=== PATIENT | female | born 1940 | race Caucasian/White ===

== ENCOUNTER 2017-07-10 10:11 | Outpatient (RCR) | payer MEDICARE, OTHER, SELFPAY ==
[2017-06-20 11:39] LABS: International Normalized Ratio 1.8; Prothrombin Time (Protime)PT. 19.9 SECONDS (11.7-14.9)
[2017-07-03 11:30] LABS: International Normalized Ratio 1.8; Prothrombin Time (Protime)PT. 20.3 SECONDS (11.7-14.9)
[2017-07-10 11:47] LABS: International Normalized Ratio 1.8; Prothrombin Time (Protime)PT. 20.5 SECONDS (11.7-14.9)
== END 2017-07-10 10:25 | disposition home or self-care (01) ==
LOC: LAB 10:11
PROVIDERS: Family Provider Family Medicine; PCP Family Medicine; Visit Provider Internal Medicine Cardiovascular Disease
DX: I48.1 Persistent atrial fibrillation (principal)
CPT/HCPCS: 36415; 85610

== ENCOUNTER 2017-07-10 11:00 | Outpatient (RCR) | payer MEDICARE, OTHER, SELFPAY ==
[2017-06-15 00:30] VITALS: BP 128/72; BP 140/68
== END 2017-07-15 23:59 ==
LOC: CR 11:00
PROVIDERS: Family Provider Family Medicine; PCP Family Medicine; Visit Provider Internal Medicine Cardiovascular Disease
DX: Z95.2 Presence of prosthetic heart valve (principal); I48.1 Persistent atrial fibrillation; I10 Essential (primary) hypertension; E78.5 Hyperlipidemia, unspecified; Z79.899 Other long term (current) drug therapy; I43 Cardiomyopathy in diseases classified elsewhere; I34.0 Nonrheumatic mitral (valve) insufficiency; I35.1 Nonrheumatic aortic (valve) insufficiency
CPT/HCPCS: 36415; 85610; 93798

== ENCOUNTER → 2017-07-16 14:22 | Outpatient (CLI) | payer MEDICARE, OTHER, SELFPAY ==
[2017-07-16 15:01] LABS: Hematocrit 36.8 % (37-47); Hemoglobin 11.9 g/dl (12.0-15.0); Mean Corp Hgb Conc 32.3 g/gl (32-36); Mean Corpuscular Hgb 24.7 pg (27.0-32.0); Mean Corpuscular Volume 76.3 fL (81-99); Mean Platelet Vol. 9.6 fl (6.2-12.0); Platelet Count 159 K/mm3 (150-450); RBC Distribution Width CV 17.3 % (11.6-14.6); RBC Distribution Width SD 47.5 fl (35.1-43.9); Red Blood Count 4.82 M/mm3 (4.2-5.4); White Blood Count 4.4 K/mm3 (4.4-11.0)
[2017-07-16 15:03] LABS: Scan Indicated on CBC? Y/N NO
[2017-07-16 15:22] LABS: Microalbumin,Random Urine 8.7 mg/L (NO RANGE EST.); Microalbumin:Creatinine Ratio 9.2 mg/g CRE (<30 mg/g CRE)
[2017-07-16 15:25] LABS: Albumin, Serum 3.2 g/dL (3.2-5.0)
[2017-07-17 08:41] LABS: PTHIN 72.6 pg/mL (18.4-80.1)
[2017-07-17 08:44] LABS: Vitamin D,25 Hydroxy 26.2 ng/mL (19.95-100.01)
[2017-07-20 16:58] LABS: BUN 39 mg/dL (7-18); BUN/Creat Ratio 18.4 RATIO (10-20); Calcium,Total 7.4 mg/dL (8.5-10.1); Chloride 102 mmol/L (98-107); Creatinine, Serum 2.12 mg/dL (0.55-1.02); EST Glomerular Filtration Rate 24 mL/min (>60); Est Glom Filt Rate - Afr Amer 29 mL/min (>60); Glucose 112 mg/dL (74-106); Potassium 5.2 mmol/L (3.5-5.1); Sodium Level 136 mmol/L (136-145)
== END ==
PROVIDERS: Family Provider Family Medicine; PCP Family Medicine; Visit Provider Internal Medicine Nephrology
DX: N18.3 Chronic kidney disease, stage 3 (moderate) (principal); D63.1 Anemia in chronic kidney disease; E83.42 Hypomagnesemia; N25.81 Secondary hyperparathyroidism of renal origin
CPT/HCPCS: 36415; 80069; 80076; 82043; 82306; 82570; 83735; 83970; 85027

== ENCOUNTER 2017-08-04 10:41 | Outpatient (RCR) | payer MEDICARE, OTHER, SELFPAY ==
[2017-07-16 15:14] VITALS: BP 140/70; BMI 32.3
[2017-08-04 11:23] LABS: Prothrombin Time (Protime)PT. 40.1 SECONDS (11.7-14.9)
[2017-08-04 11:38] LABS: International Normalized Ratio 4.4
[2017-08-04 12:02] LABS: AST(SGOT) 130 U/L (15-37); Alanine Aminotransfer ALT/SGPT 99 U/L (13-56); Albumin, Serum 3.3 g/dL (3.2-5.0); Alkaline Phosphatase 191 U/L (45-117); Bilirubin, Direct 0.21 mg/dL (0.00-0.30); Cholesterol 164 mg/dL (200); Globulin 4.9 g/dL (2.2-4.2); High Density Lipoprotein 38 mg/dL; Protein, Total 8.2 g/dL (6.4-8.2); T4 Free Direct 1.85 ng/dL (0.76-1.46); Thyroid Stim Hormone (TSH) 2.28 uIU/mL (0.358-3.74); Triglycerides 113 mg/dL; Very Low Density Lipoprotein 23 mg/dL (5-40)
== END 2017-08-04 11:00 ==
LOC: LAB 10:41
PROVIDERS: Family Provider Family Medicine; PCP Family Medicine; Visit Provider Internal Medicine Cardiovascular Disease
DX: I48.1 Persistent atrial fibrillation (principal); N18.9 Chronic kidney disease, unspecified; E78.5 Hyperlipidemia, unspecified; I43 Cardiomyopathy in diseases classified elsewhere
CPT/HCPCS: 36415; 80061; 80076; 84439; 84443; 85610

== ENCOUNTER → 2017-08-11 08:06 | Outpatient (CLI) | payer MEDICARE, OTHER, SELFPAY ==
[2017-07-16 15:14] VITALS: BP 140/70; BMI 32.3
[2017-08-11 09:35] LABS: International Normalized Ratio 2.5
[2017-08-11 09:44] LABS: Anion Gap 5 (5-15); BUN 35 mg/dL (7-18); BUN/Creat Ratio 16.6 RATIO (10-20); Calcium,Total 9.3 mg/dL (8.5-10.1); Chloride 101 mmol/L (98-107); Creatinine, Serum 2.11 mg/dL (0.55-1.02); EST Glomerular Filtration Rate 24 mL/min (>60); Est Glom Filt Rate - Afr Amer 29 mL/min (>60); Glucose 109 mg/dL (74-106); Potassium 4.3 mmol/L (3.5-5.1); Sodium Level 135 mmol/L (136-145)
--- NOTE | 2017-08-11 14:08 | PFT ---
INTRODUCTION: The patient is a 77-year-old female currently under the care of Dr. Velasquez that presents for pulmonary function testing secondary to a diagnosis of pulmonary hypertension. Respiratory therapy reports good patient effort and reports no other concerns. Bronchodilators were used during testing. INTERPRETATION: Forced expiration spirometry demonstrates no evidence of a large airways obstructive ventilatory defect. There was no significant response to aerosolized bronchodilators, based upon strict ATS criteria. Spirograms are of good quality and plateau normally. The respiratory flow volume loop appears normal. Body plethysmography was performed and reveals lung volumes to be within normal limits. Diffusing capacity by single breath CO is mildly reduced at 66% of predicted. IMPRESSION: These pulmonary function studies demonstrate the presence of an isolated mild reduction in diffusing capacity, which could be related to an underlying pulmonary vascular disorder such as pulmonary hypertension. There are no previous pulmonary function studies available for comparison.
== END ==
PROVIDERS: Family Provider Family Medicine; PCP Family Medicine; Visit Provider Internal Medicine Cardiovascular Disease
DX: I48.0 Paroxysmal atrial fibrillation (principal); I27.20 Pulmonary hypertension, unspecified; N18.3 Chronic kidney disease, stage 3 (moderate)
CPT/HCPCS: 36415; 80048; 85610; 94060; 94726; 94729

== ENCOUNTER 2017-09-10 10:36 | Outpatient (RCR) | payer MEDICARE, OTHER, SELFPAY ==
[2017-08-25 11:44] LABS: International Normalized Ratio 2.8; Prothrombin Time (Protime)PT. 29.8 SECONDS (11.7-14.9)
[2017-09-10 11:26] LABS: Prothrombin Time (Protime)PT. 46.8 SECONDS (11.7-14.9)
== END 2017-09-10 11:00 | disposition home or self-care (01) ==
LOC: LAB 10:36
PROVIDERS: Family Provider Family Medicine; PCP Family Medicine; Visit Provider Internal Medicine Cardiovascular Disease
DX: I48.1 Persistent atrial fibrillation (principal)
CPT/HCPCS: 36415; 85610

== ENCOUNTER 2017-10-05 10:06 | Outpatient (RCR) | payer MEDICARE, OTHER, SELFPAY ==
[2017-09-14 07:01] VITALS: BP 140/70; BMI 32.3
[2017-09-14 11:27] LABS: International Normalized Ratio 2.2; Prothrombin Time (Protime)PT. 24.1 SECONDS (11.7-14.9)
[2017-09-21 12:02] LABS: International Normalized Ratio 2.4
[2017-10-05 11:15] LABS: Prothrombin Time (Protime)PT. 22.7 SECONDS (11.7-14.9)
== END 2017-10-05 11:00 | disposition home or self-care (01) ==
LOC: LAB 10:06
PROVIDERS: Family Provider Family Medicine; PCP Family Medicine; Visit Provider Internal Medicine Cardiovascular Disease
DX: I48.1 Persistent atrial fibrillation (principal)
CPT/HCPCS: 36415; 85610

== ENCOUNTER 2017-11-11 10:56 | Outpatient (RCR) | payer MEDICARE, OTHER, SELFPAY ==
[2017-10-13 10:10] VITALS: BP 140/70; BMI 32.3
[2017-11-02 13:21] LABS: International Normalized Ratio 1.9; Prothrombin Time (Protime)PT. 22.1 SECONDS (11.7-14.9)
[2017-11-11 11:37] LABS: International Normalized Ratio 2.5; Prothrombin Time (Protime)PT. 26.9 SECONDS (11.7-14.9)
== END 2017-11-11 11:00 | disposition home or self-care (01) ==
LOC: LAB 10:56
PROVIDERS: Family Provider Family Medicine; PCP Family Medicine; Visit Provider Internal Medicine Cardiovascular Disease
DX: I48.1 Persistent atrial fibrillation (principal)
CPT/HCPCS: 36415; 85610

== ENCOUNTER 2017-12-09 10:47 | Outpatient (RCR) | payer MEDICARE, OTHER, SELFPAY ==
[2017-11-12 13:22] VITALS: BP 140/70; BMI 32.3
--- NOTE | 2017-11-18 10:53 | DT_ITS ---
This patient was seen during an EMR downtime November 16, 2017 - November 23, 2017. This patient may have a combination of paper and electronic documentation or all paper documentation. All documentation is viewable within the e-chart portion of [facility] for each patient visit.
[2017-11-23 12:19] LABS: Prothrombin Time (Protime)PT. 31.4 SECONDS (11.7-14.9)
[2017-12-09 11:21] LABS: International Normalized Ratio 2.5; Prothrombin Time (Protime)PT. 27.5 SECONDS (11.7-14.9)
== END 2017-12-09 11:00 | disposition home or self-care (01) ==
LOC: LAB 10:47
PROVIDERS: Family Provider Family Medicine; PCP Family Medicine; Visit Provider Internal Medicine Cardiovascular Disease
DX: I48.0 Paroxysmal atrial fibrillation (principal)
CPT/HCPCS: 36415; 85610

== ENCOUNTER 2018-01-06 10:49 | Outpatient (RCR) | payer MEDICARE, OTHER, SELFPAY ==
[2017-12-11 11:58] VITALS: BP 140/70; BMI 32.3
[2018-01-06 11:27] LABS: International Normalized Ratio 3.3; Prothrombin Time (Protime)PT. 33.9 SECONDS (11.7-14.9)
== END 2018-01-06 12:00 | disposition home or self-care (01) ==
LOC: LAB 10:49
PROVIDERS: Family Provider Family Medicine; PCP Family Medicine; Visit Provider Internal Medicine Cardiovascular Disease
DX: I48.1 Persistent atrial fibrillation (principal)
CPT/HCPCS: 36415; 85610

== ENCOUNTER → 2018-01-14 11:13 | Outpatient (CLI) | payer MEDICARE, OTHER, SELFPAY ==
[2018-01-14 12:23] LABS: Anion Gap 9 (5-15); BUN 30 mg/dL (7-18); BUN/Creat Ratio 16.9 RATIO (10-20); Calcium,Total 8.9 mg/dL (8.5-10.1); Chloride 100 mmol/L (98-107); Creatinine, Serum 1.77 mg/dL (0.55-1.02); EST Glomerular Filtration Rate 30 mL/min (>60); Est Glom Filt Rate - Afr Amer 36 mL/min (>60); Glucose 96 mg/dL (74-106); Potassium 4.4 mmol/L (3.5-5.1); Sodium Level 138 mmol/L (136-145)
== END ==
PROVIDERS: Family Provider Family Medicine; PCP Family Medicine; Visit Provider Internal Medicine Nephrology
DX: N18.3 Chronic kidney disease, stage 3 (moderate) (principal)
CPT/HCPCS: 36415; 80048

== ENCOUNTER 2018-02-04 10:44 | Outpatient (RCR) | payer MEDICARE, OTHER, SELFPAY ==
[2018-01-14 14:11] VITALS: BP 140/70; BMI 32.3
[2018-01-20 11:36] LABS: Prothrombin Time (Protime)PT. 38.5 SECONDS (11.7-14.9)
[2018-01-20 11:44] LABS: International Normalized Ratio 3.9
[2018-01-28 11:51] LABS: International Normalized Ratio 2.2; Prothrombin Time (Protime)PT. 24.6 SECONDS (11.7-14.9)
[2018-02-04 11:30] LABS: International Normalized Ratio 2.2; Prothrombin Time (Protime)PT. 24.3 SECONDS (11.7-14.9)
== END 2018-02-04 12:00 | disposition home or self-care (01) ==
LOC: LAB 10:44
PROVIDERS: Family Provider Family Medicine; PCP Family Medicine; Visit Provider Internal Medicine Cardiovascular Disease
DX: I48.1 Persistent atrial fibrillation (principal)
CPT/HCPCS: 36415; 85610

== ENCOUNTER 2018-02-26 10:18 | Outpatient (RCR) | payer MEDICARE, OTHER, SELFPAY ==
[2018-02-16 15:07] VITALS: BP 140/70; BMI 32.3
[2018-02-18 13:38] LABS: International Normalized Ratio 1.7; Prothrombin Time (Protime)PT. 20.2 SECONDS (11.7-14.9)
[2018-02-18 13:54] LABS: Anion Gap 10 (5-15); BUN 35 mg/dL (7-18); BUN/Creat Ratio 20.1 RATIO (10-20); Chloride 100 mmol/L (98-107); Creatinine, Serum 1.74 mg/dL (0.55-1.02); EST Glomerular Filtration Rate 30 mL/min (>60); Est Glom Filt Rate - Afr Amer 37 mL/min (>60); Glucose 87 mg/dL (74-106); Potassium 4.3 mmol/L (3.5-5.1); Sodium Level 137 mmol/L (136-145)
[2018-02-26 11:26] LABS: International Normalized Ratio 2.2; Prothrombin Time (Protime)PT. 24.8 SECONDS (11.7-14.9)
== END 2018-02-26 11:00 | disposition home or self-care (01) ==
LOC: LAB 10:18
PROVIDERS: Family Provider Family Medicine; PCP Family Medicine; Visit Provider Internal Medicine Cardiovascular Disease
DX: I48.1 Persistent atrial fibrillation (principal); N18.3 Chronic kidney disease, stage 3 (moderate)
CPT/HCPCS: 36415; 80048; 85610

== ENCOUNTER → 2018-03-11 13:43 | Outpatient (CLI) | payer MEDICARE, OTHER, SELFPAY ==
--- NOTE | 2018-03-11 13:45 | ECHOCS_ITS ---
Reason For Study: AVR. MVR Procedure This was a 2D Doppler, Color Flow transthoracic echocardiogram. Exam performed in department. Left Ventricle Normal size and thickness. The estimated ejection fraction is 65 %. Septal motion consistent with IVCD. No regional wall motion abnormalities noted. Right Ventricle Moderately dilated right ventricle. Normal systolic function. Atria The left atrium is mildly enlarged. Normal right atrium. Normal atrial septum. Bubble contrast study negative for right to left interatrial shunt. Mitral Valve Peak transmitral valve gradient 14 mmHg. Mean transmitral valve gradient 5 mmHg. Bioprosthetic mitral valve. Tricuspid Valve Normal tricuspid valve. Trivial tricuspid valve insufficiency. Right ventricular systolic pressure estimated to be 30 mmHg. Aortic Valve Peak aortic valve gradient 17 mmHg. Mean aortic valve gradient 9 mmHg. Bioprosthetic aortic valve. Pulmonic Valve Normal pulmonic valve. Great Vessels Normal aortic root. Normal arch. Normal inferior vena cava. Inferior vena cava collapse with sniff. Pericardium/Pleural No pericardial effusion. Medication 22 gauge I.V. with prn adaptor inserted into right arm. Diluted definity 2ml given slow IV push to enhance endocardial definition. Performed a rapid injection of agitated mix of 9 cc saline and 1cc air to assess for atrial septal defect. MMode/2D Measurements & Calculations LVIDd: 4.0 cm IVSd: 1.2 cm LVOT diam: 2.1 cm LVIDs: 2.6 cm LVPWd: 1.1 cm LVOT area: 3.4 cm2 RVDd: 4.0 cm FS: 35.7 % LA dimension: 4.2 cm LAV(MOD-sp4): 68.2 ml LA A4 area: 21.6 cm2 RA A4 area: 18.1 cm2 Time Measurements MV dec time: 0.44 sec Doppler Measurements & Calculations MV E max brandon: 134.8 cm/sec Lat Peak E' Brandon: 8.6 cm/sec Med Peak E' Brandon: 6.6 cm/sec MV A max brandon: 92.7 cm/sec E/E' lat: 15.6 E/E' med: 20.5 MV E/A: 1.5 MV V2 max: 188.8 cm/sec MV P1/2t max brandon: 190.7 cm/sec Ao V2 max: 206.0 cm/sec MV max P.3 mmHg MV P1/2t: 60.3 msec Ao max P.0 mmHg MV V2 mean: 106.6 cm/sec MV dec slope: 926.1 cm/sec2 Ao V2 mean: 138.3 cm/sec MV mean P.1 mmHg MVA(P1/2t): 3.6 cm2 Ao mean P.8 mmHg MV V2 VTI: 47.0 cm Ao V2 VTI: 41.3 cm MVA(VTI): 2.3 cm2 LIBIA(I,D): 2.7 cm2 LIBIA(V,D): 2.6 cm2 LV V1 max: 154.6 cm/sec SV(LVOT): 109.6 ml PA V2 max: 86.7 cm/sec LV V1 max P.6 mmHg LV V1 mean P.0 mmHg LV V1 mean: 104.0 cm/sec LV V1 VTI: 32.1 cm TR max brandon: 248.8 cm/sec TR max P.8 mmHg Interpretation Summary The estimated ejection fraction is 65 %. Moderately dilated right ventricle. The left atrium is mildly enlarged. Bubble contrast study negative for right to left interatrial shunt. Trivial tricuspid valve insufficiency. Right ventricular systolic pressure estimated to be 30 mmHg. Compared to echo report dated 04/06/2017, LV function has markedly improved from 45 to 65%. RVSP has remained the same. The study was technically difficult. Contrast injection was performed. Ordering Physician: Ra Velasquez Referring Physician: Hermann Nath M.D. Performed By: Crow Orlando RCS
== END ==
PROVIDERS: Family Provider Family Medicine; PCP Family Medicine; Referring Provider Internal Medicine Cardiovascular Disease; Visit Provider Internal Medicine Cardiovascular Disease
DX: Z95.2 Presence of prosthetic heart valve (principal); Z98.890 Other specified postprocedural states
CPT/HCPCS: 93306; Q9957; A4216; C8929

== ENCOUNTER 2018-03-23 09:21 | Outpatient (RCR) | payer MEDICARE, OTHER, SELFPAY ==
[2018-03-17 10:06] VITALS: BP 140/70; BMI 32.3
[2018-03-23 11:17] LABS: International Normalized Ratio 2.8; Prothrombin Time (Protime)PT. 29.5 SECONDS (11.7-14.9)
== END 2018-03-23 11:00 | disposition home or self-care (01) ==
LOC: LAB 09:21
PROVIDERS: Family Provider Family Medicine; PCP Family Medicine; Referring Provider Internal Medicine Cardiovascular Disease; Visit Provider Internal Medicine Cardiovascular Disease
DX: I48.1 Persistent atrial fibrillation (principal); I48.0 Paroxysmal atrial fibrillation; Z79.01 Long term (current) use of anticoagulants
CPT/HCPCS: 36415; 85610

== ENCOUNTER 2018-04-22 13:29 | Outpatient (RCR) | payer MEDICARE, OTHER, SELFPAY ==
[2018-04-15 11:22] VITALS: BP 140/70; BMI 32.3
[2018-04-22 15:35] LABS: International Normalized Ratio 2.6; Prothrombin Time (Protime)PT. 28.2 SECONDS (11.7-14.9)
== END 2018-05-14 10:02 | disposition home or self-care (01) ==
LOC: LAB 13:29
PROVIDERS: Family Provider Family Medicine; PCP Family Medicine; Referring Provider Internal Medicine Cardiovascular Disease; Visit Provider Internal Medicine Cardiovascular Disease
DX: I48.1 Persistent atrial fibrillation (principal); I48.0 Paroxysmal atrial fibrillation; Z79.01 Long term (current) use of anticoagulants
CPT/HCPCS: 36415; 85610

== ENCOUNTER 2018-06-05 09:45 | Emergency (ER) | payer MEDICARE, OTHER, SELFPAY ==
[2018-04-15 11:22] VITALS: BMI 32.3
[2018-06-05 09:47] VITALS: BP 136/85; PULSE 83; RESP 16; TEMP 36.3; O2SAT 100; BMI 35.8
--- NOTE | 2018-06-05 10:09 | RAD_ITS ---
STUDY: X-RAY - LEFT KNEE REASON FOR EXAM: Female, 78 years old. Pain after fall TECHNIQUE: 3 view(s) of the knee. COMPARISON: None. FINDINGS: Normal visualized distal femur. Normal visualized proximal tibia and fibula. Normal proximal tibiofibular articulation. There is moderate degenerative arthrosis of the medial femorotibial compartment with moderate joint space narrowing. There is mild degenerative arthrosis of the lateral femorotibial compartment. There is mild degenerative arthrosis of the patellofemoral articulation. The soft tissue structures are unremarkable. RAD/Knee 3 Views IMPRESSION: Degenerative arthrosis. Electronically Signed: Dennis Wong DO at 11:08 EST Tel , Service support ,
--- NOTE | 2018-06-05 10:09 | RAD_ITS ---
STUDY: X-RAY - RIGHT TIBIA AND FIBULA REASON FOR EXAM: Female, 78 years old. Status post fall TECHNIQUE: 3 view(s) of the tibia and fibula were obtained. COMPARISON: None. FINDINGS: Normal visualized tibia. Normal visualized fibula. Mild soft tissue swelling RAD/Tibia & Fibula 2 Views IMPRESSION: No evidence of fracture Electronically Signed: Dennis Wong DO at 11:07 EST Tel , Service support ,
[2018-06-05 10:33] LABS: Absolute Lymphocyte Count 0.48 X10^3/ul (0.83-4.51); Absolute Neutrophil Count 3.6 X10^3/uL (2.0-7.7); Basophil# 0.03 X10^3/uL; Basophil% 0.6 % (0-1); Differential Indicated SCAN CRITERIA MET; Eosinophil# 0.03 X10^3/uL; Eosinophils% 0.6 % (0-5); Hematocrit 26.3 % (37-47); Hemoglobin 8.2 g/dl (12.0-15.0); Lymphocyte # 0.48 X10^3/ul (4.0); Lymphocyte % 10.1 % (19-41); Mean Corp Hgb Conc 31.2 g/gl (32-36); Mean Corpuscular Hgb 24.2 pg (27.0-32.0); Mean Corpuscular Volume 77.6 fL (81-99); Mean Platelet Vol. 9.1 fl (6.2-12.0); Monocyte# 0.57 X10^3/uL; Monocyte% 12.1 % (0-10); Neutrophil # 3.62 X10^3/uL (2.7-7.7); Neutrophil % 76.6 % (47-70); POSITIVE COUNT NO; POSITIVE DIFFERENTIAL YES; POSITIVE MORPHOLOGY NO; Platelet Count 152 K/mm3 (150-450); RBC Distribution Width CV 17.6 % (11.6-14.6); RBC Distribution Width SD 49.5 fl (35.1-43.9); Red Blood Count 3.39 M/mm3 (4.2-5.4); White Blood Count 4.7 K/mm3 (4.4-11.0)
[2018-06-05 10:34] LABS: International Normalized Ratio 3.4; Prothrombin Time (Protime)PT. 34.3 SECONDS (11.7-14.9)
--- NOTE | 2018-06-05 10:40 | RAD_ITS ---
STUDY: X-RAY - LEFT HUMERUS REASON FOR EXAM: Female, 78 years old. Fall with pain TECHNIQUE: 2 view(s) of the humerus. COMPARISON: None. FINDINGS: Normal visualized humerus. There is no demonstrated fracture or osseous destructive process. There is no demonstrated soft tissue abnormality. RAD/Humerus min 2 Views IMPRESSION: Normal x-ray examination of the humerus. Electronically Signed: Dennis Wong DO at 11:07 EST Tel , Service support ,
[2018-06-05 10:41] LABS: Anion Gap 10 (5-15); BUN 31 mg/dL (7-18); BUN/Creat Ratio 16.7 RATIO (10-20); Calcium,Total 8.2 mg/dL (8.5-10.1); Chloride 103 mmol/L (98-107); Creatinine, Serum 1.86 mg/dL (0.55-1.02); EST Glomerular Filtration Rate 28 mL/min (>60); Est Glom Filt Rate - Afr Amer 34 mL/min (>60); Estimated Creatinine Clearance 20.03 ml/min; Glucose 105 mg/dL (74-106); Potassium 3.7 mmol/L (3.5-5.1); Sodium Level 137 mmol/L (136-145)
[2018-06-05] MEDS: 0.9% Normal Saline 1,000 ML 150 ML IV (10:56)
[2018-06-05 11:41] VITALS: BP 131/72; PULSE 79; RESP 16
--- NOTE | 2018-06-05 12:12 | ED.VISSUMM ---
- ER Visit Summary Date of Service: 06/05/18 Chief Complaint: [Fall] History of Present Illness: The patient is a 78 F [presents the emergency department after sustaining a fall 9 days ago. Patient states that she tripped over a stool and she fell against the table in a wall and then onto the linoleum floor. Patient did hit her knees. She did bump her head on a plastic basket. No loss of consciousness. Patient initially did not think much of it but continues to have a lot of ecchymosis and bruising and discomfort in her legs. Patient also complains of pain in her left upper arm. She denies any head pain. She denies any neck pain. She has had no vomiting. Patient is on Coumadin for history of atrial fibrillation.] Physical Examination: [HEENT-PERRLA, EOMI. Cranial nerves II through XII grossly intact. TMs clear. Mucous membranes moist. No adenopathy. Patient has some ecchymosis and bruising noted to the left forehead. Cardiovascular-regular rate and rhythm without murmur or ectopy Lungs-clear to auscultation, chest wall stable without crepitus or subcu emphysema Abdomen-normoactive bowel sounds, soft, nontender, no rebound or rigidity, no peritoneal signs. Extremities-intact ?4, normal range of motion, normal pulses. Left upper extremity-patient does have some mild diffuse tenderness over the proximal humerus without any obvious deformity noted. Patient does have a small area of ecchymosis noted. Neurovascular intact distally. Left knee-patient has ecchymosis and bruising noted with some diffuse tenderness about the knee. Ecchymosis extends down to the ankle. Right lower extremity-patient does have diffuse tenderness over the anterior tibia with ecchymosis and bruising noted diffusely. Neurovascular intact.] Test Results: [X-rays of the left shoulder, left knee, and right tib-fib were obtained which showed no fractures. CBC with differential showed a white cell count of 4.7, hemoglobin 8.2, hematocrit 26, platelets 152. Chemistries unremarkable. INR was 3.4.] Emergency Department Course and Treatment: [Patient's Coumadin level is managed by Dr. Ra Velasquez after I did discuss case with him and he asked that we hold the patient's Coumadin until next Thursday. Patient will also have repeat blood work performed next week to monitor her H&H and INR.] Treatment Plan: [Hold Coumadin until next Thursday and have repeat H&H next week to be ordered by Dr. Ra Velasquez's office.] Disposition: [Discharged home in stable condition] Impression: Mechanical fall Contusion bilateral lower extremities Close head injury Contusion left shoulder Anemia Coumadin coagulopathy] This note was generated with [employer] dictation software. It may contain incorrect words, spelling, and punctuation that were not noted in review of the chart prior to signing ED Disposition - Plan for ED Patient: Chief Complaint: Fall Referrals: Hermann Nath DO [Primary Care Provider] -
--- NOTE | 2018-06-05 12:16 | ED.DCSUM_ITS ---
- ER Visit Summary Date of Service: 06/05/18 Chief Complaint: [Fall] History of Present Illness: The patient is a 78 F [presents the emergency department after sustaining a fall 9 days ago. Patient states that she tripped over a stool and she fell against the table in a wall and then onto the linoleum floor. Patient did hit her knees. She did bump her head on a plastic basket. No loss of consciousness. Patient initially did not think much of it but continues to have a lot of ecchymosis and bruising and discomfort in her legs. Patient also complains of pain in her left upper arm. She denies any head pain. She denies any neck pain. She has had no vomiting. Patient is on Coumadin for history of atrial fibrillation.] Physical Examination: [HEENT-PERRLA, EOMI. Cranial nerves II through XII grossly intact. TMs clear. Mucous membranes moist. No adenopathy. Patient h as some ecchymosis and bruising noted to the left forehead. Cardiovascular-regular rate and rhythm without murmur or ectopy Lungs-clear to auscultation, chest wall stable without crepitus or subcu e mphysema Abdomen-normoactive bowel sounds, soft, nontender, no rebound or rigidity, no peritoneal signs. Extremities-intact ?4, normal range of motion, normal pulses. Left upper extremity-patient does have some mild diffuse tenderness over the proximal humerus without any obvious deformity noted. Patient does have a small area of ecchymosis noted. Neurovascular intact distally. Left knee-patient has ecchymosis and bruising noted with some diffuse tenderness about the knee. Ecchymosis extends down to the ankle. Right lower extremity-patient does have diffuse tenderness over the anterior tibia with ecchymosis and bruising noted diffusely. Neurovascular intact.] Test Results: [X-rays of the left shoulder, left knee, and right tib-fib were obtained which showed no fractures. CBC with differential showed a white cell count of 4.7, hemoglobin 8.2, hematocrit 26, platelets 152. Chemistries unremarkable. INR was 3.4.] Emergency Department Course and Treatment: [Patient's Coumadin level is managed by Dr. Ra Velasquez after I did discuss case with him and he asked that we hold the patient's Coumadin until next Thursday. Patient will also have repeat blood work performed next week to monitor her H&H and INR.] Treatment Plan: [Hold Coumadin until next Thursday and have repeat H&H next week to be ordered by Dr. Ra Velasquez's office.] Disposition: [Discharged home in stable condition] Impression: Mechanical fall Contusion bilateral lower extremities Close head injury Contusion left shoulder Anemia Coumadin coagulopathy] This note was generated with [employer] dictation software. It may contain incorrect words, spelling, and punctuation that were not noted in review of the chart prior to signing ED Disposition - Plan for ED Patient: Chief Complaint: Fall Referrals: Hermann Nath DO [Primary Care Provider] -
--- NOTE | 2018-06-05 12:17 | ED.DEP ---
ED Disposition - Plan for ED Patient: Chief Complaint: Fall Instructions: ED Mechanical Fall, ED Contusion Lower Ext, ED Contusion Upper Ext, Anemia Prescriptions: Oxycodone HCl/Acetaminophen [Percocet 5/325] 1 tab PO Q6H PRN PRN 3 Days #12 tab PRN Reason: Pain Referrals: Hermann Nath DO [Primary Care Provider] - Ra Velasquez MD [STAFF PHYSICIAN] - 3-5 Days Additional Instructions: hold your coumadin until next Thursday and have repeat blood work next week
[2018-06-05 12:27] VITALS: BP 114/71; PULSE 71; RESP 16; O2SAT 99
== END 2018-06-05 12:39 | disposition home or self-care (01) ==
LOC: ED 11:03
PROVIDERS: Emergency Provider Emergency Medicine; Family Provider Family Medicine; PCP Family Medicine
DX: S09.90XA Unspecified injury of head, initial encounter (principal); S40.012A Contusion of left shoulder, initial encounter; T45.515A Adverse effect of anticoagulants, initial encounter; W01.0XXA Fall on same level from slipping, tripping and stumbling without subsequent striking against object, initial encounter; I48.91 Unspecified atrial fibrillation; Z79.01 Long term (current) use of anticoagulants; D64.9 Anemia, unspecified; E78.00 Pure hypercholesterolemia, unspecified; N18.9 Chronic kidney disease, unspecified; I12.9 Hypertensive chronic kidney disease with stage 1 through stage 4 chronic kidney disease, or unspecified chronic kidney disease
CPT/HCPCS: 73060; 73562; 73590; 80048; 85025; 85610; 96360; 96361; 99283; J7030; A4216

== ENCOUNTER 2018-06-11 11:03 | Outpatient (RCR) | payer MEDICARE, OTHER, SELFPAY ==
[2018-04-15 11:22] VITALS: BMI 32.3
[2018-05-17 10:03] VITALS: BP 140/70
[2018-05-22 11:31] LABS: International Normalized Ratio 2.7; Prothrombin Time (Protime)PT. 28.9 SECONDS (11.7-14.9)
[2018-06-11 11:28] LABS: International Normalized Ratio 2.3; Prothrombin Time (Protime)PT. 25.2 SECONDS (11.7-14.9)
== END 2018-06-11 12:00 | disposition home or self-care (01) ==
LOC: LAB 11:03
PROVIDERS: Family Provider Family Medicine; PCP Family Medicine; Referring Provider Internal Medicine Cardiovascular Disease; Visit Provider Internal Medicine Cardiovascular Disease
DX: I48.1 Persistent atrial fibrillation (principal); I48.0 Paroxysmal atrial fibrillation; Z79.01 Long term (current) use of anticoagulants
CPT/HCPCS: 36415; 85610

== ENCOUNTER 2018-06-21 11:17 | Outpatient (RCR) | payer MEDICARE, OTHER, SELFPAY ==
[2018-06-14 14:59] VITALS: BP 140/70; BMI 32.3
[2018-06-21 10:42] VITALS: BMI 35.8
[2018-06-21 13:33] LABS: Prothrombin Time (Protime)PT. 35.8 SECONDS (11.7-14.9)
[2018-06-21 13:44] LABS: International Normalized Ratio 3.6
[2018-06-21 13:54] LABS: Anion Gap 9 (5-15); BUN 26 mg/dL (7-18); BUN/Creat Ratio 13.9 RATIO (10-20); Calcium,Total 8.5 mg/dL (8.5-10.1); Chloride 104 mmol/L (98-107); Creatinine, Serum 1.87 mg/dL (0.55-1.02); EST Glomerular Filtration Rate 28 mL/min (>60); Est Glom Filt Rate - Afr Amer 34 mL/min (>60); Glucose 98 mg/dL (74-106); Potassium 4.1 mmol/L (3.5-5.1); Sodium Level 136 mmol/L (136-145)
[2018-06-21 14:07] LABS: Absolute Lymphocyte Count 0.57 X10^3/ul (0.83-4.51); Absolute Neutrophil Count 4.1 X10^3/uL (2.0-7.7); Basophil# 0.02 X10^3/uL; Basophil% 0.4 % (0-1); Eosinophil# 0.02 X10^3/uL; Eosinophils% 0.4 % (0-5); Hematocrit 29.3 % (37-47); Hemoglobin 8.7 g/dl (12.0-15.0); Lymphocyte # 0.57 X10^3/ul (4.0); Lymphocyte % 11.1 % (19-41); Mean Corp Hgb Conc 29.7 g/gl (32-36); Mean Corpuscular Hgb 23.7 pg (27.0-32.0); Mean Corpuscular Volume 79.8 fL (81-99); Mean Platelet Vol. 9.3 fl (6.2-12.0); Monocyte# 0.46 X10^3/uL; Monocyte% 8.9 % (0-10); Neutrophil # 4.08 X10^3/uL (2.7-7.7); Neutrophil % 79.2 % (47-70); Platelet Count 151 K/mm3 (150-450); RBC Distribution Width CV 17.9 % (11.6-14.6); RBC Distribution Width SD 52.2 fl (35.1-43.9); Red Blood Count 3.67 M/mm3 (4.2-5.4); White Blood Count 5.2 K/mm3 (4.4-11.0)
[2018-06-21 14:08] LABS: Differential Indicated SCAN CRITERIA MET; POSITIVE COUNT NO; POSITIVE DIFFERENTIAL YES; POSITIVE MORPHOLOGY NO
== END 2018-06-21 12:00 | disposition home or self-care (01) ==
LOC: LAB 11:17
PROVIDERS: Physician Assistant Medical; Family Provider Family Medicine; PCP Family Medicine; Referring Provider Internal Medicine Cardiovascular Disease; Visit Provider Internal Medicine Cardiovascular Disease
DX: I10 Essential (primary) hypertension (principal); I48.1 Persistent atrial fibrillation; I48.0 Paroxysmal atrial fibrillation; Z79.01 Long term (current) use of anticoagulants
CPT/HCPCS: 36415; 80048; 85025; 85610

== ENCOUNTER 2018-07-19 15:16 | Outpatient (RCR) | payer MEDICARE, OTHER, SELFPAY ==
[2018-07-16 06:56] VITALS: BP 140/70
[2018-07-19 15:41] LABS: Absolute Lymphocyte Count 0.56 X10^3/ul (0.83-4.51); Absolute Neutrophil Count 3.2 X10^3/uL (2.0-7.7); Basophil# 0.02 X10^3/uL; Basophil% 0.5 % (0-1); Differential Indicated SCAN CRITERIA MET; Eosinophil# 0.01 X10^3/uL; Eosinophils% 0.2 % (0-5); Hematocrit 25.3 % (37-47); Hemoglobin 7.6 g/dl (12.0-15.0); Lymphocyte # 0.56 X10^3/ul (4.0); Lymphocyte % 13.6 % (19-41); Mean Corpuscular Hgb 22.9 pg (27.0-32.0); Mean Corpuscular Volume 76.2 fL (81-99); Mean Platelet Vol. 9.4 fl (6.2-12.0); Monocyte# 0.36 X10^3/uL; Monocyte% 8.7 % (0-10); Neutrophil # 3.17 X10^3/uL (2.7-7.7); POSITIVE COUNT NO; POSITIVE DIFFERENTIAL YES; POSITIVE MORPHOLOGY NO; Platelet Count 102 K/mm3 (150-450); RBC Distribution Width CV 17.3 % (11.6-14.6); RBC Distribution Width SD 47.9 fl (35.1-43.9); Red Blood Count 3.32 M/mm3 (4.2-5.4); White Blood Count 4.1 K/mm3 (4.4-11.0)
[2018-07-19 16:26] LABS: Differential Comment SCANNED
[2018-07-19 16:33] LABS: Prothrombin Time (Protime)PT. 81.6 SECONDS (11.7-14.9)
== END 2018-08-12 14:04 | disposition home or self-care (01) ==
LOC: LAB 15:16
PROVIDERS: Family Provider Family Medicine; PCP Family Medicine; Referring Provider Internal Medicine Cardiovascular Disease; Visit Provider Internal Medicine Cardiovascular Disease
DX: I48.0 Paroxysmal atrial fibrillation (principal); I48.1 Persistent atrial fibrillation; Z79.01 Long term (current) use of anticoagulants
CPT/HCPCS: 36415; 85025; 85610

== ENCOUNTER 2018-07-19 16:31 | Inpatient (IN) | payer MEDICARE, OTHER, SELFPAY ==
[2018-07-19] VITALS (20 sets, daily range): BP systolic 88–109; BP diastolic 44–69; PULSE 46–61; RESP 17–24; TEMP 36.1–36.6; O2SAT 92–100; BMI 34.5; BMI 34.7; BMI 34.8; BMI 34.4
--- NOTE | 2018-07-19 16:54 | EKG12_ITS ---
Test Reason : Blood Pressure : / mmHG Vent. Rate : 048 BPM Atrial Rate : 048 BPM P-R Int : 210 ms QRS Dur : 132 ms QT Int : 526 ms P-R-T Axes : 078 -27 030 degrees QTc Int : 469 ms Sinus bradycardia with 1st degree A-V block Right bundle branch block Abnormal ECG Confirmed by CARLOS PONCE, HIRAM ([id number]), editor producer OSMAN MARY ([id number] on 07/21/2018 1:56:31 PM Referred By: Ra Velasquez Confirmed By:HIRAM GONZALEZ MD
--- NOTE | 2018-07-19 16:58 | ED.VISSUMM ---
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 Velasquez for concerns for GI bleed. History aortic valve repair with paroxysmal atrial fibrillation on baby aspirin and warfarin. Follow-up in the office for symptoms of transient nosebleed and bruising with fatigue over the last 2 weeks. Reports black slimy stools 1-2 times per day or last 2 weeks. No history of EGD or colonoscopy. No NSAID therapy. Denies abdominal pain. No nausea or vomiting. Called in report had not hemoglobin 7.6 today outpatient, had a blood pressure of 80/50 in the office. History of cardiomyopathy. No heart stents or coronary disease. States has been transfused she thinks one time in the past. Physical Examination: General: Alert and oriented ?3, no acute distress HEENT: Normocephalic, atraumatic. Moist mucosa membranes. Mild pallor conjunctiva Neck: supple, nontender. Cardiovascular: Regular bradycardic rate and rhythm, no murmurs Respiratory: Normal breath sounds, symmetric, no distress Abdomen: Soft, nontender, nondistended, normal bowel sounds Rectal: No hemorrhoids. There was a posterior fissure that was nonbleeding. Brown stools, guaiac positive Extremities: Nontender, no edema, pulses intact ?4 Neuro: no focal neurological deficits. Skin: Ecchymosis right forearm, upper back. Skin intact. Test Results: EKG sinus rate of 48, first-degree AV block, no ST or T wave changes. Hemoglobin 7.4. Platelets 100. Potassium 6, BUN 74 creatinine 5.05. CO2 17, glucose 99. INR 10.4. PTT 102. Emergency Department Course and Treatment: Patient vital signs stable ED with blood pressure 109/65 gentle fluids given due to her CHF history. Orthostatics was negative. Brown stools on exam with a nonbleeding fissure posteriorly. She was guaiac positive. Hemoglobin 7.4. Platelets 100. INR supratherapeutic 10.4. No active bleeding in the ED. BUN 74 creatinine 5.05. Normal creatinine around 1.8. She reports followed by Dr. bustamante. Potassium was 6. EKG with no acute changes. She will aerosols, bicarb, insulin glucose. Bicarb given for treatment of hyperkalemia secondary to CO2 of 17. Unclear on bleeding source from rectum, stable at this point. Spoke with Dr. Grady point patient's history with no EGD or colonoscopies in the past, he will follow in the hospital. I spoke with hospitalist, Dr. Arambula request vitamin K 5 mg, FFP, 1 unit packed red blood cells to be ordered. This is given. She requests placement ICU. I spoke with outsoles channel opener Dr. Emanuel who will follow in the unit. Vitals remained stable in the ED. Family updated. Patient does report decreased urine output over the past week however still makes urine. Treatment Plan: [] Disposition: Admission Impression: 1. GI bleed 2. Acute kidney injury 3. Hyperkalemia 4. Anemia 5. Supratherapeutic INR This note was generated with [employer] dictation software. It may contain incorrect words, spelling, and punctuation that were not noted in review of the chart prior to signing ED Disposition - Plan for ED Patient: Disposition: Acute Care Hospital [facility] Diagnosis: GI bleed, Acute kidney injury, Hyperkalemia, Anemia, Supratherapeutic INR Referrals: Hermann Nath DO [Primary Care Provider] -
[2018-07-19 17:17] LABS: Absolute Lymphocyte Count 0.79 X10^3/ul (0.83-4.51); Absolute Neutrophil Count 3.4 X10^3/uL (2.0-7.7); Basophil# 0.03 X10^3/uL; Basophil% 0.7 % (0-1); Eosinophil# 0.02 X10^3/uL; Eosinophils% 0.4 % (0-5); Hematocrit 24.5 % (37-47); Hemoglobin 7.4 g/dl (12.0-15.0); Lymphocyte # 0.79 X10^3/ul (4.0); Lymphocyte % 17.3 % (19-41); Mean Corp Hgb Conc 30.2 g/gl (32-36); Mean Corpuscular Hgb 23.1 pg (27.0-32.0); Mean Corpuscular Volume 76.3 fL (81-99); Mean Platelet Vol. 9.2 fl (6.2-12.0); Monocyte# 0.38 X10^3/uL; Monocyte% 8.3 % (0-10); Neutrophil # 3.35 X10^3/uL (2.7-7.7); Neutrophil % 73.3 % (47-70); Platelet Count 100 K/mm3 (150-450); RBC Distribution Width CV 17.3 % (11.6-14.6); RBC Distribution Width SD 48.5 fl (35.1-43.9); Red Blood Count 3.21 M/mm3 (4.2-5.4); White Blood Count 4.6 K/mm3 (4.4-11.0)
[2018-07-19 17:18] LABS: POSITIVE COUNT NO; POSITIVE DIFFERENTIAL NO; POSITIVE MORPHOLOGY NO
[2018-07-19] MEDS: 0.9% Normal Saline 1,000 ML 150 ML IV (17:21)
--- NOTE | 2018-07-19 17:32 | ED.RN ---
DR. PISANO AWARE OF POSITIVE OB STOOL
--- NOTE | 2018-07-19 17:42 | ED.RN ---
K+ LEVEL 6.0. MD NOTIFIED.
[2018-07-19 17:46] LABS: Anion Gap 12 (5-15); BUN 74 mg/dL (7-18); BUN/Creat Ratio 14.7 RATIO (10-20); Calcium,Total 8.5 mg/dL (8.5-10.1); Chloride 105 mmol/L (98-107); Creatinine, Serum 5.05 mg/dL (0.55-1.02); EST Glomerular Filtration Rate 9 mL/min (>60); Est Glom Filt Rate - Afr Amer 11 mL/min (>60); Estimated Creatinine Clearance 7.38 ml/min; Glucose 99 mg/dL (74-106); Sodium Level 134 mmol/L (136-145)
[2018-07-19 17:51] LABS: Prothrombin Time (Protime)PT. 83.3 SECONDS (11.7-14.9)
[2018-07-19 17:55] LABS: International Normalized Ratio 10.4; Partial Thromboplast Time 102.6 Seconds (24.1-36.2)
--- NOTE | 2018-07-19 17:58 | ED.RN ---
CRITICAL LAB OF INR 10.4 AND PTT 102.6 RECEIVED, DR PISANO NOTIFIED. NO NEW ORDERS RECEIVED.
[2018-07-19] MEDS: Sodium Bicarbonate 8.4% 50 ML Syringe 50 MEQ IV (18:26)
[2018-07-19] MEDS: Dextrose 50%-Water 25 GM/50 ML DISP.SYRIN IV (18:29)
--- NOTE | 2018-07-19 18:40 | PCM.HP.STD ---
Problem List (1) GI bleed Status: Acute Qualifiers: GI bleed type/associated pathology: unspecified gastrointestinal hemorrhage type Qualified Code(s): K92.2 - Gastrointestinal hemorrhage, unspecified (2) Hyperkalemia Status: Acute (3) Anemia Status: Acute Qualifiers: Anemia type: unspecified type Qualified Code(s): D64.9 - Anemia, unspecified (4) Supratherapeutic INR Status: Acute (5) H/O mitral valve replacement Status: Chronic Comment: with 27 mm bioprosthetic heart valve @ [facility] (6) H/O aortic valve replacement Status: Chronic Comment: with 21 mm bioprosthetic heart valve, ligation of Lt atrial appendage @ [facility] (7) Cardiomyopathy in disease classified elsewhere Status: Chronic (8) Nonrheumatic mitral (valve) insufficiency Status: Chronic (9) Persistent atrial fibrillation Status: Chronic (10) Chronic kidney disease, unspecified Status: Chronic Qualifiers: Chronic kidney disease stage: unspecified stage Qualified Code(s): N18.9 - Chronic kidney disease, unspecified (11) HTN (hypertension) Status: Chronic Qualifiers: Hypertension type: essential hypertension Qualified Code(s): I10 - Essential (primary) hypertension (12) HLD (hyperlipidemia) Status: Chronic Qualifiers: Hyperlipidemia type: unspecified Qualified Code(s): E78.5 - Hyperlipidemia, unspecified (13) Heart failure with reduced ejection fraction Status: Chronic Qualifiers: Heart failure chronicity: chronic Qualified Code(s): I50.22 - Chronic systolic (congestive) heart failure History of Present Illness Date of Admission: 07/19/18 Chief Complaint: Fatigue, black stools - 2 weeks The patient is a 78 year old F with multiple comorbidities including mitral and aortic valve replacement, chronic heart failure with reduced EF, hypertension, hyperlipidemia, CKD, chronic atrial fibrillation, who comes in from Dr. Velasquez's office to the ED with concerns of possible GI bleed. Patient had gone to see Dr. Velasquez and complained of progressively worsening fatigue, worsening lower extremity edema, black tarry stools, slight fever, and an episode of nausea and vomiting. Stat CBC showed hemoglobin of 7.6 and her blood pressure in the cardiology office was 80/50. EKG shows sinus bradycardia with low voltage, right bundle branch block, no acute changes. QT corrected was 487 And admits to feeling very tired over the last 2 weeks. She had noticed that his stools were black. Her last INR check was about a month ago and it was 2.8. She denied any chest pain no palpitations She admits to feeling slightly lightheaded. She had fallen in May 2018, was seen in the ED, did not have any fractures. In the ED, her temperature was 97.0F, heart rate was 48, respiratory rate was 18, blood pressure was 105/50, she was saturating 97% on room air. Admitting blood work showed RBC count of 4.6, hemoglobin 7.4, previous hemoglobin on 06/21/2018 was 8.7, platelet count was 100, previous platelet on 06/21/2018 was 151, INR was 10.4, APTT was 102.6, sodium was 134, potassium 6.0, chloride 107, bicarbonate was 17, anion gap was 12, BUN 74, creatinine was 5.05, previous creatinine was 5.05, glucose was 99. Emergency room discussed with Dr. Grady who has agreed to follow-up with the patient for possible GI bleed Past Medical History Past Medical History (Chronic Problems): Chronic Problems (Last Reviewed 07/19/18 @ 15:34 by Eri Mccrary) On amiodarone therapy (Chronic) H/O mitral valve replacement (Chronic 01/28/17) with 27 mm bioprosthetic heart valve @ [facility] H/O aortic valve replacement (Chronic 01/28/17) with 21 mm bioprosthetic heart valve, ligation of Lt atrial appendage @ [facility] Cardiomyopathy in disease classified elsewhere (Chronic) Nonrheumatic mitral (valve) insufficiency (Chronic) Nonrheumatic aortic (valve) insufficiency (Chronic) Persistent atrial fibrillation (Chronic) Chronic kidney disease, unspecified (Chronic) HTN (hypertension) (Chronic) HLD (hyperlipidemia) (Chronic) Anticoagulant long-term use (Chronic) Diverticulitis (Chronic) Paroxysmal atrial fibrillation (Chronic) HTN (hypertension) (Chronic) Heart failure with reduced ejection fraction (Chronic) Pulmonary hypertension (Chronic) Mitral stenosis (Chronic) Aortic insufficiency (Chronic) KYLEIGH (acute kidney injury) (Chronic) CKD (chronic kidney disease) stage 3, GFR 30-59 ml/min (Chronic) CHF (congestive heart failure) (Chronic) Leukocytosis (Chronic) Mitral regurgitation (Chronic) Medical History: Medical History (Last Reviewed 07/19/18 @ 15:34 by Eri Mccrary) On amiodarone therapy (Chronic) Z79.899 Edema (Acute) R60.9 Dyspnea on exertion (Acute) R06.09 Cardiomyopathy in disease classified elsewhere (Chronic) I43 Nonrheumatic mitral (valve) insufficiency (Chronic) I34.0 Nonrheumatic aortic (valve) insufficiency (Chronic) I35.1 Persistent atrial fibrillation (Chronic) I48.1 Chronic kidney disease, unspecified (Chronic) N18.9 HTN (hypertension) (Chronic) I10 HLD (hyperlipidemia) (Chronic) E78.5 Allergies aspartame [From [employer] Aspartame] Allergy (Verified 07/19/18 16:38) Hives Home Medications: Ambulatory Orders Medication Instructions Recorded aspirin 81 mg tablet,delayed 81 mg PO DAILY 07/16/17 release rosuvastatin 10 mg tablet 10 mg PO QHS #90 tab 10/14/17 Furosemide [Lasix] 40 mg PO BID@0800,1700 06/05/18 Potassium Chloride [K-Dur] 10 meq PO BID@0800,1700 06/05/18 Acetaminophen [Tylenol] 1,000 mg PO DAILY 07/19/18 Amiodarone HCl 200 mg PO DAILY 07/19/18 Amlodipine Besylate 5 mg PO DAILY 07/19/18 Cholecalciferol (Vitamin D3) 5,000 unit PO DAILY 07/19/18 [Vitamin D3] Docusate Sodium [Colace] 100 mg PO DAILY 07/19/18 Omeprazole 20 mg PO DAILY 07/19/18 Warfarin [Coumadin ([facility]KC)] 2 mg PO DAILY 07/19/18 metoprolol succinate ER 50 mg 50 mg PO DAILY 07/19/18 tablet,extended release 24 hr Surgical History: Surgical History (Last Reviewed 07/19/18 @ 15:34 by Eri Mccrary) H/O mitral valve replacement (Chronic) Onset Date: 01/28/17 Z98.890, Z95.2 with 27 mm [facility] H/O aortic valve replacement (Chronic) Onset Date: 01/28/17 Z95.2 with 21 mm bioprosthetic heart valve, ligation of Lt atrial appendage @ [facility] History of right and left heart catheterization Z98.890 09/03/2016 Surgical History: cholecystectomy, - - Status post aortic and mitral valve replacement, open heart surgery Psychiatric History: No pertinent psych hx SHRUB GROWER History: No pertinent SHRUB GROWER history Lives: With Family - Daughter Smoking Status: Never smoker Tobacco Use: Non-smoker Alcohol: None Drugs: None - *Family History Maternal Family History: Family History (Last Reviewed 07/19/18 @ 15:34 by Eri Mccrary) Father No problems noted. History Items: Hypertension Offspring Family History: Family History (Last Reviewed 07/19/18 @ 15:34 by Eri Mccrary) Father No problems noted. History Items: Heart Disease, Stroke - Paternal grandmother Review of Systems Constitutional: Reports: Anorexia, Weakness, Fatigue. Denies: Chills, Fever, Weight Change Eyes: Denies: Blurred vision, Cataracts, Conjunctivae Inflammation, Double vision, Eyelid Inflammation, Pain, Redness, Vision Change HEENT: Reports: Nasal bleeding - spotting, noted today. Denies: Difficulty Hearing, Difficulty Swallowing, Head Aches, Sinus Congestion, Sinus Drainage Cardiovascular: Denies: Chest Pain, Claudication, Orthopnea, Palpitations Respiratory: Reports: Shortness of Breath, Shortness of breath upon exertion. Denies: Cough, Shortness of breath at rest, Sputum production Gastrointestinal: Reports: Nausea, Melena, Vomiting. Denies: Abdominal Pain, Hematemesis, Hematochezia Genitourinary: Denies: Dysuria, Frequency, Incontinence Gynecological: Denies: Breast symptoms, Excessively long or heavy periods Musculoskeletal: Reports: Leg Pain. Denies: Joint Pain, Joint stiffness, Joint swelling, Joint Tenderness Skin: Denies: Pruritis, Rash, Wounds Neurological: Denies: Difficulty swallowing, Focal weakness, Numbness, Tingling Psychiatric: Denies: Anxiety, Depression, Homicidal Ideations, Suicidal Ideations Hematologic/ Lymphatic: Denies: Easy Bruising, Easy Bleeding VTE Information - Inpt Only VTE Present on Admission: No VTE Pharm Prophylaxis ordered?: Yes Patient Problems: Active and Suspected Problems (Last Reviewed 07/19/18 @ 15:34 by Eri Mccrary) GI bleed (Acute) Hyperkalemia (Acute) Anemia (Acute) Supratherapeutic INR (Acute) - Physical Exam General: Alert, Oriented x3, Cooperative, No apparent distress, - - obese HEENT: Atraumatic, PERRLA, EOMI, Normocephalic, - - slight bleeding from anterior nares Oral: Dry Mucosa Neck: Supple, No JVD, Negative Carotid Bruits Lungs: Clear to auscultation, Diminished - at the lung bases Cardiovascular: Regular rate, Regular Rhythm, Normal S1, Normal S2, No murmurs Abdomen: Bowel Sounds Present, Soft, Non Tender, Non-Distended, No Hepato-splenomegaly Extremities: No edema Skin: No rashes, No breakdown Musculoskeletal: No Tenderness to Palpation of Joints or Extremities, Tenderness - and bruising over the right lower leg from fall in May 2018 Lymphatic: No Cervical, Supraclavicular, or Inguinal Adenopathy Neurological: Cranial nerves II-XII grossly intact, Neuro grossly intact Psych/Mental Status: Normal Affect, Appropriate Vital Signs Temp Pulse Resp BP Pulse Ox 97.0 F L 51 L 17 107/57 L 95 07/19/18 16:32 07/19/18 18:08 07/19/18 18:08 07/19/18 18:08 07/19/18 18:08 Oxygen Delivery Method Room Air Weight: 86.183 kg Body Mass Index (BMI) 34.7 Finger Stick Blood Glucose 99 Microbiology Past 72 Hours 07/19/18 16:52 Stool Occult Blood (JOSHUA) - Final Stool Occult Blood Positive Laboratory Tests Past 24 Hrs 07/19/18 07/19/18 07/19/18 17:05 17:05 17:05 WBC 4.6 RBC 3.21 L Hgb 7.4 L Hct 24.5 L MCV 76.3 L MCH 23.1 L MCHC 30.2 L RDW 17.3 H RDW Differential 48.5 H Plt Count 100 L MPV 9.2 Immature Gran % (Auto) 0.000 Neut % (Auto) 73.3 H Lymph % (Auto) 17.3 L Trigg % (Auto) 8.3 Eos % (Auto) 0.4 Baso % (Auto) 0.7 Absolute Neuts (auto) 3.4 Absolute Lymphs (auto) 0.79 L Total Counted Not Reportable PT 83.3 H INR 10.4 H* APTT 102.6 H* Sodium 134 L Potassium 6.0 H* Chloride 105 Carbon Dioxide 17.0 L Anion Gap 12 BUN 74 H Creatinine 5.05 H Estim Creat Clear Calc 7.38 Est GFR (MDRD) Af Amer 11 L Est GFR (MDRD) Non-Af 9 L BUN/Creatinine Ratio 14.7 Glucose 99 Calcium 8.5 Blood Type Antibody Screen Crossmatch 07/19/18 07/19/18 17:05 17:05 WBC RBC Hgb Hct MCV MCH MCHC RDW RDW Differential Plt Count MPV Immature Gran % (Auto) Neut % (Auto) Lymph % (Auto) Trigg % (Auto) Eos % (Auto) Baso % (Auto) Absolute Neuts (auto) Absolute Lymphs (auto) Total Counted PT INR APTT Sodium Potassium Chloride Carbon Dioxide Anion Gap BUN Creatinine Estim Creat Clear Calc Est GFR (MDRD) Af Amer Est GFR (MDRD) Non-Af BUN/Creatinine Ratio Glucose Calcium Blood Type A NEGATIVE Antibody Screen NEGATIVE Crossmatch See Detail Assessment/Plan All Active Problems (Last Reviewed 07/19/18 @ 15:34 by Eri Mccrary) GI bleed (Acute) Hyperkalemia (Acute) Anemia (Acute) Supratherapeutic INR (Acute) Edema (Acute) Dyspnea on exertion (Acute) 78 year old F with multiple comorbidities including mitral and aortic valve replacement, chronic heart failure with reduced EF, hypertension, hyperlipidemia, CKD, chronic atrial fibrillation, who comes in from Dr. Velasquez's office to the ED with concerns of possible GI bleed. 1. Severe anemia secondary to GI bleed, worsened by current supratherapeutic INR, admitting hemoglobin is 7.4, down from 8.7 a month ago Plan: Admit to ICU, monitor per protocol, transfuse 1 unit of packed RBC, plan to keep hemoglobin more than 8, IV PPI, hold Coumadin and aspirin,, repeat blood work after blood transfusions, general surgery consulted by the emergency department, will be following patient 2. Supratherapeutic INR, INR was 10.4, APTT is 102.6, with evidence of bleeding in the GI tract, and also episodic epistaxis Patient was on Coumadin, Coumadin on hold, given vitamin K in the emergency department, will transfuse with 2 units of FFP's Will have to keep patient's INR at 2.5 in light of her bioprosthetic valves and the mitral and aortic region INR will have to be monitored very closely, If INR falls less than 2, will start patient on heparin drip 3. GI bleed, unclear source, likely acute on chronic, possibly upper GI as patient has melena stools and was admitted to relative Hypertension stool occult blood is positive, will start patient on IV PPI, continue to monitor 4. Hyperkalemia due to acute kidney injury as well as oral potassium in take, status post albuterol inhalation, insulin with dextrose, sodium bicarbonate treatment in the emergency department, Will hold potassium, repeat BMP 5. KYLEIGH on CKD stage IV, admitting creatinine is 5.05, last creatinine was 1.87, likely secondary to dehydration, will repeat blood work after blood transfusions, nephrology consult 6. Acute metabolic acidosis, non-gap, likely secondary to KYLEIGH, will monitor patient 7. Hyponatremia, hypervolemic, secondary to KYLEIGH, will monitor 8. Thrombocytopenia, platelet count is 100, down from 150, will trend 9. History of chronic atrial fibrillation, in normal sinus rhythm now, will continue on amiodarone and reduce dose of metoprolol by cardiology with holding parameters 10. Possible acute on chronic heart failure, last 2D echo in February 2018 showed an EF of 65%, likely a mild exacerbation with leg edema vs being in [place] I on CKD, will be cautious with IV fluids and transfusions, will give Lasix in between blood transfusions, will have to be followed clinically 11. Hypertension, relatively hypotensive, on reduced dose of metoprolol, amlodipine on hold, will continue to monitor vitals 12. DVT prophylaxis -INR supratherapeutic, on SCDs 13. GI prophylaxis-on therapeutic PPI 14. Code status - DNR-CC Clarified with both the patient and her daughter who is her power of employment attorney for healthcare Code Visit Inpatient E&M: [id number] Init Hosp L3
[2018-07-19 20:55] LABS: Prothrombin Time (Protime)PT. 81.8 SECONDS (11.7-14.9)
[2018-07-19 21:00] LABS: International Normalized Ratio 10.1
[2018-07-19] MEDS: Atorvastatin Calcium 20 MG Tablet PO (21:54)
[2018-07-19] MEDS: Furosemide 40 MG/4 ML Vial IV (23:22)
[2018-07-20] VITALS (32 sets, daily range): BP systolic 78–120; BP diastolic 41–79; PULSE 47–64; RESP 14–25; TEMP 36.1–36.6; O2SAT 94–100
[2018-07-20 01:05] LABS: International Normalized Ratio 3.2; Prothrombin Time (Protime)PT. 33.2 SECONDS (11.7-14.9)
[2018-07-20 01:45] LABS: Hematocrit 23.3 % (37-47); Hemoglobin 7.2 g/dl (12.0-15.0)
[2018-07-20 01:50] LABS: Partial Thromboplast Time 79.6 Seconds (24.1-36.2)
[2018-07-20 02:07] LABS: Albumin, Serum 2.6 g/dL (3.2-5.0); BUN 68 mg/dL (7-18); BUN/Creat Ratio 16.1 RATIO (10-20); Calcium,Total 7.3 mg/dL (8.5-10.1); Chloride 112 mmol/L (98-107); Creatinine, Serum 4.22 mg/dL (0.55-1.02); EST Glomerular Filtration Rate 11 mL/min (>60); Est Glom Filt Rate - Afr Amer 13 mL/min (>60); Estimated Creatinine Clearance 8.83 ml/min; Glucose 76 mg/dL (74-106); Phosphorus 4.9 mg/dL (2.5-4.9); Potassium 4.7 mmol/L (3.5-5.1); Sodium Level 140 mmol/L (136-145)
--- NOTE | 2018-07-20 07:55 | PCM.CONS.GEN ---
Problem List (1) GI bleed Status: Acute Qualifiers: GI bleed type/associated pathology: unspecified gastrointestinal hemorrhage type Qualified Code(s): K92.2 - Gastrointestinal hemorrhage, unspecified (2) Supratherapeutic INR Status: Acute Reason for Consult Date of Consultation: 07/20/18 Reason for Consultation: Black stools with GI bleed History of Present Illness: The patient is a 78 year old F who was admitted yesterday with fatigue. She says she has been having black tarry stools for the last few weeks. She does not describe any abdominal pain. She has no nausea or vomiting. She says she had an EGD years ago for possible peptic ulcer disease. She has never had a colonoscopy. She is currently receiving blood. She had a supratherapeutic INR upon admission. She does say that she does have acid reflux. Past Medical History Past Medical History (Chronic Problems): Chronic Problems (Last Reviewed 07/19/18 @ 15:34 by Eri Mccrary) On amiodarone therapy (Chronic) H/O mitral valve replacement (Chronic 01/28/17) with 27 mm bioprosthetic heart valve @ [facility] H/O aortic valve replacement (Chronic 01/28/17) with 21 mm bioprosthetic heart valve, ligation of Lt atrial appendage @ [facility] Cardiomyopathy in disease classified elsewhere (Chronic) Nonrheumatic mitral (valve) insufficiency (Chronic) Nonrheumatic aortic (valve) insufficiency (Chronic) Persistent atrial fibrillation (Chronic) Chronic kidney disease, unspecified (Chronic) HTN (hypertension) (Chronic) HLD (hyperlipidemia) (Chronic) Anticoagulant long-term use (Chronic) Diverticulitis (Chronic) Paroxysmal atrial fibrillation (Chronic) HTN (hypertension) (Chronic) Heart failure with reduced ejection fraction (Chronic) Pulmonary hypertension (Chronic) Mitral stenosis (Chronic) Aortic insufficiency (Chronic) KYLEIGH (acute kidney injury) (Chronic) CKD (chronic kidney disease) stage 3, GFR 30-59 ml/min (Chronic) CHF (congestive heart failure) (Chronic) Leukocytosis (Chronic) Mitral regurgitation (Chronic) Medical History: Medical History (Last Reviewed 07/19/18 @ 15:34 by Eri Mccrary) On amiodarone therapy (Chronic) Z79.899 Edema (Acute) R60.9 Dyspnea on exertion (Acute) R06.09 Cardiomyopathy in disease classified elsewhere (Chronic) I43 Nonrheumatic mitral (valve) insufficiency (Chronic) I34.0 Nonrheumatic aortic (valve) insufficiency (Chronic) I35.1 Persistent atrial fibrillation (Chronic) I48.1 Chronic kidney disease, unspecified (Chronic) N18.9 HTN (hypertension) (Chronic) I10 HLD (hyperlipidemia) (Chronic) E78.5 Allergies aspartame [From [employer] Aspartame] Allergy (Verified 07/19/18 16:38) Hives Home Medications: Ambulatory Orders Medication Instructions Recorded aspirin 81 mg tablet,delayed 81 mg PO DAILY 07/16/17 release rosuvastatin 10 mg tablet 10 mg PO QHS #90 tab 10/14/17 Furosemide [Lasix] 40 mg PO BID@0800,1700 06/05/18 Potassium Chloride [K-Dur] 10 meq PO BID@0800,1700 06/05/18 Acetaminophen [Tylenol] 1,000 mg PO DAILY 07/19/18 Amiodarone HCl 200 mg PO DAILY 07/19/18 Amlodipine Besylate 5 mg PO DAILY 07/19/18 Cholecalciferol (Vitamin D3) 5,000 unit PO DAILY 07/19/18 [Vitamin D3] Docusate Sodium [Colace] 100 mg PO DAILY 07/19/18 Omeprazole 20 mg PO DAILY 07/19/18 Warfarin [Coumadin ([facility]KC)] 2 mg PO DAILY 07/19/18 metoprolol succinate ER 50 mg 50 mg PO DAILY 07/19/18 tablet,extended release 24 hr Surgical History: Surgical History (Last Reviewed 07/19/18 @ 15:34 by Eri Mccrary) H/O mitral valve replacement (Chronic) Onset Date: 01/28/17 Z98.890, Z95.2 with 27 mm bioprosthetic heart valve @ [facility] H/O aortic valve replacement (Chronic) Onset Date: 01/28/17 Z95.2 with 21 mm bioprosthetic heart valve, ligation of Lt atrial appendage @ [facility] History of right and left heart catheterization Z98.890 09/03/2016 Surgical History: cholecystectomy, - - Status post aortic and mitral valve replacement, open heart surgery Psychiatric History: No pertinent psych hx DOCTOR OF AUDIOLOGY History: No pertinent DOCTOR OF AUDIOLOGY history Lives: With Family - Daughter Smoking Status: Never smoker Tobacco Use: Non-smoker Alcohol: None Drugs: None - *Family History Maternal Family History: Family History (Last Reviewed 07/19/18 @ 15:34 by Eri Mccrary) Father No problems noted. History Items: Hypertension Offspring Family History: Family History (Last Reviewed 07/19/18 @ 15:34 by Eri Mccrary) Father No problems noted. History Items: Heart Disease, Stroke - Paternal grandmother Review of Systems Constitutional: Denies: Anorexia, Fever HEENT: Denies: Difficulty Swallowing Cardiovascular: Denies: Chest Pain Respiratory: Denies: Cough Gastrointestinal: Reports: Melena. Denies: Abdominal Pain, Nausea, Vomiting Genitourinary: Denies: Dysuria Musculoskeletal: Denies: Joint swelling Skin: Denies: Dryness Neurological: Denies: Balance problems Hematologic/ Lymphatic: Reports: Anemia Patient Problems: Active and Suspected Problems (Last Reviewed 07/19/18 @ 15:34 by Eri Mccrary) GI bleed (Acute) Hyperkalemia (Acute) Anemia (Acute) Supratherapeutic INR (Acute) - Physical Exam General: Alert, Oriented x3, No apparent distress HEENT: Atraumatic Neck: No JVD Lungs: Normal air movement Cardiovascular: Regular rate, Regular Rhythm Abdomen: Soft, Non Tender, Non-Distended Vital Signs Temp Pulse Resp BP Pulse Ox 97.6 F L 51 L 20 H 100/52 L 95 07/20/18 07:10 07/20/18 07:30 07/20/18 07:10 07/20/18 07:10 07/20/18 07:10 Oxygen Delivery Method Room Air Weight: 194 lb 3.636 oz Body Mass Index (BMI) 34.4 Finger Stick Blood Glucose 99 Intake and Output for Last 24 Hours 07/18/18 07/19/18 07/20/18 23:59 23:59 23:59 Intake Total 0 / 0 1841 / 1841 Output Total 400 / 400 Balance 0 / 0 1441 / 1441 Microbiology Past 72 Hours 07/19/18 16:52 Stool Occult Blood (JOSHUA) - Final Stool Occult Blood Positive Laboratory Tests Past 24 Hrs 07/19/18 07/19/18 07/19/18 17:05 17:05 17:05 WBC 4.6 RBC 3.21 L Hgb 7.4 L Hct 24.5 L MCV 76.3 L MCH 23.1 L MCHC 30.2 L RDW 17.3 H RDW Differential 48.5 H Plt Count 100 L MPV 9.2 Immature Gran % (Auto) 0.000 Neut % (Auto) 73.3 H Lymph % (Auto) 17.3 L Lyon % (Auto) 8.3 Eos % (Auto) 0.4 Baso % (Auto) 0.7 Absolute Neuts (auto) 3.4 Absolute Lymphs (auto) 0.79 L Total Counted Not Reportable PT 83.3 H INR 10.4 H* APTT 102.6 H* Sodium 134 L Potassium 6.0 H* Chloride 105 Carbon Dioxide 17.0 L Anion Gap 12 BUN 74 H Creatinine 5.05 H Estim Creat Clear Calc 7.38 Est GFR (MDRD) Af Amer 11 L Est GFR (MDRD) Non-Af 9 L BUN/Creatinine Ratio 14.7 Glucose 99 Calcium 8.5 Phosphorus Albumin Blood Type Antibody Screen Crossmatch 07/19/18 07/19/18 07/19/18 17:05 17:05 17:05 WBC RBC Hgb Hct MCV MCH MCHC RDW RDW Differential Plt Count MPV Immature Gran % (Auto) Neut % (Auto) Lymph % (Auto) Lyon % (Auto) Eos % (Auto) Baso % (Auto) Absolute Neuts (auto) Absolute Lymphs (auto) Total Counted PT INR APTT Sodium Potassium Chloride Carbon Dioxide Anion Gap BUN Creatinine Estim Creat Clear Calc Est GFR (MDRD) Af Amer Est GFR (MDRD) Non-Af BUN/Creatinine Ratio Glucose Calcium Phosphorus Albumin Blood Type A NEGATIVE Antibody Screen NEGATIVE Crossmatch See Detail See Detail 07/19/18 07/20/18 07/20/18 19:55 00:20 00:20 WBC RBC Hgb Hct MCV MCH MCHC RDW RDW Differential Plt Count MPV Immature Gran % (Auto) Neut % (Auto) Lymph % (Auto) Lyon % (Auto) Eos % (Auto) Baso % (Auto) Absolute Neuts (auto) Absolute Lymphs (auto) Total Counted PT 81.8 H 33.2 H INR 10.1 H* 3.2 APTT 79.6 H Sodium Potassium Chloride Carbon Dioxide Anion Gap BUN Creatinine Estim Creat Clear Calc Est GFR (MDRD) Af Amer Est GFR (MDRD) Non-Af BUN/Creatinine Ratio Glucose Calcium Phosphorus Albumin Blood Type Antibody Screen Crossmatch 07/20/18 07/20/18 07/20/18 01:25 01:25 01:25 WBC RBC Hgb 7.2 L Hct 23.3 L MCV MCH MCHC RDW RDW Differential Plt Count MPV Immature Gran % (Auto) Neut % (Auto) Lymph % (Auto) Lyon % (Auto) Eos % (Auto) Baso % (Auto) Absolute Neuts (auto) Absolute Lymphs (auto) Total Counted PT INR APTT Sodium Cancelled 140 Potassium Cancelled 4.7 Chloride Cancelled 112 H Carbon Dioxide Cancelled 18.0 L Anion Gap BUN Cancelled 68 H Creatinine Cancelled 4.22 H Estim Creat Clear Calc Cancelled 8.83 Est GFR (MDRD) Af Amer Cancelled 13 L Est GFR (MDRD) Non-Af Cancelled 11 L BUN/Creatinine Ratio Cancelled 16.1 Glucose Cancelled 76 Calcium Cancelled 7.3 L Phosphorus Cancelled 4.9 Albumin Cancelled 2.6 L Blood Type Antibody Screen Crossmatch Assessment/Plan All Active Problems (Last Reviewed 07/19/18 @ 15:34 by Eri Mccrary) GI bleed (Acute) Hyperkalemia (Acute) Anemia (Acute) Supratherapeutic INR (Acute) Edema (Acute) Dyspnea on exertion (Acute) 78-year-old female with black tarry stools and anemia 1. Patient is receiving blood products per ICU. Her INR is now 3 from 10. She does have prosthetic valves and is probably unlikely able to be completely reversed. I will take her today for EGD to see if there are any sources of bleeding in the stomach or duodenum. This is more likely to be an upper GI bleed and she will need a colonoscopy but this can be done as an outpatient. 2. I explained endoscopy in detail to the patient. I explained the risks including but not limited to stroke or heart attack with anesthesia, perforation of the GI tract, bleeding, infection. I explained that any of these could necessitate further emergency surgery. The patient understands and all questions were answered sufficiently. The patient wishes to proceed with procedure. 3. Continue PPI and n.p.o. for this morning. Jed Grady MD Pager: [facility] [address] [place] [address], [address] [place] [address] Office:
--- NOTE | 2018-07-20 07:58 | CON.PCM_ITS ---
Problem List (1) GI bleed Status: Acute Qualifiers: GI bleed type/associated pathology: unspecified gastrointestinal hemorrhage type Qualified Code(s): K92.2 - Gastrointestinal hemorrhage, unspecified (2) Supratherapeutic INR Status: Acute Reason for Consult Date of Consultation: 07/20/18 Reason for Consultation: Black stools with GI bleed History of Present Illness: The patient is a 78 year old F who was admitted yesterday with fatigue. She says she has been having black tarry stools for the last few weeks. She does not describe any abdominal pain. She has no nausea or vomiting. She says she had an EGD years ago for possible peptic ulcer disease. She has never had a colonoscopy. She is currently receiving blood. She had a supratherapeutic INR upon admission. She does say that she does have acid reflux. Past Medical History Past Medical History (Chronic Problems): Chronic Problems (Last Reviewed 07/19/18 @ 15:34 by Eri Mccrary) On amiodarone therapy (Chronic) H/O mitral valve replacement (Chronic 01/28/17) with 27 mm bioprosthetic heart valve @ [facility] H/O aortic valve replacement (Chronic 01/28/17) with 21 mm bioprosthetic heart valve, ligation of Lt atrial appendage @ [facility] Cardiomyopathy in disease classified elsewhere (Chronic) Nonrheumatic mitral (valve) insufficiency (Chronic) Nonrheumatic aortic (valve) insufficiency (Chronic) Persistent atrial fibrillation (Chronic) Chronic kidney disease, unspecified (Chronic) HTN (hypertension) (Chronic) HLD (hyperlipidemia) (Chronic) Anticoagulant long-term use (Chronic) Diverticulitis (Chronic) Paroxysmal atrial fibrillation (Chronic) HTN (hypertension) (Chronic) Heart failure with reduced ejection fraction (Chronic) Pulmonary hypertension (Chronic) Mitral stenosis (Chronic) Aortic insufficiency (Chronic) KYLEIGH (acute kidney injury) (Chronic) CKD (chronic kidney disease) stage 3, GFR 30-59 ml/min (Chronic) CHF (congestive heart failure) (Chronic) Leukocytosis (Chronic) Mitral regurgitation (Chronic) Medical History: Medical History (Last Reviewed 07/19/18 @ 15:34 by Eri Mccrary) On amiodarone therapy (Chronic) Z79.899 Edema (Acute) R60.9 Dyspnea on exertion (Acute) R06.09 Cardiomyopathy in disease classified elsewhere (Chronic) I43 Nonrheumatic mitral (valve) insufficiency (Chronic) I34.0 Nonrheumatic aortic (valve) insufficiency (Chronic) I35.1 Persistent atrial fibrillation (Chronic) I48.1 Chronic kidney disease, unspecified (Chronic) N18.9 HTN (hypertension) (Chronic) I10 HLD (hyperlipidemia) (Chronic) E78.5 Allergies aspartame [From [facility] Aspartame] Allergy (Verified 07/19/18 16:38) Hives Home Medications: Ambulatory Orders Medication Instructions Recorded aspirin 81 mg tablet,delayed 81 mg PO DAILY 07/16/17 release rosuvastatin 10 mg tablet 10 mg PO QHS #90 tab 10/14/17 Furosemide [Lasix] 40 mg PO BID@0800,1700 06/05/18 Potassium Chloride [K-Dur] 10 meq PO BID@0800,1700 06/05/18 Acetaminophen [Tylenol] 1,000 mg PO DAILY 07/19/18 Amiodarone HCl 200 mg PO DAILY 07/19/18 Amlodipine Besylate 5 mg PO DAILY 07/19/18 Cholecalciferol (Vitamin D3) 5,000 unit PO DAILY 07/19/18 [Vitamin D3] Docusate Sodium [Colace] 100 mg PO DAILY 07/19/18 Omeprazole 20 mg PO DAILY 07/19/18 Warfarin [Coumadin (PBKC)] 2 mg PO DAILY 07/19/18 metoprolol succinate ER 50 mg 50 mg PO DAILY 07/19/18 tablet,extended release 24 hr Surgical History: Surgical History (Last Reviewed 07/19/18 @ 15:34 by Eri Mccrary) H/O mitral valve replacement (Chronic) Onset Date: 01/28/17 Z98.890, Z95.2 with 27 mm bioprosthetic heart valve @ [facility] H/O aortic valve replacement (Chronic) Onset Date: 01/28/17 Z95.2 with 21 mm bioprosthetic heart valve, ligation of Lt atrial appendage @ [facility] History of right and left heart catheterization Z98.890 09/03/2016 Surgical History: cholecystectomy, - - Status post aortic and mitral valve replacement, open heart surgery Psychiatric History: No pertinent psych hx MEDICAL OFFICE COORDINATOR History: No pertinent MEDICAL OFFICE COORDINATOR history Lives: With Family - Daughter Smoking Status: Never smoker Tobacco Use: Non-smoker Alcohol: None Drugs: None - *Family History Maternal Family History: Family History (Last Reviewed 07/19/18 @ 15:34 by Eri Mccrary) Father No problems noted. History Items: Hypertension Offspring Family History: Family History (Last Reviewed 07/19/18 @ 15:34 by Eri Mccrary) Father No problems noted. History Items: Heart Disease, Stroke - Paternal grandmother Review of Systems Constitutional: Denies: Anorexia, Fever HEENT: Denies: Difficulty Swallowing Cardiovascular: Denies: Chest Pain Respiratory: Denies: Cough Gastrointestinal: Reports: Melena. Denies: Abdominal Pain, Nausea, Vomiting Genitourinary: Denies: Dysuria Musculoskeletal: Denies: Joint swelling Skin: Denies: Dryness Neurological: Denies: Balance problems Hematologic/ Lymphatic: Reports: Anemia Patient Problems: Active and Suspected Problems (Last Reviewed 07/19/18 @ 15:34 by Eri Mccrary) GI bleed (Acute) Hyperkalemia (Acute) Anemia (Acute) Supratherapeutic INR (Acute) - Physical Exam General: Alert, Oriented x3, No apparent distress HEENT: Atraumatic Neck: No JVD Lungs: Normal air movement Cardiovascular: Regular rate, Regular Rhythm Abdomen: Soft, Non Tender, Non-Distended Vital Signs Temp Pulse Resp BP Pulse Ox 97.6 F L 51 L 20 H 100/52 L 95 07/20/18 07:10 07/20/18 07:30 07/20/18 07:10 07/20/18 07:10 07/20/18 07:10 Oxygen Delivery Method Room Air Weight: 194 lb 3.636 oz Body Mass Index (BMI) 34.4 Finger Stick Blood Glucose 99 Intake and Output for Last 24 Hours 07/18/18 07/19/18 07/20/18 23:59 23:59 23:59 Intake Total 0 / 0 1841 / 1841 Output Total 400 / 400 Balance 0 / 0 1441 / 1441 Microbiology Past 72 Hours 07/19/18 16:52 Stool Occult Blood (JOSHUA) - Final Stool Occult Blood Positive Laboratory Tests Past 24 Hrs 07/19/18 07/19/18 07/19/18 17:05 17:05 17:05 WBC 4.6 RBC 3.21 L Hgb 7.4 L Hct 24.5 L MCV 76.3 L MCH 23.1 L MCHC 30.2 L RDW 17.3 H RDW Differential 48.5 H Plt Count 100 L MPV 9.2 Immature Gran % (Auto) 0.000 Neut % (Auto) 73.3 H Lymph % (Auto) 17.3 L [place] % (Auto) 8.3 Eos % (Auto) 0.4 Baso % (Auto) 0.7 Absolute Neuts (auto) 3.4 Absolute Lymphs (auto) 0.79 L Total Counted Not Reportable PT 83.3 H INR 10.4 H* APTT 102.6 H* Sodium 134 L Potassium 6.0 H* Chloride 105 Carbon Dioxide 17.0 L Anion Gap 12 BUN 74 H Creatinine 5.05 H Estim Creat Clear Calc 7.38 Est GFR (MDRD) Af Amer 11 L Est GFR (MDRD) Non-Af 9 L BUN/Creatinine Ratio 14.7 Glucose 99 Calcium 8.5 Phosphorus Albumin Blood Type Antibody Screen Crossmatch 07/19/18 07/19/18 07/19/18 17:05 17:05 17:05 WBC RBC Hgb Hct MCV MCH MCHC RDW RDW Differential Plt Count MPV Immature Gran % (Auto) Neut % (Auto) Lymph % (Auto) [place] % (Auto) Eos % (Auto) Baso % (Auto) Absolute Neuts (auto) Absolute Lymphs (auto) Total Counted PT INR APTT Sodium Potassium Chloride Carbon Dioxide Anion Gap BUN Creatinine Estim Creat Clear Calc Est GFR (MDRD) Af Amer Est GFR (MDRD) Non-Af BUN/Creatinine Ratio Glucose Calcium Phosphorus Albumin Blood Type A NEGATIVE Antibody Screen NEGATIVE Crossmatch See Detail See Detail 07/19/18 07/20/18 07/20/18 19:55 00:20 00:20 WBC RBC Hgb Hct MCV MCH MCHC RDW RDW Differential Plt Count MPV Immature Gran % (Auto) Neut % (Auto) Lymph % (Auto) [place] % (Auto) Eos % (Auto) Baso % (Auto) Absolute Neuts (auto) Absolute Lymphs (auto) Total Counted PT 81.8 H 33.2 H INR 10.1 H* 3.2 APTT 79.6 H Sodium Potassium Chloride Carbon Dioxide Anion Gap BUN Creatinine Estim Creat Clear Calc Est GFR (MDRD) Af Amer Est GFR (MDRD) Non-Af BUN/Creatinine Ratio Glucose Calcium Phosphorus Albumin Blood Type Antibody Screen Crossmatch 07/20/18 07/20/18 07/20/18 01:25 01:25 01:25 WBC RBC Hgb 7.2 L Hct 23.3 L MCV MCH MCHC RDW RDW Differential Plt Count MPV Immature Gran % (Auto) Neut % (Auto) Lymph % (Auto) [place] % (Auto) Eos % (Auto) Baso % (Auto) Absolute Neuts (auto) Absolute Lymphs (auto) Total Counted PT INR APTT Sodium Cancelled 140 Potassium Cancelled 4.7 Chloride Cancelled 112 H Carbon Dioxide Cancelled 18.0 L Anion Gap BUN Cancelled 68 H Creatinine Cancelled 4.22 H Estim Creat Clear Calc Cancelled 8.83 Est GFR (MDRD) Af Amer Cancelled 13 L Est GFR (MDRD) Non-Af Cancelled 11 L BUN/Creatinine Ratio Cancelled 16.1 Glucose Cancelled 76 Calcium Cancelled 7.3 L Phosphorus Cancelled 4.9 Albumin Cancelled 2.6 L Blood Type Antibody Screen Crossmatch Assessment/Plan All Active Problems (Last Reviewed 07/19/18 @ 15:34 by Eri Mccrary) GI bleed (Acute) Hyperkalemia (Acute) Anemia (Acute) Supratherapeutic INR (Acute) Edema (Acute) Dyspnea on exertion (Acute) 78-year-old female with black tarry stools and anemia 1. Patient is receiving blood products per ICU. Her INR is now 3 from 10. She does have prosthetic valves and is probably unlikely able to be completely reversed. I will take her today for EGD to see if there are any sources of bleeding in the stomach or duodenum. This is more likely to be an upper GI bleed and she will need a colonoscopy but this can be done as an outpatient. 2. I explained endoscopy in detail to the patient. I explained the risks including but not limited to stroke or heart attack with anesthesia, perforation of the GI tract, bleeding, infection. I explained that any of these could necessitate further emergency surgery. The patient understands and all questions were answered sufficiently. The patient wishes to proceed with procedure. 3. Continue PPI and n.p.o. for this morning. Jed Grady MD Pager: [facility] [address] [place] [address], [address] [place] [address] Office:
--- NOTE | 2018-07-20 07:59 | PCM.CON.CC ---
Problem List (1) GI bleed Status: Acute Qualifiers: GI bleed type/associated pathology: unspecified gastrointestinal hemorrhage type Qualified Code(s): K92.2 - Gastrointestinal hemorrhage, unspecified (2) Hyperkalemia Status: Acute (3) Anemia Status: Acute Qualifiers: Anemia type: unspecified type Qualified Code(s): D64.9 - Anemia, unspecified (4) Supratherapeutic INR Status: Acute (5) On amiodarone therapy Status: Chronic (6) Edema Status: Acute (7) H/O mitral valve replacement Status: Chronic Comment: with 27 [facility] (8) H/O aortic valve replacement Status: Chronic Comment: with 21 mm bioprosthetic heart valve, [facility] append[facility] (9) Cardiomyopathy in disease classified elsewhere Status: Chronic (10) Persistent atrial fibrillation Status: Chronic (11) Chronic kidney disease, unspecified Status: Chronic Qualifiers: Chronic kidney disease stage: unspecified stage Qualified Code(s): N18.9 - Chronic kidney disease, unspecified (12) HTN (hypertension) Status: Chronic Qualifiers: Hypertension type: essential hypertension Qualified Code(s): I10 - Essential (primary) hypertension (13) HLD (hyperlipidemia) Status: Chronic Qualifiers: Hyperlipidemia type: unspecified Qualified Code(s): E78.5 - Hyperlipidemia, unspecified (14) Anticoagulant long-term use Status: Chronic (15) Heart failure with reduced ejection fraction Status: Chronic Qualifiers: Heart failure chronicity: chronic Qualified Code(s): I50.22 - Chronic systolic (congestive) heart failure (16) Pulmonary hypertension Status: Chronic (17) CHF (congestive heart failure) Status: Chronic Reason for Consult Date of Consultation: 07/20/18 Reason for Consultation: Hemorrhagic shock History of Present Illness: The patient is a 78 year old F, with past medical history listed below, who presented to [facility] on 07/19/2018 secondary to concerns for GI bleed from Dr. Velasuqez's office. Patient does have a history of aortic valve repair and paroxysmal A. fib and is anticoagulated with warfarin and a baby aspirin. Patient had reported transient nosebleeds with bruising over the last 2 weeks. Patient had also reported black stools 1-2 times per day for the last 2 weeks. Patient reportedly had had an EGD previously for evaluation of peptic ulcer disease, but states nothing was found. Patient denied any excessive NSAID use, abdominal pain, nausea or vomiting. In the outpatient office, patient was noted to have a blood pressure of 80/50. While in the emergency department, patient did receive fluid resuscitation with improvement of blood pressure to 109/65. Patient was found to be guaiac positive and have a supratherapeutic INR of 10.4. Creatinine was elevated from a baseline of approximately 2 up to 5. Patient is typically followed by Dr. Silva per her report. Patient was noted to have hyperkalemia and was given aggressive therapy. Patient did receive 5 mg of vitamin K, FFP and 1 unit of packed red blood cells and then was admitted to the intensive care unit. Overnight, patient has received an additional unit of packed red blood cells. Patient's blood pressure has been marginal, but she was treated with Lasix therapy in between units. Patient reports no subjective change in overall condition. Patient does get a little lightheaded, especially with standing. Patient continues to report an overwhelming sense of fatigue. Patient denies any recent fever, chills, nausea or vomiting. Review of systems otherwise negative x10 systems. Past Medical History Past Medical History (Chronic Problems): Chronic Problems (Last Reviewed 07/19/18 @ 15:34 by Eri Mccrary) On amiodarone therapy (Chronic) H/O mitral valve replacement (Chronic 01/28/17) with 27 mm bioprosthetic heart valve @ [facility] H/O aortic valve replacement (Chronic 01/28/17) with 21 mm bioprosthetic heart valve, ligation of Lt atrial appendage @ [facility] Cardiomyopathy in disease classified elsewhere (Chronic) Nonrheumatic mitral (valve) insufficiency (Chronic) Nonrheumatic aortic (valve) insufficiency (Chronic) Persistent atrial fibrillation (Chronic) Chronic kidney disease, unspecified (Chronic) HTN (hypertension) (Chronic) HLD (hyperlipidemia) (Chronic) Anticoagulant long-term use (Chronic) Diverticulitis (Chronic) Paroxysmal atrial fibrillation (Chronic) HTN (hypertension) (Chronic) Heart failure with reduced ejection fraction (Chronic) Pulmonary hypertension (Chronic) Mitral stenosis (Chronic) Aortic insufficiency (Chronic) KYLEIGH (acute kidney injury) (Chronic) CKD (chronic kidney disease) stage 3, GFR 30-59 ml/min (Chronic) CHF (congestive heart failure) (Chronic) Leukocytosis (Chronic) Mitral regurgitation (Chronic) Medical History: Medical History (Last Reviewed 07/19/18 @ 15:34 by Eri Mccrary) On amiodarone therapy (Chronic) Z79.899 Edema (Acute) R60.9 Dyspnea on exertion (Acute) R06.09 Cardiomyopathy in disease classified elsewhere (Chronic) I43 Nonrheumatic mitral (valve) insufficiency (Chronic) I34.0 Nonrheumatic aortic (valve) insufficiency (Chronic) I35.1 Persistent atrial fibrillation (Chronic) I48.1 Chronic kidney disease, unspecified (Chronic) N18.9 HTN (hypertension) (Chronic) I10 HLD (hyperlipidemia) (Chronic) E78.5 Allergies aspartame [From [email or web address] Aspartame] Allergy (Verified 07/19/18 16:38) Hives Home Medications: Ambulatory Orders Medication Instructions Recorded aspirin 81 mg tablet,delayed 81 mg PO DAILY 07/16/17 release rosuvastatin 10 mg tablet 10 mg PO QHS #90 tab 10/14/17 Furosemide [Lasix] 40 mg PO BID@0800,1700 06/05/18 Potassium Chloride [K-Dur] 10 meq PO BID@0800,1700 06/05/18 Acetaminophen [Tylenol] 1,000 mg PO DAILY 07/19/18 Amiodarone HCl 200 mg PO DAILY 07/19/18 Amlodipine Besylate 5 mg PO DAILY 07/19/18 Cholecalciferol (Vitamin D3) 5,000 unit PO DAILY 07/19/18 [Vitamin D3] Docusate Sodium [Colace] 100 mg PO DAILY 07/19/18 Omeprazole 20 mg PO DAILY 07/19/18 Warfarin [Coumadin (PBKC)] 2 mg PO DAILY 07/19/18 metoprolol succinate ER 50 mg 50 mg PO DAILY 07/19/18 tablet,extended release 24 hr Surgical History: Surgical History (Last Reviewed 07/19/18 @ 15:34 by Eri Mccrary) H/O mitral valve replacement (Chronic) Onset Date: 01/28/17 Z98.890, Z95.2 with 27 mm bioprosthetic heart valve @ [facility] H/O aortic valve replacement (Chronic) Onset Date: 01/28/17 Z95.2 with 21 mm bioprosthetic heart valve, ligation of Lt atrial appendage @ [facility] History of right and left heart catheterization Z98.890 09/03/2016 Surgical History: cholecystectomy, - - Status post aortic and mitral valve replacement, open heart surgery Psychiatric History: No pertinent psych hx 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 History Items: Hypertension Offspring Family History: Family History (Last Reviewed 07/19/18 @ 15:34 by Eri Mccrary) Father No problems noted. History Items: Heart Disease, Stroke - Paternal grandmother Review of Systems Comment: See HPI, otherwise negative x10 systems. Patient Problems: Active and Suspected Problems (Last Reviewed 07/19/18 @ 15:34 by Eri Mccrary) GI bleed (Acute) Hyperkalemia (Acute) Anemia (Acute) Supratherapeutic INR (Acute) - Physical Exam General: Alert, Oriented x3, Cooperative, No apparent distress, - - Appears stated age. Speaking in full sentences. HEENT: Atraumatic, PERRLA, EOMI, Normocephalic, - - Slightly pale conjunctivae. Oral: No Gingival or Mucosal Lesions/ Ulcerations, Dry Mucosa Neck: Supple, No JVD, No Nodes, Trachea Midline Lungs: Clear to auscultation, Normal air movement, No rhonchi, No wheeze, No rales Cardiovascular: Normal S1, Irregular Rate, Murmur - Grade 2 out of 6 systolic ejection murmur at the apex, - - Mechanical heart sounds Abdomen: Bowel Sounds Present, Soft, Non Tender, Non-Distended, Obese Extremities: No clubbing, No cyanosis, Capillary Refill Less than 3 Seconds, Edema - 3+ lower extremity Skin: No rashes, No breakdown Musculoskeletal: No Tenderness to Palpation of Joints or Extremities Lymphatic: No Cervical, Supraclavicular, or Inguinal Adenopathy Neurological: Cranial nerves II-XII grossly intact, Neuro grossly intact, Motor Exam 5/5 strength throughout Psych/Mental Status: Alert and oriented to time, place, person, mood and affect Vital Signs Temp Pulse Resp BP Pulse Ox 36.4 C L 51 L 20 H 100/52 L 95 07/20/18 07:10 07/20/18 07:30 07/20/18 07:10 07/20/18 07:10 07/20/18 07:10 Oxygen Delivery Method Room Air Weight: 88.1 kg Body Mass Index (BMI) 34.4 Finger Stick Blood Glucose 99 Intake and Output for Last 24 Hours 07/18/18 07/19/18 07/20/18 23:59 23:59 23:59 Intake Total 0 / 0 1841 / 1841 Output Total 400 / 400 Balance 0 / 0 1441 / 1441 Microbiology Past 72 Hours 07/19/18 16:52 Stool Occult Blood (JOSHUA) - Final Stool Occult Blood Positive Laboratory Tests Past 24 Hrs 07/19/18 07/19/18 07/19/18 17:05 17:05 17:05 WBC 4.6 RBC 3.21 L Hgb 7.4 L Hct 24.5 L MCV 76.3 L MCH 23.1 L MCHC 30.2 L RDW 17.3 H RDW Differential 48.5 H Plt Count 100 L MPV 9.2 Immature Gran % (Auto) 0.000 Neut % (Auto) 73.3 H Lymph % (Auto) 17.3 L [place] % (Auto) 8.3 Eos % (Auto) 0.4 Baso % (Auto) 0.7 Absolute Neuts (auto) 3.4 Absolute Lymphs (auto) 0.79 L Total Counted Not Reportable PT 83.3 H INR 10.4 H* APTT 102.6 H* Sodium 134 L Potassium 6.0 H* Chloride 105 Carbon Dioxide 17.0 L Anion Gap 12 BUN 74 H Creatinine 5.05 H Estim Creat Clear Calc 7.38 Est GFR (MDRD) Af Amer 11 L Est GFR (MDRD) Non-Af 9 L BUN/Creatinine Ratio 14.7 Glucose 99 Calcium 8.5 Phosphorus Albumin Blood Type Antibody Screen Crossmatch 07/19/18 07/19/18 07/19/18 17:05 17:05 17:05 WBC RBC Hgb Hct MCV MCH MCHC RDW RDW Differential Plt Count MPV Immature Gran % (Auto) Neut % (Auto) Lymph % (Auto) [place] % (Auto) Eos % (Auto) Baso % (Auto) Absolute Neuts (auto) Absolute Lymphs (auto) Total Counted PT INR APTT Sodium Potassium Chloride Carbon Dioxide Anion Gap BUN Creatinine Estim Creat Clear Calc Est GFR (MDRD) Af Amer Est GFR (MDRD) Non-Af BUN/Creatinine Ratio Glucose Calcium Phosphorus Albumin Blood Type A NEGATIVE Antibody Screen NEGATIVE Crossmatch See Detail See Detail 07/19/18 07/20/18 07/20/18 19:55 00:20 00:20 WBC RBC Hgb Hct MCV MCH MCHC RDW RDW Differential Plt Count MPV Immature Gran % (Auto) Neut % (Auto) Lymph % (Auto) [place] % (Auto) Eos % (Auto) Baso % (Auto) Absolute Neuts (auto) Absolute Lymphs (auto) Total Counted PT 81.8 H 33.2 H INR 10.1 H* 3.2 APTT 79.6 H Sodium Potassium Chloride Carbon Dioxide Anion Gap BUN Creatinine Estim Creat Clear Calc Est GFR (MDRD) Af Amer Est GFR (MDRD) Non-Af BUN/Creatinine Ratio Glucose Calcium Phosphorus Albumin Blood Type Antibody Screen Crossmatch 07/20/18 07/20/18 07/20/18 01:25 01:25 01:25 WBC RBC Hgb 7.2 L Hct 23.3 L MCV MCH MCHC RDW RDW Differential Plt Count MPV Immature Gran % (Auto) Neut % (Auto) Lymph % (Auto) [place] % (Auto) Eos % (Auto) Baso % (Auto) Absolute Neuts (auto) Absolute Lymphs (auto) Total Counted PT INR APTT Sodium Cancelled 140 Potassium Cancelled 4.7 Chloride Cancelled 112 H Carbon Dioxide Cancelled 18.0 L Anion Gap BUN Cancelled 68 H Creatinine Cancelled 4.22 H Estim Creat Clear Calc Cancelled 8.83 Est GFR (MDRD) Af Amer Cancelled 13 L Est GFR (MDRD) Non-Af Cancelled 11 L BUN/Creatinine Ratio Cancelled 16.1 Glucose Cancelled 76 Calcium Cancelled 7.3 L Phosphorus Cancelled 4.9 Albumin Cancelled 2.6 L Blood Type Antibody Screen Crossmatch Assessment/Plan Active and Suspected Problems (Last Reviewed 07/19/18 @ 15:34 by Eri Mccrary) GI bleed (Acute) Hyperkalemia (Acute) Anemia (Acute) Supratherapeutic INR (Acute) RECOMMENDATIONS: 1. Serial H&H every 6 2. Transfuse to keep hemoglobin greater than 8 3. Await results of EGD 4. Possible initiation of heparin drip without bolus pending results 5. Okay to hold on diuretic therapy 6. May need transient transition of CODE STATUS for procedure IMPRESSIONS: 1. Hemorrhagic shock secondary to possible upper GI bleed with supratherapeutic INR Patient is on Coumadin therapy, but INR was noted to be over 10 on presentation. Patient does report a long history of GERD type symptoms, so ulcer may be present. Patient is to have an EGD for evaluation. Patient has received 2 units of packed red blood cells with no significant change in H&H. Likely transfuse to reach a goal of hemoglobin greater than 8 while patient appears to be actively bleeding. H&H every 6 times 24 hours. Transfuse as necessary. 2. Acute on chronic kidney disease stage IV/non-anion gap metabolic acidosis/hyponatremia/hyperkalemia Prerenal in etiology secondary to #1. Patient did have elevated potassium on presentation requiring aggressive therapy. This appears to be okay. Repeat BMP is currently pending. Patient did receive diuretic therapy. We will continue to monitor BMP intermittently. Patient may require evaluation by nephrology if not improving with hydration and blood pressure support. 3. Thrombocytopenia Probable consumptive. Patient has not received any recent heparin products. We will continue to monitor closely. No indication for transfusion at this time. 4. Chronic diastolic congestive heart failure/chronic A. fib/hypertension/history of valve replacement Patient appears to be at baseline at this time. Likely okay to hold on diuretic therapy during the acute period. Patient saturating well on room air. Will continue to monitor saturations closely. Possibly reinitiate baseline medications once bleeding situation is improved. Patient will need to be kept with an INR above 2. If patient corrects back to normal, initiation of a heparin drip may be necessary. 5. Advanced age/history of diverticulitis/hyperlipidemia/pulmonary hypertension Complicates care, management, recovery and prognosis. Okay to continue with baseline medications from my perspective. Code Visit Inpatient E&M: 18375 Init Hosp L3
--- NOTE | 2018-07-20 09:01 | PCM.PN.HOSP ---
Patient Problems: Active and Suspected Problems (Last Reviewed 07/19/18 @ 15:34 by Eri Mccrary) GI bleed (Acute) Hyperkalemia (Acute) Anemia (Acute) Supratherapeutic INR (Acute) Subjective: Doing well, feels much better. Denies any lightheadedness or dizziness. Denies any chest pain or shortness of breath. Vitals/I&O's: Vital Signs Temp Pulse Resp BP Pulse Ox 97.4 F L 50 L 20 H 95/61 95 07/20/18 08:00 07/20/18 08:00 07/20/18 08:00 07/20/18 08:00 07/20/18 08:00 Oxygen Delivery Method Room Air Weight: 194 lb 3.636 oz Body Mass Index (BMI) 34.4 Finger Stick Blood Glucose 99 Intake and Output for Last 24 Hours 07/18/18 07/19/18 07/20/18 23:59 23:59 23:59 Intake Total 0 / 0 1841 / 1841 Output Total 400 / 400 Balance 0 / 0 1441 / 1441 General: Alert, Oriented x3, Cooperative, No apparent distress HEENT: Atraumatic, PERRLA, EOMI, Normocephalic Oral: Moist Mucosa Neck: Supple, No JVD, Trachea Midline Lungs: Clear to auscultation, Normal air movement, No rhonchi, No wheeze, No rales, Diminished Cardiovascular: Regular rate, Regular Rhythm, Normal S1, Normal S2, No murmurs Abdomen: Soft, Non Tender, Non-Distended, No Hepato-splenomegaly Extremities: No edema, Capillary Refill Less than 3 Seconds Skin: No rashes, No breakdown Neurological: Neuro grossly intact, Sensory exam intact to light touch and pain Psych/Mental Status: Normal Affect, Appropriate Microbiology Past 72 Hours 07/19/18 16:52 Stool Stool Occult Blood (JOSHUA) - Final Occult Blood Positive Laboratory Results 07/19/18 17:05: WBC 4.6, RBC 3.21 L, Hgb 7.4 L, Hct 24.5 L, MCV 76.3 L, MCH 23.1 L, MCHC 30.2 L, RDW 17.3 H, RDW Differential 48.5 H, Plt Count 100 L, MPV 9.2, Immature Gran % (Auto) 0.000, Neut % (Auto) 73.3 H, Lymph % (Auto) 17.3 L, [place] % (Auto) 8.3, Eos % (Auto) 0.4, Baso % (Auto) 0.7, Absolute Neuts (auto) 3.4, Absolute Lymphs (auto) 0.79 L, Total Counted Not Reportable 07/19/18 17:05: PT 83.3 H, INR 10.4 H*, APTT 102.6 H* 07/19/18 17:05: Sodium 134 L, Potassium 6.0 H*, Chloride 105, Carbon Dioxide 17.0 L, Anion Gap 12, BUN 74 H, Creatinine 5.05 H, Estim Creat Clear Calc 7.38, Est GFR (MDRD) Af Amer 11 L, Est GFR (MDRD) Non-Af 9 L, BUN/Creatinine Ratio 14.7, Glucose 99, Calcium 8.5 07/19/18 17:05: Blood Type A NEGATIVE, Antibody Screen NEGATIVE 07/19/18 17:05: Crossmatch See Detail 07/19/18 17:05: Crossmatch See Detail 07/19/18 19:55: PT 81.8 H, INR 10.1 H* 07/20/18 00:20: PT 33.2 H, INR 3.2 07/20/18 00:20: APTT 79.6 H 07/20/18 01:25: Sodium Cancelled, Potassium Cancelled, Chloride Cancelled, Carbon Dioxide Cancelled, BUN Cancelled, Creatinine Cancelled, Estim Creat Clear Calc Cancelled, Est GFR (MDRD) Af Amer Cancelled, Est GFR (MDRD) Non-Af Cancelled, BUN/Creatinine Ratio Cancelled, Glucose Cancelled, Calcium Cancelled, Phosphorus Cancelled, Albumin Cancelled 07/20/18 01:25: Hgb 7.2 L, Hct 23.3 L 07/20/18 01:25: Sodium 140, Potassium 4.7, Chloride 112 H, Carbon Dioxide 18.0 L, BUN 68 H, Creatinine 4.22 H, Estim Creat Clear Calc 8.83, Est GFR (MDRD) Af Amer 13 L, Est GFR (MDRD) Non-Af 11 L, BUN/Creatinine Ratio 16.1, Glucose 76, Calcium 7.3 L, Phosphorus 4.9, Albumin 2.6 L Current Medications Amiodarone HCl (Cordarone) 200 mg PO DAILY [facility] Atorvastatin Calcium (Lipitor) 20 mg PO QHS [facility] Last Admin: 07/19/18 21:54 Dose: 20 mg Bisacodyl (Dulcolax) 5 mg PO DAILY PRN PRN PRN Reason: Constipation Cholecalciferol (Vitamin D) 5,000 unit PO DAILY [facility] Docusate Sodium (Colace) 100 mg PO DAILY [facility] Sodium Chloride () 250 mls @ 15 mls/hr IV .[id number] PRN PRN Reason: SALINE FLUSH Sodium Chloride () 250 mls @ 15 mls/hr IV .[id number] PRN PRN Reason: SALINE FLUSH Last Admin: 07/19/18 23:24 Dose: 15 mls/hr Pantoprazole Sodium 40 mg/ (Sodium Chloride) 110 mls @ 330 mls/hr IV Q12 [facility] Last Admin: 07/19/18 21:53 Dose: 330 mls/hr Magnesium Hydroxide (Milk Of Magnesia) 30 ml PO DAILY PRN PRN PRN Reason: Constipation Metoprolol Succinate (Toprol Xl (Beta Charbel)) 50 mg PO DAILY [facility] Ondansetron HCl (Zofran) 4 mg IV Q8H PRN PRN PRN Reason: NAUSEA Psyllium Hydrophilic Mucilloid (Metamucil) 1 packet PO DAILY PRN PRN PRN Reason: CONSTIPATION Sodium Chloride () 5 - 15 ml IV UD PRN PRN Reason: SALINE FLUSH Medical Necessity - Tobacco Use Smoking Status: Never smoker Tobacco Use: Non-smoker Assessment/Plan All Active Problems (Last Reviewed 07/19/18 @ 15:34 by Eri Mccrary) GI bleed (Acute) Hyperkalemia (Acute) Anemia (Acute) Supratherapeutic INR (Acute) Edema (Acute) Dyspnea on exertion (Acute) 1. GI bleed secondary to supratherapeutic INR and possible aspirin use -Admitted to the ICU and transfused 1 unit of packed red blood cells for a hemoglobin of 7.4 -INR is down to 3.6 from 10 she was given vitamin K and FFP in the ER -EGD today -Tinea with IV PPI as the likely source is an upper GI bleed -I could not find any evidence of cardiac cath or significant coronary artery disease, can likely transition off of aspirin 2. A. fib/history of systolic heart failure/CKD 4 with AK I -Pain is improved from 5.05-4.22 -Continue with gentle IV hydration -Last echo with an EF of 65% and her previous echo which showed systolic dysfunction had an EF of only 45% -She is on Coumadin for her A. fib and she has had mitral and aortic valve replacements. We will have to discuss with cardiology whether or not she needs to be off of anticoagulation completely or if we could transition to an Eliquis even though this is not an indication for valve replacements -Continue with amiodarone, Lipitor, metoprolol -Any swelling appreciated on exam is likely secondary to her Norvasc and therefore chronic DVT: Therapeutic INR Code Visit Inpatient E&M: 19843 Subs Hosp L2
--- NOTE | 2018-07-20 09:09 | PN_ITS ---
Patient Problems: Active and Suspected Problems (Last Reviewed 07/19/18 @ 15:34 by Eri Mccrary) GI bleed (Acute) Hyperkalemia (Acute) Anemia (Acute) Supratherapeutic INR (Acute) Subjective: Doing well, feels much better. Denies any lightheadedness or dizziness. Denies any chest pain or shortness of breath. Vitals/I&O's: Vital Signs Temp Pulse Resp BP Pulse Ox 97.4 F L 50 L 20 H 95/61 95 07/20/18 08:00 07/20/18 08:00 07/20/18 08:00 07/20/18 08:00 07/20/18 08:00 Oxygen Delivery Method Room Air Weight: 194 lb 3.636 oz Body Mass Index (BMI) 34.4 Finger Stick Blood Glucose 99 Intake and Output for Last 24 Hours 07/18/18 07/19/18 07/20/18 23:59 23:59 23:59 Intake Total 0 / 0 1841 / 1841 Output Total 400 / 400 Balance 0 / 0 1441 / 1441 General: Alert, Oriented x3, Cooperative, No apparent distress HEENT: Atraumatic, PERRLA, EOMI, Normocephalic Oral: Moist Mucosa Neck: Supple, No JVD, Trachea Midline Lungs: Clear to auscultation, Normal air movement, No rhonchi, No wheeze, No rales, Diminished Cardiovascular: Regular rate, Regular Rhythm, Normal S1, Normal S2, No murmurs Abdomen: Soft, Non Tender, Non-Distended, No Hepato-splenomegaly Extremities: No edema, Capillary Refill Less than 3 Seconds Skin: No rashes, No breakdown Neurological: Neuro grossly intact, Sensory exam intact to light touch and pain Psych/Mental Status: Normal Affect, Appropriate Microbiology Past 72 Hours 07/19/18 16:52 Stool Stool Occult Blood (JOSHUA) - Final Occult Blood Positive Laboratory Results 07/19/18 17:05: WBC 4.6, RBC 3.21 L, Hgb 7.4 L, Hct 24.5 L, MCV 76.3 L, MCH 23.1 L, MCHC 30.2 L, RDW 17.3 H, RDW Differential 48.5 H, Plt Count 100 L, MPV 9.2, Immature Gran % (Auto) 0.000, Neut % (Auto) 73.3 H, Lymph % (Auto) 17.3 L, [place] % (Auto) 8.3, Eos % (Auto) 0.4, Baso % (Auto) 0.7, Absolute Neuts (auto) 3.4, Absolute Lymphs (auto) 0.79 L, Total Counted Not Reportable 07/19/18 17:05: PT 83.3 H, INR 10.4 H*, APTT 102.6 H* 07/19/18 17:05: Sodium 134 L, Potassium 6.0 H*, Chloride 105, Carbon Dioxide 17.0 L, Anion Gap 12, BUN 74 H, Creatinine 5.05 H, Estim Creat Clear Calc 7.38, Est GFR (MDRD) Af Amer 11 L, Est GFR (MDRD) Non-Af 9 L, BUN/Creatinine Ratio 14.7, Glucose 99, Calcium 8.5 07/19/18 17:05: Blood Type A NEGATIVE, Antibody Screen NEGATIVE 07/19/18 17:05: Crossmatch See Detail 07/19/18 17:05: Crossmatch See Detail 07/19/18 19:55: PT 81.8 H, INR 10.1 H* 07/20/18 00:20: PT 33.2 H, INR 3.2 07/20/18 00:20: APTT 79.6 H 07/20/18 01:25: Sodium Cancelled, Potassium Cancelled, Chloride Cancelled, Carbon Dioxide Cancelled, BUN Cancelled, Creatinine Cancelled, Estim Creat Clear Calc Cancelled, Est GFR (MDRD) Af Amer Cancelled, Est GFR (MDRD) Non-Af Cancelled, BUN/Creatinine Ratio Cancelled, Glucose Cancelled, Calcium Cancelled, Phosphorus Cancelled, Albumin Cancelled 07/20/18 01:25: Hgb 7.2 L, Hct 23.3 L 07/20/18 01:25: Sodium 140, Potassium 4.7, Chloride 112 H, Carbon Dioxide 18.0 L , BUN 68 H, Creatinine 4.22 H, Estim Creat Clear Calc 8.83, Est GFR (MDRD) Af Amer 13 L, Est GFR (MDRD) Non-Af 11 L, BUN/Creatinine Ratio 16.1, Glucose 76, Calcium 7.3 L, Phosphorus 4.9, Albumin 2.6 L Current Medications Amiodarone HCl (Cordarone) 200 mg PO DAILY [facility] Atorvastatin Calcium (Lipitor) 20 mg PO QHS [facility] Last Admin: 07/19/18 21:54 Dose: 20 mg Bisacodyl (Dulcolax) 5 mg PO DAILY PRN PRN PRN Reason: Constipation Cholecalciferol (Vitamin D) 5,000 unit PO DAILY [facility] Docusate Sodium (Colace) 100 mg PO DAILY [facility] Sodium Chloride () 250 mls @ 15 mls/hr IV .[id number] PRN PRN Reason: SALINE FLUSH Sodium Chloride () 250 mls @ 15 mls/hr IV .[id number] PRN PRN Reason: SALINE FLUSH Last Admin: 07/19/18 23:24 Dose: 15 mls/hr Pantoprazole Sodium 40 mg/ (Sodium Chloride) 110 mls @ 330 mls/hr IV Q12 [facility] Last Admin: 07/19/18 21:53 Dose: 330 mls/hr Magnesium Hydroxide (Milk Of Magnesia) 30 ml PO DAILY PRN PRN PRN Reason: Constipation Metoprolol Succinate (Toprol Xl (Beta Charbel)) 50 mg PO DAILY [facility] Ondansetron HCl (Zofran) 4 mg IV Q8H PRN PRN PRN Reason: NAUSEA Psyllium Hydrophilic Mucilloid (Metamucil) 1 packet PO DAILY PRN PRN PRN Reason: CONSTIPATION Sodium Chloride () 5 - 15 ml IV UD PRN PRN Reason: SALINE FLUSH Medical Necessity - Tobacco Use Smoking Status: Never smoker Tobacco Use: Non-smoker Assessment/Plan All Active Problems (Last Reviewed 07/19/18 @ 15:34 by Eri Mccrary) GI bleed (Acute) Hyperkalemia (Acute) Anemia (Acute) Supratherapeutic INR (Acute) Edema (Acute) Dyspnea on exertion (Acute) 1. GI bleed secondary to supratherapeutic INR and possible aspirin use -Admitted to the ICU and transfused 1 unit of packed red blood cells for a hemoglobin of 7.4 -INR is down to 3.6 from 10 she was given vitamin K and FFP in the ER -EGD today -Tinea with IV PPI as the likely source is an upper GI bleed -I could not find any evidence of cardiac cath or significant coronary artery disease, can likely transition off of aspirin 2. A. fib/history of systolic heart failure/CKD 4 with AK I -Pain is improved from 5.05-4.22 -Continue with gentle IV hydration -Last echo with an EF of 65% and her previous echo which showed systolic dysfunction had an EF of only 45% -She is on Coumadin for her A. fib and she has had mitral and aortic valve replacements. We will have to discuss with cardiology whether or not she needs to be off of anticoagulation completely or if we could transition to an Eliquis even though this is not an indication for valve replacements -Continue with amiodarone, Lipitor, metoprolol -Any swelling appreciated on exam is likely secondary to her Norvasc and therefore chronic DVT: Therapeutic INR Code Visit Inpatient E&M: 90594 Subs Hosp L2
[2018-07-20] MEDS: 0.9% NaCl Peripheral Flush Adult/Peds IV ×2 (09:36→18:24)
[2018-07-20 09:51] LABS: Absolute Neutrophil Count 3.3 X10^3/uL (2.0-7.7); Basophil# 0.01 X10^3/uL; Basophil% 0.2 % (0-1); Eosinophil# 0.01 X10^3/uL; Eosinophils% 0.2 % (0-5); Hematocrit 28.1 % (37-47); Hemoglobin 8.8 g/dl (12.0-15.0); Mean Corp Hgb Conc 31.3 g/gl (32-36); Mean Corpuscular Hgb 24.4 pg (27.0-32.0); Mean Corpuscular Volume 77.8 fL (81-99); Mean Platelet Vol. 9.3 fl (6.2-12.0); Monocyte# 0.41 X10^3/uL; Monocyte% 9.6 % (0-10); Neutrophil # 3.26 X10^3/uL (2.7-7.7); Platelet Count 84 K/mm3 (150-450); RBC Distribution Width SD 48.6 fl (35.1-43.9); Red Blood Count 3.61 M/mm3 (4.2-5.4); White Blood Count 4.3 K/mm3 (4.4-11.0)
[2018-07-20 09:52] LABS: Differential Indicated SCAN CRITERIA MET; POSITIVE COUNT NO; POSITIVE DIFFERENTIAL YES; POSITIVE MORPHOLOGY NO
[2018-07-20 09:58] LABS: International Normalized Ratio 2.1; Prothrombin Time (Protime)PT. 23.8 SECONDS (11.7-14.9)
[2018-07-20 09:59] LABS: Partial Thromboplast Time 67.9 Seconds (24.1-36.2)
[2018-07-20 10:07] LABS: Anion Gap 14 (5-15); BUN 74 mg/dL (7-18); BUN/Creat Ratio 15.7 RATIO (10-20); Calcium,Total 8.5 mg/dL (8.5-10.1); Chloride 107 mmol/L (98-107); Creatinine, Serum 4.72 mg/dL (0.55-1.02); EST Glomerular Filtration Rate 10 mL/min (>60); Est Glom Filt Rate - Afr Amer 12 mL/min (>60); Estimated Creatinine Clearance 7.89 ml/min; Glucose 85 mg/dL (74-106); Potassium 5.5 mmol/L (3.5-5.1); Sodium Level 139 mmol/L (136-145)
[2018-07-20 10:28] LABS: Differential Comment SCANNED
--- NOTE | 2018-07-20 10:31 | PN_ITS ---
Progress Note EGD was performed. The patient had mild gastritis in the fundus of the stomach. There was no obvious ulcer or active bleeding. There is no stigmata of bleeding. There were no blood clots or old blood. Patient may have clear liquids today. If she would like I can order bowel prep for tomorrow and perform colonoscopy on . Will discuss with the patient in the morning. Jed Grady MD Pager: [facility] [address] [place] [address] [address] [place] [address] Office:
--- NOTE | 2018-07-20 10:35 | OP.ENDO_ITS ---
Patient Name: Med Cesar Procedure Date: 07/20/2018 9:43 AM Date of : 1940 Age: 78 Procedure: Upper GI endoscopy Indications: Unexplained iron deficiency anemia, Melena Providers: Jed Grady MD Medicines: Monitored Anesthesia Care Patient Profile: This is a 78 year old female. Refer to note in patient chart for documentation of history and physical. Complications: No immediate complications. Estimated blood loss: None. Procedure: Pre-Anesthesia Assessment: - Prior to the procedure, a History and Physical was performed, and patient medications and allergies were reviewed. The patient's tolerance of previous anesthesia was also reviewed. The risks and benefits of the procedure and the sedation options and risks were discussed with the patient. All questions were answered, and informed consent was obtained. Prior Anticoagulants: The patient has taken Coumadin (warfarin), last dose was 1 day prior to procedure. After reviewing the risks and benefits, the patient was deemed in satisfactory condition to undergo the procedure. After obtaining informed consent, the endoscope was passed under direct vision. Throughout the procedure, the patient's blood pressure, pulse, and oxygen saturations were monitored continuously. The gastroscope was introduced through the mouth, and advanced to the third part of duodenum. The upper GI endoscopy was accomplished without difficulty. The patient tolerated the procedure well. Scope In: 10:15:12 AM Scope Out: 10:21:28 AM Total Procedure Duration Time 0 hours 6 minutes 16 seconds Findings: Mild inflammation was found in the gastric fundus. The exam was otherwise without abnormality. Impression: - Gastritis. - The examination was otherwise normal. - No specimens collected. Recommendation: - Return patient to hospital [facility] for ongoing care. - Clear liquid diet. - Continue present medications. Procedure Code(s): --- Professional --- 88381, Esophagogastroduodenoscopy, flexible, transoral; diagnostic, including collection of specimen(s) by brushing or washing, when performed (separate procedure) Diagnosis Code(s): --- Professional --- K29.70, Gastritis, unspecified, without bleeding D50.9, Iron deficiency anemia, unspecified K92.1, Melena (includes Hematochezia) CPT copyright 2017 [employer]. All rights reserved. The codes documented in this report are preliminary and upon peoplesoft hr developer review may be revised to meet current compliance requirements. Jed Grady MD 07/20/2018 10:34:42 AM This report has been signed electronically. Number of Addenda: 0 Note Initiated On: 07/20/2018 9:43 AM
[2018-07-20] MEDS: Amiodarone 200 MG Tablet PO (12:56)
--- NOTE | 2018-07-20 14:14 | CASEMGMT ---
RN CM Assessment Presentation: GI Bleed, Anemia. INR 10.4, pt was on coumadin @ home. Intro role of CM and purpose of RN CM assessment. PCP: Dr. Isaacs Preferred Pharmacy: [facility] Insurance: [facility] Prescription Benefit: yes LNOK: Daughter, Kat Cesar Living Arrangements: Lives in one story home with daughter. Has ramp into home. Mod independent with ADL's. Transportation: Daughter drives, pt does not drive. DME/HHC: has walker, uses scooter when out in stores. DC PLAN: Anticipate home on dc. PT rec further therapy today as pt is quick to fatigue. If still recommended tomorrow, may speak with pt/daughter re: HHS or Outpt PT.
[2018-07-20] MEDS: 0.9% Normal Saline 1,000 ML 100 ML IV (18:24)
[2018-07-20] MEDS: Atorvastatin Calcium 20 MG Tablet PO (22:30)
[2018-07-21] VITALS (11 sets, daily range): BP systolic 96–109; BP diastolic 45–61; PULSE 51–74; RESP 16–18; TEMP 36.1–36.7; O2SAT 92–96; BMI 35.9
[2018-07-21] MEDS: 0.9% Normal Saline 1,000 ML 100 ML IV ×2 (04:09→15:12)
[2018-07-21 06:27] LABS: Absolute Lymphocyte Count 0.58 X10^3/ul (0.83-4.51); Absolute Neutrophil Count 3.3 X10^3/uL (2.0-7.7); Basophil# 0.02 X10^3/uL; Basophil% 0.5 % (0-1); Differential Indicated SCAN CRITERIA MET; Eosinophil# 0.04 X10^3/uL; Eosinophils% 0.9 % (0-5); Hemoglobin 8.4 g/dl (12.0-15.0); Lymphocyte # 0.58 X10^3/ul (4.0); Lymphocyte % 13.2 % (19-41); Mean Corpuscular Hgb 23.9 pg (27.0-32.0); Mean Corpuscular Volume 79.5 fL (81-99); Mean Platelet Vol. 9.4 fl (6.2-12.0); Monocyte# 0.44 X10^3/uL; Neutrophil % 75.4 % (47-70); POSITIVE COUNT NO; POSITIVE DIFFERENTIAL YES; POSITIVE MORPHOLOGY NO; Platelet Count 85 K/mm3 (150-450); RBC Distribution Width CV 17.3 % (11.6-14.6); RBC Distribution Width SD 48.1 fl (35.1-43.9); Red Blood Count 3.52 M/mm3 (4.2-5.4); White Blood Count 4.4 K/mm3 (4.4-11.0)
[2018-07-21 06:47] LABS: Anion Gap 13 (5-15); BUN 65 mg/dL (7-18); BUN/Creat Ratio 15.6 RATIO (10-20); Calcium,Total 8.3 mg/dL (8.5-10.1); Chloride 110 mmol/L (98-107); Creatinine, Serum 4.17 mg/dL (0.55-1.02); EST Glomerular Filtration Rate 11 mL/min (>60); Est Glom Filt Rate - Afr Amer 13 mL/min (>60); Estimated Creatinine Clearance 8.94 ml/min; Glucose 80 mg/dL (74-106); Potassium 5.2 mmol/L (3.5-5.1); Sodium Level 140 mmol/L (136-145)
[2018-07-21 07:05] LABS: Magnesium 2.2 mg/dL (1.6-2.6)
--- NOTE | 2018-07-21 07:52 | PCM.PROGNOTE ---
Patient Problems: Active and Suspected Problems (Last Reviewed 07/19/18 @ 15:34 by Eri Mccrary) GI bleed (Acute) Hyperkalemia (Acute) Anemia (Acute) Supratherapeutic INR (Acute) Subjective: Patient did well overnight. No acute issues were reported. Patient did have endoscopy yesterday and tolerated well. Patient reports to squirts as bowel movements over the night. Patient denies any nausea or vomiting. Objective: Endoscopy completed yesterday showed gastritis only. No ulcers were appreciated. - Physical Exam General: Alert, Oriented x3, Cooperative, No apparent distress, - - Obese. Speaking in full sentences. HEENT: Atraumatic, PERRLA, EOMI, Normocephalic, - - No scleral icterus or injection noted. Oral: Moist Mucosa, No Gingival or Mucosal Lesions/ Ulcerations Neck: Supple, No JVD, No Nodes, Trachea Midline Lungs: No rhonchi, No wheeze, No rales, Diminished, - - Symmetric expansion. No dullness to percussion. Cardiovascular: No murmurs, Bradycardic, No rub noted, No Gallop, - - Mechanical heart sounds Abdomen: Bowel Sounds Present, Soft, Non Tender, Non-Distended, Obese Extremities: No clubbing, No cyanosis, Edema Skin: - - Multiple areas of ecchymosis in various stages of healing Musculoskeletal: No Tenderness to Palpation of Joints or Extremities Lymphatic: No Cervical, Supraclavicular, or Inguinal Adenopathy Neurological: Cranial nerves II-XII grossly intact, Neuro grossly intact, Motor Exam 5/5 strength throughout Psych/Mental Status: Alert and oriented to time, place, person, mood and affect Vital Signs Temp Pulse Resp BP Pulse Ox 36.7 C 56 L 18 100/49 L 92 07/21/18 04:05 07/21/18 04:05 07/21/18 04:05 07/21/18 04:05 07/21/18 07:10 Oxygen Delivery Method Room Air Weight: 89.2 kg Body Mass Index (BMI) 34.4 Finger Stick Blood Glucose 99 Intake and Output for Last 24 Hours 07/19/18 07/20/18 07/21/18 23:59 23:59 23:59 Intake Total 0 / 0 2444 / 2444 1390 / 1390 Output Total 800 / 800 350 / 350 Balance 0 / 0 1644 / 1644 1040 / 1040 Microbiology Past 72 Hours 07/19/18 16:52 Stool Occult Blood (JOSHUA) - Final Stool Occult Blood Positive Laboratory Tests Past 24 Hrs 07/20/18 07/20/18 07/20/18 09:30 09:30 09:30 WBC 4.3 L RBC 3.61 L Hgb 8.8 L Hct 28.1 L MCV 77.8 L MCH 24.4 L MCHC 31.3 L RDW 17.0 H RDW Differential 48.6 H Plt Count 84 L MPV 9.3 Immature Gran % (Auto) 0.000 Neut % (Auto) 76.0 H Lymph % (Auto) 14.0 L [place] % (Auto) 9.6 Eos % (Auto) 0.2 Baso % (Auto) 0.2 Absolute Neuts (auto) 3.3 Absolute Lymphs (auto) 0.60 L Total Counted Not Reportable Differential Comment SCANNED PT 23.8 H INR 2.1 APTT 67.9 H Sodium 139 Potassium 5.5 H Chloride 107 Carbon Dioxide 18.0 L Anion Gap 14 BUN 74 H Creatinine 4.72 H Estim Creat Clear Calc 7.89 Est GFR (MDRD) Af Amer 12 L Est GFR (MDRD) Non-Af 10 L BUN/Creatinine Ratio 15.7 Glucose 85 Calcium 8.5 Phosphorus Magnesium 07/21/18 07/21/18 07/21/18 05:40 05:40 05:40 WBC 4.4 RBC 3.52 L Hgb 8.4 L Hct 28.0 L MCV 79.5 L MCH 23.9 L MCHC 30.0 L RDW 17.3 H RDW Differential 48.1 H Plt Count 85 L MPV 9.4 Immature Gran % (Auto) 0.000 Neut % (Auto) 75.4 H Lymph % (Auto) 13.2 L [place] % (Auto) 10.0 Eos % (Auto) 0.9 Baso % (Auto) 0.5 Absolute Neuts (auto) 3.3 Absolute Lymphs (auto) 0.58 L Total Counted Not Reportable Differential Comment PT INR APTT Sodium 140 Potassium 5.2 H Chloride 110 H Carbon Dioxide 17.0 L Anion Gap 13 BUN 65 H Creatinine 4.17 H Estim Creat Clear Calc 8.94 Est GFR (MDRD) Af Amer 13 L Est GFR (MDRD) Non-Af 11 L BUN/Creatinine Ratio 15.6 Glucose 80 Calcium 8.3 L Phosphorus 5.0 H Magnesium 2.2 Medical Necessity - Tobacco Use Smoking Status: Never smoker Tobacco Use: Non-smoker Assessment/Plan All Active Problems (Last Reviewed 07/19/18 @ 15:34 by Eri Mccrary) GI bleed (Acute) Hyperkalemia (Acute) Anemia (Acute) Supratherapeutic INR (Acute) Edema (Acute) Dyspnea on exertion (Acute) RECOMMENDATIONS: 1. Likely okay to transition to daily blood counts 2. Transfuse to keep hemoglobin greater than 8 3. Consider nephrology consultation 4. Possible initiation of heparin drip without bolus pending results 5. Add on INR 6. Hemodynamically stable on room air. Will sign off from a critical care perspective IMPRESSIONS: 1. Hemorrhagic shock secondary to possible upper GI bleed with supratherapeutic INR Patient is on Coumadin therapy, but INR was noted to be over 10 on presentation. Patient does report a long history of GERD type symptoms, so ulcer may be present. Patient is to have an EGD for evaluation. Patient has received 2 units of packed red blood cells with no significant change in H&H. Patient's hemoglobin has been stable overnight. Likely okay to transition to daily blood counts 2. Acute on chronic kidney disease stage IV/non-anion gap metabolic acidosis/hyponatremia/hyperkalemia Prerenal in etiology secondary to #1. Patient did have elevated potassium on presentation requiring aggressive therapy. This appears to be okay. Repeat BMP shows persistence of renal dysfunction. Consider consultation to primary merchant mill utility worker for evaluation. Patient is having good urine output, but may consider renal ultrasound given supratherapeutic INR on presentation. 3. Thrombocytopenia Probable consumptive. Patient has not received any recent heparin products. We will continue to monitor closely. No indication for transfusion at this time. 4. Chronic diastolic congestive heart failure/chronic A. fib/hypertension/history of valve replacement Patient appears to be at baseline at this time. Likely okay to hold on diuretic therapy during the acute period. Patient saturating well on room air. Will continue to monitor saturations closely. Possibly reinitiate baseline medications once bleeding situation is improved. Patient will need to be kept with an INR above 2. INR has been ordered. 5. Advanced age/history of diverticulitis/hyperlipidemia/pulmonary hypertension Complicates care, management, recovery and prognosis. Okay to continue with baseline medications from my perspective. Code Visit Inpatient E&M: 67839 Subs Hosp L2
--- NOTE | 2018-07-21 07:58 | PN_ITS ---
Patient Problems: Active and Suspected Problems (Last Reviewed 07/19/18 @ 15:34 by Eri Mccrary) GI bleed (Acute) Hyperkalemia (Acute) Anemia (Acute) Supratherapeutic INR (Acute) Subjective: Patient did well overnight. No acute issues were reported. Patient did have endoscopy yesterday and tolerated well. Patient reports to squirts as bowel movements over the night. Patient denies any nausea or vomiting. Objective: Endoscopy completed yesterday showed gastritis only. No ulcers were appreciated . - Physical Exam General: Alert, Oriented x3, Cooperative, No apparent distress, - - Obese. Speaking in full sentences. HEENT: Atraumatic, PERRLA, EOMI, Normocephalic, - - No scleral icterus or injection noted. Oral: Moist Mucosa, No Gingival or Mucosal Lesions/ Ulcerations Neck: Supple, No JVD, No Nodes, Trachea Midline Lungs: No rhonchi, No wheeze, No rales, Diminished, - - Symmetric expansion. No dullness to percussion. Cardiovascular: No murmurs, Bradycardic, No rub noted, No Gallop, - - Mechanical heart sounds Abdomen: Bowel Sounds Present, Soft, Non Tender, Non-Distended, Obese Extremities: No clubbing, No cyanosis, Edema Skin: - - Multiple areas of ecchymosis in various stages of healing Musculoskeletal: No Tenderness to Palpation of Joints or Extremities Lymphatic: No Cervical, Supraclavicular, or Inguinal Adenopathy Neurological: Cranial nerves II-XII grossly intact, Neuro grossly intact, Motor Exam 5/5 strength throughout Psych/Mental Status: Alert and oriented to time, place, person, mood and affect Vital Signs Temp Pulse Resp BP Pulse Ox 36.7 C 56 L 18 100/49 L 92 07/21/18 04:05 07/21/18 04:05 07/21/18 04:05 07/21/18 04:05 07/21/18 07:10 Oxygen Delivery Method Room Air Weight: 89.2 kg Body Mass Index (BMI) 34.4 Finger Stick Blood Glucose 99 Intake and Output for Last 24 Hours 07/19/18 07/20/18 07/21/18 23:59 23:59 23:59 Intake Total 0 / 0 2444 / 2444 1390 / 1390 Output Total 800 / 800 350 / 350 Balance 0 / 0 1644 / 1644 1040 / 1040 Microbiology Past 72 Hours 07/19/18 16:52 Stool Occult Blood (JOSHUA) - Final Stool Occult Blood Positive Laboratory Tests Past 24 Hrs 07/20/18 07/20/18 07/20/18 09:30 09:30 09:30 WBC 4.3 L RBC 3.61 L Hgb 8.8 L Hct 28.1 L MCV 77.8 L MCH 24.4 L MCHC 31.3 L RDW 17.0 H RDW Differential 48.6 H Plt Count 84 L MPV 9.3 Immature Gran % (Auto) 0.000 Neut % (Auto) 76.0 H Lymph % (Auto) 14.0 L [place] % (Auto) 9.6 Eos % (Auto) 0.2 Baso % (Auto) 0.2 Absolute Neuts (auto) 3.3 Absolute Lymphs (auto) 0.60 L Total Counted Not Reportable Differential Comment SCANNED PT 23.8 H INR 2.1 APTT 67.9 H Sodium 139 Potassium 5.5 H Chloride 107 Carbon Dioxide 18.0 L Anion Gap 14 BUN 74 H Creatinine 4.72 H Estim Creat Clear Calc 7.89 Est GFR (MDRD) Af Amer 12 L Est GFR (MDRD) Non-Af 10 L BUN/Creatinine Ratio 15.7 Glucose 85 Calcium 8.5 Phosphorus Magnesium 07/21/18 07/21/18 07/21/18 05:40 05:40 05:40 WBC 4.4 RBC 3.52 L Hgb 8.4 L Hct 28.0 L MCV 79.5 L MCH 23.9 L MCHC 30.0 L RDW 17.3 H RDW Differential 48.1 H Plt Count 85 L MPV 9.4 Immature Gran % (Auto) 0.000 Neut % (Auto) 75.4 H Lymph % (Auto) 13.2 L [place] % (Auto) 10.0 Eos % (Auto) 0.9 Baso % (Auto) 0.5 Absolute Neuts (auto) 3.3 Absolute Lymphs (auto) 0.58 L Total Counted Not Reportable Differential Comment PT INR APTT Sodium 140 Potassium 5.2 H Chloride 110 H Carbon Dioxide 17.0 L Anion Gap 13 BUN 65 H Creatinine 4.17 H Estim Creat Clear Calc 8.94 Est GFR (MDRD) Af Amer 13 L Est GFR (MDRD) Non-Af 11 L BUN/Creatinine Ratio 15.6 Glucose 80 Calcium 8.3 L Phosphorus 5.0 H Magnesium 2.2 Medical Necessity - Tobacco Use Smoking Status: Never smoker Tobacco Use: Non-smoker Assessment/Plan All Active Problems (Last Reviewed 07/19/18 @ 15:34 by Eri Mccrary) GI bleed (Acute) Hyperkalemia (Acute) Anemia (Acute) Supratherapeutic INR (Acute) Edema (Acute) Dyspnea on exertion (Acute) RECOMMENDATIONS: 1. Likely okay to transition to daily blood counts 2. Transfuse to keep hemoglobin greater than 8 3. Consider nephrology consultation 4. Possible initiation of heparin drip without bolus pending results 5. Add on INR 6. Hemodynamically stable on room air. Will sign off from a critical care perspective IMPRESSIONS: 1. Hemorrhagic shock secondary to possible upper GI bleed with suprath erapeutic INR Patient is on Coumadin therapy, but INR was noted to be over 10 on presentation. Patient does report a long history of GERD type symptoms, so ulcer may be present. Patient is to have an EGD for evaluation. Patient has received 2 units of packed red blood cells with no significant change in H&H. Patient's hemoglobin has been stable overnight. Likely okay to transition to daily blood counts 2. Acute on chronic kidney disease stage IV/non-anion gap metabolic acidosis/hyponatremia/hyperkalemia Prerenal in etiology secondary to #1. Patient did have elevated potassium on presentation requiring aggressive therapy. This appears to be okay. Repeat BMP shows persistence of renal dysfunction. Consider consultation to primary lodge officer for evaluation. Patient is having good urine output, but may consider renal ultrasound given supratherapeutic INR on presentation. 3. Thrombocytopenia Probable consumptive. Patient has not received any recent heparin products. We will continue to monitor closely. No indication for transfusion at this time. 4. Chronic diastolic congestive heart failure/chronic A. fib/hypertension/history of valve replacement Patient appears to be at baseline at this time. Likely okay to hold on diuretic therapy during the acute period. Patient saturating well on room air. Will continue to monitor saturations closely. Possibly reinitiate baseline medications once bleeding situation is improved. Patient will need to be kept with an INR above 2. INR has been ordered. 5. Advanced age/history of diverticulitis/hyperlipidemia/pulmonary hypertension Complicates care, management, recovery and prognosis. Okay to continue with baseline medications from my perspective. Code Visit Inpatient E&M: 64552 Subs Hosp L2
[2018-07-21 08:39] LABS: International Normalized Ratio 1.7; Prothrombin Time (Protime)PT. 19.8 SECONDS (11.7-14.9)
--- NOTE | 2018-07-21 09:02 | PCM.PN.SRG ---
Patient Problems: Active and Suspected Problems (Last Reviewed 07/19/18 @ 15:34 by Eri Mccrary) GI bleed (Acute) Hyperkalemia (Acute) Anemia (Acute) Supratherapeutic INR (Acute) Subjective: Patient is doing well this morning. She is still complaining of liquid black stools. She is also having lower abdominal cramping. - Physical Exam Neck: No JVD Lungs: Normal air movement Cardiovascular: Regular rate, Regular Rhythm Abdomen: Soft, Non-Distended Vital Signs Temp Pulse Resp BP Pulse Ox 98.0 F 55 L 18 100/49 L 92 07/21/18 04:05 07/21/18 08:03 07/21/18 04:05 07/21/18 04:05 07/21/18 07:10 Oxygen Delivery Method Room Air Weight: 196 lb 10.437 oz Body Mass Index (BMI) 34.4 Finger Stick Blood Glucose 99 Intake and Output for Last 24 Hours 07/19/18 07/20/18 07/21/18 23:59 23:59 23:59 Intake Total 0 / 0 2444 / 2444 1390 / 1390 Output Total 800 / 800 350 / 350 Balance 0 / 0 1644 / 1644 1040 / 1040 Microbiology Past 72 Hours 07/19/18 16:52 Stool Occult Blood (JOSHUA) - Final Stool Occult Blood Positive Laboratory Tests Past 24 Hrs 07/20/18 07/20/18 07/20/18 09:30 09:30 09:30 WBC 4.3 L RBC 3.61 L Hgb 8.8 L Hct 28.1 L MCV 77.8 L MCH 24.4 L MCHC 31.3 L RDW 17.0 H RDW Differential 48.6 H Plt Count 84 L MPV 9.3 Immature Gran % (Auto) 0.000 Neut % (Auto) 76.0 H Lymph % (Auto) 14.0 L [place] % (Auto) 9.6 Eos % (Auto) 0.2 Baso % (Auto) 0.2 Absolute Neuts (auto) 3.3 Absolute Lymphs (auto) 0.60 L Total Counted Not Reportable Differential Comment SCANNED PT 23.8 H INR 2.1 APTT 67.9 H Sodium 139 Potassium 5.5 H Chloride 107 Carbon Dioxide 18.0 L Anion Gap 14 BUN 74 H Creatinine 4.72 H Estim Creat Clear Calc 7.89 Est GFR (MDRD) Af Amer 12 L Est GFR (MDRD) Non-Af 10 L BUN/Creatinine Ratio 15.7 Glucose 85 Calcium 8.5 Phosphorus Magnesium 07/21/18 07/21/18 07/21/18 05:40 05:40 05:40 WBC 4.4 RBC 3.52 L Hgb 8.4 L Hct 28.0 L MCV 79.5 L MCH 23.9 L MCHC 30.0 L RDW 17.3 H RDW Differential 48.1 H Plt Count 85 L MPV 9.4 Immature Gran % (Auto) 0.000 Neut % (Auto) 75.4 H Lymph % (Auto) 13.2 L [place] % (Auto) 10.0 Eos % (Auto) 0.9 Baso % (Auto) 0.5 Absolute Neuts (auto) 3.3 Absolute Lymphs (auto) 0.58 L Total Counted Not Reportable Differential Comment PT INR APTT Sodium 140 Potassium 5.2 H Chloride 110 H Carbon Dioxide 17.0 L Anion Gap 13 BUN 65 H Creatinine 4.17 H Estim Creat Clear Calc 8.94 Est GFR (MDRD) Af Amer 13 L Est GFR (MDRD) Non-Af 11 L BUN/Creatinine Ratio 15.6 Glucose 80 Calcium 8.3 L Phosphorus 5.0 H Magnesium 2.2 07/21/18 05:40 WBC RBC Hgb Hct MCV MCH MCHC RDW RDW Differential Plt Count MPV Immature Gran % (Auto) Neut % (Auto) Lymph % (Auto) [place] % (Auto) Eos % (Auto) Baso % (Auto) Absolute Neuts (auto) Absolute Lymphs (auto) Total Counted Differential Comment PT 19.8 H INR 1.7 APTT Sodium Potassium Chloride Carbon Dioxide Anion Gap BUN Creatinine Estim Creat Clear Calc Est GFR (MDRD) Af Amer Est GFR (MDRD) Non-Af BUN/Creatinine Ratio Glucose Calcium Phosphorus Magnesium Medical Necessity - Tobacco Use Smoking Status: Never smoker Tobacco Use: Non-smoker Assessment/Plan All Active Problems (Last Reviewed 07/19/18 @ 15:34 by Eri Mccrary) GI bleed (Acute) Hyperkalemia (Acute) Anemia (Acute) Supratherapeutic INR (Acute) Edema (Acute) Dyspnea on exertion (Acute) 78-year-old female with anemia and black stools 1. Patient had EGD yesterday which showed no blood or active bleeding in the stomach or duodenum. I will bowel prep the patient today and plan for colonoscopy tomorrow. If there is no active bleeding or source of bleeding found on colonoscopy the patient will need capsule endoscopy. 2. I explained endoscopy in detail to the patient. I explained the risks including but not limited to stroke or heart attack with anesthesia, perforation of the GI tract, bleeding, infection. I explained that any of these could necessitate further emergency surgery. The patient understands and all questions were answered sufficiently. The patient wishes to proceed with procedure. Jed Grady MD Pager: [facility] [address] [place] [address] [address] [place] [address] Office:
[2018-07-21] MEDS: Amiodarone 200 MG Tablet PO (09:42)
[2018-07-21] MEDS: Electrolyte Solution/Peg's 4000 ML PO (14:32)
--- NOTE | 2018-07-21 16:19 | PCM.PN.HOSP ---
Patient Problems: Active and Suspected Problems (Last Reviewed 07/19/18 @ 15:34 by Eri Mccrary) GI bleed (Acute) Hyperkalemia (Acute) Anemia (Acute) Supratherapeutic INR (Acute) Subjective: No issues overnight, feeling better than she did when she came in. Denies any shortness of breath or chest pain. Vitals/I&O's: Vital Signs Temp Pulse Resp BP Pulse Ox 97.8 F 56 L 16 97/45 L 96 07/21/18 10:05 07/21/18 11:57 07/21/18 10:05 07/21/18 10:05 07/21/18 10:05 Oxygen Delivery Method Room Air Weight: 196 lb 10.437 oz Body Mass Index (BMI) 34.4 Finger Stick Blood Glucose 99 Intake and Output for Last 24 Hours 07/19/18 07/20/18 07/21/18 23:59 23:59 23:59 Intake Total 0 / 0 2444 / 2444 2717 / 2717 Output Total 800 / 800 650 / 650 Balance 0 / 0 1644 / 1644 2066 / 2066 General: Alert, Oriented x3, Cooperative, No apparent distress HEENT: Atraumatic, PERRLA, EOMI, Normocephalic Oral: Moist Mucosa Neck: Supple, No JVD, Trachea Midline Lungs: Clear to auscultation, Normal air movement, No rhonchi, No wheeze, No rales, Diminished Cardiovascular: Regular rate, Regular Rhythm, Normal S1, Normal S2, No murmurs Abdomen: Soft, Non Tender, Non-Distended, No Hepato-splenomegaly Extremities: No edema, Capillary Refill Less than 3 Seconds Skin: No cellulitis or signs of infection Neurological: Neuro grossly intact, Sensory exam intact to light touch and pain Psych/Mental Status: Normal Affect, Appropriate Microbiology Past 72 Hours 07/19/18 16:52 Stool Stool Occult Blood (JOSHUA) - Final Occult Blood Positive Laboratory Results 07/21/18 05:40: WBC 4.4, RBC 3.52 L, Hgb 8.4 L, Hct 28.0 L, MCV 79.5 L, MCH 23.9 L, MCHC 30.0 L, RDW 17.3 H, RDW Differential 48.1 H, Plt Count 85 L, MPV 9.4, Immature Gran % (Auto) 0.000, Neut % (Auto) 75.4 H, Lymph % (Auto) 13.2 L, [place] % (Auto) 10.0, Eos % (Auto) 0.9, Baso % (Auto) 0.5, Absolute Neuts (auto) 3.3, Absolute Lymphs (auto) 0.58 L, Total Counted Not Reportable, Differential Comment 07/21/18 05:40: Sodium 140, Potassium 5.2 H, Chloride 110 H, Carbon Dioxide 17.0 L, Anion Gap 13, BUN 65 H, Creatinine 4.17 H, Estim Creat Clear Calc 8.94, Est GFR (MDRD) Af Amer 13 L, Est GFR (MDRD) Non-Af 11 L, BUN/Creatinine Ratio 15.6, Glucose 80, Calcium 8.3 L 07/21/18 05:40: Phosphorus 5.0 H, Magnesium 2.2 07/21/18 05:40: PT 19.8 H, INR 1.7 Current Medications Amiodarone HCl (Cordarone) 200 mg PO DAILY [facility] Last Admin: 07/21/18 09:42 Dose: 200 mg Atorvastatin Calcium (Lipitor) 20 mg PO QHS [facility] Last Admin: 07/20/18 22:30 Dose: 20 mg Bisacodyl (Dulcolax) 5 mg PO DAILY PRN PRN PRN Reason: Constipation Cholecalciferol (Vitamin D) 5,000 unit PO DAILY [facility] Last Admin: 07/21/18 09:41 Dose: 5,000 unit Docusate Sodium (Colace) 100 mg PO DAILY [facility] Last Admin: 07/21/18 09:40 Dose: Not Given Sodium Chloride () 250 mls @ 15 mls/hr IV .[id number] PRN PRN Reason: SALINE FLUSH Sodium Chloride () 250 mls @ 15 mls/hr IV .[id number] PRN PRN Reason: SALINE FLUSH Last Admin: 07/19/18 23:24 Dose: 15 mls/hr Pantoprazole Sodium 40 mg/ (Sodium Chloride) 110 mls @ 330 mls/hr IV Q12 [facility] Last Admin: 07/21/18 09:40 Dose: 330 mls/hr Sodium Chloride () 1,000 mls @ 100 mls/hr IV .Q10H [facility] Last Admin: 07/21/18 04:09 Dose: 100 mls/hr Magnesium Hydroxide (Milk Of Magnesia) 30 ml PO DAILY PRN PRN PRN Reason: Constipation Metoprolol Succinate (Toprol Xl (Beta Charbel)) 50 mg PO DAILY [facility] Last Admin: 07/21/18 09:40 Dose: Not Given Ondansetron HCl (Zofran) 4 mg IV Q8H PRN PRN PRN Reason: NAUSEA Polyethylene Glycol (Miralax) 17 gm PO X1 ONE Stop: 07/22/18 06:01 Psyllium Hydrophilic Mucilloid (Metamucil) 1 packet PO DAILY PRN PRN PRN Reason: CONSTIPATION Sodium Chloride () 5 - 15 ml IV UD PRN PRN Reason: SALINE FLUSH Last Admin: 07/20/18 18:24 Dose: 10 ml Medical Necessity - Tobacco Use Smoking Status: Never smoker Tobacco Use: Non-smoker Assessment/Plan All Active Problems (Last Reviewed 07/19/18 @ 15:34 by Eri Mccrary) GI bleed (Acute) Hyperkalemia (Acute) Anemia (Acute) Supratherapeutic INR (Acute) Edema (Acute) Dyspnea on exertion (Acute) 1. GI bleed secondary to supratherapeutic INR and possible aspirin use -Admitted to the ICU and transfused 1 unit of packed red blood cells for a hemoglobin of 7.4 -INR is down to 1.7 from 10 she was given vitamin K and FFP in the ER -EGD should demonstrated gastritis -Continue with PPI -I could not find any evidence of cardiac cath or significant coronary artery disease, can likely transition off of aspirin 2. A. fib/history of systolic heart failure/CKD 4 with AK I -Pain is improved from 5.05-4.17, this is likely prerenal and has progressed to ATN, will obtain renal ultrasound in the morning -Continue with gentle IV hydration -Last echo with an EF of 65% and her previous echo which showed systolic dysfunction had an EF of only 45% -She is on Coumadin for her A. fib and she has had mitral and aortic valve replacements. We will restart her Coumadin tonight -Continue with amiodarone, Lipitor, metoprolol -Any swelling appreciated on exam is likely secondary to her Norvasc and therefore chronic DVT: Coumadin Code Visit Inpatient E&M: 95025 Subs Hosp L2
--- NOTE | 2018-07-21 16:32 | PN_ITS ---
Patient Problems: Active and Suspected Problems (Last Reviewed 07/19/18 @ 15:34 by Eri Mccrary) GI bleed (Acute) Hyperkalemia (Acute) Anemia (Acute) Supratherapeutic INR (Acute) Subjective: No issues overnight, feeling better than she did when she came in. Denies any shortness of breath or chest pain. Vitals/I&O's: Vital Signs Temp Pulse Resp BP Pulse Ox 97.8 F 56 L 16 97/45 L 96 07/21/18 10:05 07/21/18 11:57 07/21/18 10:05 07/21/18 10:05 07/21/18 10:05 Oxygen Delivery Method Room Air Weight: 196 lb 10.437 oz Body Mass Index (BMI) 34.4 Finger Stick Blood Glucose 99 Intake and Output for Last 24 Hours 07/19/18 07/20/18 07/21/18 23:59 23:59 23:59 Intake Total 0 / 0 2444 / 2444 2717 / 2717 Output Total 800 / 800 650 / 650 Balance 0 / 0 1644 / 1644 2066 / 2066 General: Alert, Oriented x3, Cooperative, No apparent distress HEENT: Atraumatic, PERRLA, EOMI, Normocephalic Oral: Moist Mucosa Neck: Supple, No JVD, Trachea Midline Lungs: Clear to auscultation, Normal air movement, No rhonchi, No wheeze, No rales, Diminished Cardiovascular: Regular rate, Regular Rhythm, Normal S1, Normal S2, No murmurs Abdomen: Soft, Non Tender, Non-Distended, No Hepato-splenomegaly Extremities: No edema, Capillary Refill Less than 3 Seconds Skin: No cellulitis or signs of infection Neurological: Neuro grossly intact, Sensory exam intact to light touch and pain Psych/Mental Status: Normal Affect, Appropriate Microbiology Past 72 Hours 07/19/18 16:52 Stool Stool Occult Blood (JOSHUA) - Final Occult Blood Positive Laboratory Results 07/21/18 05:40: WBC 4.4, RBC 3.52 L, Hgb 8.4 L, Hct 28.0 L, MCV 79.5 L, MCH 23.9 L, MCHC 30.0 L, RDW 17.3 H, RDW Differential 48.1 H, Plt Count 85 L, MPV 9.4, Immature Gran % (Auto) 0.000, Neut % (Auto) 75.4 H, Lymph % (Auto) 13.2 L, [place] % (Auto) 10.0, Eos % (Auto) 0.9, Baso % (Auto) 0.5, Absolute Neuts (auto) 3.3, Absolute Lymphs (auto) 0.58 L, Total Counted Not Reportable, Differential Comment 07/21/18 05:40: Sodium 140, Potassium 5.2 H, Chloride 110 H, Carbon Dioxide 17.0 L, Anion Gap 13, BUN 65 H, Creatinine 4.17 H, Estim Creat Clear Calc 8.94, Est GFR (MDRD) Af Amer 13 L, Est GFR (MDRD) Non-Af 11 L, BUN/Creatinine Ratio 15.6, Glucose 80, Calcium 8.3 L 07/21/18 05:40: Phosphorus 5.0 H, Magnesium 2.2 07/21/18 05:40: PT 19.8 H, INR 1.7 Current Medications Amiodarone HCl (Cordarone) 200 mg PO DAILY [facility] Last Admin: 07/21/18 09:42 Dose: 200 mg Atorvastatin Calcium (Lipitor) 20 mg PO QHS [facility] Last Admin: 07/20/18 22:30 Dose: 20 mg Bisacodyl (Dulcolax) 5 mg PO DAILY PRN PRN PRN Reason: Constipation Cholecalciferol (Vitamin D) 5,000 unit PO DAILY [facility] Last Admin: 07/21/18 09:41 Dose: 5,000 unit Docusate Sodium (Colace) 100 mg PO DAILY [facility] Last Admin: 07/21/18 09:40 Dose: Not Given Sodium Chloride () 250 mls @ 15 mls/hr IV .[id number] PRN PRN Reason: SALINE FLUSH Sodium Chloride () 250 mls @ 15 mls/hr IV .[id number] PRN PRN Reason: SALINE FLUSH Last Admin: 07/19/18 23:24 Dose: 15 mls/hr Pantoprazole Sodium 40 mg/ (Sodium Chloride) 110 mls @ 330 mls/hr IV Q12 [facility] Last Admin: 07/21/18 09:40 Dose: 330 mls/hr Sodium Chloride () 1,000 mls @ 100 mls/hr IV .Q10H [facility] Last Admin: 07/21/18 04:09 Dose: 100 mls/hr Magnesium Hydroxide (Milk Of Magnesia) 30 ml PO DAILY PRN PRN PRN Reason: Constipation Metoprolol Succinate (Toprol Xl (Beta Charbel)) 50 mg PO DAILY [facility] Last Admin: 07/21/18 09:40 Dose: Not Given Ondansetron HCl (Zofran) 4 mg IV Q8H PRN PRN PRN Reason: NAUSEA Polyethylene Glycol (Miralax) 17 gm PO X1 ONE Stop: 07/22/18 06:01 Psyllium Hydrophilic Mucilloid (Metamucil) 1 packet PO DAILY PRN PRN PRN Reason: CONSTIPATION Sodium Chloride () 5 - 15 ml IV UD PRN PRN Reason: SALINE FLUSH Last Admin: 07/20/18 18:24 Dose: 10 ml Medical Necessity - Tobacco Use Smoking Status: Never smoker Tobacco Use: Non-smoker Assessment/Plan All Active Problems (Last Reviewed 07/19/18 @ 15:34 by Eri Mccrary) GI bleed (Acute) Hyperkalemia (Acute) Anemia (Acute) Supratherapeutic INR (Acute) Edema (Acute) Dyspnea on exertion (Acute) 1. GI bleed secondary to supratherapeutic INR and possible aspirin use -Admitted to the ICU and transfused 1 unit of packed red blood cells for a hemoglobin of 7.4 -INR is down to 1.7 from 10 she was given vitamin K and FFP in the ER -EGD should demonstrated gastritis -Continue with PPI -I could not find any evidence of cardiac cath or significant coronary artery disease, can likely transition off of aspirin 2. A. fib/history of systolic heart failure/CKD 4 with [place] I -Pain is improved from 5.05-4.17, this is likely prerenal and has progressed to ATN, will obtain renal ultrasound in the morning -Continue with gentle IV hydration -Last echo with an EF of 65% and her previous echo which showed systolic dysfunction had an EF of only 45% -She is on Coumadin for her A. fib and she has had mitral and aortic valve replacements. We will restart her Coumadin tonight -Continue with amiodarone, Lipitor, metoprolol -Any swelling appreciated on exam is likely secondary to her Norvasc and therefore chronic DVT: Coumadin Code Visit Inpatient E&M: [id number] Subs Hosp L2
[2018-07-21] MEDS: Atorvastatin Calcium 20 MG Tablet PO (21:53)
[2018-07-22] VITALS (19 sets, daily range): BP systolic 96–119; BP diastolic 52–67; PULSE 62–79; RESP 16–18; TEMP 36.4–36.9; O2SAT 92–100
[2018-07-22] MEDS: 0.9% Normal Saline 1,000 ML 100 ML IV ×2 (01:33→13:16)
[2018-07-22 04:54] LABS: Urine Chloride < 10 mmol/L (Not Establ.); Urine Sodium 22 mmol/L (Not Establ.)
--- NOTE | 2018-07-22 05:55 | US_ITS ---
STUDY: RENAL ULTRASOUND - COMPLETE REASON FOR EXAM: Female, 78 years old. Renal failure TECHNIQUE: Ultrasound evaluation of the kidneys was performed with real-time and static euceda-scale imaging. COMPARISON: None. FINDINGS: RIGHT KIDNEY: Normal location of the right kidney, which is small in size. The right kidney measures 7.5 x 4.3 x 3.3 cm. There is thinning cortex of the right kidney. The renal cortex measures 0.9 cm. There is no right renal mass or cyst. There are no right renal calculi. There is no right hydronephrosis. DISTAL RIGHT URETER: There is non-visualization of the distal right ureter. LEFT KIDNEY: Normal location of the left kidney, which is small in size. The left kidney measures 8.6 x 4.0 x 3.7 cm. There is thinning cortex of the left kidney. The renal cortex measures 0.7 cm. There is no left renal mass or cyst. There are no left renal calculi. There is no left hydronephrosis. DISTAL LEFT URETER: There is non-visualization of the distal left ureter. BLADDER: Limited visualization of the urinary bladder due to the ascites. There is ascites. US/Kidney and Bladder IMPRESSION: Atrophy of the kidneys. Limited visualization of the urinary bladder. Ascites. Electronically Signed: John Anne DO at 21:24 EST Tel [phone], Service support ,
[2018-07-22] MEDS: Polyethylene Glycol 3350 17 GM PACKET PO (06:14)
[2018-07-22 06:46] LABS: Absolute Lymphocyte Count 0.63 X10^3/ul (0.83-4.51); Basophil# 0.02 X10^3/uL; Basophil% 0.5 % (0-1); Eosinophil# 0.04 X10^3/uL; Hematocrit 26.8 % (37-47); Hemoglobin 8.1 g/dl (12.0-15.0); Lymphocyte # 0.63 X10^3/ul (4.0); Lymphocyte % 15.6 % (19-41); Mean Corp Hgb Conc 30.2 g/gl (32-36); Mean Corpuscular Hgb 24.5 pg (27.0-32.0); Mean Platelet Vol. 9.4 fl (6.2-12.0); Monocyte# 0.32 X10^3/uL; Monocyte% 7.9 % (0-10); Neutrophil # 3.02 X10^3/uL (2.7-7.7); Neutrophil % 74.8 % (47-70); Platelet Count 85 K/mm3 (150-450); RBC Distribution Width CV 17.9 % (11.6-14.6); RBC Distribution Width SD 50.3 fl (35.1-43.9); Red Blood Count 3.31 M/mm3 (4.2-5.4)
[2018-07-22 06:47] LABS: POSITIVE COUNT NO; POSITIVE DIFFERENTIAL NO; POSITIVE MORPHOLOGY NO
[2018-07-22 06:51] LABS: International Normalized Ratio 1.8; Prothrombin Time (Protime)PT. 20.7 SECONDS (11.7-14.9)
[2018-07-22 07:05] LABS: Anion Gap 13 (5-15); BUN 51 mg/dL (7-18); Calcium,Total 8.1 mg/dL (8.5-10.1); Chloride 111 mmol/L (98-107); Creatinine, Serum 3.63 mg/dL (0.55-1.02); EST Glomerular Filtration Rate 13 mL/min (>60); Est Glom Filt Rate - Afr Amer 16 mL/min (>60); Estimated Creatinine Clearance 10.26 ml/min; Glucose 73 mg/dL (74-106); Potassium 4.8 mmol/L (3.5-5.1); Sodium Level 140 mmol/L (136-145)
--- NOTE | 2018-07-22 11:23 | PCA ---
pt off floor
--- NOTE | 2018-07-22 12:35 | OP.ENDO_ITS ---
Patient Name: Med Cesar Procedure Date: 07/22/2018 11:54 AM Date of : 1940 Age: 78 Procedure: Colonoscopy Indications: Unexplained iron deficiency anemia Providers: Jed Grady MD Medicines: Monitored Anesthesia Care Patient Profile: This is a 78 year old female. Refer to note in patient chart for documentation of history and physical. Last Colonoscopy: none. The patient's first colonoscopy is today. Complications: No immediate complications. Estimated blood loss: Minimal. Procedure: Pre-Anesthesia Assessment: - Prior to the procedure, a History and Physical was performed, and patient medications and allergies were reviewed. The patient's tolerance of previous anesthesia was also reviewed. The risks and benefits of the procedure and the sedation options and risks were discussed with the patient. All questions were answered, and informed consent was obtained. Prior Anticoagulants: The patient has taken Coumadin (warfarin), last dose was day of procedure. After reviewing the risks and benefits, the patient was deemed in satisfactory condition to undergo the procedure. After I obtained informed consent, the scope was passed under direct vision. Throughout the procedure, the patient's blood pressure, pulse, and oxygen saturations were monitored continuously. The Colonoscope was introduced through the anus and advanced to the cecum, identified by appendiceal orifice and ileocecal valve. The colonoscopy was performed without difficulty. The patient tolerated the procedure well. The quality of the bowel preparation was good. Scope In: 12:18:00 PM Scope Withdrawal Time 0 hours 6 minutes 3 seconds Scope Out: 12:31:00 PM Total Procedure Duration Time 0 hours 13 minutes 0 seconds Findings: The entire examined colon appeared normal on direct and retroflexion views. Internal hemorrhoids were found during retroflexion. Impression: - The entire examined colon is normal on direct and retroflexion views. - No active bleeding, no blood clots, no stigmata of bleeding. - Internal hemorrhoids. - No specimens collected. Recommendation: - Discharge patient to home. - Resume previous diet. - Continue present medications. - If black stool continues follow up with a machine sander for capsule endoscopy. - No repeat colonoscopy due to current age (66 years or older). Procedure Code(s): --- Professional --- 79374, Colonoscopy, flexible; diagnostic, including collection of specimen(s) by brushing or washing, when performed (separate procedure) Diagnosis Code(s): --- Professional --- K64.8, Other hemorrhoids D50.9, Iron deficiency anemia, unspecified CPT copyright 2017 [employer]. All rights reserved. The codes documented in this report are preliminary and upon certified coder review may be revised to meet current compliance requirements. Jed Grady MD 07/22/2018 12:34:41 PM This report has been signed electronically. Number of Addenda: 0 Note Initiated On: 07/22/2018 11:54 AM
--- NOTE | 2018-07-22 12:36 | PN_ITS ---
Progress Note I performed a colonoscopy in the patient there was no active bleeding and no stigmata of bleeding. The patient had mild diverticulitis in the sigmoid colon and she did have internal hemorrhoids which were not actively bleeding. I will start her on a regular diet. If she continues to have black stools she would need to see a senior underwriting assistant for capsule endoscopy. Jed Grady MD Pager: [facility] [address] [place] [address] [address] [place] [address] Office:
--- NOTE | 2018-07-22 12:36 | PCM.PN.BLA ---
Progress Note I performed a colonoscopy in the patient there was no active bleeding and no stigmata of bleeding. The patient had mild diverticulitis in the sigmoid colon and she did have internal hemorrhoids which were not actively bleeding. I will start her on a regular diet. If she continues to have black stools she would need to see a hospital sales representative for capsule endoscopy. Jed Grady MD Pager: [facility] [address] [place] [address] [address] [place] [address] Office:
--- NOTE | 2018-07-22 13:04 | PCA ---
pt off floor
[2018-07-22] MEDS: Nystatin Powder 15gm Bottle 1 APPLIC TOPICAL ×2 (13:16→21:43)
--- NOTE | 2018-07-22 16:42 | PCM.PN.HOSP ---
Patient Problems: Active and Suspected Problems (Last Reviewed 07/19/18 @ 15:34 by Eri Mccrary) GI bleed (Acute) Hyperkalemia (Acute) Anemia (Acute) Supratherapeutic INR (Acute) Subjective: Doing well today, no issues overnight tolerated her colonoscopy well Vitals/I&O's: Vital Signs Temp Pulse Resp BP Pulse Ox 98.0 F 76 18 118/60 94 07/22/18 15:14 07/22/18 15:14 07/22/18 15:14 07/22/18 15:14 07/22/18 15:14 Oxygen Delivery Method Room Air Weight: 195 lb 5.273 oz Body Mass Index (BMI) 35.9 Finger Stick Blood Glucose 99 Intake and Output for Last 24 Hours 07/20/18 07/21/18 07/22/18 23:59 23:59 23:59 Intake Total 2444 / 2444 6584 / 6584 1638 / 1638 Output Total 800 / 800 2150 / 2150 200 / 200 Balance 1644 / 1644 4434 / 4434 1438 / 1438 General: Alert, Oriented x3, Cooperative, No apparent distress HEENT: Atraumatic, PERRLA, EOMI, Normocephalic Oral: Moist Mucosa Neck: Supple, No JVD, Trachea Midline Lungs: Clear to auscultation, Normal air movement, No rhonchi, No wheeze, No rales, Diminished Cardiovascular: Regular rate, Regular Rhythm, Normal S1, Normal S2, No murmurs Abdomen: Soft, Non Tender, Non-Distended, No Hepato-splenomegaly Extremities: No edema, Capillary Refill Less than 3 Seconds Skin: No cellulitis or signs of infection Neurological: Neuro grossly intact, Sensory exam intact to light touch and pain Psych/Mental Status: Normal Affect, Appropriate Microbiology Past 72 Hours 07/19/18 16:52 Stool Stool Occult Blood (JOSHUA) - Final Occult Blood Positive Laboratory Results 07/22/18 03:08: Ur Random Sodium 22, Urine Potassium 38.0, Urine Chloride < 10 07/22/18 06:10: WBC 4.0 L, RBC 3.31 L, Hgb 8.1 L, Hct 26.8 L, MCV 81.0, MCH 24.5 L, MCHC 30.2 L, RDW 17.9 H, RDW Differential 50.3 H, Plt Count 85 L, MPV 9.4, Immature Gran % (Auto) 0.200, Neut % (Auto) 74.8 H, Lymph % (Auto) 15.6 L, [place] % (Auto) 7.9, Eos % (Auto) 1.0, Baso % (Auto) 0.5, Absolute Neuts (auto) 3.0, Absolute Lymphs (auto) 0.63 L, Total Counted Not Reportable 07/22/18 06:10: Sodium 140, Potassium 4.8, Chloride 111 H, Carbon Dioxide 16.0 L, Anion Gap 13, BUN 51 H, Creatinine 3.63 H, Estim Creat Clear Calc 10.26, Est GFR (MDRD) Af Amer 16 L, Est GFR (MDRD) Non-Af 13 L, BUN/Creatinine Ratio 14.0, Glucose 73 L, Calcium 8.1 L 07/22/18 06:10: PT 20.7 H, INR 1.8 Current Medications Amiodarone HCl (Cordarone) 200 mg PO DAILY [facility] Last Admin: 07/21/18 09:42 Dose: 200 mg Atorvastatin Calcium (Lipitor) 20 mg PO QHS [facility] Last Admin: 07/21/18 21:53 Dose: 20 mg Bisacodyl (Dulcolax) 5 mg PO DAILY PRN PRN PRN Reason: Constipation Cholecalciferol (Vitamin D) 5,000 unit PO DAILY [facility] Last Admin: 07/21/18 09:41 Dose: 5,000 unit Docusate Sodium (Colace) 100 mg PO DAILY [facility] Last Admin: 07/22/18 12:17 Dose: Not Given Sodium Chloride () 250 mls @ 15 mls/hr IV .[id number] PRN PRN Reason: SALINE FLUSH Sodium Chloride () 250 mls @ 15 mls/hr IV .[id number] PRN PRN Reason: SALINE FLUSH Last Admin: 07/19/18 23:24 Dose: 15 mls/hr Sodium Chloride () 1,000 mls @ 100 mls/hr IV .Q10H [facility] Last Admin: 07/22/18 13:16 Dose: 100 mls/hr Pantoprazole Sodium 40 mg/ (Sodium Chloride) 110 mls @ 330 mls/hr IV Q24 [facility] Last Admin: 07/22/18 09:59 Dose: 330 mls/hr Magnesium Hydroxide (Milk Of Magnesia) 30 ml PO DAILY PRN PRN PRN Reason: Constipation Metoprolol Succinate (Toprol Xl (Beta Charbel)) 50 mg PO DAILY [facility] Last Admin: 07/21/18 09:40 Dose: Not Given Nystatin (Mycostatin Powder) 1 applic TOPICAL TID [facility]; Protocol Last Admin: 07/22/18 13:16 Dose: 1 applic Ondansetron HCl (Zofran) 4 mg IV Q8H PRN PRN PRN Reason: NAUSEA Psyllium Hydrophilic Mucilloid (Metamucil) 1 packet PO DAILY PRN PRN PRN Reason: CONSTIPATION Sodium Chloride () 5 - 15 ml IV UD PRN PRN Reason: SALINE FLUSH Last Admin: 07/20/18 18:24 Dose: 10 ml Warfarin Sodium (Coumadin (Pbkc)) 2 mg PO DAILY@1700 [facility] Last Admin: 07/21/18 18:10 Dose: 2 mg Medical Necessity - Tobacco Use Smoking Status: Never smoker Tobacco Use: Non-smoker Assessment/Plan All Active Problems (Last Reviewed 07/19/18 @ 15:34 by Eri Mccrary) GI bleed (Acute) Hyperkalemia (Acute) Anemia (Acute) Supratherapeutic INR (Acute) Edema (Acute) Dyspnea on exertion (Acute) 1. Acute anemia secondary to GI bleed secondary to supratherapeutic INR and possible aspirin use -Admitted to the ICU and transfused 1 unit of packed red blood cells for a hemoglobin of 7.4 -INR is down to 1.8 from 10, she was given vitamin K and FFP in the ER -EGD demonstrated gastritis and colonoscopy was negative for active bleeding or signs of a recent bleed -Continue with PPI -I could not find any evidence of cardiac cath or significant coronary artery disease, can likely transition off of aspirin 2. A. fib/history of systolic heart failure/CKD 4 with AK I -Pain is improved from 5.05-3.6-3, this is likely prerenal and has progressed to ATN, renal ultrasound pending -Continue with gentle IV hydration -Last echo with an EF of 65% and her previous echo which showed systolic dysfunction had an EF of only 45% -She is on Coumadin for her A. fib and she has had mitral and aortic valve replacements. Continue with her Coumadin -Continue with amiodarone, Lipitor, metoprolol DVT: Coumadin Code Visit Inpatient E&M: 11402 Subs Hosp L2
--- NOTE | 2018-07-22 16:45 | PN_ITS ---
Patient Problems: Active and Suspected Problems (Last Reviewed 07/19/18 @ 15:34 by Eri Mccrary) GI bleed (Acute) Hyperkalemia (Acute) Anemia (Acute) Supratherapeutic INR (Acute) Subjective: Doing well today, no issues overnight tolerated her colonoscopy well Vitals/I&O's: Vital Signs Temp Pulse Resp BP Pulse Ox 98.0 F 76 18 118/60 94 07/22/18 15:14 07/22/18 15:14 07/22/18 15:14 07/22/18 15:14 07/22/18 15:14 Oxygen Delivery Method Room Air Weight: 195 lb 5.273 oz Body Mass Index (BMI) 35.9 Finger Stick Blood Glucose 99 Intake and Output for Last 24 Hours 07/20/18 07/21/18 07/22/18 23:59 23:59 23:59 Intake Total 2444 / 2444 6584 / 6584 1638 / 1638 Output Total 800 / 800 2150 / 2150 200 / 200 Balance 1644 / 1644 4434 / 4434 1438 / 1438 General: Alert, Oriented x3, Cooperative, No apparent distress HEENT: Atraumatic, PERRLA, EOMI, Normocephalic Oral: Moist Mucosa Neck: Supple, No JVD, Trachea Midline Lungs: Clear to auscultation, Normal air movement, No rhonchi, No wheeze, No rales, Diminished Cardiovascular: Regular rate, Regular Rhythm, Normal S1, Normal S2, No murmurs Abdomen: Soft, Non Tender, Non-Distended, No Hepato-splenomegaly Extremities: No edema, Capillary Refill Less than 3 Seconds Skin: No cellulitis or signs of infection Neurological: Neuro grossly intact, Sensory exam intact to light touch and pain Psych/Mental Status: Normal Affect, Appropriate Microbiology Past 72 Hours 07/19/18 16:52 Stool Stool Occult Blood (JOSHUA) - Final Occult Blood Positive Laboratory Results 07/22/18 03:08: Ur Random Sodium 22, Urine Potassium 38.0, Urine Chloride < 10 07/22/18 06:10: WBC 4.0 L, RBC 3.31 L, Hgb 8.1 L, Hct 26.8 L, MCV 81.0, MCH 24.5 L, MCHC 30.2 L, RDW 17.9 H, RDW Differential 50.3 H, Plt Count 85 L, MPV 9.4, Immature Gran % (Auto) 0.200, Neut % (Auto) 74.8 H, Lymph % (Auto) 15.6 L, [place] % (Auto) 7.9, Eos % (Auto) 1.0, Baso % (Auto) 0.5, Absolute Neuts (auto) 3.0, Absolute Lymphs (auto) 0.63 L, Total Counted Not Reportable 07/22/18 06:10: Sodium 140, Potassium 4.8, Chloride 111 H, Carbon Dioxide 16.0 L , Anion Gap 13, BUN 51 H, Creatinine 3.63 H, Estim Creat Clear Calc 10.26, Est GFR (MDRD) Af Amer 16 L, Est GFR (MDRD) Non-Af 13 L, BUN/Creatinine Ratio 14.0, Glucose 73 L, Calcium 8.1 L 07/22/18 06:10: PT 20.7 H, INR 1.8 Current Medications Amiodarone HCl (Cordarone) 200 mg PO DAILY [facility] Last Admin: 07/21/18 09:42 Dose: 200 mg Atorvastatin Calcium (Lipitor) 20 mg PO QHS [facility] Last Admin: 07/21/18 21:53 Dose: 20 mg Bisacodyl (Dulcolax) 5 mg PO DAILY PRN PRN PRN Reason: Constipation Cholecalciferol (Vitamin D) 5,000 unit PO DAILY [facility] Last Admin: 07/21/18 09:41 Dose: 5,000 unit Docusate Sodium (Colace) 100 mg PO DAILY [facility] Last Admin: 07/22/18 12:17 Dose: Not Given Sodium Chloride () 250 mls @ 15 mls/hr IV .[id number] PRN PRN Reason: SALINE FLUSH Sodium Chloride () 250 mls @ 15 mls/hr IV .[id number] PRN PRN Reason: SALINE FLUSH Last Admin: 07/19/18 23:24 Dose: 15 mls/hr Sodium Chloride () 1,000 mls @ 100 mls/hr IV .Q10H [facility] Last Admin: 07/22/18 13:16 Dose: 100 mls/hr Pantoprazole Sodium 40 mg/ (Sodium Chloride) 110 mls @ 330 mls/hr IV Q24 [facility] Last Admin: 07/22/18 09:59 Dose: 330 mls/hr Magnesium Hydroxide (Milk Of Magnesia) 30 ml PO DAILY PRN PRN PRN Reason: Constipation Metoprolol Succinate (Toprol Xl (Beta Charbel)) 50 mg PO DAILY [facility] Last Admin: 07/21/18 09:40 Dose: Not Given Nystatin (Mycostatin Powder) 1 applic TOPICAL TID [facility]; Protocol Last Admin: 07/22/18 13:16 Dose: 1 applic Ondansetron HCl (Zofran) 4 mg IV Q8H PRN PRN PRN Reason: NAUSEA Psyllium Hydrophilic Mucilloid (Metamucil) 1 packet PO DAILY PRN PRN PRN Reason: CONSTIPATION Sodium Chloride () 5 - 15 ml IV UD PRN PRN Reason: SALINE FLUSH Last Admin: 07/20/18 18:24 Dose: 10 ml Warfarin Sodium (Coumadin (Pbkc)) 2 mg PO DAILY@1700 [facility] Last Admin: 07/21/18 18:10 Dose: 2 mg Medical Necessity - Tobacco Use Smoking Status: Never smoker Tobacco Use: Non-smoker Assessment/Plan All Active Problems (Last Reviewed 07/19/18 @ 15:34 by Eri Mccrary) GI bleed (Acute) Hyperkalemia (Acute) Anemia (Acute) Supratherapeutic INR (Acute) Edema (Acute) Dyspnea on exertion (Acute) 1. Acute anemia secondary to GI bleed secondary to supratherapeutic INR and possible aspirin use -Admitted to the ICU and transfused 1 unit of packed red blood cells for a hemoglobin of 7.4 -INR is down to 1.8 from 10, she was given vitamin K and FFP in the ER -EGD demonstrated gastritis and colonoscopy was negative for active bleeding or signs of a recent bleed -Continue with PPI -I could not find any evidence of cardiac cath or significant coronary artery disease, can likely transition off of aspirin 2. A. fib/history of systolic heart failure/CKD 4 with AK I -Pain is improved from 5.05-3.6-3, this is likely prerenal and has progressed to ATN, renal ultrasound pending -Continue with gentle IV hydration -Last echo with an EF of 65% and her previous echo which showed systolic dysfunction had an EF of only 45% -She is on Coumadin for her A. fib and she has had mitral and aortic valve replacements. Continue with her Coumadin -Continue with amiodarone, Lipitor, metoprolol DVT: Coumadin Code Visit Inpatient E&M: 49698 Subs Hosp L2
[2018-07-22] MEDS: Amiodarone 200 MG Tablet PO (17:33)
--- NOTE | 2018-07-22 19:00 | NURSING ---
All information documented and input by Jeffery Arce was reviewed or documented with by this RN
[2018-07-22] MEDS: Atorvastatin Calcium 20 MG Tablet PO (21:43)
[2018-07-23] VITALS (9 sets, daily range): BP systolic 102–134; BP diastolic 62–74; PULSE 66–82; RESP 16–18; TEMP 36.3–37.1; O2SAT 94–97
[2018-07-23] MEDS: 0.9% Normal Saline 1,000 ML 100 ML IV ×2 (02:10→10:11)
[2018-07-23] MEDS: Nystatin Powder 15gm Bottle 1 APPLIC TOPICAL (05:35)
[2018-07-23 05:37] LABS: International Normalized Ratio 2.2; Prothrombin Time (Protime)PT. 24.2 SECONDS (11.7-14.9)
[2018-07-23 05:44] LABS: Absolute Lymphocyte Count 0.48 X10^3/ul (0.83-4.51); Absolute Neutrophil Count 2.9 X10^3/uL (2.0-7.7); Basophil# 0.02 X10^3/uL; Basophil% 0.5 % (0-1); Eosinophil# 0.04 X10^3/uL; Hematocrit 26.9 % (37-47); Hemoglobin 8.1 g/dl (12.0-15.0); Lymphocyte # 0.48 X10^3/ul (4.0); Lymphocyte % 12.3 % (19-41); Mean Corp Hgb Conc 30.1 g/gl (32-36); Mean Corpuscular Hgb 24.9 pg (27.0-32.0); Mean Corpuscular Volume 82.8 fL (81-99); Mean Platelet Vol. 9.8 fl (6.2-12.0); Monocyte# 0.46 X10^3/uL; Monocyte% 11.8 % (0-10); Neutrophil % 74.4 % (47-70); Platelet Count 88 K/mm3 (150-450); RBC Distribution Width CV 18.6 % (11.6-14.6); RBC Distribution Width SD 52.4 fl (35.1-43.9); Red Blood Count 3.25 M/mm3 (4.2-5.4); White Blood Count 3.9 K/mm3 (4.4-11.0)
[2018-07-23 05:45] LABS: Differential Indicated SCAN CRITERIA MET; POSITIVE COUNT NO; POSITIVE DIFFERENTIAL YES; POSITIVE MORPHOLOGY NO
[2018-07-23 05:46] LABS: Anion Gap 12 (5-15); BUN 44 mg/dL (7-18); BUN/Creat Ratio 13.7 RATIO (10-20); Calcium,Total 8.1 mg/dL (8.5-10.1); Chloride 116 mmol/L (98-107); Creatinine, Serum 3.21 mg/dL (0.55-1.02); EST Glomerular Filtration Rate 15 mL/min (>60); Est Glom Filt Rate - Afr Amer 18 mL/min (>60); Estimated Creatinine Clearance 11.61 ml/min; Glucose 86 mg/dL (74-106); Potassium 4.5 mmol/L (3.5-5.1); Sodium Level 143 mmol/L (136-145)
[2018-07-23] MEDS: Metoprolol(XL)Succ 50 MG Tablet PO (10:12)
[2018-07-23] MEDS: Amiodarone 200 MG Tablet PO (10:12)
--- NOTE | 2018-07-23 11:30 | PCM.DC ---
- Discharge Diagnoses Current Active Problems: Current Active and Chronic Problems (Last Reviewed 07/19/18 @ 15:34 by Eri Mccrary) GI bleed (Acute) Hyperkalemia (Acute) Anemia (Acute) Supratherapeutic INR (Acute) KYLEIGH (acute kidney injury) (Chronic) You will use the following diet at home:: Cardiac Your food should be the consistency of: Regular Your liquids should be the consistency of: Regular/Thin Discharge Activity: Return to Normal Activity Call your doctor if you observe: Fever of 101 or Higher, Shortness of breath, Dizziness, Fainting spells, Chest pain, Increased palpitations (irregular heartbeat) Allergies/Adverse Reactions: Allergies aspartame [From [employer] Aspartame] Allergy (Verified 07/19/18 16:38) Hives Medications to take at Discharge rosuvastatin 10 mg tablet 10 mg PO QHS #90 tab 10/14/17 Potassium Chloride [K-Dur] 10 meq PO BID@0800,1700 06/05/18 Acetaminophen [Tylenol] 1,000 mg PO DAILY 07/19/18 Amiodarone HCl 200 mg PO DAILY 07/19/18 Amlodipine Besylate 5 mg PO DAILY 07/19/18 Cholecalciferol (Vitamin D3) [Vitamin D3] 5,000 unit PO DAILY 07/19/18 Docusate Sodium [Colace] 100 mg PO DAILY 07/19/18 Omeprazole 20 mg PO DAILY 07/19/18 metoprolol succinate ER 50 mg tablet,extended release 24 hr 50 mg PO DAILY 07/19/18 Apixaban [Eliquis] 2.5 mg PO BID #60 tablet 07/23/18 Ascorbic Acid [Vitamin C] 500 mg PO DAILY #30 tab.chew 07/23/18 Ferrous Gluconate 324 mg PO DAILY #30 tablet 07/23/18 Furosemide [Lasix] 40 mg PO BID@0800,1700 #0 07/23/18 The following prescriptions were given: Ascorbic Acid [Vitamin C] 500 mg PO DAILY #30 tab.chew Ferrous Gluconate 324 mg PO DAILY #30 tablet Apixaban [Eliquis] 2.5 mg PO BID #60 tablet Primary Care Physician: Hermann Nath DO [Primary Care Provider] - Please follow up with your Primary Care Physician in: 3-5 days Test Results: Test results from this visit will be discussed in further detail at your follow-up appointment, if applicable. Please Follow Up With: Stanley Yin MD When: At next appointment or sooner if possible
--- NOTE | 2018-07-23 11:32 | PCM.DC.SUM ---
Discharge Date and Diagnosis - Problem List Patient Problems: Active and Suspected Problems (Last Reviewed 07/19/18 @ 15:34 by Eri Mccrary) GI bleed (Acute) Hyperkalemia (Acute) Anemia (Acute) Supratherapeutic INR (Acute) Date of Admission: 07/19/18 Date of Discharge: 07/23/18 - Primary Discharge Diagnosis Active and Suspected Problems (Last Reviewed 07/19/18 @ 15:34 by Eri Mccrary) GI bleed (Acute) Hyperkalemia (Acute) Anemia (Acute) Supratherapeutic INR (Acute) - Secondary Discharge Diagnosis Chronic Problems (Last Reviewed 07/19/18 @ 15:34 by Eri Mccrary) On amiodarone therapy (Chronic) H/O mitral valve replacement (Chronic 01/28/17) with 27 mm bioprosthetic heart valve @ [facility] H/O aortic valve replacement (Chronic 01/28/17) with 21 mm bioprosthetic heart valve, ligation of Lt atrial appendage @ [facility] Cardiomyopathy in disease classified elsewhere (Chronic) Nonrheumatic mitral (valve) insufficiency (Chronic) Nonrheumatic aortic (valve) insufficiency (Chronic) Persistent atrial fibrillation (Chronic) Chronic kidney disease, unspecified (Chronic) HTN (hypertension) (Chronic) HLD (hyperlipidemia) (Chronic) Anticoagulant long-term use (Chronic) Diverticulitis (Chronic) Paroxysmal atrial fibrillation (Chronic) HTN (hypertension) (Chronic) Heart failure with reduced ejection fraction (Chronic) Pulmonary hypertension (Chronic) Mitral stenosis (Chronic) Aortic insufficiency (Chronic) KYLEIGH (acute kidney injury) (Chronic) CKD (chronic kidney disease) stage 3, GFR 30-59 ml/min (Chronic) CHF (congestive heart failure) (Chronic) Leukocytosis (Chronic) Mitral regurgitation (Chronic) Hospital Course and Treatment Imaging Results: Renal US: FINDINGS: RIGHT KIDNEY: Normal location of the right kidney, which is small in size. The right kidney measures 7.5 x 4.3 x 3.3 cm. There is thinning cortex of the right kidney. The renal cortex measures 0.9 cm. There is no right renal mass or cyst. There are no right renal calculi. There is no right hydronephrosis. DISTAL RIGHT URETER: There is non-visualization of the distal right ureter. LEFT KIDNEY: Normal location of the left kidney, which is small in size. The left kidney measures 8.6 x 4.0 x 3.7 cm. There is thinning cortex of the left kidney. The renal cortex measures 0.7 cm. There is no left renal mass or cyst. There are no left renal calculi. There is no left hydronephrosis. DISTAL LEFT URETER: There is non-visualization of the distal left ureter. BLADDER: Limited visualization of the urinary bladder due to the ascites. There is ascites. Consults: General Surgery ICU Operations: None Procedures: Colonoscopy - mpression: - The entire examined colon is normal on direct and retroflexion views. - No active bleeding, no blood clots, no stigmata of bleeding. - Internal hemorrhoids. - No specimens collected. Recommendation: - Discharge patient to home. - Resume previous diet. - Continue present medications. - If black stool continues follow up with a lab nurse for capsule endoscopy. - No repeat colonoscopy due to current age (66 years or older)., EGD - Impression: - Gastritis. - The examination was otherwise normal. - No specimens collected. Recommendation: - Return patient to hospital [facility] for ongoing care. - Clear liquid diet. - Continue present medications. Summary of Care Provided: Per HPI: The patient is a 78 year old F with multiple comorbidities including mitral and aortic valve replacement, chronic heart failure with reduced EF, hypertension, hyperlipidemia, CKD, chronic atrial fibrillation, who comes in from Dr. Velasquez's office to the ED with concerns of possible GI bleed. Patient had gone to see Dr. Velasquez and complained of progressively worsening fatigue, worsening lower extremity edema, black tarry stools, slight fever, and an episode of nausea and vomiting. Stat CBC showed hemoglobin of 7.6 and her blood pressure in the cardiology office was 80/50. EKG shows sinus bradycardia with low voltage, right bundle branch block, no acute changes. QT corrected was 487 And admits to feeling very tired over the last 2 weeks. She had noticed that his stools were black. Her last INR check was about a month ago and it was 2.8. She denied any chest pain no palpitations She admits to feeling slightly lightheaded. She had fallen in May 2018, was seen in the ED, did not have any fractures. In the ED, her temperature was 97.0F, heart rate was 48, respiratory rate was 18, blood pressure was 105/50, she was saturating 97% on room air. Admitting blood work showed RBC count of 4.6, hemoglobin 7.4, previous hemoglobin on 06/21/2018 was 8.7, platelet count was 100, previous platelet on 06/21/2018 was 151, INR was 10.4, APTT was 102.6, sodium was 134, potassium 6.0, chloride 107, bicarbonate was 17, anion gap was 12, BUN 74, creatinine was 5.05, previous creatinine was 5.05, glucose was 99. Emergency room discussed with Dr. Grady who has agreed to follow-up with the patient for possible GI bleed Hospital Course: 1. Acute anemia secondary to GI bleed from supratherapeutic INR and aspirin use/A. [id number]-old female with a history of chronic systolic heart failure, CKD 4, aortic and mitral valve replacement presenting with possible GI bleed. She had presented to her client services vice president's office who sent her into the hospital because her blood pressure was 80/50 in the office and a stat CBC showed a hemoglobin of 7.6. She was transfused 1 unit and admitted to the ICU. At that time her INR was found to be 10 and she was given vitamin K and FFP in the ER as well for reversal. She underwent an EGD initially which only showed mild gastritis, and then she underwent a colonoscopy after prep which was normal. Her hemoglobin stabilized at 8.1 on the day of discharge. Because her aortic and mitral valves were bioprosthetic and did not necessitate treatment with anticoagulant, we switched her to Eliquis 2.5 given her renal dysfunction for her A. fib. Since she had a cardiac cath that showed nonobstructive coronary artery disease echo in February 2018 with a normal EF, given her recent GI bleed, will discontinue her aspirin completely. There is a possibility that her bleeding is therefore from her small intestine and if she continues to bleed she will need to be worked up at a facility that can do either capsule endoscopy or small bowel enterography. Also because of her acute anemia secondary to the GI bleed, I did start her on iron replacement with vitamin C given her use of a PPI. 2. CKD 4 with acute renal failure-on admission her creatinine was 5.05 which was much higher than her baseline of 1.8-2.0. She was started on slow IV fluids and she gradually improved to 3.21 urine electro lites were unremarkable and a renal ultrasound was also unremarkable. She does have a follow-up appointment already scheduled for August 19 with her current knockout worker, I did recommend that she call and see if she can have a sooner appointment. Because of her creatinine being elevated I do recommend that she hold her Lasix until she has follow-up and normalization of her creatinine. 3. Her other medical diagnoses were evaluated and her home medications were continued where appropriate Patient Problems: Active and Suspected Problems (Last Reviewed 07/19/18 @ 15:34 by Eri Mccrary) GI bleed (Acute) Hyperkalemia (Acute) Anemia (Acute) Supratherapeutic INR (Acute) Objective: General: Alert, Oriented x3, Cooperative, No apparent distress HEENT: Atraumatic, PERRLA, EOMI, Normocephalic Oral: Moist Mucosa Neck: Supple, No JVD, Trachea Midline Lungs: Clear to auscultation, Normal air movement, No rhonchi, No wheeze, No rales, Diminished Cardiovascular: Regular rate, Regular Rhythm, Normal S1, Normal S2, No murmurs Abdomen: Soft, Non Tender, Non-Distended, No Hepato-splenomegaly Extremities: No edema, Capillary Refill Less than 3 Seconds Skin: No cellulitis or signs of infection Neurological: Neuro grossly intact, Sensory exam intact to light touch and pain Psych/Mental Status: Normal Affect, Appropriate - Physical Exam Vital Signs Temp Pulse Resp BP Pulse Ox 97.9 F 68 18 123/62 H 97 07/23/18 09:40 07/23/18 10:12 07/23/18 09:40 07/23/18 10:12 07/23/18 09:40 Oxygen Delivery Method Room Air Weight: 198 lb 13.711 oz Body Mass Index (BMI) 35.9 Finger Stick Blood Glucose 99 Intake and Output for Last 24 Hours 07/21/18 07/22/18 07/23/18 23:59 23:59 23:59 Intake Total 6584 / 6584 2679 / 2679 752 / 752 Output Total 2150 / 2150 400 / 400 Balance 4434 / 4434 2279 / 2279 752 / 752 Laboratory Tests Past 24 Hrs 07/19/18 07/23/18 07/23/18 17:05 04:40 04:40 WBC 3.9 L RBC 3.25 L Hgb 8.1 L Hct 26.9 L MCV 82.8 MCH 24.9 L MCHC 30.1 L RDW 18.6 H RDW Differential 52.4 H Plt Count 88 L MPV 9.8 Immature Gran % (Auto) 0.000 Neut % (Auto) 74.4 H Lymph % (Auto) 12.3 L Bleckley % (Auto) 11.8 H Eos % (Auto) 1.0 Baso % (Auto) 0.5 Absolute Neuts (auto) 2.9 Absolute Lymphs (auto) 0.48 L Total Counted Not Reportable PT 24.2 H INR 2.2 Sodium Potassium Chloride Carbon Dioxide Anion Gap BUN Creatinine Estim Creat Clear Calc Est GFR (MDRD) Af Amer Est GFR (MDRD) Non-Af BUN/Creatinine Ratio Glucose Calcium Crossmatch See Detail 07/23/18 04:40 WBC RBC Hgb Hct MCV MCH MCHC RDW RDW Differential Plt Count MPV Immature Gran % (Auto) Neut % (Auto) Lymph % (Auto) Bleckley % (Auto) Eos % (Auto) Baso % (Auto) Absolute Neuts (auto) Absolute Lymphs (auto) Total Counted PT INR Sodium 143 Potassium 4.5 Chloride 116 H Carbon Dioxide 15.0 L Anion Gap 12 BUN 44 H Creatinine 3.21 H Estim Creat Clear Calc 11.61 Est GFR (MDRD) Af Amer 18 L Est GFR (MDRD) Non-Af 15 L BUN/Creatinine Ratio 13.7 Glucose 86 Calcium 8.1 L Crossmatch Discharge Activity: Return to Normal Activity Call your doctor if you observe: Fever of 101 or Higher, Shortness of breath, Dizziness, Fainting spells, Chest pain, Increased palpitations (irregular heartbeat) Home Medications: Medications to take at Discharge rosuvastatin 10 mg tablet 10 mg PO QHS #90 tab 10/14/17 Potassium Chloride [K-Dur] 10 meq PO BID@0800,1700 06/05/18 Acetaminophen [Tylenol] 1,000 mg PO DAILY 07/19/18 Amiodarone HCl 200 mg PO DAILY 07/19/18 Amlodipine Besylate 5 mg PO DAILY 07/19/18 Cholecalciferol (Vitamin D3) [Vitamin D3] 5,000 unit PO DAILY 07/19/18 Docusate Sodium [Colace] 100 mg PO DAILY 07/19/18 Omeprazole 20 mg PO DAILY 07/19/18 metoprolol succinate ER 50 mg tablet,extended release 24 hr 50 mg PO DAILY 07/19/18 Apixaban [Eliquis] 2.5 mg PO BID #60 tablet 07/23/18 Ascorbic Acid [Vitamin C] 500 mg PO DAILY #30 tab.chew 07/23/18 Ferrous Gluconate 324 mg PO DAILY #30 tablet 07/23/18 Furosemide [Lasix] 40 mg PO BID@0800,1700 #0 07/23/18 Following Prescrptions Were Given to Patient: Ascorbic Acid [Vitamin C] 500 mg PO DAILY #30 tab.chew Ferrous Gluconate 324 mg PO DAILY #30 tablet Apixaban [Eliquis] 2.5 mg PO BID #60 tablet Primary Care Physician: Hermann Nath DO [Primary Care Provider] - Please follow up with your Primary Care Physician in: 3-5 days Please Follow Up With: Stanley Yin MD When: At next appointment or sooner if possible Disposition: Home Minutes spent on discharge:: 35 Patient Condition:: Stable Medical Necessity - Tobacco Use Smoking Status: Never smoker Tobacco Use: Non-smoker Meaningful Use Info Meaningful Use Diagnoses (Choose all that apply): None applicable Code Visit Inpatient E&M: 18162 Disch Hosp
--- NOTE | 2018-07-23 11:46 | CASEMGMT ---
Therapy is recommending further skilled therapy for pt at this time. This RN CM to room to discuss with pt/daughter at this time and pt states that she would prefer outpt therapy at [facility] at this time. Referral to [facility] faxed at this time and original to pt at this time. Pt also aware that Dr. Almeida would like to send her home on Eliquis and script was e-scribed to [facility] retail pharmacy. Call to [facility] and per Crys, pt has no co-pay for Eliquis at this time and will deliver meds to pt in the next 1/2 hour or so. Pt/daughter updated on all at this time, voice understanding. SStammon PENA CM
== END 2018-07-23 13:16 | disposition home or self-care (01) | DRG 377 ==
LOC: ED 18:40 → ICU 19:47 → PCU 07-20 17:31
PROVIDERS: Internal Medicine Critical Care Medicine; Surgery; Admitting Provider Internal Medicine; Emergency Provider Emergency Medicine; Family Provider Family Medicine; PCP Family Medicine; Visit Provider Family Medicine
PROC: 0DJ08ZZ Inspection of Upper Intestinal Tract, Via Natural or Artificial Opening Endoscopic (ICD-10-PCS; CPT 43235; principal; 2018-07-20 09:55)
PROC: 0DJD8ZZ Inspection of Lower Intestinal Tract, Via Natural or Artificial Opening Endoscopic (ICD-10-PCS; CPT 45378; principal; 2018-07-22 11:55)
DX: K92.2 Gastrointestinal hemorrhage, unspecified (principal); R57.8 Other shock; N17.9 Acute kidney failure, unspecified; E87.1 Hypo-osmolality and hyponatremia; E87.2 Acidosis; K57.32 Diverticulitis of large intestine without perforation or abscess without bleeding; I13.0 Hypertensive heart and chronic kidney disease with heart failure and stage 1 through stage 4 chronic kidney disease, or unspecified chronic kidney disease; I50.32 Chronic diastolic (congestive) heart failure; N18.4 Chronic kidney disease, stage 4 (severe); D62 Acute posthemorrhagic anemia; E78.5 Hyperlipidemia, unspecified; D69.6 Thrombocytopenia, unspecified; I48.2 Chronic atrial fibrillation; T45.515A Adverse effect of anticoagulants, initial encounter; T39.015A Adverse effect of aspirin, initial encounter; E87.5 Hyperkalemia; Z66 Do not resuscitate; K29.70 Gastritis, unspecified, without bleeding; K64.8 Other hemorrhoids; Z79.01 Long term (current) use of anticoagulants; Z95.3 Presence of xenogenic heart valve; I27.20 Pulmonary hypertension, unspecified
CPT/HCPCS: 36415; 76770; 80048; 80069; 82274; 82436; 83735; 84100; 84133; 84300; 85014; 85018; 85025; 85610; 85730; 86644; 86850; 86900; 86920; 93005; 94640; 97162; 97165; 97530; 97802; 99284; J7030; J7040; J7050; J7120; P9016; P9017; A4216; J1940; J3490

== ENCOUNTER 2018-07-26 00:45 | Inpatient (IN) | payer MEDICARE, OTHER, SELFPAY ==
[2018-07-21 23:53] VITALS: BMI 35.9
[2018-07-26] VITALS (26 sets, daily range): BP systolic 94–123; BP diastolic 39–75; PULSE 62–76; RESP 16–26; TEMP 36.3–37; O2SAT 96–99; BMI 38.7; BMI 37.6
[2018-07-26 01:30] LABS: Absolute Lymphocyte Count 0.54 X10^3/ul (0.83-4.51); Absolute Neutrophil Count 3.1 X10^3/uL (2.0-7.7); Basophil# 0.02 X10^3/uL; Basophil% 0.5 % (0-1); Eosinophil# 0.05 X10^3/uL; Eosinophils% 1.2 % (0-5); Hematocrit 29.5 % (37-47); Lymphocyte # 0.54 X10^3/ul (4.0); Lymphocyte % 12.9 % (19-41); Mean Corp Hgb Conc 30.5 g/gl (32-36); Mean Corpuscular Hgb 25.3 pg (27.0-32.0); Mean Corpuscular Volume 82.9 fL (81-99); Mean Platelet Vol. 10.3 fl (6.2-12.0); Monocyte# 0.44 X10^3/uL; Monocyte% 10.5 % (0-10); Neutrophil # 3.13 X10^3/uL (2.7-7.7); Neutrophil % 74.9 % (47-70); Platelet Count 83 K/mm3 (150-450); Red Blood Count 3.56 M/mm3 (4.2-5.4); White Blood Count 4.2 K/mm3 (4.4-11.0)
[2018-07-26 01:31] LABS: Differential Indicated SCAN CRITERIA MET; POSITIVE COUNT NO; POSITIVE DIFFERENTIAL YES; POSITIVE MORPHOLOGY NO
[2018-07-26 01:42] LABS: Prothrombin Time (Protime)PT. 53.7 SECONDS (11.7-14.9)
[2018-07-26 01:43] LABS: International Normalized Ratio 5.9
--- NOTE | 2018-07-26 01:44 | ED.RN ---
DR SANCHEZ NOTIFIED OF INR RESULTS
[2018-07-26 01:46] LABS: ALB/GLOB Ratio 0.8 RATIO (0.9-2.4); AST(SGOT) 72 U/L (15-37); Alanine Aminotransfer ALT/SGPT 31 U/L (13-56); Alkaline Phosphatase 112 U/L (45-117); Anion Gap 10 (5-15); BUN 31 mg/dL (7-18); BUN/Creat Ratio 11.5 RATIO (10-20); Calcium,Total 8.1 mg/dL (8.5-10.1); Chloride 113 mmol/L (98-107); Creatinine, Serum 2.69 mg/dL (0.55-1.02); EST Glomerular Filtration Rate 18 mL/min (>60); Est Glom Filt Rate - Afr Amer 22 mL/min (>60); Estimated Creatinine Clearance 13.85 ml/min; Globulin 3.8 g/dL (2.2-4.2); Glucose 108 mg/dL (74-106); Potassium 4.6 mmol/L (3.5-5.1); Protein, Total 6.8 g/dL (6.4-8.2); Sodium Level 141 mmol/L (136-145)
--- NOTE | 2018-07-26 03:03 | HP.PCM_ITS ---
Problem List (1) Acute blood loss anemia Status: Acute (2) Supratherapeutic INR Status: Acute (3) H/O mitral valve replacement Status: Chronic Comment: with 27 mm bioprosthetic heart valve @ [facility] (4) H/O aortic valve replacement Status: Chronic Comment: with 21 mm bioprosthetic heart valve, ligation of Lt atrial appendage @ [facility] (5) Nonrheumatic mitral (valve) insufficiency Status: Chronic (6) Nonrheumatic aortic (valve) insufficiency Status: Chronic (7) Edema Status: Chronic History of Present Illness Date of Admission: 07/26/18 Chief Complaint: Bright red blood per rectum The patient is a 78 year old female with a history of chronic systolic heart failure, CKD 4, bioprosthetic aortic and bioprosthetic mitral valve replacement; and atrial fibrillation who was admitted on 07/19/2018 and discharged on 07/23/2018 with acute GI bleed and supratherapeutic INR at that time and was found to have mild gastritis on EGD; and normal colonoscopy presenting with bright red blood per rectum. On his previous presentation he did present with melena. This time around, patient reported 2 episodes of stool mixed with bright red blood per rectum few hours prior to presentation. Associated with her symptoms is cramps with bowel movements. On the previous admission patient was on warfarin and her INR at that time was 10. She received vitamin K and fresh frozen plasma at that time. Her warfarin was subsequently discontinued and she was started on Eliquis. Also her aspirin was discontinued and she was started on iron supplementation. Patient reported that after discharge she had dark loose stools which she attributed to iron supplementation. Last NSAID use was about 2 weeks ago. Emergency department doctor reported that on his physical examination patient had bright red blood per rectum and there was no mass palpated. At the emergency department patient was started on fresh frozen plasma. Past Medical History Past Medical History (Chronic Problems): Chronic Problems (Last Reviewed 07/26/18 @ 06:54 by Wyatt Henyr MD) On amiodarone therapy (Chronic) Edema (Chronic) H/O mitral valve replacement (Chronic 01/28/17) with 27 mm bioprosthetic heart valve @ [facility] H/O aortic valve replacement (Chronic 01/28/17) with 21 mm bioprosthetic heart valve, ligation of Lt atrial appendage @ [facility] Cardiomyopathy in disease classified elsewhere (Chronic) Nonrheumatic mitral (valve) insufficiency (Chronic) Nonrheumatic aortic (valve) insufficiency (Chronic) Persistent atrial fibrillation (Chronic) Chronic kidney disease, unspecified (Chronic) HTN (hypertension) (Chronic) HLD (hyperlipidemia) (Chronic) Anticoagulant long-term use (Chronic) Diverticulitis (Chronic) Paroxysmal atrial fibrillation (Chronic) HTN (hypertension) (Chronic) Heart failure with reduced ejection fraction (Chronic) Pulmonary hypertension (Chronic) Mitral stenosis (Chronic) Aortic insufficiency (Chronic) KYLEIGH (acute kidney injury) (Chronic) CKD (chronic kidney disease) stage 3, GFR 30-59 ml/min (Chronic) CHF (congestive heart failure) (Chronic) Leukocytosis (Chronic) Mitral regurgitation (Chronic) Medical History: Medical History (Last Reviewed 07/26/18 @ 07:07 by Wyatt Henry MD) On amiodarone therapy (Chronic) Z79.899 Edema (Chronic) R60.9 Dyspnea on exertion (Inactive) R06.09 Cardiomyopathy in disease classified elsewhere (Chronic) I43 Nonrheumatic mitral (valve) insufficiency (Chronic) I34.0 Nonrheumatic aortic (valve) insufficiency (Chronic) I35.1 Persistent atrial fibrillation (Chronic) I48.1 Chronic kidney disease, unspecified (Chronic) N18.9 HTN (hypertension) (Chronic) I10 HLD (hyperlipidemia) (Chronic) E78.5 Allergies aspartame [From Nutrasweet Aspartame] Allergy (Verified 07/26/18 00:52) Hives Home Medications: Ambulatory Orders Medication Instructions Recorded rosuvastatin 10 mg tablet 10 mg PO QHS #90 tab 10/14/17 Potassium Chloride [K-Dur] 10 meq PO BID@0800,1700 06/05/18 Acetaminophen [Tylenol] 1,000 mg PO DAILY 07/19/18 Amiodarone HCl 200 mg PO DAILY 07/19/18 Amlodipine Besylate 5 mg PO DAILY 07/19/18 Cholecalciferol (Vitamin D3) 5,000 unit PO DAILY 07/19/18 [Vitamin D3] Docusate Sodium [Colace] 100 mg PO DAILY 07/19/18 Omeprazole 20 mg PO DAILY 07/19/18 metoprolol succinate ER 50 mg 50 mg PO DAILY 07/19/18 tablet,extended release 24 hr Apixaban [Eliquis] 2.5 mg PO BID #60 tablet 07/23/18 Ascorbic Acid [Vitamin C] 500 mg PO DAILY #30 tab.chew 07/23/18 Ferrous Gluconate 324 mg PO DAILY #30 tablet 07/23/18 Furosemide [Lasix] 40 mg PO BID@0800,1700 #0 07/23/18 Surgical History: Surgical History (Last Reviewed 07/26/18 @ 03:23 by Wyatt Henry MD) H/O mitral valve replacement (Chronic) Onset Date: 01/28/17 Z98.890, Z95.2 with 27 mm bioprosthetic [facility] valve [facility] H/O aortic valve replacement (Chronic) Onset Date: 01/28/17 Z95.2 with 21 mm bioprosthetic heart valve, ligation of Lt atrial appendage @ [facility] History of right and left heart catheterization Z98.890 09/03/2016 Surgical History: cholecystectomy, - - Status post aortic and mitral valve replacement, open heart surgery Psychiatric History: No pertinent psych hx MEDICAL SURGICAL TECH History: No pertinent MEDICAL SURGICAL TECH history Lives: With Family Smoking Status: Never smoker Alcohol: None - *Family History Maternal Family History: Family History (Last Reviewed 07/19/18 @ 15:34 by Eri Mccrary) Father No problems noted. History Items: Hypertension Offspring Family History: Family History (Last Reviewed 07/19/18 @ 15:34 by Eri Mccrary) Father No problems noted. History Items: Heart Disease, Stroke - Paternal grandmother Review of Systems Constitutional: Reports: Fatigue. Denies: Chills, Fever, Weight Change HEENT: Denies: Head Aches, Sinus Congestion, Sinus Drainage Cardiovascular: Denies: Chest Pain, Palpitations Respiratory: Denies: Cough, Shortness of breath at rest, Sputum production Gastrointestinal: Denies: Abdominal Pain, Nausea, Vomiting Genitourinary: Denies: Dysuria Musculoskeletal: Denies: Joint Pain, Joint Tenderness Skin: Denies: Rash, Wounds Neurological: Denies: Numbness, Tingling, Focal weakness Psychiatric: Denies: Anxiety, Depression, Homicidal Ideations, Suicidal Ideations Hematologic/ Lymphatic: Denies: Easy Bruising, Easy Bleeding VTE Information - Inpt Only VTE Present on Admission: No VTE Mechan Device Prophylaxis: SCD's VTE Pharm Prophylaxis ordered?: No Patient Problems: Active and Suspected Problems (Last Reviewed 07/26/18 @ 06:54 by Wyatt Henry MD) Acute blood loss anemia (Acute) - Physical Exam General: Alert, Oriented x3, Cooperative HEENT: Atraumatic, PERRLA, EOMI, Normocephalic Neck: Supple, No JVD, Negative Carotid Bruits Lungs: Clear to auscultation, Normal air movement Cardiovascular: Regular rate, No murmurs Abdomen: Bowel Sounds Present, Soft, Non Tender Extremities: Capillary Refill Less than 3 Seconds, Edema - 3 to 4+ bilateral lower extremities Skin: No rashes, No breakdown, - - Pale Musculoskeletal: No Tenderness to Palpation of Joints or Extremities Neurological: Neuro grossly intact Psych/Mental Status: Normal Affect, Appropriate Vital Signs Temp Pulse Resp BP Pulse Ox 97.9 F 64 20 H 114/57 L 98 07/26/18 00:47 07/26/18 01:43 07/26/18 00:47 07/26/18 01:43 07/26/18 00:47 Oxygen Delivery Method Room Air Weight: 95.9 kg Body Mass Index (BMI) 38.7 Finger Stick Blood Glucose 99 Laboratory Tests Past 24 Hrs 07/26/18 07/26/18 07/26/18 00:55 00:55 00:55 WBC 4.2 L RBC 3.56 L Hgb 9.0 L Hct 29.5 L MCV 82.9 MCH 25.3 L MCHC 30.5 L RDW 20.0 H RDW Differential 56.0 H Plt Count 83 L MPV 10.3 Immature Gran % (Auto) 0.000 Neut % (Auto) 74.9 H Lymph % (Auto) 12.9 L Lynn % (Auto) 10.5 H Eos % (Auto) 1.2 Baso % (Auto) 0.5 Absolute Neuts (auto) 3.1 Absolute Lymphs (auto) 0.54 L Total Counted Not Reportable PT 53.7 H INR 5.9 H* Sodium 141 Potassium 4.6 Chloride 113 H Carbon Dioxide 18.0 L Anion Gap 10 BUN 31 H Creatinine 2.69 H Estim Creat Clear Calc 13.85 Est GFR (MDRD) Af Amer 22 L Est GFR (MDRD) Non-Af 18 L BUN/Creatinine Ratio 11.5 Glucose 108 H Calcium 8.1 L Total Bilirubin 1.00 AST 72 H ALT 31 Alkaline Phosphatase 112 Total Protein 6.8 Albumin 3.0 L Globulin 3.8 Albumin/Globulin Ratio 0.8 L Blood Type Antibody Screen 07/26/18 00:55 WBC RBC Hgb Hct MCV MCH MCHC RDW RDW Differential Plt Count MPV Immature Gran % (Auto) Neut % (Auto) Lymph % (Auto) Lynn % (Auto) Eos % (Auto) Baso % (Auto) Absolute Neuts (auto) Absolute Lymphs (auto) Total Counted PT INR Sodium Potassium Chloride Carbon Dioxide Anion Gap BUN Creatinine Estim Creat Clear Calc Est GFR (MDRD) Af Amer Est GFR (MDRD) Non-Af BUN/Creatinine Ratio Glucose Calcium Total Bilirubin AST ALT Alkaline Phosphatase Total Protein Albumin Globulin Albumin/Globulin Ratio Blood Type A NEGATIVE Antibody Screen NEGATIVE Assessment/Plan All Active Problems (Last Reviewed 07/26/18 @ 06:54 by Wyatt Henry MD) GI bleed (Acute) Hyperkalemia (Resolved) Anemia (Acute) Supratherapeutic INR (Acute) Acute blood loss anemia (Acute) The patient is a 78 year old female with a history of chronic systolic heart failure, CKD 4, aortic and mitral valve replacement; and atrial fibrillation who was admitted on 07/19/2018 and discharged on 07/23/2018 with acute GI bleed and supratherapeutic INR and was at time was found to have mild gastritis on EGD, and normal colonoscopy; now presenting with bright red blood per rectum and with supratherapeutic INR while on Eliquis. Acute blood loss anemia Review of records shows that the abdominal and pelvis CT on 12/30/2014 showed acute diverticulitis. Likely patient is having a diverticular bleed. 2 packs of fresh frozen plasma was ordered at emergency department. Will check H&H every 8 hours. Discussed with emergency department doctor to discussed the case with [facility] since they saw the patient about a week ago. General consult general surgery consult. Consider abdominal imaging Unlikely upper GI bleed since endoscopy about a week ago only showed mild gastritis. Her BUN is not severely elevated above her baseline. However will start patient on Protonix 40 mg IV twice daily for now. Home omeprazole discontinued. Keep n.p.o. Hold Colace and iron p.o. supplements Eliquis on hold. Since patient has history of congestive heart failure and she is on Lasix will be careful about fluids this at this time. Fresh frozen plasma should provide some volume. Trend blood pressure and do fluid resuscitated as necessary. We will hold Lasix at this time. Atrial fibrillation On presentation patient was in sinus rhythm with regular heart rate. Amiodarone continued. We will hold metoprolol due to risk of hypotension from GI bleed Eliquis on hold secondary to bleeding. Hypertension On presentation her blood pressure was within goal. Metoprolol and amlodipine held due to risk of GI bleed. Trend blood pressures and adjust blood pressure medication as this history. Systolic heart failure Stable With chronic bilateral leg swelling. Lasix held due to acute GI bleed. Potassium held in the setting of holding Lasix. Metoprolol held secondary to risk of hypotension from bleeding. Hypertension On presentation her blood pressure was within goal. Hold home blood pressure medication secondary to risk of bleeding. Trend blood pressures. DVT prophylaxis No chemoprophylaxis at this time due to elevated INR and bleeding. SCD ordered. Code Visit Inpatient E&M: 78452 Init Hosp L3
--- NOTE | 2018-07-26 03:58 | ED.DCSUM_ITS ---
- ER Visit Summary Date of Service: 07/26/18 Chief Complaint: Blood in stool History of Present Illness: The patient is a 78 F who presents with bright red blood per rectum. She was recently admitted for GI bleed found to have a supratherapeutic INR and blood loss anemia. She was given vitamin K and FFP. She underwent upper and lower endoscopies which were notable only for mild gastritis. She was also started on iron. She states that last night she had an episode of bright red blood per rectum and has had one more episode since that time. She notes loose black stools but attributes this to her iron. She was switched after hospitalization from warfarin to Eliquis Physical Examination: Afebrile vitals normal No distress Moist mucous membranes Heart regular rate and rhythm Lungs clear Abdomen soft Digital rectal exam shows brown stool with bright red blood no melena Test Results: Labs notable for hemoglobin 9.0, creatinine 2.69, INR supratherapeutic at 5.9. Emergency Department Course and Treatment: Patient denies any pain. I do not see an indication for imaging. She was given FFP given supratherapeutic INR. She was discussed with the hospitalist and admitted. Treatment Plan: [] Disposition: Admit Impression: Lower GI bleed Supratherapeutic INR This note was generated with SparkupReader dictation software. It may contain incorrect words, spelling, and punctuation that were not noted in review of the chart prior to signing ED Disposition - Plan for ED Patient: Disposition: Acute Care [facility]
[2018-07-26 08:03] LABS: Hematocrit 26.1 % (37-47); Hemoglobin 7.8 g/dl (12.0-15.0)
--- NOTE | 2018-07-26 08:16 | PN.SURG_ITS ---
Patient Problems: Active and Suspected Problems (Last Reviewed 07/26/18 @ 07:07 by Wyatt Henry MD) Acute blood loss anemia (Acute) Subjective: Patient reports she is only having abdominal pain when she has to have a bowel movement. No more bloody bowel movement since admission. - Physical Exam General: Alert, Oriented x3, Cooperative Neck: No JVD Lungs: Normal air movement Cardiovascular: Regular rate, Regular Rhythm Abdomen: Soft, Non Tender, Non-Distended Vital Signs Temp Pulse Resp BP Pulse Ox 97.9 F 63 16 106/54 L 98 07/26/18 07:50 07/26/18 07:50 07/26/18 07:50 07/26/18 07:50 07/26/18 07:50 Oxygen Delivery Method Room Air Weight: 205 lb 11.06 oz Body Mass Index (BMI) 37.6 Finger Stick Blood Glucose 99 Intake and Output for Last 24 Hours 07/24/18 07/25/18 07/26/18 23:59 23:59 23:59 Intake Total 804 / 804 Output Total 200 / 200 Balance 604 / 604 Laboratory Tests Past 24 Hrs 07/26/18 07/26/18 07/26/18 00:55 00:55 00:55 WBC 4.2 L RBC 3.56 L Hgb 9.0 L Hct 29.5 L MCV 82.9 MCH 25.3 L MCHC 30.5 L RDW 20.0 H RDW Differential 56.0 H Plt Count 83 L MPV 10.3 Immature Gran % (Auto) 0.000 Neut % (Auto) 74.9 H Lymph % (Auto) 12.9 L Vance % (Auto) 10.5 H Eos % (Auto) 1.2 Baso % (Auto) 0.5 Absolute Neuts (auto) 3.1 Absolute Lymphs (auto) 0.54 L Total Counted Not Reportable PT 53.7 H INR 5.9 H* Sodium 141 Potassium 4.6 Chloride 113 H Carbon Dioxide 18.0 L Anion Gap 10 BUN 31 H Creatinine 2.69 H Estim Creat Clear Calc 13.85 Est GFR (MDRD) Af Amer 22 L Est GFR (MDRD) Non-Af 18 L BUN/Creatinine Ratio 11.5 Glucose 108 H Calcium 8.1 L Total Bilirubin 1.00 AST 72 H ALT 31 Alkaline Phosphatase 112 Total Protein 6.8 Albumin 3.0 L Globulin 3.8 Albumin/Globulin Ratio 0.8 L Blood Type Antibody Screen 07/26/18 07/26/18 00:55 07:56 WBC RBC Hgb 7.8 L Hct 26.1 L MCV MCH MCHC RDW RDW Differential Plt Count MPV Immature Gran % (Auto) Neut % (Auto) Lymph % (Auto) Vance % (Auto) Eos % (Auto) Baso % (Auto) Absolute Neuts (auto) Absolute Lymphs (auto) Total Counted PT INR Sodium Potassium Chloride Carbon Dioxide Anion Gap BUN Creatinine Estim Creat Clear Calc Est GFR (MDRD) Af Amer Est GFR (MDRD) Non-Af BUN/Creatinine Ratio Glucose Calcium Total Bilirubin AST ALT Alkaline Phosphatase Total Protein Albumin Globulin Albumin/Globulin Ratio Blood Type A NEGATIVE Antibody Screen NEGATIVE Medical Necessity - Tobacco Use Smoking Status: Never smoker Assessment/Plan All Active Problems (Last Reviewed 07/26/18 @ 07:07 by Wyatt Henry MD) GI bleed (Acute) Hyperkalemia (Resolved) Anemia (Acute) Supratherapeutic INR (Acute) Acute blood loss anemia (Acute) 78-year-old female for repeat admission for GI bleeding 1. Patient represented to the hospital with an INR of 6. Anticoagulation needs to be reversed and see if the bleeding continues. No plans for scope today. There were no lesions found in the stomach or colon during EGD and colonoscopy last week. Okay for diet from my standpoint as there are no plans for intervention unless she is having a large active GI bleed. Jed Grady MD Pager: [facility] [address] [place] [address], [address] [place] [address] Office:
--- NOTE | 2018-07-26 09:09 | PN_ITS ---
Patient Problems: Active and Suspected Problems (Last Reviewed 07/26/18 @ 07:07 by Wyatt Henry MD) Acute blood loss anemia (Acute) Subjective: Patient was seen and examined. She has had 2 bright red bowel movements since being admitted. She completed 2 FFP's L in the morning. He denied any chest pain no nausea or vomiting or shortness of breath. Discussed with general surgery; plan is for correction of hypercoagulable state, no plan for intervention now. Vitals/I&O's: Vital Signs Temp Pulse Resp BP Pulse Ox 97.9 F 63 16 106/54 L 98 07/26/18 07:50 07/26/18 07:50 07/26/18 07:50 07/26/18 07:50 07/26/18 07:50 Oxygen Delivery Method Room Air Weight: 93.3 kg Body Mass Index (BMI) 37.6 Finger Stick Blood Glucose 99 Intake and Output for Last 24 Hours 07/24/18 07/25/18 07/26/18 23:59 23:59 23:59 Intake Total 804 / 804 Output Total 200 / 200 Balance 604 / 604 General: Alert, Oriented x3, Cooperative, No apparent distress, - - obese HEENT: Atraumatic, PERRLA, EOMI, Normocephalic Oral: Moist Mucosa Neck: Supple, No JVD, Negative Carotid Bruits Lungs: Clear to auscultation, Normal air movement Cardiovascular: Regular rate, Regular Rhythm, Normal S1, Normal S2, No murmurs Abdomen: Bowel Sounds Present, Soft, Non Tender, Non-Distended, No Hepato-splenomegaly, Obese Extremities: Capillary Refill Less than 3 Seconds, Edema - +3 in both lower extremities Skin: No rashes, No breakdown Musculoskeletal: No Tenderness to Palpation of Joints or Extremities Lymphatic: No Cervical, Supraclavicular, or Inguinal Adenopathy Neurological: Cranial nerves II-XII grossly intact, Neuro grossly intact Psych/Mental Status: Normal Affect, Appropriate Laboratory Results 07/26/18 00:55: WBC 4.2 L, RBC 3.56 L, Hgb 9.0 L, Hct 29.5 L, MCV 82.9, MCH 25.3 L, MCHC 30.5 L, RDW 20.0 H, RDW Differential 56.0 H, Plt Count 83 L, MPV 10.3, Immature Gran % (Auto) 0.000, Neut % (Auto) 74.9 H, Lymph % (Auto) 12.9 L, [place] % (Auto) 10.5 H, Eos % (Auto) 1.2, Baso % (Auto) 0.5, Absolute Neuts (auto) 3.1, Absolute Lymphs (auto) 0.54 L, Total Counted Not Reportable 07/26/18 00:55: PT 53.7 H, INR 5.9 H* 07/26/18 00:55: Sodium 141, Potassium 4.6, Chloride 113 H, Carbon Dioxide 18.0 L , Anion Gap 10, BUN 31 H, Creatinine 2.69 H, Estim Creat Clear Calc 13.85, Est GFR (MDRD) Af Amer 22 L, Est GFR (MDRD) Non-Af 18 L, BUN/Creatinine Ratio 11.5, Glucose 108 H, Calcium 8.1 L, Total Bilirubin 1.00, AST 72 H, ALT 31, Alkaline Phosphatase 112, Total Protein 6.8, Albumin 3.0 L, Globulin 3.8, [place] min/Globulin Ratio 0.8 L 07/26/18 00:55: Blood Type A NEGATIVE, Antibody Screen NEGATIVE 07/26/18 07:56: Hgb 7.8 L, Hct 26.1 L Current Medications Acetaminophen (Tylenol) 650 mg PO Q6H PRN PRN PRN Reason: PAIN Amiodarone HCl (Cordarone) 200 mg PO DAILY [facility] Atorvastatin Calcium (Lipitor) 20 mg PO QHS [facility] Cholecalciferol (Vitamin D) 5,000 unit PO DAILY [facility] Pantoprazole Sodium 40 mg/ (Sodium Chloride) 110 mls @ 330 mls/hr IV Q12 [facility] Last Admin: 07/26/18 05:21 Dose: 330 mls/hr Magnesium Hydroxide (Milk Of Magnesia) 30 ml PO DAILY PRN PRN Reason: Constipation Nutritional Formula (Lactose Free) (Ensure Enlive) 120 ml PO 4X/DAY [facility] Ondansetron HCl (Zofran) 4 mg IV Q8H PRN PRN PRN Reason: NAUSEA Sodium Chloride () 5 - 15 ml IV UD PRN PRN Reason: SALINE FLUSH Medical Necessity - Tobacco Use Smoking Status: Never smoker Assessment/Plan All Active Problems (Last Reviewed 07/26/18 @ 07:07 by Wyatt Henry MD) GI bleed (Acute) Hyperkalemia (Resolved) Anemia (Acute) Supratherapeutic INR (Acute) Acute blood loss anemia (Acute) 78-year-old female with past medical history of bioprosthetic aortic and mitral valve replacement, chronic systolic CHF, chronic atrial fibrillation, recently discharged on Eliquis who comes in with acute onset of GI bleed. 1. Acute GI bleed due to supratherapeutic INR,, recent EGD showed gastritis, colonoscopy showed hemorrhoids diet on IV PPI, general surgery consulted, no plan for intervention, will continue to monitor 2. Supratherapeutic INR, INR is 4.2 post 2 units FFP's, will give another 2 units of FFP's, repeat INR in a.m. 3. Acute on chronic blood loss anemia, likely secondary to hemorrhoids vs diverticular bleed, will continue to trend H&H, will transfuse when hemoglobin falls less than 7, continue to monitor vitals. 4. History of chronic atrial fibrillation, chronic systolic CHF, history of bioprosthetic aortic and mitral valve, metoprolol and Eliquis on hold 5. Hypertension, blood pressures controlled, metoprolol and amlodipine on hold, continue to trend blood pressures 6. DVT prophylaxis with SCDs Code Visit Inpatient E&M: 40406 [facility] Hosp L3
[2018-07-26] MEDS: Amiodarone 200 MG Tablet PO (09:42)
[2018-07-26 10:16] LABS: Prothrombin Time (Protime)PT. 40.6 SECONDS (11.7-14.9)
[2018-07-26 10:20] LABS: International Normalized Ratio 4.2
--- NOTE | 2018-07-26 14:38 | CASEMGMT ---
Readmission chart review: Pt was initially admitted 07/19/18-07/23/18 for GI bleed/supratherapeutic INR and was taken off coumadin and switched to Eliquis at that time. See CM assessment completed by Isha PENA CM on 07/20/18. Pt was set up with OP therapy at [facility] per her preference as opposed to [facility] at that time. Pt readmitted 07/26/18 for bright rectal bleeding and supratherapeutic INR again at this time. CM to follow for any further discharge planning/needs. Елена PENA CM
[2018-07-26 14:48] LABS: Hematocrit 28.1 % (37-47); Hemoglobin 8.3 g/dl (12.0-15.0)
[2018-07-26 20:21] LABS: Hematocrit 27.2 % (37-47); Hemoglobin 8.1 g/dl (12.0-15.0)
[2018-07-26] MEDS: Atorvastatin Calcium 20 MG Tablet PO (21:49)
[2018-07-26] MEDS: 0.9% NaCl Peripheral Flush Adult/Peds IV (21:49)
[2018-07-27] VITALS (10 sets, daily range): BP systolic 102–109; BP diastolic 53–58; PULSE 72–79; RESP 18–20; TEMP 36.4–36.8; O2SAT 97
[2018-07-27 02:00] LABS: Absolute Lymphocyte Count 0.62 X10^3/ul (0.83-4.51); Basophil% 0.7 % (0-1); Differential Indicated SCAN CRITERIA MET; Eosinophils% 1.4 % (0-5); Hematocrit 25.3 % (37-47); Hemoglobin 7.6 g/dl (12.0-15.0); Lymphocyte # 0.62 X10^3/ul (4.0); Mean Corpuscular Hgb 25.2 pg (27.0-32.0); Mean Corpuscular Volume 84.1 fL (81-99); Mean Platelet Vol. 9.5 fl (6.2-12.0); Monocyte% 9.2 % (0-10); Neutrophil % 67.7 % (47-70); POSITIVE COUNT NO; POSITIVE DIFFERENTIAL NO; POSITIVE MORPHOLOGY YES; Platelet Count 72 K/mm3 (150-450); RBC Distribution Width CV 20.4 % (11.6-14.6); RBC Distribution Width SD 58.5 fl (35.1-43.9); Red Blood Count 3.01 M/mm3 (4.2-5.4)
[2018-07-27 02:01] LABS: Basophil# 0.02 X10^3/uL; Eosinophil# 0.04 X10^3/uL; Monocyte# 0.27 X10^3/uL
[2018-07-27 02:21] LABS: Anisocytosis 1+; Differential Comment SCAN; Hypochromasia 1+; Microcytosis 1+; Polychromasia 1+
--- NOTE | 2018-07-27 08:28 | PN_ITS ---
Patient Problems: Active and Suspected Problems (Last Reviewed 07/26/18 @ 07:07 by Wyatt Henry MD) Acute blood loss anemia (Acute) Subjective: Ms. Cesar is a 78 YOF with a PMH of bioprosthetic mitral valve replacement, bioprosthetic aortic valve replacement, chronic metabolic acidosis, nonrheumatic mitral valve insufficiency, nonrheumatic aortic valve insufficiency, chronic renal failure stage IV, chronic systolic congestive heart failure, hyperlipidemia, morbid obesity, chronic anticoagulation with Eliquis and atrial fibrillation who presented to the emergency department at [facility] on 07/26/2018 complaining of bright red blood per rectum. She had previously been admitted on 07/19/2018 and discharged on 07/23/2018 with acute GI bleed and supratherapeutic INR. EGD at that time showed gastritis. Colonoscopy was normal. Vital signs of presentation to the emergency room were temperature 97.9, pulse rate 72, blood pressure 116/66, respiratory rate 20 and she was 98% saturated on room air. Laboratory showed a hemoglobin of 9. Hemoglobin at discharge from the hospital on 07/23/2018 was 8.1. INR was high at 5.9 but, the patient is not on Coumadin, she is on Eliquis. Serum bicarb was low at 18 and is chronically low. BUN was 31 with a creatinine of 2.69 down from 3.21 on 07/23/2018. Baseline creatinine in 2018 ranged from 1.74-2.12. Creatinine clearance currently is 13.85 which is consistent with stage V chronic renal failure. She was admitted to the hospital and administered 2 units of fresh frozen plasma. General surgery was consulted and did not feel endoscopy was indicated for this admission. All events of the past 24 hours of been reviewed. Afebrile since admission Vital signs are stable. The heart rate is 72. Fluid balance since admission is positive 1572 All lab was personally reviewed. White blood cell count is low at 3.0 and the hemoglobin today is 7.6. Weightless or low at 72,000. Differential was unremarkable. Echocardiogram in February 2018 showed an ejection fraction of 65%(ppreciously 45%), a moderately dilated right ventricle, mild left atrial enlargement, trivial tricuspid valve insufficiency and a right ventricular systolic pressure of 30. Recent renal ultrasound showed atrophy of the kidneys and ascites. She is c/o orthopnea, ankle and LE edema, increasing weight. Urine output was very diminished at home recently and she has been taking Lasix 40 mg BID. Denies any confusion. She follows with Dr. Yin for CRF stage 4. They have never discussed HD. Small amount of BRBPR today in the water with formed stool. Colonoscopy recently with internal hemorrhoids. Denies abdominal pain. No N/V. - Physical Exam General: Alert, Oriented x3, Cooperative, No apparent distress, Well developed, Well nourished HEENT: Atraumatic, PERRLA, Normocephalic Oral: Moist Mucosa Neck: Supple, No Nuchal Rigidity, Trachea Midline Lungs: Diminished - in the R base with no crackles and no wheezes Cardiovascular: Regular rate, Regular Rhythm, Normal S1, Normal S2, No rub noted, No Gallop, - - telemetry with NSR and no ectopy Abdomen: Bowel Sounds Present, Soft, Non Tender, - - there is pitting edema in the flanks BL Extremities: No clubbing, No cyanosis, Edema - has edema the entire LE....with pitting in the posterior thighs Skin: No rashes Neurological: Cranial nerves II-XII grossly intact, Neuro grossly intact Psych/Mental Status: Normal Affect, Appropriate Vital Signs Temp Pulse Resp BP Pulse Ox 98.2 F 76 20 H 107/55 L 97 07/27/18 03:48 07/27/18 07:16 07/27/18 03:48 07/27/18 03:48 07/27/18 03:48 Oxygen Delivery Method Room Air Weight: 205 lb 11.06 oz Body Mass Index (BMI) 37.6 Finger Stick Blood Glucose 99 Intake and Output for Last 24 Hours 07/25/18 07/26/18 07/27/18 23:59 23:59 23:59 Intake Total 1772 / 1772 Output Total 200 / 200 Balance 1572 / 1572 Laboratory Tests Past 24 Hrs 07/26/18 07/26/18 07/26/18 09:58 14:10 20:12 WBC RBC Hgb 8.3 L 8.1 L Hct 28.1 L 27.2 L MCV MCH MCHC RDW RDW Differential Plt Count MPV Immature Gran % (Auto) Neut % (Auto) Lymph % (Auto) [place] % (Auto) Eos % (Auto) Baso % (Auto) Absolute Neuts (auto) Absolute Lymphs (auto) Total Counted Differential Comment Polychromasia Hypochromasia Anisocytosis Microcytosis PT 40.6 H INR 4.2 H* 07/27/18 01:42 WBC 3.0 L RBC 3.01 L Hgb 7.6 L Hct 25.3 L MCV 84.1 MCH 25.2 L MCHC 30.0 L RDW 20.4 H RDW Differential 58.5 H Plt Count 72 L MPV 9.5 Immature Gran % (Auto) 0.000 Neut % (Auto) 67.7 Lymph % (Auto) 21.0 Dixie % (Auto) 9.2 Eos % (Auto) 1.4 Baso % (Auto) 0.7 Absolute Neuts (auto) 2.0 Absolute Lymphs (auto) 0.62 L Total Counted Not Reportable Differential Comment SCAN Polychromasia 1+ Hypochromasia 1+ Anisocytosis 1+ Microcytosis 1+ PT INR Medical Necessity - Tobacco Use Smoking Status: Never smoker Assessment/Plan All Active Problems (Last Reviewed 07/26/18 @ 07:07 by Wyatt Henry MD) GI bleed (Acute) Hyperkalemia (Resolved) Anemia (Acute) Supratherapeutic INR (Acute) Acute blood loss anemia (Acute) Impressions 1. hematochezia - suspect due to internal hemorrhoids 2. hx of stage 4 CRF with recent progression in May to stage 5 CRF 3. anemia likely due to anemia of chronic renal failure +/- iron deficiency 4. gastritis on recent EGD 5. hx of chronic AF 6. Internal hemorrhoids 7. Hypertension 8. Chronic anticoagulation with Eliquis 9. Pancytopenia-thrombocytopenia is new since 06/21/2018. Etiology is ? 10. Hypoalbuminemia 11. anasarca, ascites, orthopnea and suspected R pleural effusion - likely due to progressive renal failure PA and LAT CXR now - this does not show infiltrate, increased PVC but there is blunting of the R costophrenic angle. Find out who she sees for CRF - Dr. Yin Monitor the I&O closely Furosemide 60 mg IV Q 8 hours Consult [facility] Anusol supp BID for 6 doses to treat internal hemorrhoids Check iron studies and also a B12 in light of the new pancytopenia, check a TSH also Recheck the lab in the AM Code Visit Inpatient E&M: 78619 Subs Hosp L3
[2018-07-27] MEDS: 0.9% NaCl Peripheral Flush Adult/Peds IV ×3 (09:05→22:08)
[2018-07-27] MEDS: Amiodarone 200 MG Tablet PO (09:08)
[2018-07-27 09:54] LABS: International Normalized Ratio 2.3; Prothrombin Time (Protime)PT. 25.3 SECONDS (11.7-14.9)
[2018-07-27 10:16] LABS: Anion Gap 8 (5-15); BUN 28 mg/dL (7-18); BUN/Creat Ratio 11.7 RATIO (10-20); Calcium,Total 8.2 mg/dL (8.5-10.1); Chloride 112 mmol/L (98-107); Creatinine, Serum 2.39 mg/dL (0.55-1.02); EST Glomerular Filtration Rate 21 mL/min (>60); Est Glom Filt Rate - Afr Amer 25 mL/min (>60); Estimated Creatinine Clearance 15.59 ml/min; Glucose 124 mg/dL (74-106); Magnesium 1.9 mg/dL (1.6-2.6); Phosphorus 2.7 mg/dL (2.5-4.9); Potassium 3.8 mmol/L (3.5-5.1); Sodium Level 141 mmol/L (136-145)
--- NOTE | 2018-07-27 11:11 | RAD_ITS ---
STUDY: X-RAY CHEST REASON FOR EXAM: Female, 78 years old. Congestive heart failure. TECHNIQUE: PA and lateral views of the chest. COMPARISON: Comparison is made with prior study dated July 27, 2018. FINDINGS: EKG electrodes are seen. Minimal residual increased markings are seen at the lung bases although these have improved. This may represent atelectasis. Blunting of the costophrenic angles posteriorly. Sternal cerclage wires are present from a prior sternotomy. Status post mitral valve replacement. Metallic clip overlying the left atrial appendage. Normal mediastinum and ren. Normal visualized pulmonary arteries. There is atherosclerotic calcification of the aortic arch with tortuosity. There are diffuse degenerative changes of the visualized thoracic spine. Normal visualized ribs, clavicles, and shoulders. There is no demonstrated abnormality of the visualized soft tissue structures of the upper abdomen. RAD/Chest PA and Lateral IMPRESSION: Improved aeration of both lung bases although residual changes persist. The remainder of the examination is unchanged. Electronically Signed: Campos Schulz MD at 15:00 EST , Service support ,
[2018-07-27 16:17] LABS: AST(SGOT) 54 U/L (15-37); Alanine Aminotransfer ALT/SGPT 28 U/L (13-56); Albumin, Serum 2.9 g/dL (3.2-5.0); Alkaline Phosphatase 97 U/L (45-117); Bilirubin, Direct 0.48 mg/dL (0.00-0.30); Globulin 3.6 g/dL (2.2-4.2); Protein, Total 6.5 g/dL (6.4-8.2)
[2018-07-27] MEDS: Furosemide 100 MG/10 ML Vial 60 MG IV ×2 (16:31→22:07)
[2018-07-27 18:01] LABS: Immature Platelet Fraction 5.9 % (1.0-7.9); RET-HE 27.7 pg (30-35); Reticulocyte Count 1.22 % (0.5-1.5)
[2018-07-27] MEDS: Hydrocortisone 25 MG Suppository RECTAL ×2 (18:10→22:07)
[2018-07-27 18:12] LABS: Ferritin 49 ng/mL (8-252); Iron 35 ug/dL (50-170); Iron Binding Capacity,Total 313 ug/dL (250-450); PERCENT IRON SATURATION 11.2 % (15.0-55.0); Thyroid Stim Hormone (TSH) 0.07 uIU/mL (0.358-3.74)
[2018-07-27] MEDS: Pantoprazole Sodium 20 MG Tablet PO (22:07)
[2018-07-27] MEDS: Atorvastatin Calcium 20 MG Tablet PO (22:07)
[2018-07-28] VITALS (10 sets, daily range): BP systolic 95–112; BP diastolic 52–62; PULSE 73–81; RESP 16–18; TEMP 36.6–36.9; O2SAT 96–100
[2018-07-28] MEDS: Furosemide 100 MG/10 ML Vial 60 MG IV ×3 (05:57→22:27)
[2018-07-28] MEDS: 0.9% NaCl Peripheral Flush Adult/Peds IV ×4 (05:57→22:28)
[2018-07-28 06:29] LABS: Anion Gap 12 (5-15); BUN 28 mg/dL (7-18); BUN/Creat Ratio 12.8 RATIO (10-20); Calcium,Total 8.2 mg/dL (8.5-10.1); Chloride 111 mmol/L (98-107); Creatinine, Serum 2.19 mg/dL (0.55-1.02); EST Glomerular Filtration Rate 23 mL/min (>60); Est Glom Filt Rate - Afr Amer 28 mL/min (>60); Estimated Creatinine Clearance 17.01 ml/min; Glucose 96 mg/dL (74-106); Magnesium 1.9 mg/dL (1.6-2.6); Phosphorus 2.7 mg/dL (2.5-4.9); Potassium 3.7 mmol/L (3.5-5.1); Sodium Level 143 mmol/L (136-145)
[2018-07-28 06:40] LABS: Hematocrit 26.1 % (37-47); Hemoglobin 7.8 g/dl (12.0-15.0); Mean Corp Hgb Conc 29.9 g/gl (32-36); Mean Corpuscular Hgb 25.2 pg (27.0-32.0); Mean Corpuscular Volume 84.5 fL (81-99); Mean Platelet Vol. 9.4 fl (6.2-12.0); Platelet Count 76 K/mm3 (150-450); RBC Distribution Width CV 20.5 % (11.6-14.6); RBC Distribution Width SD 59.8 fl (35.1-43.9); Red Blood Count 3.09 M/mm3 (4.2-5.4); White Blood Count 2.7 K/mm3 (4.4-11.0)
[2018-07-28 06:44] LABS: Scan Indicated on CBC? Y/N YES- FLAGS NOTED
[2018-07-28 07:05] LABS: Differential Comment SCAN
--- NOTE | 2018-07-28 07:18 | PN.SURG_ITS ---
Patient Problems: Active and Suspected Problems (Last Reviewed 07/26/18 @ 07:07 by Wyatt Henry MD) Acute blood loss anemia (Acute) Subjective: Patient says that she only had a small amount of bleeding yesterday with bowel movement. No abdominal pain today. - Physical Exam General: Alert, Oriented x3 Neck: No JVD Lungs: Normal air movement Cardiovascular: Regular rate, Regular Rhythm Abdomen: Soft, Non Tender, Non-Distended Vital Signs Temp Pulse Resp BP Pulse Ox 98.4 F 80 18 109/54 L 96 07/28/18 02:40 07/28/18 03:00 07/28/18 02:40 07/28/18 02:40 07/28/18 02:40 Oxygen Delivery Method Room Air Weight: 208 lb 5.389 oz Body Mass Index (BMI) 37.6 Finger Stick Blood Glucose 99 Intake and Output for Last 24 Hours 07/26/18 07/27/18 07/28/18 23:59 23:59 23:59 Intake Total 1772 / 1772 979 / 979 300 / 300 Output Total 200 / 200 400 / 400 1025 / 1025 Balance 1572 / 1572 579 / 579 -725 / -725 Laboratory Tests Past 24 Hrs 07/27/18 07/27/18 07/27/18 09:10 09:10 09:10 WBC RBC Hgb 8.0 L Hct 27.0 L MCV MCH MCHC RDW RDW Differential Plt Count MPV Differential Comment Immature Plt Fraction Retic Count Immature Retic Fraction Retic Hgb Equivalent PT 25.3 H INR 2.3 Sodium 141 Potassium 3.8 Chloride 112 H Carbon Dioxide 21.0 Anion Gap 8 BUN 28 H Creatinine 2.39 H Estim Creat Clear Calc 15.59 Est GFR (MDRD) Af Amer 25 L Est GFR (MDRD) Non-Af 21 L BUN/Creatinine Ratio 11.7 Glucose 124 H Calcium 8.2 L Phosphorus 2.7 Magnesium 1.9 Iron TIBC Iron Saturation Ferritin Total Bilirubin Direct Bilirubin AST ALT Alkaline Phosphatase Total Protein Albumin Globulin Vitamin B12 TSH 07/27/18 07/27/18 07/27/18 09:10 09:10 09:10 WBC RBC Hgb Hct MCV MCH MCHC RDW RDW Differential Plt Count MPV Differential Comment Immature Plt Fraction 5.9 Retic Count 1.22 Immature Retic Fraction 13.60 Retic Hgb Equivalent 27.7 L PT INR Sodium Potassium Chloride Carbon Dioxide Anion Gap BUN Creatinine Estim Creat Clear Calc Est GFR (MDRD) Af Amer Est GFR (MDRD) Non-Af BUN/Creatinine Ratio Glucose Calcium Phosphorus Magnesium Iron 35 L TIBC 313 Iron Saturation 11.2 L Ferritin 49 Total Bilirubin 1.00 Direct Bilirubin 0.48 H AST 54 H ALT 28 Alkaline Phosphatase 97 Total Protein 6.5 Albumin 2.9 L Globulin 3.6 Vitamin B12 TSH 0.07 L 07/28/18 07/28/18 07/28/18 05:18 05:18 05:18 WBC 2.7 L RBC 3.09 L Hgb 7.8 L Hct 26.1 L MCV 84.5 MCH 25.2 L MCHC 29.9 L RDW 20.5 H RDW Differential 59.8 H Plt Count 76 L MPV 9.4 Differential Comment SCAN Immature Plt Fraction Retic Count Immature Retic Fraction Retic Hgb Equivalent PT INR Sodium 143 Potassium 3.7 Chloride 111 H Carbon Dioxide 20.0 L Anion Gap 12 BUN 28 H Creatinine 2.19 H Estim Creat Clear Calc 17.01 Est GFR (MDRD) Af Amer 28 L Est GFR (MDRD) Non-Af 23 L BUN/Creatinine Ratio 12.8 Glucose 96 Calcium 8.2 L Phosphorus 2.7 Magnesium 1.9 Iron TIBC Iron Saturation Ferritin Total Bilirubin Direct Bilirubin AST ALT Alkaline Phosphatase Total Protein Albumin Globulin Vitamin B12 Pending TSH Medical Necessity - Tobacco Use Smoking Status: Never smoker Assessment/Plan All Active Problems (Last Reviewed 07/26/18 @ 07:07 by Wyatt Henry MD) GI bleed (Acute) Hyperkalemia (Resolved) Anemia (Acute) Supratherapeutic INR (Acute) Acute blood loss anemia (Acute) 78-year-old female with GI bleed likely hemorrhoidal 1. Patient's INR is returning to normal and she reports only minimal bleeding yesterday. No indication for colonoscopy or EGD at this time. Continue PPI. Jed Grady MD Pager: [facility] [address] [place] [address], [address] [place] [address] Office:
[2018-07-28] MEDS: Amiodarone 200 MG Tablet PO (08:11)
[2018-07-28] MEDS: Ascorbic Acid 500 MG Tablet PO (08:16)
[2018-07-28] MEDS: Acetaminophen 500 MG Tablet 1000 MG PO (08:16)
[2018-07-28 09:34] LABS: Vitamin B12 555 pg/mL (211-911)
--- NOTE | 2018-07-28 13:18 | CHAPLAIN ---
Type of Pastoral Visit _x__ Initial Visit ___ Follow-up Visit ___ On-call Visit ___ General Patient Visit ___ Spiritual Assessment ___ Family Conference ___ Bereavement ___ Rapid Response ___ Code Blue ___ Other (describe below) Pastoral Care Referral From _x__ Patient ___ Family ___ Nurse ___ Physician ___ Credentialing Manager ___ Dual Hose Cementer ___ Other (describe below) Sacrament/Intervention _x__ Active listening ___ Anointing ___ Bahai ___ Bereavement ___ Communion ___ Selena exploration ___ ___ Life review _x__ Prayer ___ Reconciliation ___ Sacrament of Sick _x__ Supportive presence ___ Wedding ___ Other (describe below) Pastoral Comments
--- NOTE | 2018-07-28 13:28 | CASEMGMT ---
This RN CM to room to discuss discharge plan with pt/daughter. Pt had been set up with OP therapy at recent previous visit and had come back to hospital before it could be started. 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 This RN CM did discuss possible SNF for pt at this time and advised that CM would follow for therapy notes and check back with pt regarding same, pt voices understanding at this time. Pt's daughter has already left for the day to go to work. Pt is also still awaiting nephro c/s. SStammon PENA CM
[2018-07-28] MEDS: Hydrocortisone 25 MG Suppository RECTAL ×2 (13:38→22:28)
[2018-07-28] MEDS: Pantoprazole Sodium 20 MG Tablet PO ×2 (13:38→22:27)
--- NOTE | 2018-07-28 16:05 | PCM.CONS.R ---
Consultation - Renal 07/28/18 PCP/ Referring MD: Requesting physician: Dr. Ch Primary care physician: Hermann Nath Reason for Consultation:: KYLEIGH on CKD - History of Present Illness History of Present Illness: The patient is a 78 year old F who is followed in our office by Dr. Yin. 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 She was last seen in the officein February 2018. At that time the pt had a SCr of around 1.7 mg/dL. The pt was admitted 07/19-07/23/18 at this hospital with UGIB. She was found to have mild gastritis with EGD. Cscope was reportedly negative. She was readmitted on 07/26/18 with hematochezia. INR was found to be 6. The pt did have increased SOB prior to admit. She has orthopnea, and worsening LE edema (especially in the last 2 months). Her dyspnea is better today. She still has poor appetite although there is no nausea or vomiting. There is no LUTS. She denies chronic use of NSAID or exposure to IV contrast. - Allergies Allergies: Allergies aspartame [From [employer] Aspartame] Allergy (Verified 07/26/18 00:52) Hives - Current Medications Current Medications: Current Medications Acetaminophen (Tylenol) 650 mg PO Q6H PRN PRN PRN Reason: PAIN Acetaminophen (Tylenol) 1,000 mg PO DAILY [facility] Last Admin: 07/28/18 08:16 Dose: 1,000 mg Amiodarone HCl (Cordarone) 200 mg PO DAILY [facility] Last Admin: 07/28/18 08:11 Dose: 200 mg Ascorbic Acid (Vitamin C) 500 mg PO DAILY@0800 [facility] Last Admin: 07/28/18 08:16 Dose: 500 mg Atorvastatin Calcium (Lipitor) 20 mg PO QHS [facility] Last Admin: 07/27/18 22:07 Dose: 20 mg Cholecalciferol (Vitamin D) 5,000 unit PO DAILY [facility] Last Admin: 07/28/18 08:10 Dose: 5,000 unit Docusate Sodium (Colace) 100 mg PO DAILY [facility] Last Admin: 07/28/18 08:11 Dose: Not Given Furosemide (Lasix) 60 mg IV Q8 [facility] Last Admin: 07/28/18 13:40 Dose: 60 mg Hydrocortisone Acetate (Anusol Hc) 25 mg RECTAL BID [facility] Stop: 07/29/18 22:01 Last Admin: 07/28/18 13:38 Dose: 25 mg Magnesium Hydroxide (Milk Of Magnesia) 30 ml PO DAILY PRN PRN Reason: Constipation Ondansetron HCl (Zofran) 4 mg IV Q8H PRN PRN PRN Reason: NAUSEA Pantoprazole Sodium (Protonix) 20 mg PO BID [facility] Last Admin: 07/28/18 13:38 Dose: 20 mg Potassium Chloride (K-Dur) 10 meq PO BID@0800,1700 [facility] Last Admin: 07/28/18 08:16 Dose: 10 meq Sodium Chloride () 5 - 15 ml IV UD PRN PRN Reason: SALINE FLUSH Last Admin: 07/28/18 13:41 Dose: 15 ml - Past Medical History Past Medical History (Chronic Problems): Chronic Problems (Last Reviewed 07/26/18 @ 07:07 by Wyatt Henry MD) On amiodarone therapy (Chronic) Edema (Chronic) H/O mitral valve replacement (Chronic 01/28/17) with 27 mm bioprosthetic heart valve @ [facility] H/O aortic valve replacement (Chronic 01/28/17) with 21 mm bioprosthetic heart valve, ligation of Lt atrial appendage @ [facility] Cardiomyopathy in disease classified elsewhere (Chronic) Nonrheumatic mitral (valve) insufficiency (Chronic) Nonrheumatic aortic (valve) insufficiency (Chronic) Persistent atrial fibrillation (Chronic) Chronic kidney disease, unspecified (Chronic) HTN (hypertension) (Chronic) HLD (hyperlipidemia) (Chronic) Anticoagulant long-term use (Chronic) Diverticulitis (Chronic) Paroxysmal atrial fibrillation (Chronic) HTN (hypertension) (Chronic) Heart failure with reduced ejection fraction (Chronic) Pulmonary hypertension (Chronic) Mitral stenosis (Chronic) Aortic insufficiency (Chronic) KYLEIGH (acute kidney injury) (Chronic) CKD (chronic kidney disease) stage 3, GFR 30-59 ml/min (Chronic) CHF (congestive heart failure) (Chronic) Leukocytosis (Chronic) Mitral regurgitation (Chronic) - Past Surgical History Surgical History: cholecystectomy, - - Status post aortic and mitral valve replacement, open heart surgery - Social History Smoking Status: Never smoker Alcohol: None - Family History Maternal Family History: Family History (Last Reviewed 07/19/18 @ 15:34 by Eri Mccrary) Father No problems noted. History Items: Hypertension Offspring Family History: Family History (Last Reviewed 07/19/18 @ 15:34 by Eri Mccrary) Father No problems noted. History Items: Heart Disease, Stroke - Paternal grandmother Review of Systems Constitutional: Reports: Anorexia, Malaise, Weakness, Fatigue. Denies: Chills, Fever Eyes: Denies: Blurred vision, Double vision, Pain, Redness HEENT: Denies: Difficulty Hearing, Head Aches, Sinus Congestion, Sinus Drainage Cardiovascular: Reports: Edema. Denies: Chest Pain, Palpitations, Paroxysmal Noc. Dyspnea Respiratory: Reports: Shortness of breath upon exertion. Denies: Cough, Hemoptysis, Sputum production Gastrointestinal: Denies: Abdominal Pain, Nausea, Vomiting Genitourinary: Denies: Dysuria, Frequency, Hematuria, Hesitancy, Incontinence, Retention, Urgency Musculoskeletal: Denies: Joint Pain, Joint Tenderness Skin: Denies: Rash, Wounds Neurological: Denies: Numbness, Tingling, Focal weakness Psychiatric: Denies: Anxiety, Depression, Homicidal Ideations, Suicidal Ideations Hematologic/ Lymphatic: Denies: Easy Bruising, Easy Bleeding Patient Problems: Active and Suspected Problems (Last Reviewed 07/26/18 @ 07:07 by Wyatt Henry MD) Acute blood loss anemia (Acute) - Physical Exam General: Alert, Oriented x3 HEENT: Atraumatic, PERRLA, EOMI, Normocephalic Oral: Moist Mucosa Neck: Supple Lungs: Diminished - at bases Cardiovascular: Normal S1, Normal S2, Murmur - 2/6 systolic Abdomen: Bowel Sounds Present, Soft, Non Tender Extremities: No cyanosis, Edema - 4+ LE bilaterally Skin: No rashes Musculoskeletal: No Tenderness to Palpation of Joints or Extremities Neurological: Cranial nerves II-XII grossly intact Vital Signs Temp Pulse Resp BP Pulse Ox 97.8 F 74 17 103/54 L 100 07/28/18 15:34 07/28/18 15:34 07/28/18 15:34 07/28/18 15:34 07/28/18 15:34 Oxygen Delivery Method Room Air Weight: 94.5 kg Body Mass Index (BMI) 37.6 Finger Stick Blood Glucose 99 Intake and Output for Last 24 Hours 07/26/18 07/27/18 07/28/18 23:59 23:59 23:59 Intake Total 1772 / 1772 979 / 979 780 / 780 Output Total 200 / 200 400 / 400 1325 / 1325 Balance 1572 / 1572 579 / 579 -545 / -545 Laboratory Tests Past 24 Hrs 07/27/18 07/27/18 07/27/18 09:10 09:10 09:10 WBC RBC Hgb Hct MCV MCH MCHC RDW RDW Differential Plt Count MPV Differential Comment Immature Plt Fraction 5.9 Retic Count 1.22 Immature Retic Fraction 13.60 Retic Hgb Equivalent 27.7 L Sodium Potassium Chloride Carbon Dioxide Anion Gap BUN Creatinine Estim Creat Clear Calc Est GFR (MDRD) Af Amer Est GFR (MDRD) Non-Af BUN/Creatinine Ratio Glucose Calcium Phosphorus Magnesium Iron 35 L TIBC 313 Iron Saturation 11.2 L Ferritin 49 Total Bilirubin 1.00 Direct Bilirubin 0.48 H AST 54 H ALT 28 Alkaline Phosphatase 97 Total Protein 6.5 Albumin 2.9 L Globulin 3.6 Vitamin B12 TSH 0.07 L 07/28/18 07/28/18 07/28/18 05:18 05:18 05:18 WBC 2.7 L RBC 3.09 L Hgb 7.8 L Hct 26.1 L MCV 84.5 MCH 25.2 L MCHC 29.9 L RDW 20.5 H RDW Differential 59.8 H Plt Count 76 L MPV 9.4 Differential Comment SCAN Immature Plt Fraction Retic Count Immature Retic Fraction Retic Hgb Equivalent Sodium 143 Potassium 3.7 Chloride 111 H Carbon Dioxide 20.0 L Anion Gap 12 BUN 28 H Creatinine 2.19 H Estim Creat Clear Calc 17.01 Est GFR (MDRD) Af Amer 28 L Est GFR (MDRD) Non-Af 23 L BUN/Creatinine Ratio 12.8 Glucose 96 Calcium 8.2 L Phosphorus 2.7 Magnesium 1.9 Iron TIBC Iron Saturation Ferritin Total Bilirubin Direct Bilirubin AST ALT Alkaline Phosphatase Total Protein Albumin Globulin Vitamin B12 555 TSH Assessment/Plan All Active Problems (Last Reviewed 07/26/18 @ 07:07 by Wyatt Henry MD) GI bleed (Acute) Hyperkalemia (Resolved) Anemia (Acute) Supratherapeutic INR (Acute) Acute blood loss anemia (Acute) 1. 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 CKD is 2/2 chronic interstitial nephritis. Baseline SCr has been around 1.7-2.0 mg/dL. KYLEIGH could be due to cardiorenal -SCr is stable with diuresis I will check UA and FEUrea. She is diuresing well, so I have low suspicion for obstruction. The pt may achieve better diuresis with po Bumex since serum albumin is low when we transition her from IV Lasix to oral diuretic. Would continue IV Lasix for today. Will follow SCr and electrolytes. 2. Hypokalemia. The pt has a history of hypokalemia. She is on KCl. Monitor K and Mg since pt is being diuresed. 3. Anemia. Hgb is 7.8. Normocytic but high RDW. Will check Fe store-suspect low given GI bleed. The pt may benefit from KATE if Fe store is adequate. Being monitored for GI bleed. 4. Pancytopenia. above. Anemia could be from CKD, but must r/o other causes. Defer work up of neutropenia and thrombocytopenia to hospitalist. 5. GI bleed. INR was high. Being followed by surgery and hospital medicine.
--- NOTE | 2018-07-28 16:10 | CON.PCM_ITS ---
Consultation - Renal 07/28/18 PCP/ Referring MD: Requesting physician: Dr. Ch Primary care physician: Hermann Nath Reason for Consultation:: KYLEIGH on CKD - History of Present Illness History of Present Illness: The patient is a 78 year old F who is followed in our office by Dr. Yin. 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 She was last seen in the officein February 2018. At that time the pt had a SCr of around 1.7 mg/dL. The pt was admitted 07/19-07/23/18 at this hospital with UGIB. She was found to have mild gastritis with EGD. Cscope was reportedly negative. She was readmitted on 07/26/18 with hematochezia. INR was found to be 6. The pt did have increased SOB prior to admit. She has orthopnea, and worsening LE edema (especially in the last 2 months). Her dyspnea is better today. She still has poor appetite although there is no nausea or vomiting. There is no LUTS. She denies chronic use of NSAID or exposure to IV contrast. - Allergies Allergies: Allergies aspartame [From [employer] Aspartame] Allergy (Verified 07/26/18 00:52) Hives - Current Medications Current Medications: Current Medications Acetaminophen (Tylenol) 650 mg PO Q6H PRN PRN PRN Reason: PAIN Acetaminophen (Tylenol) 1,000 mg PO DAILY [facility] Last Admin: 07/28/18 08:16 Dose: 1,000 mg Amiodarone HCl (Cordarone) 200 mg PO DAILY [facility] Last Admin: 07/28/18 08:11 Dose: 200 mg Ascorbic Acid (Vitamin C) 500 mg PO DAILY@0800 [facility] Last Admin: 07/28/18 08:16 Dose: 500 mg Atorvastatin Calcium (Lipitor) 20 mg PO QHS [facility] Last Admin: 07/27/18 22:07 Dose: 20 mg Cholecalciferol (Vitamin D) 5,000 unit PO DAILY [facility] Last Admin: 07/28/18 08:10 Dose: 5,000 unit Docusate Sodium (Colace) 100 mg PO DAILY [facility] Last Admin: 07/28/18 08:11 Dose: Not Given Furosemide (Lasix) 60 mg IV Q8 [facility] Last Admin: 07/28/18 13:40 Dose: 60 mg Hydrocortisone Acetate (Anusol Hc) 25 mg RECTAL BID [facility] Stop: 07/29/18 22:01 Last Admin: 07/28/18 13:38 Dose: 25 mg Magnesium Hydroxide (Milk Of Magnesia) 30 ml PO DAILY PRN PRN Reason: Constipation Ondansetron HCl (Zofran) 4 mg IV Q8H PRN PRN PRN Reason: NAUSEA Pantoprazole Sodium (Protonix) 20 mg PO BID [facility] Last Admin: 07/28/18 13:38 Dose: 20 mg Potassium Chloride (K-Dur) 10 meq PO BID@0800,1700 [facility] Last Admin: 07/28/18 08:16 Dose: 10 meq Sodium Chloride () 5 - 15 ml IV UD PRN PRN Reason: SALINE FLUSH Last Admin: 07/28/18 13:41 Dose: 15 ml - Past Medical History Past Medical History (Chronic Problems): Chronic Problems (Last Reviewed 07/26/18 @ 07:07 by Wyatt Henry MD) On amiodarone therapy (Chronic) Edema (Chronic) H/O mitral valve replacement (Chronic 01/28/17) with 27 mm bioprosthetic heart valve @ [facility] H/O aortic valve replacement (Chronic 01/28/17) with 21 mm bioprosthetic heart valve, ligation of Lt atrial appendage @ [facility] Cardiomyopathy in disease classified elsewhere (Chronic) Nonrheumatic mitral (valve) insufficiency (Chronic) Nonrheumatic aortic (valve) insufficiency (Chronic) Persistent atrial fibrillation (Chronic) Chronic kidney disease, unspecified (Chronic) HTN (hypertension) (Chronic) HLD (hyperlipidemia) (Chronic) Anticoagulant long-term use (Chronic) Diverticulitis (Chronic) Paroxysmal atrial fibrillation (Chronic) HTN (hypertension) (Chronic) Heart failure with reduced ejection fraction (Chronic) Pulmonary hypertension (Chronic) Mitral stenosis (Chronic) Aortic insufficiency (Chronic) KYLEIGH (acute kidney injury) (Chronic) CKD (chronic kidney disease) stage 3, GFR 30-59 ml/min (Chronic) CHF (congestive heart failure) (Chronic) Leukocytosis (Chronic) Mitral regurgitation (Chronic) - Past Surgical History Surgical History: cholecystectomy, - - Status post aortic and mitral valve replacement, open heart surgery - Social History Smoking Status: Never smoker Alcohol: None - Family History Maternal Family History: Family History (Last Reviewed 07/19/18 @ 15:34 by Eri Mccrary) Father No problems noted. History Items: Hypertension Offspring Family History: Family History (Last Reviewed 07/19/18 @ 15:34 by Eri Mccrary) Father No problems noted. History Items: Heart Disease, Stroke - Paternal grandmother Review of Systems Constitutional: Reports: Anorexia, Malaise, Weakness, Fatigue. Denies: Chills, Fever Eyes: Denies: Blurred vision, Double vision, Pain, Redness HEENT: Denies: Difficulty Hearing, Head Aches, Sinus Congestion, Sinus Drainage Cardiovascular: Reports: Edema. Denies: Chest Pain, Palpitations, Paroxysmal Noc. Dyspnea Respiratory: Reports: Shortness of breath upon exertion. Denies: Cough, Hemoptysis, Sputum production Gastrointestinal: Denies: Abdominal Pain, Nausea, Vomiting Genitourinary: Denies: Dysuria, Frequency, Hematuria, Hesitancy, Incontinence, Retention, Urgency Musculoskeletal: Denies: Joint Pain, Joint Tenderness Skin: Denies: Rash, Wounds Neurological: Denies: Numbness, Tingling, Focal weakness Psychiatric: Denies: Anxiety, Depression, Homicidal Ideations, Suicidal Ideations Hematologic/ Lymphatic: Denies: Easy Bruising, Easy Bleeding Patient Problems: Active and Suspected Problems (Last Reviewed 07/26/18 @ 07:07 by Wyatt Henry MD) Acute blood loss anemia (Acute) - Physical Exam General: Alert, Oriented x3 HEENT: Atraumatic, PERRLA, EOMI, Normocephalic Oral: Moist Mucosa Neck: Supple Lungs: Diminished - at bases Cardiovascular: Normal S1, Normal S2, Murmur - 2/6 systolic Abdomen: Bowel Sounds Present, Soft, Non Tender Extremities: No cyanosis, Edema - 4+ LE bilaterally Skin: No rashes Musculoskeletal: No Tenderness to Palpation of Joints or Extremities Neurological: Cranial nerves II-XII grossly intact Vital Signs Temp Pulse Resp BP Pulse Ox 97.8 F 74 17 103/54 L 100 07/28/18 15:34 07/28/18 15:34 07/28/18 15:34 07/28/18 15:34 07/28/18 15:34 Oxygen Delivery Method Room Air Weight: 94.5 kg Body Mass Index (BMI) 37.6 Finger Stick Blood Glucose 99 Intake and Output for Last 24 Hours 07/26/18 07/27/18 07/28/18 23:59 23:59 23:59 Intake Total 1772 / 1772 979 / 979 780 / 780 Output Total 200 / 200 400 / 400 1325 / 1325 Balance 1572 / 1572 579 / 579 -545 / -545 Laboratory Tests Past 24 Hrs 07/27/18 07/27/18 07/27/18 09:10 09:10 09:10 WBC RBC Hgb Hct MCV MCH MCHC RDW RDW Differential Plt Count MPV Differential Comment Immature Plt Fraction 5.9 Retic Count 1.22 Immature Retic Fraction 13.60 Retic Hgb Equivalent 27.7 L Sodium Potassium Chloride Carbon Dioxide Anion Gap BUN Creatinine Estim Creat Clear Calc Est GFR (MDRD) Af Amer Est GFR (MDRD) Non-Af BUN/Creatinine Ratio Glucose Calcium Phosphorus Magnesium Iron 35 L TIBC 313 Iron Saturation 11.2 L Ferritin 49 Total Bilirubin 1.00 Direct Bilirubin 0.48 H AST 54 H ALT 28 Alkaline Phosphatase 97 Total Protein 6.5 Albumin 2.9 L Globulin 3.6 Vitamin B12 TSH 0.07 L 07/28/18 07/28/18 07/28/18 05:18 05:18 05:18 WBC 2.7 L RBC 3.09 L Hgb 7.8 L Hct 26.1 L MCV 84.5 MCH 25.2 L MCHC 29.9 L RDW 20.5 H RDW Differential 59.8 H Plt Count 76 L MPV 9.4 Differential Comment SCAN Immature Plt Fraction Retic Count Immature Retic Fraction Retic Hgb Equivalent Sodium 143 Potassium 3.7 Chloride 111 H Carbon Dioxide 20.0 L Anion Gap 12 BUN 28 H Creatinine 2.19 H Estim Creat Clear Calc 17.01 Est GFR (MDRD) Af Amer 28 L Est GFR (MDRD) Non-Af 23 L BUN/Creatinine Ratio 12.8 Glucose 96 Calcium 8.2 L Phosphorus 2.7 Magnesium 1.9 Iron TIBC Iron Saturation Ferritin Total Bilirubin Direct Bilirubin AST ALT Alkaline Phosphatase Total Protein Albumin Globulin Vitamin B12 555 TSH Assessment/Plan All Active Problems (Last Reviewed 07/26/18 @ 07:07 by Wyatt Henry MD) GI bleed (Acute) Hyperkalemia (Resolved) Anemia (Acute) Supratherapeutic INR (Acute) Acute blood loss anemia (Acute) 1. 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 CKD is 2/2 chronic interstitial nephritis. Baseline SCr has been around 1.7-2.0 mg/dL. KYLEIGH could be due to cardiorenal -SCr is stable with diuresis I will check UA and FEUrea. She is diuresing well, so I have low suspicion for obstruction. The pt may achieve better diuresis with po Bumex since serum albumin is low when we transition her from IV Lasix to oral diuretic. Would continue IV Lasix for today. Will follow SCr and electrolytes. 2. Hypokalemia. The pt has a history of hypokalemia. She is on KCl. Monitor K and Mg since pt is being diuresed. 3. Anemia. Hgb is 7.8. Normocytic but high RDW. Will check Fe store-suspect low given GI bleed. The pt may benefit from KATE if Fe store is adequate. Being monitored for GI bleed. 4. Pancytopenia. above. Anemia could be from CKD, but must r/o other causes. Defer work up of neutropenia and thrombocytopenia to hospitalist. 5. GI bleed. INR was high. Being followed by surgery and hospital medicine.
--- NOTE | 2018-07-28 17:07 | PN_ITS ---
Patient Problems: Active and Suspected Problems (Last Reviewed 07/26/18 @ 07:07 by Wyatt Henry MD) Acute blood loss anemia (Acute) Subjective: All events of the past 24 hours have been reviewed. Afebrile since admission Vital signs are stable. 100% on room air. Urine output today his 1875+ so far. She has been incontinent a few times. All lab was personally reviewed. She remains pancytopenic with a WBC of 2.7, hemoglobin of 7.8 and platelets of 76,000. INR is 2.3 today (she has been on Eliquis so INR is not really a reflection on the level of anticoagulation). Retake count is 1.22 and the reticulocyte hemoglobin equivalent is low at 27.7. Serum bicarb is 20 and the BUN is 28 with a creatinine of 2.19, down from 2.39 yesterday. Magnesium is normal at 1.9 and phosphorus is normal at 2.7. TSH is low at 0.07 and a T4 was checked and it is high at 3.79. B12 is normal at 555. Serum iron is low at 35 and the TIBC is 313 with an iron saturation of 11.2. Ferritin is 49. There is microcytosis and she is not adequately retic'g. Denies SOB at rest. No CP. very small amount of blood on the TP today. Seen by Dr. Brandon who agrees with the current treatment. Objective: Physical Exam General: Alert, Oriented x3, Cooperative, No apparent distress, Well developed, Well nourished HEENT: Atraumatic, PERRLA, Normocephalic Oral: Moist Mucosa Neck: Supple, No Nuchal Rigidity, Trachea Midline Lungs: Diminished - in the R base with no crackles and no wheezes Cardiovascular: Regular rate, Regular Rhythm, Normal S1, Normal S2, No rub noted, No Gallop, - - telemetry with NSR and no ectopy Abdomen: Bowel Sounds Present, Soft, Non Tender, - - there is pitting edema in the flanks BL Extremities: No clubbing, No cyanosis, Edema - has edema the entire LE....with pitting in the posterior thighs Skin: No rashes Neurological: Cranial nerves II-XII grossly intact, Neuro grossly intact Psych/Mental Status: Normal Affect, Appropriate - Physical Exam Vital Signs Temp Pulse Resp BP Pulse Ox 97.8 F 74 17 103/54 L 100 07/28/18 15:34 07/28/18 15:34 07/28/18 15:34 07/28/18 15:34 07/28/18 15:34 Oxygen Delivery Method Room Air Weight: 208 lb 5.389 oz Body Mass Index (BMI) 37.6 Finger Stick Blood Glucose 99 Intake and Output for Last 24 Hours 07/26/18 07/27/18 07/28/18 23:59 23:59 23:59 Intake Total 1772 / 1772 979 / 979 780 / 780 Output Total 200 / 200 400 / 400 1325 / 1325 Balance 1572 / 1572 579 / 579 -545 / -545 Laboratory Tests Past 24 Hrs 07/27/18 07/27/18 07/28/18 09:10 09:10 05:18 WBC 2.7 L RBC 3.09 L Hgb 7.8 L Hct 26.1 L MCV 84.5 MCH 25.2 L MCHC 29.9 L RDW 20.5 H RDW Differential 59.8 H Plt Count 76 L MPV 9.4 Differential Comment SCAN Immature Plt Fraction 5.9 Retic Count 1.22 Immature Retic Fraction 13.60 Retic Hgb Equivalent 27.7 L Sodium Potassium Chloride Carbon Dioxide Anion Gap BUN Creatinine Estim Creat Clear Calc Est GFR (MDRD) Af Amer Est GFR (MDRD) Non-Af BUN/Creatinine Ratio Glucose Calcium Phosphorus Magnesium Iron 35 L TIBC 313 Iron Saturation 11.2 L Ferritin 49 Vitamin B12 TSH 0.07 L 07/28/18 07/28/18 05:18 05:18 WBC RBC Hgb Hct MCV MCH MCHC RDW RDW Differential Plt Count MPV Differential Comment Immature Plt Fraction Retic Count Immature Retic Fraction Retic Hgb Equivalent Sodium 143 Potassium 3.7 Chloride 111 H Carbon Dioxide 20.0 L Anion Gap 12 BUN 28 H Creatinine 2.19 H Estim Creat Clear Calc 17.01 Est GFR (MDRD) Af Amer 28 L Est GFR (MDRD) Non-Af 23 L BUN/Creatinine Ratio 12.8 Glucose 96 Calcium 8.2 L Phosphorus 2.7 Magnesium 1.9 Iron TIBC Iron Saturation Ferritin Vitamin B12 555 TSH Medical Necessity - Tobacco Use Smoking Status: Never smoker Assessment/Plan All Active Problems (Last Reviewed 07/26/18 @ 07:07 by Wyatt Henry MD) GI bleed (Acute) Hyperkalemia (Resolved) Anemia (Acute) Supratherapeutic INR (Acute) Acute blood loss anemia (Acute) Impressions 1. hematochezia - suspect due to internal hemorrhoids 2. 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 anemia likely due to anemia of chronic renal failure + iron deficiency 4. gastritis on recent EGD 5. hx of chronic AF 6. Internal hemorrhoids 7. Hypertension 8. Chronic anticoagulation with Eliquis 9. Pancytopenia-thrombocytopenia is new since 06/21/2018. Etiology is ? The thrombocytopenia could be due to ITP which can be associated with hyperthyroidism. 10. Hypoalbuminemia 11. anasarca, ascites, orthopnea and R pleural effusion - likely due to prog ressive renal failure 12. Hyperthyroidism - may be due to Amiodarone....she is on no thyroid hormone. HR is WNL on amiodarone Check antithyroid antibodies Iron sucrose today and if she tolerates will keep up with the supplementation Continue the Lasix and potassium recheck a renal profile and a mag in the AM and an HH - no transfusion indicated at this time thyroid US looking for nodules/masses. May need a thyroid nuclear study and referral to endocrine....will need a DEXA as hyperthyroidism is associated with osteoporosis check a folic acid level consider hematology consult. Code Visit Inpatient E&M: 97270 Subs Hosp L3
[2018-07-28 18:15] LABS: Free T3 3.5 pg/mL (2.18-3.98); T4 Free Direct 3.79 ng/dL (0.76-1.46)
[2018-07-28] MEDS: APIXABAN 2.5 MG TABLET PO (22:27)
[2018-07-28] MEDS: Atorvastatin Calcium 20 MG Tablet PO (22:27)
[2018-07-29] VITALS (12 sets, daily range): BP systolic 101–120; BP diastolic 48–69; PULSE 73–87; RESP 16–18; TEMP 36.4–36.9; O2SAT 95–97
[2018-07-29] MEDS: 0.9% NaCl Peripheral Flush Adult/Peds IV ×4 (05:30→21:50)
[2018-07-29] MEDS: Furosemide 100 MG/10 ML Vial 60 MG IV (05:30)
--- NOTE | 2018-07-29 05:55 | US_ITS ---
STUDY: THYROID ULTRASOUND REASON FOR EXAM: Female, 78 years old. Hyperthyroidism TECHNIQUE: Ultrasound evaluation of the thyroid was performed with real-time and static corbett-scale imaging. COMPARISON: None. FINDINGS: RIGHT LOBE: The right lobe of the thyroid gland measures 5.1 x 1.8 x 2.4 cm. There is a heterogeneous echotexture. There is a heterogeneous upper pole nodule measuring 9 x 9 x 7 mm with a second more cystic nodule in the midpole region measuring 5 x 5 x 4 mm. LEFT LOBE: The left lobe of the thyroid gland measures 4.7 x 1.6 x 2.0 cm. There is a heterogeneous echotexture. Heterogeneous upper pole nodule measuring 9 x 7 x 6 mm. Cystic mid pole nodule measuring 3 x 4 x 3 mm. ISTHMUS: The isthmus measures 0.7 cm. The regional lymph nodes are normal. US/Thyroid IMPRESSION: Heterogeneous thyroid diffusely. Several small nodules as above. Electronically Signed: Dennis Wong DO at 13:07 EST Tel , Service support ,
[2018-07-29 06:47] LABS: Absolute Lymphocyte Count 0.47 X10^3/ul (0.83-4.51); Absolute Neutrophil Count 2.2 X10^3/uL (2.0-7.7); Basophil# 0.01 X10^3/uL; Basophil% 0.3 % (0-1); Eosinophil# 0.03 X10^3/uL; Hematocrit 28.6 % (37-47); Hemoglobin 8.4 g/dl (12.0-15.0); Lymphocyte # 0.47 X10^3/ul (4.0); Lymphocyte % 15.5 % (19-41); Mean Corp Hgb Conc 29.4 g/gl (32-36); Mean Corpuscular Hgb 24.6 pg (27.0-32.0); Mean Corpuscular Volume 83.9 fL (81-99); Mean Platelet Vol. 9.8 fl (6.2-12.0); Monocyte# 0.29 X10^3/uL; Monocyte% 9.6 % (0-10); Neutrophil # 2.22 X10^3/uL (2.7-7.7); Neutrophil % 73.3 % (47-70); Platelet Count 78 K/mm3 (150-450); RBC Distribution Width SD 61.1 fl (35.1-43.9); Red Blood Count 3.41 M/mm3 (4.2-5.4)
[2018-07-29 06:51] LABS: Differential Indicated SCAN CRITERIA MET; POSITIVE COUNT NO; POSITIVE DIFFERENTIAL YES; POSITIVE MORPHOLOGY YES
[2018-07-29 06:55] LABS: Albumin, Serum 2.8 g/dL (3.2-5.0); BUN 29 mg/dL (7-18); BUN/Creat Ratio 12.6 RATIO (10-20); Calcium,Total 7.9 mg/dL (8.5-10.1); Chloride 110 mmol/L (98-107); EST Glomerular Filtration Rate 22 mL/min (>60); Est Glom Filt Rate - Afr Amer 26 mL/min (>60); Glucose 98 mg/dL (74-106); Magnesium 1.7 mg/dL (1.6-2.6); Phosphorus 2.3 mg/dL (2.5-4.9); Potassium 3.4 mmol/L (3.5-5.1); Sodium Level 141 mmol/L (136-145)
[2018-07-29 07:46] LABS: Anisocytosis 1+; Hypochromasia 1+; Platelet Estimate MOD DEC (ADEQ); Platelet Morphology LARGE
[2018-07-29] MEDS: Ascorbic Acid 500 MG Tablet PO (08:40)
[2018-07-29] MEDS: Hydrocortisone 25 MG Suppository RECTAL ×2 (09:09→21:45)
[2018-07-29] MEDS: Amiodarone 200 MG Tablet PO (09:11)
[2018-07-29] MEDS: APIXABAN 2.5 MG TABLET PO ×2 (09:11→21:45)
[2018-07-29] MEDS: Pantoprazole Sodium 20 MG Tablet PO ×2 (09:13→21:46)
--- NOTE | 2018-07-29 11:37 | PCM.PN.REN ---
Patient Problems: Active and Suspected Problems (Last Reviewed 07/26/18 @ 07:07 by Wyatt Henry MD) Acute blood loss anemia (Acute) Subjective: Pt said he breathing is okay. On RA.Still has leg edema but better. No nausea No vomiting. No CP - Physical Exam General: Alert, Oriented x3 HEENT: Atraumatic Oral: Moist Mucosa Neck: Supple, No JVD Lungs: Clear to auscultation, Normal air movement, No rhonchi, No wheeze Cardiovascular: Regular rate, Regular Rhythm, Normal S1, Normal S2 Abdomen: Bowel Sounds Present, Soft, Non Tender, Non-Distended Extremities: No clubbing, No cyanosis, Edema - +1 edema of LE Skin: No rashes Musculoskeletal: No Tenderness to Palpation of Joints or Extremities Lymphatic: No Cervical, Supraclavicular, or Inguinal Adenopathy Neurological: Cranial nerves II-XII grossly intact, Neuro grossly intact Psych/Mental Status: Normal Affect Vital Signs Temp Pulse Resp BP Pulse Ox 97.7 F L 76 18 109/60 96 07/29/18 09:04 07/29/18 11:00 07/29/18 09:04 07/29/18 09:04 07/29/18 09:04 Oxygen Delivery Method Room Air Weight: 95.8 kg Body Mass Index (BMI) 37.6 Finger Stick Blood Glucose 99 Intake and Output for Last 24 Hours 07/27/18 07/28/18 07/29/18 23:59 23:59 23:59 Intake Total 979 / 979 1260 / 1260 413 / 413 Output Total 400 / 400 1875 / 1875 500 / 500 Balance 579 / 579 -615 / -615 -87 / -87 Laboratory Tests Past 24 Hrs 07/28/18 07/29/18 07/29/18 05:18 05:50 05:50 WBC 3.0 L RBC 3.41 L Hgb 8.4 L Hct 28.6 L MCV 83.9 MCH 24.6 L MCHC 29.4 L RDW 21.0 H RDW Differential 61.1 H Plt Count 78 L MPV 9.8 Immature Gran % (Auto) 0.300 Neut % (Auto) 73.3 H Lymph % (Auto) 15.5 L [place] % (Auto) 9.6 Eos % (Auto) 1.0 Baso % (Auto) 0.3 Absolute Neuts (auto) 2.2 Absolute Lymphs (auto) 0.47 L Total Counted Not Reportable Platelet Estimate MOD DEC Plt Morphology Comment LARGE Hypochromasia 1+ Anisocytosis 1+ Sodium 141 Potassium 3.4 L Chloride 110 H Carbon Dioxide 21.0 BUN 29 H Creatinine 2.30 H Estim Creat Clear Calc 16.20 Est GFR (MDRD) Af Amer 26 L Est GFR (MDRD) Non-Af 22 L BUN/Creatinine Ratio 12.6 Glucose 98 Calcium 7.9 L Phosphorus 2.3 L Magnesium 1.7 Albumin 2.8 L RBC Folate Hemolysate RBC Folate Hematocrit Free T4 3.79 H Free T3 pg/dL 3.5 Thyroglobulin Antibody Thyroid Peroxidase Ab [place] Anti-Plt IIb/IIIa Eluate Anti-Plt Ia/IIa Eluate Anti-Plt Ib/IX HLA Ab Specif Class I 07/29/18 07/29/18 07/29/18 05:50 05:50 05:50 WBC RBC Hgb Hct MCV MCH MCHC RDW RDW Differential Plt Count MPV Immature Gran % (Auto) Neut % (Auto) Lymph % (Auto) [place] % (Auto) Eos % (Auto) Baso % (Auto) Absolute Neuts (auto) Absolute Lymphs (auto) Total Counted Platelet Estimate Plt Morphology Comment Hypochromasia Anisocytosis Sodium Potassium Chloride Carbon Dioxide BUN Creatinine Estim Creat Clear Calc Est GFR (MDRD) Af Amer Est GFR (MDRD) Non-Af BUN/Creatinine Ratio Glucose Calcium Phosphorus Magnesium Albumin RBC Folate Hemolysate Pending RBC Folate Pending Hematocrit Pending Free T4 Free T3 pg/dL Thyroglobulin Antibody Pending Thyroid Peroxidase Ab Pending [place]uate Anti-Plt IIb/IIIa Pending [place]uate Anti-Plt Ia/IIa Pending [place]uate Anti-Plt Ib/IX Pending HLA Ab Specif Class I Pending Medical Necessity - Tobacco Use Smoking Status: Never smoker Assessment/Plan All Active Problems (Last Reviewed 07/26/18 @ 07:07 by Wyatt Henry MD) GI bleed (Acute) Hyperkalemia (Resolved) Anemia (Acute) Supratherapeutic INR (Acute) Acute blood loss anemia (Acute) 1. 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 CKD is 2/2 chronic interstitial nephritis. Baseline SCr has been around 1.7-2.0 mg/dL. KYLEIGH is most probably related to prerenal from overdiuresis. Cr increased slightly in the last 24 hours from 2.19->2.3 mg/dL I will switch diuretic to bumex 1 mg PO BID Avoid ACEI/ARB for now No indication for [employer] Will follow SCr and electrolytes. 2. Hypokalemia.most probably from diuretic. Pt is receiving K phos . Check K in am 3- Hypophosphatemia: Pt is receiving K phos . Check P in am 4- Leg edema . might be related to Norvasc. Please d/c norvasc at discharge. Continue diuresis as above 5- HTN: BP is well controlled. Avoid ACEI/ARB and amlodipine for now Renal team will continue to follow. please call me with any question at [phone] Wild Head MD
--- NOTE | 2018-07-29 19:26 | NURSING ---
All documentation and charting by student nurse done with or reviewed by this RN
[2018-07-29] MEDS: Atorvastatin Calcium 20 MG Tablet PO (21:46)
[2018-07-29] MEDS: Bumetanide 0.5 MG Tablet 1 MG PO (21:46)
--- NOTE | 2018-07-29 22:55 | PN_ITS ---
Patient Problems: Active and Suspected Problems (Last Reviewed 07/26/18 @ 07:07 by Wyatt Henry MD) Acute blood loss anemia (Acute) Subjective: All events of the past 24 hours have been reviewed. Afebrile since admission Vital signs are stable 97% on room air Potassium is low at 3.4 today and the BUN is 29 with a creatinine of 2.30 which is stable. Magnesium is 1.7 and the phosphorus is low at 2.3. Thyroid ultrasound shows a heterogeneous thyroid with several small nodules Denies shortness of breath today. She is making a lot of urine and the MARIUSZ is not accurate secondary to episodes of urinary incontinence. Antithyroid antibodies and antiplatelet antibodies are pending. No chest pain. Objective: PHYSICAL EXAM: GENERAL: alert, oriented X 3, Cooperative, NAD ORAL: moist mucosa, no mucosal lesions NECK: No JVD, supple, trachea midline LUNGS: CTA, symmetric chest expansion, the diminished breath sounds in the right base have resolved and there is now good air exchange in the right base. HEART: RRR, Normal S1 and S2, no rub, no gallop ABDOMEN: soft, NT, ND, BS present, no guarding with palpation, the pitting in the flanks has improved significantly EXTREMITIES: Edema in the lower extremities is improving and they are softer but still with some mild pitting edema in the posterior flanks., no cyanosis, no calf tenderness SKIN: No rashes, no breakdown NEUROLOGIC: no focal neurologic deficits PSYCH: appropriate, normal affect, pleasant - Physical Exam Vital Signs Temp Pulse Resp BP Pulse Ox 98.0 F 77 16 101/48 L 96 07/29/18 21:45 07/29/18 21:45 07/29/18 21:45 07/29/18 21:45 07/29/18 21:45 Oxygen Delivery Method Room Air Weight: 211 lb 3.245 oz Body Mass Index (BMI) 37.6 Finger Stick Blood Glucose 99 Intake and Output for Last 24 Hours 07/27/18 07/28/18 07/29/18 23:59 23:59 23:59 Intake Total 979 / 979 1260 / 1260 1003 / 1003 Output Total 400 / 400 1875 / 1875 1350 / 1350 Balance 579 / 579 -615 / -615 -347 / -347 Laboratory Tests Past 24 Hrs 07/29/18 07/29/1819 05:50 05:50 05:50 WBC 3.0 L RBC 3.41 L Hgb 8.4 L Hct 28.6 L MCV 83.9 MCH 24.6 L MCHC 29.4 L RDW 21.0 H RDW Differential 61.1 H Plt Count 78 L MPV 9.8 Immature Gran % (Auto) 0.300 Neut % (Auto) 73.3 H Lymph % (Auto) 15.5 L [place] % (Auto) 9.6 Eos % (Auto) 1.0 Baso % (Auto) 0.3 Absolute Neuts (auto) 2.2 Absolute Lymphs (auto) 0.47 L Total Counted Not Reportable Platelet Estimate MOD DEC Plt Morphology Comment LARGE Hypochromasia 1+ Anisocytosis 1+ Sodium 141 Potassium 3.4 L Chloride 110 H Carbon Dioxide 21.0 BUN 29 H Creatinine 2.30 H Estim Creat Clear Calc 16.20 Est GFR (MDRD) Af Amer 26 L Est GFR (MDRD) Non-Af 22 L BUN/Creatinine Ratio 12.6 Glucose 98 Calcium 7.9 L Phosphorus 2.3 L Magnesium 1.7 Albumin 2.8 L RBC Folate Hemolysate Pending RBC Folate Pending Hematocrit Pending Thyroglobulin Antibody Thyroid Peroxidase Ab [place] Anti-Plt IIb/IIIa Eluate Anti-Plt Ia/IIa [place] Anti-Plt Ib/IX HLA Ab Specif Class I 07/29/18 07/29/18 05:50 05:50 WBC RBC Hgb Hct MCV MCH MCHC RDW RDW Differential Plt Count MPV Immature Gran % (Auto) Neut % (Auto) Lymph % (Auto) [place] % (Auto) Eos % (Auto) Baso % (Auto) Absolute Neuts (auto) Absolute Lymphs (auto) Total Counted Platelet Estimate Plt Morphology Comment Hypochromasia Anisocytosis Sodium Potassium Chloride Carbon Dioxide BUN Creatinine Estim Creat Clear Calc Est GFR (MDRD) Af Amer Est GFR (MDRD) Non-Af BUN/Creatinine Ratio Glucose Calcium Phosphorus Magnesium Albumin RBC Folate Hemolysate RBC Folate Hematocrit Thyroglobulin Antibody Pending Thyroid Peroxidase Ab Pending [place] Anti-Plt IIb/IIIa Pending [place] Anti-Plt Ia/IIa Pending [place] Anti-Plt Ib/IX Pending HLA Ab Specif Class I Pending Medical Necessity - Tobacco Use Smoking Status: Never smoker Assessment/Plan All Active Problems (Last Reviewed 07/26/18 @ 07:07 by Wyatt Henry MD) GI bleed (Acute) Hyperkalemia (Resolved) Anemia (Acute) Supratherapeutic INR (Acute) Acute blood loss anemia (Acute) Impressions 1. hematochezia - suspect due to internal hemorrhoids 2. 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 anemia likely due to anemia of chronic renal failure + iron deficiency 4. gastritis on recent EGD 5. hx of chronic AF 6. Internal hemorrhoids 7. Hypertension 8. Chronic anticoagulation with Eliquis 9. Pancytopenia-thrombocytopenia is new since 06/21/2018. Etiology is ? The thrombocytopenia could be due to ITP which can be associated with hyperthyroidism. 10. Hypoalbuminemia 11. anasarca, ascites, orthopnea and R pleural effusion - likely due to progressive renal failure 12. Hyperthyroidism - may be due to Amiodarone....she is on no thyroid hormone. HR is WNL on amiodarone Discussed with cardiology whether the amiodarone can be discontinued in light of hyperthyroidism Thyroid nuclear scan in the a.m. Discussed treatment with Dr. Head and he recommends discontinuation of Lasix and starting Bumex 1 mg p.o. twice daily. Potassium has been supplemented with potassium phosphate Recheck lab in the a.m. Code Visit Inpatient E&M: 86563 Subs Hosp L2
[2018-07-30] VITALS (10 sets, daily range): BP systolic 95–114; BP diastolic 43–62; PULSE 65–88; RESP 16; TEMP 36.3–36.8; O2SAT 95–100
[2018-07-30 06:27] LABS: BUN 28 mg/dL (7-18); Estimated Creatinine Clearance 17.74 ml/min; Glucose 90 mg/dL (74-106)
[2018-07-30 06:28] LABS: Albumin, Serum 2.7 g/dL (3.2-5.0); BUN/Creat Ratio 13.3 RATIO (10-20); Calcium,Total 8.1 mg/dL (8.5-10.1); Chloride 111 mmol/L (98-107); EST Glomerular Filtration Rate 24 mL/min (>60); Est Glom Filt Rate - Afr Amer 29 mL/min (>60); Phosphorus 2.9 mg/dL (2.5-4.9); Potassium 3.5 mmol/L (3.5-5.1); Sodium Level 144 mmol/L (136-145)
[2018-07-30] MEDS: Ascorbic Acid 500 MG Tablet PO (07:56)
--- NOTE | 2018-07-30 08:17 | PCM.PROGNOTE ---
Patient Problems: Active and Suspected Problems (Last Reviewed 07/26/18 @ 07:07 by Wyatt Henry MD) Pancytopenia (Acute) Acute blood loss anemia (Acute) Subjective: All events of the past 24 hours been reviewed. She is afebrile. Vital signs are stable. Pulse ox is 95% on room air. Fluid balance on 07/29/2018 was -3 47+ since the patient was incontinent a few times. She had 3 bowel movements yesterday. All lab was personally reviewed. The creatinine remained stable and is 2.1 today with a BUN of 28. She is currently on Bumex 1 mg p.o. twice daily. Antiplatelet and antithyroid antibodies are pending. Thyroid nuclear scan is ordered for today. Objective: GENERAL: alert, oriented X 3, Cooperative, NAD ORAL: moist mucosa, no mucosal lesions NECK: No JVD, supple, trachea midline LUNGS: CTA, symmetric chest expansion, the diminished breath sounds in the right base have resolved and there is now good air exchange in the right base. HEART: RRR, Normal S1 and S2, no rub, no gallop ABDOMEN: soft, NT, ND, BS present, no guarding with palpation, the pitting in the flanks has improved significantly EXTREMITIES: Edema in the lower extremities is improving and they are softer but still with some mild pitting edema in the posterior flanks., no cyanosis, no calf tenderness SKIN: No rashes, no breakdown NEUROLOGIC: no focal neurologic deficits PSYCH: appropriate, normal affect, pleasant - Physical Exam Vital Signs Temp Pulse Resp BP Pulse Ox 98.3 F 85 16 114/61 95 07/30/18 03:45 07/30/18 07:00 07/30/18 03:45 07/30/18 03:45 07/30/18 03:45 Oxygen Delivery Method Room Air Weight: 209 lb 10.554 oz Body Mass Index (BMI) 37.6 Finger Stick Blood Glucose 99 Intake and Output for Last 24 Hours 07/28/18 07/29/18 07/30/18 23:59 23:59 23:59 Intake Total 1260 / 1260 1003 / 1003 200 / 200 Output Total 1875 / 1875 1350 / 1350 250 / 250 Balance -615 / -615 -347 / -347 -50 / -50 Laboratory Tests Past 24 Hrs 07/30/18 05:15 Sodium 144 Potassium 3.5 Chloride 111 H Carbon Dioxide 22.0 BUN 28 H Creatinine 2.10 H Estim Creat Clear Calc 17.74 Est GFR (MDRD) Af Amer 29 L Est GFR (MDRD) Non-Af 24 L BUN/Creatinine Ratio 13.3 Glucose 90 Calcium 8.1 L Phosphorus 2.9 Albumin 2.7 L Medical Necessity - Tobacco Use Smoking Status: Never smoker Assessment/Plan All Active Problems (Last Reviewed 07/26/18 @ 07:07 by Wyatt Henry MD) Pancytopenia (Acute) GI bleed (Acute) Hyperkalemia (Resolved) Anemia (Acute) Supratherapeutic INR (Acute) Acute blood loss anemia (Acute) Impressions 1. hematochezia - suspect due to internal hemorrhoids 2. 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 anemia likely due to anemia of chronic renal failure + iron deficiency 4. gastritis on recent EGD 5. hx of chronic AF 6. Internal hemorrhoids-no further bleeding 7. Hypertension 8. Chronic anticoagulation with Eliquis 9. Pancytopenia-thrombocytopenia is new since 06/21/2018. Etiology is ? The thrombocytopenia could be due to ITP which can be associated with hyperthyroidism. 10. Hypoalbuminemia 11. anasarca, ascites, orthopnea and R pleural effusion - likely due to progressive renal failure 12. Hyperthyroidism - may be due to Amiodarone....she is on no thyroid hormone. HR is WNL on amiodarone Continue with the diuretics Recheck the renal profile in the AM Thyroid nuclear scan on Thursday and then will likely start methimazole and refer to endocrinology as an outpatient Continue PT Code Visit Inpatient E&M: 32659 Subs Hosp L2
[2018-07-30] MEDS: APIXABAN 2.5 MG TABLET PO ×2 (09:52→21:29)
[2018-07-30] MEDS: Bumetanide 0.5 MG Tablet 1 MG PO ×3 (09:52→21:31)
[2018-07-30] MEDS: Pantoprazole Sodium 20 MG Tablet PO ×2 (09:52→21:29)
--- NOTE | 2018-07-30 10:31 | PN.RENAL_ITS ---
Patient Problems: Active and Suspected Problems (Last Reviewed 07/26/18 @ 07:07 by Wyatt Henry MD) Acute blood loss anemia (Acute) Subjective: Pt has no nausea No vomiting. No SOB Still cee significant edema - Physical Exam General: Alert, Oriented x3 HEENT: Atraumatic Oral: Moist Mucosa Neck: Supple, No JVD Lungs: Clear to auscultation, Normal air movement, No rhonchi Cardiovascular: Regular rate, Regular Rhythm, Normal S1, Normal S2 Abdomen: Bowel Sounds Present, Non Tender Extremities: Edema - +3 edema of LE Skin: No rashes Lymphatic: No Cervical, Supraclavicular, or Inguinal Adenopathy Neurological: Cranial nerves II-XII grossly intact, Neuro grossly intact Psych/Mental Status: Normal Affect Vital Signs Temp Pulse Resp BP Pulse Ox 97.7 F L 88 16 102/62 99 07/30/18 09:45 07/30/18 09:45 07/30/18 09:45 07/30/18 09:45 07/30/18 09:45 Oxygen Delivery Method Room Air Weight: 95.1 kg Body Mass Index (BMI) 37.6 Finger Stick Blood Glucose 99 Intake and Output for Last 24 Hours 07/28/18 07/29/18 07/30/18 23:59 23:59 23:59 Intake Total 1260 / 1260 1003 / 1003 200 / 200 Output Total 1875 / 1875 1350 / 1350 250 / 250 Balance -615 / -615 -347 / -347 -50 / -50 Laboratory Tests Past 24 Hrs 07/30/18 05:15 Sodium 144 Potassium 3.5 Chloride 111 H Carbon Dioxide 22.0 BUN 28 H Creatinine 2.10 H Estim Creat Clear Calc 17.74 Est GFR (MDRD) Af Amer 29 L Est GFR (MDRD) Non-Af 24 L BUN/Creatinine Ratio 13.3 Glucose 90 Calcium 8.1 L Phosphorus 2.9 Albumin 2.7 L Medical Necessity - Tobacco Use Smoking Status: Never smoker Assessment/Plan All Active Problems (Last Reviewed 07/26/18 @ 07:07 by Wyatt Henry MD) GI bleed (Acute) Hyperkalemia (Resolved) Anemia (Acute) Supratherapeutic INR (Acute) Acute blood loss anemia (Acute) 1. 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 CKD is 2/2 chronic interstitial nephritis. Baseline SCr has been around 1.7-2.0 mg/dL. KYLEIGH is most probably related to prerenal from overdiuresis. Cr is slightly better with decreasing diuretics dose to Bumex 1 mg PO BID We will have to accept higher baseline Cr to accomplish good control of the volume status I will increase to bumex 1 mg PO TID Avoid ACEI/ARB for now No indication for [employer] Will follow SCr and electrolytes. 2. Hypokalemia.resolved with replacement.Continue Kcl supplement 3- Leg edema .Multifactorial . low albumin, norvasc and CHF. Still has significant edema Will increase bumex as above Will monitor kidney function and electrolytes with diuresis Please d/c norvasc at discharge 4- HTN: BP is well controlled. Avoid ACEI/ARB and amlodipine for now Renal team will continue to follow. please call me with any question at [phone] Wild Head MD
[2018-07-30 16:09] LABS: Folate, RBC (Hct) Test 27.3 % (34.0-46.6); Thyroid Peroxidase AB 18 IU/mL (0-34)
[2018-07-30 18:35] LABS: Folates, RBC Test 1366 ng/mL (>498); Thyroglobulin Antibody < 1.0 IU/mL (0.0-0.9)
--- NOTE | 2018-07-30 19:46 | NURSING ---
All nursing documentation done by Marino Arce was reviewed and or done with this RN
[2018-07-30] MEDS: traZODone 50 MG Tablet PO (21:29)
[2018-07-30] MEDS: Atorvastatin Calcium 20 MG Tablet PO (21:31)
[2018-07-31] VITALS (11 sets, daily range): BP systolic 101–144; BP diastolic 52–62; PULSE 73–84; RESP 16; TEMP 36.5–36.9; O2SAT 95–98
[2018-07-31] MEDS: Bumetanide 0.5 MG Tablet 1 MG PO ×3 (05:17→21:24)
[2018-07-31 06:35] LABS: Hematocrit 25.1 % (37-47); Hemoglobin 7.6 g/dl (12.0-15.0); Mean Corp Hgb Conc 30.3 g/gl (32-36); Mean Corpuscular Hgb 25.9 pg (27.0-32.0); Mean Corpuscular Volume 85.4 fL (81-99); Mean Platelet Vol. 9.6 fl (6.2-12.0); Platelet Count 81 K/mm3 (150-450); RBC Distribution Width CV 21.6 % (11.6-14.6); RBC Distribution Width SD 62.3 fl (35.1-43.9); Red Blood Count 2.94 M/mm3 (4.2-5.4); White Blood Count 2.6 K/mm3 (4.4-11.0)
[2018-07-31 06:36] LABS: Scan Indicated on CBC? Y/N YES- FLAGS NOTED
[2018-07-31 06:42] LABS: Anion Gap 7 (5-15); BUN 27 mg/dL (7-18); BUN/Creat Ratio 14.1 RATIO (10-20); Calcium,Total 7.7 mg/dL (8.5-10.1); Chloride 112 mmol/L (98-107); Creatinine, Serum 1.91 mg/dL (0.55-1.02); EST Glomerular Filtration Rate 27 mL/min (>60); Est Glom Filt Rate - Afr Amer 33 mL/min (>60); Estimated Creatinine Clearance 19.51 ml/min; Glucose 81 mg/dL (74-106); Phosphorus 2.6 mg/dL (2.5-4.9); Potassium 3.5 mmol/L (3.5-5.1); Sodium Level 143 mmol/L (136-145)
--- NOTE | 2018-07-31 10:12 | PN_ITS ---
Patient Problems: Active and Suspected Problems (Last Reviewed 07/26/18 @ 07:07 by Wyatt Henry MD) Pancytopenia (Acute) Acute blood loss anemia (Acute) Subjective: All events of the past 24 hours been reviewed. Bumex was increased to 1 mg p.o. 3 times daily. The weight on the scale today was 202 pounds, down from 211 admission. Intake and output are inaccurate secondary to incontinence. Vital signs are stable. She is 95-97% saturated on room air. Hemoglobin today is 7.6 with a white blood cell count of 2.6 [address] atelets. Potassium is 3.5 and the BUN is 27 with a creatinine of 1.91 which is down from 2.69 at admission. Phosphorus is normal at 2.6. She denies SOB, having urinary incontinence still, thinks she is breathing easier. No lightheadedness They have been weighing her in the bed and the weights are not reliable....she is able to stand on the scale Objective: GENERAL: alert, oriented X 3, Cooperative, NAD ORAL: moist mucosa, no mucosal lesions NECK: No JVD, supple, trachea midline LUNGS: CTA, symmetric chest expansion, the diminished breath sounds in the ri ght base have resolved and there is now good air exchange in the right base. HEART: RRR, Normal S1 and S2, no rub, no gallop ABDOMEN: soft, NT, ND, BS present, no guarding with palpation, the pitting in the flanks has improved significantly EXTREMITIES: Edema in the lower extremities is improving and they are softer but still with pitting edema in the posterior thighs and the flanks, no cyanosis, no calf tenderness SKIN: No rashes, no breakdown NEUROLOGIC: no focal neurologic deficits PSYCH: appropriate, normal affect, pleasant - Physical Exam Vital Signs Temp Pulse Resp BP Pulse Ox 97.9 F 83 16 144/57 H 97 07/31/18 09:56 07/31/18 09:56 07/31/18 09:56 07/31/18 09:56 07/31/18 09:56 Oxygen Delivery Method Room Air Weight: 202 lb 2.622 oz Body Mass Index (BMI) 37.6 Finger Stick Blood Glucose 99 Intake and Output for Last 24 Hours 07/29/18 07/30/18 07/31/18 23:59 23:59 23:59 Intake Total 1003 / 1003 968 / 968 30 Output Total 1350 / 1350 1350 / 1350 200 / 200 Balance -347 / -347 -382 / -382 -170 / -170 Laboratory Tests Past 24 Hrs 07/29/18 07/29/18 07/31/18 05:50 05:50 05:20 WBC RBC Hgb Hct MCV MCH MCHC RDW RDW Differential Plt Count MPV Differential Comment Sodium 143 Potassium 3.5 Chloride 112 H Carbon Dioxide 24.0 Anion Gap 7 BUN 27 H Creatinine 1.91 H Estim Creat Clear Calc 19.51 Est GFR (MDRD) Af Amer 33 L Est GFR (MDRD) Non-Af 27 L BUN/Creatinine Ratio 14.1 Glucose 81 Calcium 7.7 L Phosphorus 2.6 RBC Folate Hemolysate 373.0 RBC Folate 1366 Hematocrit 27.3 L Thyroglobulin Antibody < 1.0 Thyroid Peroxidase Ab 18 07/31/18 05:20 WBC 2.6 L RBC 2.94 L Hgb 7.6 L Hct 25.1 L MCV 85.4 MCH 25.9 L MCHC 30.3 L RDW 21.6 H RDW Differential 62.3 H Plt Count 81 L MPV 9.6 Differential Comment Sodium Potassium Chloride Carbon Dioxide Anion Gap BUN Creatinine Estim Creat Clear Calc Est GFR (MDRD) Af Amer Est GFR (MDRD) Non-Af BUN/Creatinine Ratio Glucose Calcium Phosphorus RBC Folate Hemolysate RBC Folate Hematocrit Thyroglobulin Antibody Thyroid Peroxidase Ab Medical Necessity - Tobacco Use Smoking Status: Never smoker Assessment/Plan All Active Problems (Last Reviewed 07/26/18 @ 07:07 by Wyatt Henry MD) Pancytopenia (Acute) GI bleed (Acute) Hyperkalemia (Resolved) Anemia (Acute) Supratherapeutic INR (Acute) Acute blood loss anemia (Acute) Impressions 1. hematochezia - suspect due to internal hemorrhoids - resolved 2. 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 anemia likely due to anemia of chronic renal failure + iron deficiency 4. gastritis on recent EGD 5. hx of chronic AF 6. Internal hemorrhoids-no further bleeding 7. Hypertension 8. Chronic anticoagulation with Eliquis 9. Pancytopenia-thrombocytopenia is new since 06/21/2018. Etiology is ? The thrombocytopenia could be due to ITP which can be associated with hyperthyroidism. Antiplatelet antibodies are pending 10. Hypoalbuminemia 11. anasarca, ascites, orthopnea and R pleural effusion - likely due to progressive renal failure 12. Hyperthyroidism - may be due to Amiodarone....she is on no thyroid hormone. HR is WNL even though she is hyperthyroid Change the potassium supplement to 20 mEq twice daily and given additional 20 mEq p.o. now. Continue Bumex 1 mg p.o. TID, Metolazone added by Dr. Head Continue daily weights on the scale Recheck lab in the a.m. Insert external urinary catheter for accurate intake and output in this patient admitted with acute renal failure Iron sucrose 200 mg IV daily x4 doses Check a Hemoccult stool Antithyroid antibodies are negative-nuclear scan scheduled for Thursday Antiplatelet antibodies are still pending. Appreciate Dr. Foss's input and pt will follow up with him following DC Code Visit Inpatient E&M: 63693 Subs Hosp L2
[2018-07-31] MEDS: Acetaminophen 500 MG Tablet 1000 MG PO (10:56)
[2018-07-31] MEDS: APIXABAN 2.5 MG TABLET PO ×2 (10:56→21:25)
[2018-07-31] MEDS: Pantoprazole Sodium 20 MG Tablet PO ×2 (10:57→21:24)
[2018-07-31] MEDS: Ascorbic Acid 500 MG Tablet PO (10:57)
--- NOTE | 2018-07-31 14:20 | NURSING ---
student nurse charting reviewed.
[2018-07-31] MEDS: 0.9% NaCl Peripheral Flush Adult/Peds IV (15:08)
--- NOTE | 2018-07-31 17:27 | ONC.CON.INP2 ---
- Problem List (1) Pancytopenia Status: Acute (2) Iron deficiency anemia Status: Chronic Consult Referring Physician: Hospitalist service Consult Results: Pancytopenia, iron deficiency anemia Subjective Date of Service:: 07/31/18 Chief Complaint: increased weakness History of Present Illness: Patient is a 78-year-old female admitted with recurrent acute on chronic GI bleed. She has a significant cardiac history on chronic systemic anticoagulation for atrial fibrillation and acute on chronic kidney failure. This is her second hospitalization in July 2018 was acute GI bleed. She was noted to have developed a new onset pancytopenia which can be seen from the following table: Laboratory Tests 06/21/18 07/29/18 07/31/18 11:23 05:50 05:20 WBC 5.2 3.0 L 2.6 L Hgb 8.7 L 8.4 L 7.6 L Hct 28.6 L Plt Count 151 78 L 81 L Absolute Neuts (auto) 4.1 2.2 Past Medical History: Chronic Problems (Last Reviewed 07/26/18 @ 07:07 by Wyatt Henry MD) Iron deficiency anemia (Chronic) On amiodarone therapy (Chronic) Edema (Chronic) H/O mitral valve replacement (Chronic 01/28/17) with 27 mm bioprosthetic heart valve @ [facility] H/O aortic valve replacement (Chronic 01/28/17) with 21 mm bioprosthetic heart valve, ligation of Lt atrial appendage @ [facility] Cardiomyopathy in disease classified elsewhere (Chronic) Nonrheumatic mitral (valve) insufficiency (Chronic) Nonrheumatic aortic (valve) insufficiency (Chronic) Persistent atrial fibrillation (Chronic) Chronic kidney disease, unspecified (Chronic) HTN (hypertension) (Chronic) HLD (hyperlipidemia) (Chronic) Anticoagulant long-term use (Chronic) Diverticulitis (Chronic) Paroxysmal atrial fibrillation (Chronic) HTN (hypertension) (Chronic) Heart failure with reduced ejection fraction (Chronic) Pulmonary hypertension (Chronic) Mitral stenosis (Chronic) Aortic insufficiency (Chronic) KYLEIGH (acute kidney injury) (Chronic) CKD (chronic kidney disease) stage 3, GFR 30-59 ml/min (Chronic) CHF (congestive heart failure) (Chronic) Leukocytosis (Chronic) Mitral regurgitation (Chronic) Past Medical/Surgical History: Past Medical History - Most Recent Inpatient Visit Past Medical History Start: 07/26/18 03:41 Text: Status: Complete Freq: ONCE Protocol: Document 07/26/18 03:41 HERBIE (Rec: 07/26/18 03:53 [email or web address] [id number]) BMI Required to complete PMH What is Patient's BMI 38.7 Neurologic Medical History Hx Stroke/TIA No Hx Dementia/Alzheimer's No Hx Parkinson's Disease No Hx Seizures No Hx Multiple Sclerosis No Hx Migraines No Cardiac Medical History VTE Present on Admission No Hx of Deep Vein Thrombosis/VTE/PE No Hx Hypertension Yes Hx Chest Pain/Angina No Hx Heart Attack No Hx Cardiac Surgery/Stents/Etc. Yes: MITRAL AND AORTIC VALVES REPLACED 2017 AND HEART CATH Hx Heart Failure Yes Hx Pacemaker/AICD No Hx Irregular Heartbeat and/or Afib Yes: AFIB Hx Anticoagulant Therapy Yes: COUMADIN changed to Query Text:(Coumadin, Aspirin, Plavix, Eliquis Xarelto, etc.) Hx Pain in Legs when Walking/Leg Cramps No Respiratory Medical History Hx COPD No Hx Emphysema No Hx Smoking No Smoking Status Never smoker Hx Smoking Exposure No Hx Tobacco Use in last 12 months No Hx of Pipe Smoking No Hx Sleep Apnea No CPAP No BIPAP No Do you snore loudly (louder than talking No or can be heard through closed doors)? Do you often feel tired/ fatigued/ No sleepy during daytime? Has anyone observed you stop breathing No during sleep? STOP Results Negative GI Medical History Hx Ulcer No Hx Hepatitis No Hx Cirrhosis No Hx GI Bleed Yes Hx Unplanned Weight Loss No Genitourinary Medical History Indwelling Catheter in Place on Arrival/ No Admission Hx Renal Disease Yes: SEES Hx Dialysis No Musculoskeletal History Hx Arthritis Yes: fingers Hx Rheumatoid Arthritis No Endocrine Medical History Hx Diabetes No Hx Thyroid Disease No Hematologic Medical History Hx of Blood Transfusion Yes Hx of Transfusion in last 3 Months Yes Date of Last Transfusion (if within last 07/20/18 3 months) Ever experience any problems with No transfusion(s)? Hx of Preganancy in last 3 Months No Nurse Filling Out Transfusion & RWALKER Questions: Date: 07/26/18 Time: 03:52 Psycho/Social Medical History Hx Depression No Hx Anxiety No Hx Behavior Disorder No Hx Alcohol Use No Hx Substance Use No Other Medical History Hx Blood Disorders No Hx Anemia Yes Hx Cancer Yes: skin cancer removed Hx Drug Resistant Organism Yes: CDIFF Wound/Pressure Injury Present on Arrival No /Admission Query Text:If yes, chart assessment in Shift/Clinical Findings Central Line/PICC/VAD Present on Arrival No /Admission Risk for Readmission Number of Risk Factors 6 At Risk for Readmission Patient is At Risk For Readmission Patient is eligible for Call Back Y Past Medical History (Last Reviewed 07/26/18 @ 07:07 by Wyatt Henry MD) On amiodarone therapy (Chronic) Edema (Chronic) Dyspnea on exertion (Inactive) Cardiomyopathy in disease classified elsewhere (Chronic) Nonrheumatic mitral (valve) insufficiency (Chronic) Nonrheumatic aortic (valve) insufficiency (Chronic) Persistent atrial fibrillation (Chronic) Chronic kidney disease, unspecified (Chronic) HTN (hypertension) (Chronic) HLD (hyperlipidemia) (Chronic) Past Surgical History (Last Reviewed 07/26/18 @ 03:23 by Wyatt Henry MD) H/O mitral valve replacement (Chronic 01/28/17) H/O aortic valve replacement (Chronic 01/28/17) History of right and left heart catheterization (Resolved) Maternal Family History: Family History (Last Reviewed 07/19/18 @ 15:34 by Eri Mccrary) Father No problems noted. Family History: Hypertension Offspring Family History: Family History (Last Reviewed 07/19/18 @ 15:34 by Eri Mccrary) Father No problems noted. Family History: Heart Disease, Stroke - Paternal grandmother - Social History Lives: With Family Smoking Status: Never smoker Alcohol: None Allergies/Adverse Reactions: Allergy/AdvReac Type Severity Reaction Status Date / Time aspartame Allergy Hives Verified 07/26/18 00:52 [From Nutrasweet Aspartame] Review of Systems Constitutional:: Reports: Weakness, Fatigue, Weight loss - Weight has fluctuated depending on fluid status, Weight gain, - - Occasional minor nosebleeds. Denies: Fever, Sweats, Appetite change, Chills Cardiovascular:: Reports: Dyspnea on exertion. Denies: Chest pain, Palpitations, Orthopnea, PND, Shortness of breath Respiratory: Reports: Shortness of breath upon exertion. Denies: Cough, Hemoptysis, Shortness of Breath, Wheezing Gastrointestinal:: Reports: Melena, Hematochezia. Denies: Abdominal pain, Nausea, Vomiting, Diarrhea, Constipation Genitourinary: Denies: Dysuria, Hematuria, 15, Flank pain Musculoskeletal:: Denies: Back pain, Myalgia, Arthralgia Skin: Reports: - - Easy bruises. Denies: Rash, Skin Changes, Wounds Neurological:: Denies: Headache, Dizziness, Visual changes, Tinnitus, Hearing loss Psychiatric: Denies: Anxiety, Depression, Homicidal Ideations, Suicidal Ideations Vital Signs Height 5 ft 2 in Weight: 91.7 kg Weight in Pounds 202.2 lbs Pulse Ox 97 Temperature 97.7 F Pulse Rate [Sitting] 69 Pulse Rate [Lying] 64 Pulse Rate 76 Respiratory Rate 16 Blood Pressure [Sitting] 121/65 Blood Pressure [Lying] 114/57 Blood Pressure 103/55 Blood Pressure Position Semi-Fowlers - Physical Exam General: Alert, Oriented x3, No apparent distress, - - Elderly and frail, overweight, ECOG 2 HEENT: Atraumatic, PERRLA, EOMI, Normocephalic Oropharynx:: Dry mucosa Neck:: Supple, Trachea midline. Negative for: JVD, bilateral Cardiac:: Normal S1, Normal S2, Irregular rate. Negative for: Murmur Lungs: Clear to auscultation, Excusion symmetrical. Negative for: Rhonchi, Wheezes Abdomen:: Soft, Non-tender, Non-distended. Negative for: Hepatosplenomegaly Extremities:: Edema - Gross. Negative for: Cyanosis Neurological: Neuro grossly intact Skin:: Ecchymosis. Negative for: Lesions, Rash, Petechiae Psychiatric:: Appropriate affect, Euthymic Lymphatics:: Negative for: Cervical lymphadenopathy, Supraclavicular lymphadenopathy, Axillary lymphadenopathy Laboratory Data: Laboratory Tests 07/31/18 07/31/18 07/29/18 Range/Units 05:20 05:20 05:50 WBC 2.6 L (4.4-11.0) K/mm3 RBC 2.94 L (4.2-5.4) M/mm3 Hgb 7.6 L (12.0-15.0) g/dl Hct 25.1 L (37-47) % MCV 85.4 (81-99) fL MCH 25.9 L (27.0-32.0) pg MCHC 30.3 L (32-36) g/gl RDW 21.6 H (11.6-14.6) % RDW Differential 62.3 H (35.1-43.9) fl Plt Count 81 L (150-450) K/mm3 MPV 9.6 (6.2-12.0) fl Differential Comment Sodium 143 (136-145) mmol/L Potassium 3.5 (3.5-5.1) mmol/L Chloride 112 H (98-107) mmol/L Carbon Dioxide 24.0 (21.0-32.0) mmol/L Anion Gap 7 (5-15) BUN 27 H (7-18) mg/dL Creatinine 1.91 H (0.55-1.02) mg/dL Estim Creat Clear Calc 19.51 ml/min Est GFR (MDRD) Af Amer 33 L (>60) mL/min Est GFR (MDRD) Non-Af 27 L (>60) mL/min BUN/Creatinine Ratio 14.1 (10-20) RATIO Glucose 81 (74-106) mg/dL Calcium 7.7 L (8.5-10.1) mg/dL Phosphorus 2.6 (2.5-4.9) mg/dL RBC Folate Hemolysate (Not Estab.) ng/mL RBC Folate (>498) ng/mL Hematocrit (34.0-46.6) % Thyroglobulin Antibody < 1.0 (0.0-0.9) IU/mL Thyroid Peroxidase Ab 18 (0-34) IU/mL 07/29/18 Range/Units 05:50 WBC (4.4-11.0) K/mm3 RBC (4.2-5.4) M/mm3 Hgb (12.0-15.0) g/dl Hct (37-47) % MCV (81-99) fL MCH (27.0-32.0) pg MCHC (32-36) g/gl RDW (11.6-14.6) % RDW Differential (35.1-43.9) fl Plt Count (150-450) K/mm3 MPV (6.2-12.0) fl Differential Comment Sodium (136-145) mmol/L Potassium (3.5-5.1) mmol/L Chloride (98-107) mmol/L Carbon Dioxide (21.0-32.0) mmol/L Anion Gap (5-15) BUN (7-18) mg/dL Creatinine (0.55-1.02) mg/dL Estim Creat Clear Calc ml/min Est GFR (MDRD) Af Amer (>60) mL/min Est GFR (MDRD) Non-Af (>60) mL/min BUN/Creatinine Ratio (10-20) RATIO Glucose (74-106) mg/dL Calcium (8.5-10.1) mg/dL Phosphorus (2.5-4.9) mg/dL RBC Folate Hemolysate 373.0 (Not Estab.) ng/mL RBC Folate 1366 (>498) ng/mL Hematocrit 27.3 L (34.0-46.6) % Thyroglobulin Antibody (0.0-0.9) IU/mL Thyroid Peroxidase Ab (0-34) IU/mL Diagnostic Data: Diagnostic Data Chest X-Ray 07/27/18 11:11 IMPRESSION: Improved aeration of both lung bases although residual changes persist. The remainder of the examination is unchanged. Electronically Signed: Campos Schulz MD at 15:00 EST , Service support , Thyroid Ultrasound 07/29/18 05:55 IMPRESSION: Heterogeneous thyroid diffusely. Several small nodules as above. Electronically Signed: Dennis Wong DO at 13:07 EST Tel , Service support , Assessment and Plan 78-year-old female readmitted (second admission in July 2018) with a recurrent acute on chronic GI bleed. Patient has significant comorbid cardiac disease on chronic anticoagulation for atrial fibrillation and has acute on chronic renal failure. From the hematology aspect patient has developed a new onset pancytopenia in July 2018 concurrent with her acute illness. She has evidence for iron deficiency, no evidence for deficiency of B12. The most notable abnormality of her blood counts as he iron deficiency anemia. She is mildly leukopenic with a preserved neutrophil count and in absence of infectious or febrile illness this is of no clinical significance. She has a moderately severe thrombocytopenia and expected to have platelet dysfunction secondary to her chronic renal failure. Her cytopenias in addition to iron deficiency are most consistent with those acute and chronic diseases and polypharmacy. There is no evidence at this time to suggest a primary bone marrow disease. Recommendations from the hematology aspect: #1 IV iron to correct her deficiency. Advised holding off oral iron to avoid masking recurrent GI bleeds. #2 we will follow her up in the hematology outpatient 1 month following discharge. If there is progressive cytopenias would consider bone marrow biopsy. Patient was seen was her sister and daughter impression and plan discussed Medications: Medications Added to Medication List This Visit Category Date Time Status Iron Sucrose Complex [Venofer] 200 mg Med 07/31/18 11:00 Active 0.9% Normal Saline 100 ml IV DAILY Potassium Chloride [K-Dur] Med 07/31/18 17:00 Active 20 meq PO BIDCM Primary Care Provider: Hermann Nath Referring Provider:
--- NOTE | 2018-07-31 18:19 | PCM.PN.REN ---
Patient Problems: Active and Suspected Problems (Last Reviewed 07/26/18 @ 07:07 by Wyatt Henry MD) Pancytopenia (Acute) Acute blood loss anemia (Acute) Subjective: Still has significant edema. Kidney function is improving. No accurate UOP documentation Breathing is ok. On RA. No CP - Physical Exam General: Alert, Oriented x3 HEENT: Atraumatic Oral: Dry Mucosa Neck: Supple, No JVD Lungs: Clear to auscultation, Normal air movement, No rhonchi, No wheeze Cardiovascular: Regular rate, Regular Rhythm, Normal S1, Normal S2 Abdomen: Bowel Sounds Present, Soft, Non Tender Extremities: Edema - +3 edema of LE Skin: No rashes Musculoskeletal: No Tenderness to Palpation of Joints or Extremities Lymphatic: No Cervical, Supraclavicular, or Inguinal Adenopathy Neurological: Cranial nerves II-XII grossly intact, Neuro grossly intact Psych/Mental Status: Appropriate Vital Signs Temp Pulse Resp BP Pulse Ox 97.7 F L 76 16 103/55 L 97 07/31/18 14:33 07/31/18 16:23 07/31/18 14:33 07/31/18 14:33 07/31/18 14:33 Oxygen Delivery Method Room Air Weight: 91.7 kg Body Mass Index (BMI) 37.6 Finger Stick Blood Glucose 99 Intake and Output for Last 24 Hours 07/29/18 07/30/18 07/31/18 23:59 23:59 23:59 Intake Total 1003 / 1003 968 / 968 670 / 670 Output Total 1350 / 1350 1350 / 1350 900 / 900 Balance -347 / -347 -382 / -382 -230 / -230 Laboratory Tests Past 24 Hrs 07/29/18 07/29/18 07/31/18 05:50 05:50 05:20 WBC RBC Hgb Hct MCV MCH MCHC RDW RDW Differential Plt Count MPV Differential Comment Sodium 143 Potassium 3.5 Chloride 112 H Carbon Dioxide 24.0 Anion Gap 7 BUN 27 H Creatinine 1.91 H Estim Creat Clear Calc 19.51 Est GFR (MDRD) Af Amer 33 L Est GFR (MDRD) Non-Af 27 L BUN/Creatinine Ratio 14.1 Glucose 81 Calcium 7.7 L Phosphorus 2.6 RBC Folate Hemolysate 373.0 RBC Folate 1366 Hematocrit 27.3 L Thyroglobulin Antibody < 1.0 Thyroid Peroxidase Ab 18 07/31/18 05:20 WBC 2.6 L RBC 2.94 L Hgb 7.6 L Hct 25.1 L MCV 85.4 MCH 25.9 L MCHC 30.3 L RDW 21.6 H RDW Differential 62.3 H Plt Count 81 L MPV 9.6 Differential Comment Sodium Potassium Chloride Carbon Dioxide Anion Gap BUN Creatinine Estim Creat Clear Calc Est GFR (MDRD) Af Amer Est GFR (MDRD) Non-Af BUN/Creatinine Ratio Glucose Calcium Phosphorus RBC Folate Hemolysate RBC Folate Hematocrit Thyroglobulin Antibody Thyroid Peroxidase Ab Medical Necessity - Tobacco Use Smoking Status: Never smoker Assessment/Plan All Active Problems (Last Reviewed 07/26/18 @ 07:07 by Wyatt Henry MD) Pancytopenia (Acute) GI bleed (Acute) Hyperkalemia (Resolved) Anemia (Acute) Supratherapeutic INR (Acute) Acute blood loss anemia (Acute) 1. 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 CKD is 2/2 chronic interstitial nephritis. Baseline SCr has been around 1.7-2.0 mg/dL. KYLEIGH is most probably related to prerenal from overdiuresis. Cr is improving. Cr is 1.9 mg/dL We will have to accept higher baseline Cr to accomplish good control of the volume status Will add metolazone 5 mg PO daily to bumex 1 mg PO TID Avoid ACEI/ARB for now No indication for MECHANICAL SPECIALIST Will follow SCr and electrolytes. 2. Hypokalemia.resolved with replacement.Continue Kcl supplement 3- Leg edema .Multifactorial . low albumin, norvasc and CHF. Still has significant edema Will add metolazone 5 mg PO daily in addition to Bumex 1 mg PO TID Will monitor kidney function and electrolytes with diuresis Please d/c norvasc at discharge 4- HTN: BP is well controlled. Avoid ACEI/ARB and amlodipine for now Renal team will continue to follow. please call me with any question at [phone] [place] MD
[2018-07-31] MEDS: Atorvastatin Calcium 20 MG Tablet PO (21:24)
[2018-07-31] MEDS: traZODone 50 MG Tablet PO (21:24)
[2018-08-01] VITALS (11 sets, daily range): BP systolic 97–121; BP diastolic 49–67; PULSE 73–93; RESP 18; TEMP 36.4–37; O2SAT 95–98
[2018-08-01 04:35] LABS: Hematocrit 28.3 % (37-47); Hemoglobin 8.6 g/dl (12.0-15.0); Mean Corp Hgb Conc 30.4 g/gl (32-36); Mean Corpuscular Hgb 26.1 pg (27.0-32.0); Mean Corpuscular Volume 85.8 fL (81-99); Mean Platelet Vol. 9.3 fl (6.2-12.0); Platelet Count 76 K/mm3 (150-450); RBC Distribution Width CV 22.4 % (11.6-14.6); White Blood Count 2.7 K/mm3 (4.4-11.0)
[2018-08-01 04:36] LABS: Anion Gap 9 (5-15); BUN 26 mg/dL (7-18); BUN/Creat Ratio 13.3 RATIO (10-20); Calcium,Total 8.2 mg/dL (8.5-10.1); Chloride 112 mmol/L (98-107); Creatinine, Serum 1.95 mg/dL (0.55-1.02); EST Glomerular Filtration Rate 26 mL/min (>60); Est Glom Filt Rate - Afr Amer 32 mL/min (>60); Estimated Creatinine Clearance 19.11 ml/min; Glucose 89 mg/dL (74-106); Potassium 3.7 mmol/L (3.5-5.1); Scan Indicated on CBC? Y/N YES- FLAGS NOTED; Sodium Level 146 mmol/L (136-145)
[2018-08-01] MEDS: Bumetanide 0.5 MG Tablet 1 MG PO ×3 (05:12→21:25)
[2018-08-01 06:54] LABS: Differential Comment SCAN
[2018-08-01] MEDS: Pantoprazole Sodium 20 MG Tablet PO ×2 (09:10→21:25)
[2018-08-01] MEDS: APIXABAN 2.5 MG TABLET PO ×2 (09:10→21:25)
[2018-08-01] MEDS: metOLazone 5 MG Tablet PO (09:12)
[2018-08-01] MEDS: Ascorbic Acid 500 MG Tablet PO (10:00)
[2018-08-01] MEDS: Acetaminophen 325 MG Tablet 650 MG PO (11:50)
[2018-08-01] MEDS: Docusate Sodium 100 MG Capsule PO (14:36)
--- NOTE | 2018-08-01 15:47 | PN_ITS ---
Patient Problems: Active and Suspected Problems (Last Reviewed 07/26/18 @ 07:07 by Wyatt Henry MD) Pancytopenia (Acute) Acute blood loss anemia (Acute) Subjective: The pt is a 78-year-old female with a past medical history of bioprosthetic mitral valve replacement, bioprosthetic aortic valve replacement, chronic metabolic acidosis, chronic renal failure stage IV, chronic systolic congestive heart failure, hyperlipidemia, morbid obesity and chronic anticoagulation with Eliquis for atrial fibrillation who presented to the ER on 07/26/2018 complaining of bright red blood per rectum. The blood was in the toilet water and recent colonoscopy revealed internal hemorrhoids. She was on Eliquis however an INR was checked at admission and was 5.9 and she was given fresh frozen plasma rather than Kcentra. She was treated with Anusol suppositories and has no more hematochezia. She had 4+ anasarca with right pleural effusion and she is currently being diuresed. Dr. Head has been following along. An incidental finding is she is hyperthyroid and since the anti-thyroid antibodies are negative this may be due to the amiodarone. It has been stopped. Thyroid ultrasound shows multiple nodules. Thyroid nuclear scan is to be done on Thursday. Will likely start methimazole following the nuclear scan. She will need to be referred to endocrinology at discharge. External catheter was inserted on 07/31/2018 for better intake and output. Head weights are inaccurate and she is currently being weighed on the scale daily now. All events of the past 24 hours of been reviewed. She has been afebrile since admission. Vital signs are stable. She is 96-98% saturated on room air. Weight today is 201 pounds and 4-1/2 ounces, down from 211 and 6.7 ounces at admission. Fluid balance on 07/31/2018 was -350 and she had 1050 cc of urine. Since midnight she is -550 and has had 800 cc of urine output. All lab was personally reviewed. She remains pancytopenic but her levels are stable. Sodium is 146 today with a chloride of 112. The BUN is 26 and the creatinine is 1.95 which is stable. Antiplatelet antibodies are still pending. I reviewed Dr. Foss's consult and appreciate his input. Will continue the iron sucrose for iron deficiency. The patient will follow up with him post discharge. Objective: GENERAL: alert, oriented X 3, Cooperative, NAD ORAL: moist mucosa, no mucosal lesions NECK: No JVD, supple, trachea midline LUNGS: CTA, symmetric chest expansion, the diminished breath sounds in the right base have resolved and there is now good air exchange in the right base. HEART: RRR, Normal S1 and S2, no rub, no gallop ABDOMEN: soft, NT, ND, BS present, no guarding with palpation, the pitting in the flanks has improved significantly EXTREMITIES: Edema in the lower extremities is improving but there is still pitting edema in the posterior thighs and the flanks, she is seeping fluid from the flanks, no cyanosis, no calf tenderness SKIN: No rashes, no breakdown NEUROLOGIC: no focal neurologic deficits PSYCH: appropriate, normal affect, pleasant - Physical Exam Vital Signs Temp Pulse Resp BP Pulse Ox 97.6 F L 73 18 121/67 H 96 08/01/18 14:35 08/01/18 15:00 08/01/18 14:35 08/01/18 14:35 08/01/18 14:35 Oxygen Delivery Method Room Air Weight: 201 lb 4.513 oz Body Mass Index (BMI) 37.6 Finger Stick Blood Glucose 99 Intake and Output for Last 24 Hours 07/30/18 07/31/18 08/01/18 23:59 23:59 23:59 Intake Total 968 / 968 700 / 700 250 / 250 Output Total 1350 / 1350 1050 / 1050 800 / 800 Balance -382 / -382 -350 / -350 -550 / -550 Laboratory Tests Past 24 Hrs 08/01/18 08/01/18 04:01 04:01 WBC 2.7 L RBC 3.30 L Hgb 8.6 L Hct 28.3 L MCV 85.8 MCH 26.1 L MCHC 30.4 L RDW 22.4 H RDW Differential 65.0 H Plt Count 76 L MPV 9.3 Differential Comment SCAN Sodium 146 H Potassium 3.7 Chloride 112 H Carbon Dioxide 25.0 Anion Gap 9 BUN 26 H Creatinine 1.95 H Estim Creat Clear Calc 19.11 Est GFR (MDRD) Af Amer 32 L Est GFR (MDRD) Non-Af 26 L BUN/Creatinine Ratio 13.3 Glucose 89 Calcium 8.2 L Medical Necessity - Tobacco Use Smoking Status: Never smoker Assessment/Plan All Active Problems (Last Reviewed 07/26/18 @ 07:07 by Wyatt Henry MD) Pancytopenia (Acute) GI bleed (Acute) Hyperkalemia (Resolved) Anemia (Acute) Supratherapeutic INR (Acute) Acute blood loss anemia (Acute) Impressions 1. hematochezia - suspect due to internal hemorrhoids - resolved 2. 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 anemia likely due to anemia of chronic renal failure + iron deficiency 4. gastritis on recent EGD 5. hx of chronic AF 6. Internal hemorrhoids-no further bleeding 7. Hypertension 8. Chronic anticoagulation with Eliquis 9. Pancytopenia-thrombocytopenia is new since 06/21/2018. Etiology is ? The thrombocytopenia could be due to ITP which can be associated with hyperthyroidism. Antiplatelet antibodies are pending 10. Hypoalbuminemia 11. anasarca, ascites, orthopnea and R pleural effusion - likely due to progressive renal failure 12. Hyperthyroidism - may be due to Amiodarone....she is on no thyroid hormone. HR is WNL even though she is hyperthyroid She has lost 10 lbs since admission and still has anasarca. The R pleural effusion has resolved. Currently on Bumex 1 mg TID and Metolazone and Dr. Head is guiding the diuretic therapy. Continue the iron sucrose for 5 doses for iron deficiency and have her follow with Dr. Nam at [place] Anti-platelet AB's are pending HGB is stable, platelets are stable Recheck a renal profile in the AM Continue 1000 cc daily of fluid restriction Scheduled for thyroid nuclear scan in the a.m. 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
--- NOTE | 2018-08-01 16:49 | PCM.PN.REN ---
Patient Problems: Active and Suspected Problems (Last Reviewed 07/26/18 @ 07:07 by Wyatt Henry MD) Pancytopenia (Acute) Acute blood loss anemia (Acute) Subjective: Patient is doing well. Leg edema is improving. she says she is making more urine. Breathing is stable - Physical Exam General: Alert, Oriented x3 HEENT: Atraumatic Oral: Moist Mucosa Neck: Supple, No JVD Lungs: Clear to auscultation, Normal air movement, No rhonchi, No wheeze Cardiovascular: Regular rate, Regular Rhythm, Normal S1, Normal S2 Abdomen: Bowel Sounds Present, Soft, Non Tender Extremities: Edema Skin: No rashes Musculoskeletal: No Tenderness to Palpation of Joints or Extremities Lymphatic: No Cervical, Supraclavicular, or Inguinal Adenopathy Neurological: Cranial nerves II-XII grossly intact, Neuro grossly intact Psych/Mental Status: Normal Affect Vital Signs Temp Pulse Resp BP Pulse Ox 97.6 F L 73 18 121/67 H 96 08/01/18 14:35 08/01/18 15:00 08/01/18 14:35 08/01/18 14:35 08/01/18 14:35 Oxygen Delivery Method Room Air Weight: 91.3 kg Body Mass Index (BMI) 37.6 Finger Stick Blood Glucose 99 Intake and Output for Last 24 Hours 07/30/18 07/31/18 08/01/18 23:59 23:59 23:59 Intake Total 968 / 968 700 / 700 250 / 250 Output Total 1350 / 1350 1050 / 1050 800 / 800 Balance -382 / -382 -350 / -350 -550 / -550 Laboratory Tests Past 24 Hrs 08/01/18 08/01/18 04:01 04:01 WBC 2.7 L RBC 3.30 L Hgb 8.6 L Hct 28.3 L MCV 85.8 MCH 26.1 L MCHC 30.4 L RDW 22.4 H RDW Differential 65.0 H Plt Count 76 L MPV 9.3 Differential Comment SCAN Sodium 146 H Potassium 3.7 Chloride 112 H Carbon Dioxide 25.0 Anion Gap 9 BUN 26 H Creatinine 1.95 H Estim Creat Clear Calc 19.11 Est GFR (MDRD) Af Amer 32 L Est GFR (MDRD) Non-Af 26 L BUN/Creatinine Ratio 13.3 Glucose 89 Calcium 8.2 L Medical Necessity - Tobacco Use Smoking Status: Never smoker Assessment/Plan All Active Problems (Last Reviewed 07/26/18 @ 07:07 by Wyatt Henry MD) Pancytopenia (Acute) GI bleed (Acute) Hyperkalemia (Resolved) Anemia (Acute) Supratherapeutic INR (Acute) Acute blood loss anemia (Acute) 1. 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 CKD is 2/2 chronic interstitial nephritis. Baseline SCr has been around 1.7-2.0 mg/dL. KYLEIGH is most probably related to cardiorenal syndrome. Continue stable with diuresis. 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 2. Hypokalemia.resolved with replacement.Continue Kcl supplement 3- Leg edema .Multifactorial . low albumin, norvasc and CHF. Edema is improving Continue the same dose of Bumex and metolazone Will monitor kidney function and electrolytes with diuresis Please d/c norvasc at discharge 4- HTN: BP is well controlled. Avoid ACEI/ARB and amlodipine for now Renal team will continue to follow. please call me with any question at [phone] [place] MD
[2018-08-01] MEDS: traZODone 50 MG Tablet PO (21:25)
[2018-08-01] MEDS: Atorvastatin Calcium 20 MG Tablet PO (21:25)
[2018-08-02] VITALS (10 sets, daily range): BP systolic 100–125; BP diastolic 47–70; PULSE 75–82; RESP 16–18; TEMP 36.4–37.2; O2SAT 92–98
[2018-08-02] MEDS: Bumetanide 0.5 MG Tablet 1 MG PO ×3 (05:29→21:48)
[2018-08-02 06:49] LABS: Albumin, Serum 2.6 g/dL (3.2-5.0); BUN 24 mg/dL (7-18); BUN/Creat Ratio 12.5 RATIO (10-20); Calcium,Total 8.1 mg/dL (8.5-10.1); Chloride 109 mmol/L (98-107); Creatinine, Serum 1.92 mg/dL (0.55-1.02); EST Glomerular Filtration Rate 27 mL/min (>60); Est Glom Filt Rate - Afr Amer 33 mL/min (>60); Estimated Creatinine Clearance 19.41 ml/min; Glucose 86 mg/dL (74-106); Phosphorus 2.6 mg/dL (2.5-4.9); Potassium 3.3 mmol/L (3.5-5.1); Sodium Level 143 mmol/L (136-145)
--- NOTE | 2018-08-02 07:38 | PCM.PROGNOTE ---
Patient Problems: Active and Suspected Problems (Last Updated 08/02/18 @ 07:43 by Jeremy Mendez MD) Acute blood loss anemia (Acute) Subjective: Chief complaint: Follow-up after admission for acute on chronic anemia, pancytopenia, acute kidney injury on top of stage III chronic kidney disease, hyperthyroidism. Patient seen and examined. No acute events overnight. Today, she states that she is feeling better but she is generally weak. Shortness of breath improved. Denied chest pain or palpitations. Denied abdominal pain, nausea vomiting. Her vital signs are stable. - Physical Exam General: Alert, Oriented x3, Cooperative, No apparent distress HEENT: Atraumatic, PERRLA, EOMI, Normocephalic Oral: Moist Mucosa, No Gingival or Mucosal Lesions/ Ulcerations Neck: Supple, No JVD, Negative Carotid Bruits, Trachea Midline, Thyroid Normal Size and Texture Lungs: Clear to auscultation, No rhonchi, No wheeze, No rales, Diminished Cardiovascular: Regular rate, Regular Rhythm, Normal S1, Normal S2, PMI Normal Abdomen: Bowel Sounds Present, Soft, Non Tender, Non-Distended, No Hepato-splenomegaly Extremities: No clubbing, No cyanosis, Edema Skin: No rashes, No breakdown Lymphatic: No Cervical, Supraclavicular, or Inguinal Adenopathy Neurological: Cranial nerves II-XII grossly intact, Neuro grossly intact Psych/Mental Status: Normal Affect, Appropriate, Alert and oriented to time, place, person, mood and affect Vital Signs Temp Pulse Resp BP Pulse Ox 97.6 F L 79 18 102/47 L 95 08/02/18 05:32 08/02/18 05:32 08/02/18 05:32 08/02/18 05:32 08/02/18 05:32 Oxygen Delivery Method Room Air Weight: 193 lb 12.581 oz Body Mass Index (BMI) 37.6 Finger Stick Blood Glucose 99 Intake and Output for Last 24 Hours 07/31/18 08/01/18 08/02/18 23:59 23:59 23:59 Intake Total 700 / 700 690 / 690 30 / 30 Output Total 1050 / 1050 1650 / 1650 950 / 950 Balance -350 / -350 -960 / -960 -920 / -920 Laboratory Tests Past 24 Hrs 02/18/19 05:50 Sodium 143 Potassium 3.3 L Chloride 109 H Carbon Dioxide 27.0 BUN 24 H Creatinine 1.92 H Estim Creat Clear Calc 19.41 Est GFR (MDRD) Af Amer 33 L Est GFR (MDRD) Non-Af 27 L BUN/Creatinine Ratio 12.5 Glucose 86 Calcium 8.1 L Phosphorus 2.6 Albumin 2.6 L Medical Necessity - Tobacco Use Smoking Status: Never smoker Assessment/Plan All Active Problems (Last Updated 08/02/18 @ 07:43 by Jeremy Mendez MD) Pancytopenia (Acute) GI bleed (Acute) Supratherapeutic INR (Acute) Acute blood loss anemia (Acute) This is a 78 years old female patient [facility] shoulder and heart admitted because of bleeding per rectum/hematochezia, found to have acute on chronic anemia required blood transfusion, acute kidney injury on top of stage III chronic kidney disease, pancytopenia, hyperthyroidism. #1 acute on chronic blood loss anemia/iron deficiency anemia: Attributed to internal hemorrhoids as well as iron deficiency anemia. She has no more hematochezia or rectal bleeding. She received a total of 4 units of fresh frozen plasma. On admission, INR of 5.9, came down to 2.3. She has been on IV iron treatment. Yesterday's hemoglobin is 8.6 g/dL. Plan to continue IV iron therapy, repeat CBC tomorrow morning, [facility]. #2 acute kidney injury on top of stage III chronic kidney disease: Attributed to probable cardiorenal syndrome. Serum creatinine on admission was 2.69, came down to 1.92 today, improving. Nephrology on the case, no indication for dialysis. She is on Bumex 3 times daily as well as Zaroxolyn daily. Plan to repeat BMP tomorrow morning. #3 pancytopenia: Attributed to chronic disease and polypharmacy. According to oncology, no evidence of primary pulmonary disease. Her hemoglobin stabilized, platelet count remained almost the same at around 70-80,000. Plan to keep her on IV iron therapy, follow-up with oncology as outpatient, repeat CBC and INR tomorrow morning. #4 coagulopathy: Unclear etiology, patient was on Eliquis upon admission. Admission INR was 5.9, received a total of 4 units of fresh frozen plasma, INR came down to 2.3. She has no active bleeding at this time. Hemoglobin and hematocrit are stabilized. Plan to repeat INR tomorrow morning. #4 hyperthyroidism: TSH was very low, free T4 was high consistent with hyperthyroidism. Thyroid ultrasound revealed diffusely enlarged heterogenous thyroid, right upper pole nodule measuring 9 x 9 x 7 mm, left upper pole nodule measuring 9 x 7 x 6 cm. At this time, her vital signs are stable. Plan for thyroid uptake scan today. #5 hypokalemia: Likely because of diuretics, has been on potassium replacement. Today's potassium is 3.3. I am going to increase K Dur to 40 mEq twice daily, repeat BMP tomorrow morning. #6 chronic CHF, probably diastolic: Without acute exacerbation at this time. She has no shortness of breath. Has been on room air. Plan to continue on Bumex and Zaroxolyn. #7 chronic atrial fibrillation: Rate is controlled, continue Eliquis frantic regulation and she is not on any rate control medications. #8 hypertension: Blood pressure stable, continue Bumex and Zaroxolyn. #9 status post aortic and mitral valve replacement with bioprosthetic valve: Stable, no acute issues. #10 DVT prophylaxis: Continue Eliquis. This note was generated with [email or web address] dictation software. It may contain incorrect words, spelling, and punctuation that were not noted in checking the note before signing. Code Visit Inpatient E&M: 85122 Subs Hosp L2
--- NOTE | 2018-08-02 07:42 | PN_ITS ---
Patient Problems: Active and Suspected Problems (Last Updated 08/02/18 @ 07:43 by Jeremy Mendez MD) Acute blood loss anemia (Acute) Subjective: Chief complaint: Follow-up after admission for acute on chronic anemia, pancytopenia, acute kidney injury on top of stage III chronic kidney disease, hyperthyroidism. Patient seen and examined. No acute events overnight. Today, she states that she is feeling better but she is generally weak. Shortness of breath improved. Denied chest pain or palpitations. Denied abdominal pain, nausea vomiting. Her vital signs are stable. - Physical Exam General: Alert, Oriented x3, Cooperative, No apparent distress HEENT: Atraumatic, PERRLA, EOMI, Normocephalic Oral: Moist Mucosa, No Gingival or Mucosal Lesions/ Ulcerations Neck: Supple, No JVD, Negative Carotid Bruits, Trachea Midline, Thyroid Normal Size and Texture Lungs: Clear to auscultation, No rhonchi, No wheeze, No rales, Diminished Cardiovascular: Regular rate, Regular Rhythm, Normal S1, Normal S2, PMI Normal Abdomen: Bowel Sounds Present, Soft, Non Tender, Non-Distended, No Hepato- splenomegaly Extremities: No clubbing, No cyanosis, Edema Skin: No rashes, No breakdown Lymphatic: No Cervical, Supraclavicular, or Inguinal Adenopathy Neurological: Cranial nerves II-XII grossly intact, Neuro grossly intact Psych/Mental Status: Normal Affect, Appropriate, Alert and oriented to time, place, person, mood and affect Vital Signs Temp Pulse Resp BP Pulse Ox 97.6 F L 79 18 102/47 L 95 08/02/18 05:32 08/02/18 05:32 08/02/18 05:32 08/02/18 05:32 08/02/18 05:32 Oxygen Delivery Method Room Air Weight: 193 lb 12.581 oz Body Mass Index (BMI) 37.6 Finger Stick Blood Glucose 99 Intake and Output for Last 24 Hours 07/31/18 08/01/18 08/02/18 23:59 23:59 23:59 Intake Total 700 / 700 690 / 690 30 / 30 Output Total 1050 / 1050 1650 / 1650 950 / 950 Balance -350 / -350 -960 / -960 -920 / -920 Laboratory Tests Past 24 Hrs 02/18/19 05:50 Sodium 143 Potassium 3.3 L Chloride 109 H Carbon Dioxide 27.0 BUN 24 H Creatinine 1.92 H Estim Creat Clear Calc 19.41 Est GFR (MDRD) Af Amer 33 L Est GFR (MDRD) Non-Af 27 L BUN/Creatinine Ratio 12.5 Glucose 86 Calcium 8.1 L Phosphorus 2.6 Albumin 2.6 L Medical Necessity - Tobacco Use Smoking Status: Never smoker Assessment/Plan All Active Problems (Last Updated 08/02/18 @ 07:43 by eJremy Mendez MD) Pancytopenia (Acute) GI bleed (Acute) Supratherapeutic INR (Acute) Acute blood loss anemia (Acute) This is a 78 years old female patient [facility] shoulder and heart admitted because of bleeding per rectum/hematochezia, found to have acute on chronic anemia required blood transfusion, acute kidney injury on top of stage III chronic kidney disease, pancytopenia, hyperthyroidism. #1 acute on chronic blood loss anemia/iron deficiency anemia: Attributed to internal hemorrhoids as well as iron deficiency anemia. She has no more hematochezia or rectal bleeding. She received a total of 4 units of fresh frozen plasma. On admission, INR of 5.9, came down to 2.3. She has been on IV iron treatment. Yesterday's hemoglobin is 8.6 g/dL. Plan to continue IV iron therapy, repeat CBC tomorrow morning, anticipate discharge to long term facility tomorrow. #2 acute kidney injury on top of stage III chronic kidney disease: Attributed to probable cardiorenal syndrome. Serum creatinine on admission was 2.69, came down to 1.92 today, improving. Nephrology on the case, no indication for dialysis. She is on Bumex 3 times daily as well as Zaroxolyn daily. Plan to repeat BMP tomorrow morning. #3 pancytopenia: Attributed to chronic disease and polypharmacy. According to oncology, no evidence of primary pulmonary disease. Her hemoglobin stabilized, platelet count remained almost the same at around 70-80,000. Plan to keep her on IV iron therapy, follow-up with oncology as outpatient, repeat CBC and INR tomorrow morning. #4 coagulopathy: Unclear etiology, patient was on Eliquis upon admission. Admission INR was 5.9, received a total of 4 units of fresh frozen plasma, INR came down to 2.3. She has no active bleeding at this time. Hemoglobin and hematocrit are stabilized. Plan to repeat INR tomorrow morning. #4 hyperthyroidism: TSH was very low, free T4 was high consistent with hyperthyroidism. Thyroid ultrasound revealed diffusely enlarged heterogenous thyroid, right upper pole nodule measuring 9 x 9 x 7 mm, left upper pole nodule measuring 9 x 7 x 6 cm. At this time, her vital signs are stable. Plan for thyroid uptake scan today. #5 hypokalemia: Likely because of diuretics, has been on potassium replacement. Today's potassium is 3.3. I am going to increase K Dur to 40 mEq twice daily, repeat BMP tomorrow morning. #6 chronic CHF, probably diastolic: Without acute exacerbation at this time. She has no shortness of breath. Has been on room air. Plan to continue on Bumex and Zaroxolyn. #7 chronic atrial fibrillation: Rate is controlled, continue Eliquis frantic regulation and she is not on any rate control medications. #8 hypertension: Blood pressure stable, continue Bumex and Zaroxolyn. #9 status post aortic and mitral valve replacement with bioprosthetic valve: Stable, no acute issues. #10 DVT prophylaxis: Continue Eliquis. This note was generated with [employer] dictation software. It may contain incorrect words, spelling, and punctuation that were not noted in checking the note before signing. Code Visit Inpatient E&M: 23659 Subs Hosp L2
--- NOTE | 2018-08-02 08:00 | NM_ITS ---
CLINICAL: 78-year-old female with reported history of clinical hyperthyroidism. I-123 THYROID UPTAKE and SCAN COMPARISON: Thyroid ultrasound report 07/29/2018 FINDINGS: The patient was administered a 289 uCi I-123 capsule by mouth. The 4-hour I-123 radioactive iodine thyroidal uptake was calculated to be < 0.1 % (normal 5 to 25 %). The 24-hour I-123 radioactive iodine thyroidal uptake was calculated to be 0.5 % (normal 5 to 40 %). The I-123 thyroid scan demonstrates nonvisualization of the right-left thyroid colloid commensurate with the calculated iodine uptake values. NM/Thyroid Uptake Single or Mult IMPRESSION: 1. ABNORMAL DECREASED 4- and 24-hour I-123 radioactive iodine thyroidal uptakes. 2. 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 (Adam et al, Endocrinol Rev 1: 411, 1980). Electronically Signed: Nathaniel Atkins DO at 9:42 EST Tel , Service support ,
[2018-08-02] MEDS: Pantoprazole Sodium 20 MG Tablet PO ×2 (08:30→21:47)
[2018-08-02] MEDS: Ascorbic Acid 500 MG Tablet PO (08:31)
[2018-08-02] MEDS: APIXABAN 2.5 MG TABLET PO ×2 (08:31→21:47)
[2018-08-02] MEDS: metOLazone 5 MG Tablet PO (08:35)
--- NOTE | 2018-08-02 09:08 | PN.RENAL_ITS ---
Patient Problems: Active and Suspected Problems (Last Updated 08/02/18 @ 07:43 by Jeremy Mendez MD) Acute blood loss anemia (Acute) Subjective: Patient said her legs edema is improving. Still has exertional dyspnea. No chest pain. No nausea no vomiting - Physical Exam General: Alert, Oriented x3 Neck: Supple, No JVD Lungs: Clear to auscultation, Normal air movement, No rhonchi, No wheeze Cardiovascular: Regular rate, Regular Rhythm, Normal S1 Abdomen: Bowel Sounds Present, Soft, Non Tender Extremities: Edema - +2 edema of lower extremities Skin: No rashes Musculoskeletal: No Tenderness to Palpation of Joints or Extremities Neurological: Cranial nerves II-XII grossly intact, Neuro grossly intact Psych/Mental Status: Normal Affect Vital Signs Temp Pulse Resp BP Pulse Ox 97.6 F L 79 18 102/47 L 95 08/02/18 05:32 08/02/18 05:32 08/02/18 05:32 08/02/18 05:32 08/02/18 05:32 Oxygen Delivery Method Room Air Weight: 87.9 kg Body Mass Index (BMI) 37.6 Finger Stick Blood Glucose 99 Intake and Output for Last 24 Hours 07/31/18 08/01/18 08/02/18 23:59 23:59 23:59 Intake Total 700 / 700 690 / 690 30 / 30 Output Total 1050 / 1050 1650 / 1650 950 / 950 Balance -350 / -350 -960 / -960 -920 / -920 Laboratory Tests Past 24 Hrs 08/02/18 05:50 Sodium 143 Potassium 3.3 L Chloride 109 H Carbon Dioxide 27.0 BUN 24 H Creatinine 1.92 H Estim Creat Clear Calc 19.41 Est GFR (MDRD) Af Amer 33 L Est GFR (MDRD) Non-Af 27 L BUN/Creatinine Ratio 12.5 Glucose 86 Calcium 8.1 L Phosphorus 2.6 Albumin 2.6 L Medical Necessity - Tobacco Use Smoking Status: Never smoker Assessment/Plan All Active Problems (Last Updated 08/02/18 @ 07:43 by Jeremy Mendez MD) Pancytopenia (Acute) GI bleed (Acute) Supratherapeutic INR (Acute) Acute blood loss anemia (Acute) 1. 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 CKD is 2/2 chronic interstitial nephritis. Baseline SCr has been around 1.7-2.0 mg/dL. KYLEIGH is most probably related to cardiorenal syndrome. Continue stable with diuresis. 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 2. Hypokalemia. Potassium today 3.2.Continue Kcl supplement. I agree to increase his supplement to twice a day 3- Leg edema .Multifactorial . low albumin, norvasc and CHF. Edema is improving Continue the same dose of Bumex and metolazone Will monitor kidney function and electrolytes with diuresis Please d/c norvasc at discharge 4- HTN: BP is well controlled. Avoid ACEI/ARB and amlodipine for now Renal team will continue to follow. please call me with any question at [phone] [place] MD
--- NOTE | 2018-08-02 10:43 | CASEMGMT ---
SW spoke with patient and she agreed to go to [facility] or [facility] [address]. She asked how she would get there at discharge. Patient's daughter said she did not think she would be able to take patient as she does not think she would be able to get in and out of a car. SW told them she would go by wheelchair and that is not covered by insurance. SW told them it is approximately $50 base fee and then $4.50 per mile. They will discuss this. DAMARI called [facility] and left a message with referral as well as faxed referral. Ginny DILL MSW
[2018-08-02] MEDS: 0.9% NaCl Peripheral Flush Adult/Peds IV (13:07)
--- NOTE | 2018-08-02 14:51 | CASEMGMT ---
DAMARI received return call from Jessica at [facility] and they can accept patient whenever she is ready. DAMARI let patient know this information. Plan: [facility] when medically ready. Ginny DILL MSW
[2018-08-02] MEDS: Atorvastatin Calcium 20 MG Tablet PO (21:47)
[2018-08-02] MEDS: traZODone 50 MG Tablet PO (21:48)
[2018-08-03 02:55] VITALS: BP 111/66; PULSE 82; RESP 18; TEMP 36.8; O2SAT 93
[2018-08-03 03:03] VITALS: PULSE 82
[2018-08-03 05:55] VITALS: BP 106/58; PULSE 65; RESP 18; TEMP 36.8; O2SAT 94
[2018-08-03] MEDS: Bumetanide 0.5 MG Tablet 1 MG PO (06:02)
[2018-08-03 06:46] LABS: International Normalized Ratio 2.5; Prothrombin Time (Protime)PT. 27.1 SECONDS (11.7-14.9)
[2018-08-03 06:54] LABS: Anion Gap 7 (5-15); BUN 25 mg/dL (7-18); Calcium,Total 8.2 mg/dL (8.5-10.1); Chloride 106 mmol/L (98-107); Creatinine, Serum 1.93 mg/dL (0.55-1.02); EST Glomerular Filtration Rate 27 mL/min (>60); Est Glom Filt Rate - Afr Amer 32 mL/min (>60); Estimated Creatinine Clearance 19.31 ml/min; Glucose 85 mg/dL (74-106); Potassium 3.5 mmol/L (3.5-5.1); Sodium Level 142 mmol/L (136-145)
[2018-08-03 07:00] VITALS: PULSE 74
[2018-08-03 07:03] LABS: Absolute Lymphocyte Count 0.48 X10^3/ul (0.83-4.51); Basophil# 0.02 X10^3/uL; Basophil% 0.7 % (0-1); Eosinophil# 0.03 X10^3/uL; Hematocrit 29.6 % (37-47); Hemoglobin 8.9 g/dl (12.0-15.0); Lymphocyte # 0.48 X10^3/ul (4.0); Lymphocyte % 16.7 % (19-41); Mean Corp Hgb Conc 30.1 g/gl (32-36); Mean Corpuscular Hgb 25.9 pg (27.0-32.0); Mean Corpuscular Volume 86.3 fL (81-99); Mean Platelet Vol. 9.9 fl (6.2-12.0); Monocyte# 0.31 X10^3/uL; Monocyte% 10.8 % (0-10); Neutrophil # 2.04 X10^3/uL (2.7-7.7); Neutrophil % 70.8 % (47-70); Platelet Count 91 K/mm3 (150-450); RBC Distribution Width CV 23.2 % (11.6-14.6); RBC Distribution Width SD 68.8 fl (35.1-43.9); Red Blood Count 3.43 M/mm3 (4.2-5.4); White Blood Count 2.9 K/mm3 (4.4-11.0)
[2018-08-03 07:04] LABS: Differential Indicated SCAN CRITERIA MET; POSITIVE COUNT NO; POSITIVE DIFFERENTIAL YES; POSITIVE MORPHOLOGY YES
[2018-08-03 07:30] LABS: Anisocytosis 1+; Differential Comment SCAN; Hypochromasia 1+; Microcytosis 1+; Polychromasia 1+
[2018-08-03] MEDS: Docusate Sodium 100 MG Capsule PO (09:53)
[2018-08-03] MEDS: Ascorbic Acid 500 MG Tablet PO (09:53)
[2018-08-03] MEDS: APIXABAN 2.5 MG TABLET PO (09:53)
[2018-08-03] MEDS: Pantoprazole Sodium 20 MG Tablet PO (09:54)
[2018-08-03] MEDS: metOLazone 5 MG Tablet PO (09:55)
[2018-08-03] MEDS: 0.9% NaCl Peripheral Flush Adult/Peds IV (09:56)
[2018-08-03 10:00] VITALS: BP 115/62; PULSE 95; RESP 16; TEMP 36.9; O2SAT 97
--- NOTE | 2018-08-03 10:21 | PN.RENAL_ITS ---
Patient Problems: Active and Suspected Problems (Last Updated 08/02/18 @ 07:43 by Jeremy Mendez MD) Acute blood loss anemia (Acute) Subjective: Patient is doing well. Leg edema is improving. Breathing is stable. On room air No nausea no vomiting - Physical Exam General: Alert, Oriented x3 HEENT: Atraumatic Oral: Moist Mucosa Neck: Supple, No JVD Lungs: Clear to auscultation, Normal air movement, No rhonchi, No wheeze Cardiovascular: Regular rate, Regular Rhythm, Normal S1, Normal S2 Abdomen: Bowel Sounds Present, Soft, Non Tender Extremities: No clubbing, No cyanosis, Edema - +1 edema of lower extremities Skin: No rashes Musculoskeletal: No Tenderness to Palpation of Joints or Extremities Lymphatic: No Cervical, Supraclavicular, or Inguinal Adenopathy Neurological: Cranial nerves II-XII grossly intact, Neuro grossly intact Psych/Mental Status: Normal Affect Vital Signs Temp Pulse Resp BP Pulse Ox 98.2 F 74 18 106/58 L 94 08/03/18 05:55 08/03/18 07:00 08/03/18 05:55 08/03/18 05:55 08/03/18 05:55 Oxygen Delivery Method Room Air Weight: 85.4 kg Body Mass Index (BMI) 37.6 Finger Stick Blood Glucose 99 Intake and Output for Last 24 Hours 08/01/18 08/02/18 08/03/18 23:59 23:59 23:59 Intake Total 690 / 690 565 / 565 180 / 180 Output Total 1650 / 1650 1850 / 1850 1600 / 1600 Balance -960 / -960 -1285 / -1285 -1420 / -1420 Microbiology Past 72 Hours 08/02/18 15:00 Stool Occult Blood (JOSHUA) - Final Stool Occult Blood Positive Laboratory Tests Past 24 Hrs 07/29/18 08/03/18 08/03/18 05:50 05:40 05:40 WBC 2.9 L RBC 3.43 L Hgb 8.9 L Hct 29.6 L MCV 86.3 MCH 25.9 L MCHC 30.1 L RDW 23.2 H RDW Differential 68.8 H Plt Count 91 L MPV 9.9 Immature Gran % (Auto) 0.000 Neut % (Auto) 70.8 H Lymph % (Auto) 16.[address] [place] % (Auto) 10.8 H Eos % (Auto) 1.0 Baso % (Auto) 0.7 Absolute Neuts (auto) 2.0 Absolute Lymphs (auto) 0.48 L Total Counted Not Reportable Differential Comment SCAN Polychromasia 1+ Hypochromasia 1+ Anisocytosis 1+ Microcytosis 1+ PT 27.1 H INR 2.5 Sodium Potassium Chloride Carbon Dioxide Anion Gap BUN Creatinine Estim Creat Clear Calc Est GFR (MDRD) Af Amer Est GFR (MDRD) Non-Af BUN/Creatinine Ratio Glucose Calcium [place] Anti-Plt IIb/IIIa Not Reportable [place] Anti-Plt Ia/IIa Not Reportable [place] Anti-Plt Ib/IX Not Reportable HLA Ab Specif Class I 08/03/18 05:40 WBC RBC Hgb Hct MCV MCH MCHC RDW RDW Differential Plt Count MPV Immature Gran % (Auto) Neut % (Auto) Lymph % (Auto) [place] % (Auto) Eos % (Auto) Baso % (Auto) Absolute Neuts (auto) Absolute Lymphs (auto) Total Counted Differential Comment Polychromasia Hypochromasia Anisocytosis Microcytosis PT INR Sodium 142 Potassium 3.5 Chloride 106 Carbon Dioxide 29.0 Anion Gap 7 BUN 25 H Creatinine 1.93 H Estim Creat Clear Calc 19.31 Est GFR (MDRD) Af Amer 32 L Est GFR (MDRD) Non-Af 27 L BUN/Creatinine Ratio 13.0 Glucose 85 Calcium 8.2 L [place] Anti-Plt IIb/IIIa [place] Anti-Plt Ia/IIa [place] Anti-Plt Ib/IX HLA Ab Specif Class I Medical Necessity - Tobacco Use Smoking Status: Never smoker Assessment/Plan All Active Problems (Last Updated 08/02/18 @ 07:43 by Jeremy Mendez MD) Pancytopenia (Acute) GI bleed (Acute) Supratherapeutic INR (Acute) Acute blood loss anemia (Acute) 1. 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 CKD is 2/2 chronic interstitial nephritis. Baseline SCr has been around 1.7-2.0 mg/dL. KYLEIGH is most probably related to cardiorenal syndrome. Continue stable with diuresis. Continue the same of dose diuretics (Bumex 1 mg 3 times a day along with metolazone 5 mg p.o. 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 Hypokalemia. From diuretics. Potassium today 3.5. Please continue the same potassium supplement 40 mEq twice a day Check potassium in the morning 3- Leg edema. Most probably low serum albumin level and CHF. Edema is improving Continue the same dose of Bumex and metolazone Will monitor kidney function and electrolytes with diuresis Please d/c norvasc at discharge 4- HTN: BP is well controlled. Avoid ACEI/ARB and amlodipine for now Renal team will continue to follow. please call me with any question at [phone] [place] MD
--- NOTE | 2018-08-03 10:27 | PCM.TXEXTCAR ---
- Diet 07/26/18 13:24 Diet: Cardiac/Low Cholesterol Is pt able to select menu?: Yes Fluid restriction to less than 1500 cc daily. - Suggestions for Active Care Change Position every (hours): 3 Hours to sit in a chair: 2 Times a day to sit in chair: 3 - Therapies Weight Bearing: Weight bearing as tolerated Physical Therapy: Eval and Treat Occupational Therapy: Eval and Treat - Allergies/Procedures Done in Hospital Allergies/Adverse Reactions: Allergies aspartame [From Nutrasweet Aspartame] Allergy (Verified 07/26/18 00:52) Hives - Type of Care/Length of Stay Estimated LOS: Convalescent Care Less Than 30 days Type of Care Needed: Skilled Rehab Potential: Fair Prognosis: Fair - Additional Orders/Day of Discharge Additional Orders: Patient will need referral to endocrinology as outpatient. This should be done by her PCP. H&P will serve as current which was dated: 07/26/18 Day of Discharge: 08/03/18 - Dietary and Speech Recommendations Dietitian Recommendations/Changes: Rec diet change to Cardiac/ low sodium and liberalize fluid restriction as able - Follow Up Care Primary Care Physician: Hermann Nath DO [Primary Care Provider] - Please follow up with your Primary Care Physician in: 1 week. Please Follow Up With: Wild Head MD When: 2-3 weeks.
[2018-08-03 10:30] VITALS: BP 115/62; PULSE 95; RESP 16; TEMP 36.9; O2SAT 97
--- NOTE | 2018-08-03 11:03 | PHA.DC.MR ---
Pharmacy Service has performed discharge medication reconciliation for this patient upon transfer to [facility]. The patient's discharge medication list was reviewed for discrepancies and discrepancies were resolved. Home Medications rosuvastatin 10 mg tablet 10 mg PO QHS #90 tab 10/14/17 Potassium Chloride [K-Dur] 10 meq PO BID@0800,1700 06/05/18 Acetaminophen [Tylenol] 1,000 mg PO DAILY 07/19/18 Cholecalciferol (Vitamin D3) [Vitamin D3] 5,000 unit PO DAILY 07/19/18 Docusate Sodium [Colace] 100 mg PO DAILY 07/19/18 Omeprazole 20 mg PO DAILY 07/19/18 Apixaban [Eliquis] 2.5 mg PO BID #60 tablet 07/23/18 Ascorbic Acid [Vitamin C] 500 mg PO DAILY #30 tab.chew 07/23/18 Ferrous Gluconate 324 mg PO DAILY #30 tablet 07/23/18 Bumetanide [Bumex] 1 mg PO TID #90 tab 08/03/18 Methimazole [Tapazole] 5 mg PO Q8H #90 tab 08/03/18 Metolazone [Zaroxolyn] 5 mg PO DAILY #30 tab 08/03/18 Metoprolol Succinate 25 mg PO DAILY #30 tab.er.24h 08/03/18 Prednisone 40 mg PO DAILY #90 tab 08/03/18
--- NOTE | 2018-08-03 11:26 | CASEMGMT ---
Patient is ready for discharge to [facility]. Faxed orders to [facility]. Completed convalescent on [facility]. Called [facility] and arranged for patient to get picked up at 1230 via [facility] van. SW let RN know and also left a message for Jessica at [facility]. SW let patient and her daughter know. They are aware of approximate cost. Patient just finished breakfast and does not want lunch. Plan: d/c to [facility] under skilled level of care on a convalescent stay[facility] Ginny DILL MSW
[2018-08-03] MEDS: Methimazole 5 MG Tablet PO (11:40)
[2018-08-03] MEDS: predniSONE 20 MG Tablet 40 MG PO (11:40)
--- NOTE | 2018-08-03 14:19 | PCM.DC.SUM ---
Discharge Date and Diagnosis Date of Admission: 07/26/18 Date of Discharge: 08/03/18 - Primary Discharge Diagnosis #1 acute on chronic blood loss anemia/iron deficiency anemia. #2 acute kidney injury on top of stage III chronic kidney disease. #3 pancytopenia. #4 coagulopathy, unclear etiology,, patient was on Eliquis. 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 #6 hypokalemia. - Secondary Discharge Diagnosis Chronic Problems (Last Updated 08/02/18 @ 07:43 by Jeremy Mendez MD) Iron deficiency anemia (Chronic) On amiodarone therapy (Chronic) H/O mitral valve replacement (Chronic 01/28/17) with 27 mm bioprosthetic heart valve @ [facility] H/O aortic valve replacement (Chronic 01/28/17) with 21 mm bioprosthetic heart valve, ligation of Lt atrial appendage @ [facility] Cardiomyopathy in disease classified elsewhere (Chronic) Nonrheumatic mitral (valve) insufficiency (Chronic) Nonrheumatic aortic (valve) insufficiency (Chronic) Persistent atrial fibrillation (Chronic) Chronic kidney disease, unspecified (Chronic) HTN (hypertension) (Chronic) HLD (hyperlipidemia) (Chronic) Anticoagulant long-term use (Chronic) Diverticulitis (Chronic) Paroxysmal atrial fibrillation (Chronic) HTN (hypertension) (Chronic) Heart failure with reduced ejection fraction (Chronic) Pulmonary hypertension (Chronic) Mitral stenosis (Chronic) Aortic insufficiency (Chronic) KYLEIGH (acute kidney injury) (Chronic) CKD (chronic kidney disease) stage 3, GFR 30-59 ml/min (Chronic) CHF (congestive heart failure) (Chronic) Mitral regurgitation (Chronic) Hospital Course and Treatment Imaging Results: Clinical Impression(s) from Imaging Studies Chest X-Ray 07/27/18 11:11 IMPRESSION: Improved aeration of both lung bases although residual changes persist. The remainder of the examination is unchanged. Electronically Signed: Campos Schulz MD at 15:00 EST , Service support , Thyroid Ultrasound 07/29/18 05:55 IMPRESSION: Heterogeneous thyroid diffusely. Several small nodules as above. Electronically Signed: Dennis Wong DO at 13:07 EST Tel , Service support , Thyroid Uptake Nuclear Medicine 08/02/18 08:00 IMPRESSION: 1. ABNORMAL DECREASED 4- and 24-hour I-123 radioactive iodine thyroidal uptakes. 2. 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 (Adam et al, Endocrinol Rev 1: 411, 1979). Electronically Signed: Nathaniel Atkins, at 9:42 EST Tel , Service support , Dr. Head, nephrology. Dr. Foss, hematology/oncology. Dr. Grady, general surgery. Operations: None Procedures: - - Transfusion of fresh frozen plasma. Summary of Care Provided: Patient seen and examined on the day of discharge and appeared to be stable to be discharged to correction facility. She has no specific complaints except weakness and fatigue. Her vital signs have been stable. This is a 78 years old female patient [facility] shoulder and heart admitted because of bleeding per rectum/hematochezia, found to have acute on chronic anemia required blood transfusion, acute kidney injury on top of stage III chronic kidney disease, pancytopenia, hyperthyroidism. #1 acute on chronic blood loss anemia/iron deficiency anemia: Attributed to internal hemorrhoids as well as iron deficiency anemia. No blood transfusion given during this hospital stay. Hemoglobin was as low as 7.6 g/dL, went up to 8.9 g/dL upon discharge. She received a total of 4 units of fresh frozen plasma. On admission, INR of 5.9, came down to 2.5 upon discharge. She received IV iron sucrose for 4 days. She has been on IV iron treatment. Patient had upper EGD on July 20, 2018 that revealed gastritis, otherwise normal and there was no evidence of bleeding. She had colonoscopy on July 22, 2018 that revealed normal colon, no active bleeding, she had internal hemorrhoids. General surgery consulted this time and recommended no need to repeat upper EGD or colonoscopy. Patient discharged to correction facility on iron supplement. #2 acute kidney injury on top of stage III chronic kidney disease: Attributed to probable cardiorenal syndrome. Serum creatinine on admission was 2.69, came down to 1.93 upon discharge. Nephrology consulted, recommended no need for hemodialysis. Her diuretics adjusted and she was discharged on Bumex 1 mg p.o. 3 times daily as well as Zaroxolyn 5 mg p.o. daily, plan to follow-up with nephrology as outpatient. #3 pancytopenia: Attributed to chronic disease and polypharmacy. According to oncology, no evidence of primary pulmonary disease. Her hemoglobin stabilized, platelet count remained almost the same at around 70-80,000. She received IV iron therapy as above, discharged on iron supplement and plan to follow-up with hematology as outpatient. #4 coagulopathy: Unclear etiology, patient was on Eliquis upon admission. Admission INR was 5.9, received a total of 4 units of fresh frozen plasma, INR came down to 2.5 upon discharge. She had no more active bleeding. #4 hyperthyroidism: TSH was very low, free T4 was high consistent with hyperthyroidism. Thyroid ultrasound revealed diffusely enlarged heterogenous thyroid, right upper pole nodule measuring 9 x 9 x 7 mm, left upper pole nodule measuring 9 x 7 x 6 cm. There was no clinical signs of overt thyrotoxicosis. Her nuclear thyroid uptake scan revealed abnormal decreased 24 hours radioactive iodine uptake suggestive of early injury of subacute thyroiditis. 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 Patient was started on methimazole and prednisone upon discharge. Started methimazole 5 mg p.o. 3 times daily, prednisone 40 mg p.o. daily for 2 weeks and then taper prednisone every 5 days. Patient will need referral to endocrinology as outpatient. #5 hypokalemia: Replaced and corrected per protocol. #6 chronic CHF, probably diastolic: Without acute exacerbation at this time. Discharged on Bumex and Zaroxolyn as above, dose of metoprolol decreased down to 25 mg p.o. daily. #7 chronic atrial fibrillation: continued on Eliquis for anticoagulation, discharged on adjusted dose of metoprolol for rate control. 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 daily, continued on Eliquis 2.5 mg p.o. twice daily, continued on her other chronic home medications, recommended follow-up with PCP in 1 week, patient will need referral to endocrinology as outpatient, will need CBC and BMP in 1 week, follow-up with nephrology in 2-3 weeks. I tried to call Dr. nath's office and nobody answered and I left a message to call me back. This note was generated with [employer] software. It may contain incorrect words, spelling, and punctuation that were not noted in checking the note before signing. - Physical Exam General: Alert, Oriented x3, Cooperative, No apparent distress HEENT: Atraumatic, PERRLA, EOMI, Normocephalic Oral: Moist Mucosa, No Gingival or Mucosal Lesions/ Ulcerations Neck: Supple, No JVD, Negative Carotid Bruits, Trachea Midline, Thyroid Normal Size and Texture Lungs: Clear to auscultation, No rhonchi, No wheeze, No rales, Diminished Cardiovascular: Regular rate, Regular Rhythm, Normal S1, Normal S2, PMI Normal Abdomen: Bowel Sounds Present, Soft, Non Tender, Non-Distended, No Hepato-splenomegaly Extremities: No clubbing, No cyanosis, No edema Skin: No rashes, No breakdown Lymphatic: No Cervical, Supraclavicular, or Inguinal Adenopathy Neurological: Cranial nerves II-XII grossly intact, Neuro grossly intact Psych/Mental Status: Normal Affect, Appropriate Vital Signs Temp Pulse Resp BP Pulse Ox 98.4 F 95 16 115/62 97 08/03/18 10:30 08/03/18 10:30 08/03/18 10:30 08/03/18 10:30 08/03/18 10:30 Oxygen Delivery Method Room Air Weight: 188 lb 4.396 oz Body Mass Index (BMI) 37.6 Finger Stick Blood Glucose 99 Intake and Output for Last 24 Hours 08/01/18 08/02/18 08/03/18 23:59 23:59 23:59 Intake Total 690 / 690 565 / 565 180 / 180 Output Total 1650 / 1650 1850 / 1850 1600 / 1600 Balance -960 / -960 -1285 / -1285 -1420 / -1420 Microbiology Past 72 Hours 08/02/18 15:00 Stool Occult Blood (JOSHUA) - Final Stool Occult Blood Positive Laboratory Tests Past 24 Hrs 08/03/18 08/03/18 08/03/18 05:40 05:40 05:40 WBC 2.9 L RBC 3.43 L Hgb 8.9 L Hct 29.6 L MCV 86.3 MCH 25.9 L MCHC 30.1 L RDW 23.2 H RDW Differential 68.8 H Plt Count 91 L MPV 9.9 Immature Gran % (Auto) 0.000 Neut % (Auto) 70.8 H Lymph % (Auto) 16.7 L [place] % (Auto) 10.8 H Eos % (Auto) 1.0 Baso % (Auto) 0.7 Absolute Neuts (auto) 2.0 Absolute Lymphs (auto) 0.48 L Total Counted Not Reportable Differential Comment SCAN Polychromasia 1+ Hypochromasia 1+ Anisocytosis 1+ Microcytosis 1+ PT 27.1 H INR 2.5 Sodium 142 Potassium 3.5 Chloride 106 Carbon Dioxide 29.0 Anion Gap 7 BUN 25 H Creatinine 1.93 H Estim Creat Clear Calc 19.31 Est GFR (MDRD) Af Amer 32 L Est GFR (MDRD) Non-Af 27 L BUN/Creatinine Ratio 13.0 Glucose 85 Calcium 8.2 L Home Medications: Medications to take at Discharge rosuvastatin 10 mg tablet 10 mg PO QHS #90 tab 10/14/17 Potassium Chloride [K-Dur] 10 meq PO BID@0800,1700 06/05/18 Acetaminophen [Tylenol] 1,000 mg PO DAILY 07/19/18 Cholecalciferol (Vitamin D3) [Vitamin D3] 5,000 unit PO DAILY 07/19/18 Docusate Sodium [Colace] 100 mg PO DAILY 07/19/18 Omeprazole 20 mg PO DAILY 07/19/18 Apixaban [Eliquis] 2.5 mg PO BID #60 tablet 07/23/18 Ascorbic Acid [Vitamin C] 500 mg PO DAILY #30 tab.chew 07/23/18 Ferrous Gluconate 324 mg PO DAILY #30 tablet 07/23/18 Bumetanide [Bumex] 1 mg PO TID #90 tab 08/03/18 Methimazole [Tapazole] 5 mg PO Q8H #90 tab 08/03/18 Metolazone [Zaroxolyn] 5 mg PO DAILY #30 tab 08/03/18 Metoprolol Succinate 25 mg PO DAILY #30 tab.er.24h 08/03/18 Prednisone 40 mg PO DAILY #90 tab 08/03/18 Following Prescrptions Were Given to Patient: Methimazole [Tapazole] 5 mg PO Q8H #90 tab Metolazone [Zaroxolyn] 5 mg PO DAILY #30 tab Metoprolol Succinate 25 mg PO DAILY #30 tab.er.24h Prednisone 40 mg PO DAILY #90 tab Bumetanide [Bumex] 1 mg PO TID #90 tab Primary Care Physician: Hermann Nath DO [Primary Care Provider] - Please follow up with your Primary Care Physician in: 1 week. Please Follow Up With: Wild Head MD When: 2-3 weeks. Disposition: Detention facility Minutes spent on discharge:: 40 Patient Condition:: Stable Medical Necessity - Tobacco Use Smoking Status: Never smoker Meaningful Use Info Meaningful Use Diagnoses (Choose all that apply): None applicable Code Visit Inpatient E&M: 37662 Disch Hosp
--- NOTE | 2018-08-03 14:33 | DS.PCM_ITS ---
Discharge Date and Diagnosis Date of Admission: 07/26/18 Date of Discharge: 08/03/18 - Primary Discharge Diagnosis #1 acute on chronic blood loss anemia/iron deficiency anemia. #2 acute kidney injury on top of stage III chronic kidney disease. #3 pancytopenia. #4 coagulopathy, unclear etiology,, patient was on Eliquis. 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 #6 hypokalemia. - Secondary Discharge Diagnosis Chronic Problems (Last Updated 08/02/18 @ 07:43 by Jeremy Mendez MD) Iron deficiency anemia (Chronic) On amiodarone therapy (Chronic) H/O mitral valve replacement (Chronic 01/28/17) with 27 mm bioprosthetic heart valve @ [facility] H/O aortic valve replacement (Chronic 01/28/17) with 21 mm bioprosthetic heart valve, ligation of Lt atrial appendage @ [facility] Cardiomyopathy in disease classified elsewhere (Chronic) Nonrheumatic mitral (valve) insufficiency (Chronic) Nonrheumatic aortic (valve) insufficiency (Chronic) Persistent atrial fibrillation (Chronic) Chronic kidney disease, unspecified (Chronic) HTN (hypertension) (Chronic) HLD (hyperlipidemia) (Chronic) Anticoagulant long-term use (Chronic) Diverticulitis (Chronic) Paroxysmal atrial fibrillation (Chronic) HTN (hypertension) (Chronic) Heart failure with reduced ejection fraction (Chronic) Pulmonary hypertension (Chronic) Mitral stenosis (Chronic) Aortic insufficiency (Chronic) KYLEIGH (acute kidney injury) (Chronic) CKD (chronic kidney disease) stage 3, GFR 30-59 ml/min (Chronic) CHF (congestive heart failure) (Chronic) Mitral regurgitation (Chronic) Hospital Course and Treatment Imaging Results: Clinical Impression(s) from Imaging Studies Chest X-Ray 07/27/18 11:11 IMPRESSION: Improved aeration of both lung bases although residual changes persist. The remainder of the examination is unchanged. Electronically Signed: Campos Schulz MD at 15:00 EST , Service support , Thyroid Ultrasound 07/29/18 05:55 IMPRESSION: Heterogeneous thyroid diffusely. Several small nodules as above. Electronically Signed: Dennis Wong DO at 13:07 EST Tel , Service support , Thyroid Uptake Nuclear Medicine 08/02/18 08:00 IMPRESSION: 1. ABNORMAL DECREASED 4- and 24-hour I-123 radioactive iodine thyroidal uptakes. 2. 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 (Adam et al, Endocrinol Rev 1: 411, 1979). Electronically Signed: Nathaniel Atkins, at 9:42 EST Tel , Service support , Dr. Head, nephrology. Dr. Foss, hematology/oncology. Dr. Grady, general surgery. Operations: None Procedures: - - Transfusion of fresh frozen plasma. Summary of Care Provided: Patient seen and examined on the day of discharge and appeared to be stable to be discharged to custodial facility. She has no specific complaints except weakness and fatigue. Her vital signs have been stable. This is a 78 years old female patient [facility] shoulder and heart admitted because of bleeding per rectum/hematochezia, found to have acute on chronic anemia required blood transfusion, acute kidney injury on top of stage III chronic kidney disease, pancytopenia, hyperthyroidism. #1 acute on chronic blood loss anemia/iron deficiency anemia: Attributed to internal hemorrhoids as well as iron deficiency anemia. No blood transfusion given during this hospital stay. Hemoglobin was as low as 7.6 g/dL, went up to 8.9 g/dL upon discharge. She received a total of 4 units of fresh frozen plasma. On admission, INR of 5.9, came down to 2.5 upon discharge. She received IV iron sucrose for 4 days. She has been on IV iron treatment. Patient had upper EGD on July 20, 2018 that revealed gastritis, otherwise normal and there was no evidence of bleeding. She had colonoscopy on July that revealed normal colon, no active bleeding, she had internal hemorrhoids. General surgery consulted this time and recommended no need to repeat upper EGD or colonoscopy. Patient discharged to custodial facility on iron supplement. #2 acute kidney injury on top of stage III chronic kidney disease: Attributed to probable cardiorenal syndrome. Serum creatinine on admission was 2.69, came down to 1.93 upon discharge. Nephrology consulted, recommended no need for hemodialysis. Her diuretics adjusted and she was discharged on Bumex 1 mg p.o. 3 times daily as well as Zaroxolyn 5 mg p.o. daily, plan to follow-up with nephrology as outpatient. #3 pancytopenia: Attributed to chronic disease and polypharmacy. According to oncology, no evidence of primary pulmonary disease. Her hemoglobin stabilized, platelet count remained almost the same at around 70-80,000. She received IV iron therapy as above, discharged on iron supplement and plan to follow-up with hematology as outpatient. #4 coagulopathy: Unclear etiology, patient was on Eliquis upon admission. Admission INR was 5.9, received a total of 4 units of fresh frozen plasma, INR came down to 2.5 upon discharge. She had no more active bleeding. #4 hyperthyroidism: TSH was very low, free T4 was high consistent with hyperthyroidism. Thyroid ultrasound revealed diffusely enlarged heterogenous thyroid, right upper pole nodule measuring 9 x 9 x 7 mm, left upper pole nodule measuring 9 x 7 x 6 cm. There was no clinical signs of overt thyrotoxicosis. Her nuclear thyroid uptake scan revealed abnormal decreased 24 hours radioactive iodine uptake suggestive of early injury of subacute thyroiditis. 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 Patient was started on methimazole and prednisone upon discharge. Started methimazole 5 mg p.o. 3 times daily, prednisone 40 mg p.o. daily for 2 weeks and then taper prednisone every 5 days. Patient will need referral to endocrinology as outpatient. #5 hypokalemia: Replaced and corrected per protocol. #6 chronic CHF, probably diastolic: Without acute exacerbation at this time. Discharged on Bumex and Zaroxolyn as above, dose of metoprolol decreased down to 25 mg p.o. daily. #7 chronic atrial fibrillation: continued on Eliquis for anticoagulation, discharged on adjusted dose of metoprolol for rate control. 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 daily, continued on Eliquis 2.5 mg p.o. twice daily, continued on her other chronic home medications, recommended follow-up with PCP in 1 week, patient will need referral to endocrinology as outpatient, will need CBC and BMP in 1 week, follow-up with nephrology in 2-3 weeks. I tried to call Dr. nath's office and nobody answered and I left a message to call me back. This note was generated with [employer] software. It may contain incorrect words, spelling, and punctuation that were not noted in checking the note before signing. - Physical Exam General: Alert, Oriented x3, Cooperative, No apparent distress HEENT: Atraumatic, PERRLA, EOMI, Normocephalic Oral: Moist Mucosa, No Gingival or Mucosal Lesions/ Ulcerations Neck: Supple, No JVD, Negative Carotid Bruits, Trachea Midline, Thyroid Normal Size and Texture Lungs: Clear to auscultation, No rhonchi, No wheeze, No rales, Diminished Cardiovascular: Regular rate, Regular Rhythm, Normal S1, Normal S2, PMI Normal Abdomen: Bowel Sounds Present, Soft, Non Tender, Non-Distended, No Hepato- splenomegaly Extremities: No clubbing, No cyanosis, No edema Skin: No rashes, No breakdown Lymphatic: No Cervical, Supraclavicular, or Inguinal Adenopathy Neurological: Cranial nerves II-XII grossly intact, Neuro grossly intact Psych/Mental Status: Normal Affect, Appropriate Vital Signs Temp Pulse Resp BP Pulse Ox 98.4 F 95 16 115/62 97 08/03/18 10:30 08/03/18 10:30 08/03/18 10:30 08/03/18 10:30 08/03/18 10:30 Oxygen Delivery Method Room Air Weight: 188 lb 4.396 oz Body Mass Index (BMI) 37.6 Finger Stick Blood Glucose 99 Intake and Output for Last 24 Hours 08/01/18 08/02/18 08/03/18 23:59 23:59 23:59 Intake Total 690 / 690 565 / 565 180 / 180 Output Total 1650 / 1650 1850 / 1850 1600 / 1600 Balance -960 / -960 -1285 / -1285 -1420 / -1420 Microbiology Past 72 Hours 08/02/18 15:00 Stool Occult Blood (JOSHUA) - Final Stool Occult Blood Positive Laboratory Tests Past 24 Hrs 08/03/18 08/03/18 08/03/18 05:40 05:40 05:40 WBC 2.9 L RBC 3.43 L Hgb 8.9 L Hct 29.6 L MCV 86.3 MCH 25.9 L MCHC 30.1 L RDW 23.2 H RDW Differential 68.8 H Plt Count 91 L MPV 9.9 Immature Gran % (Auto) 0.000 Neut % (Auto) 70.8 H Lymph % (Auto) 16.7 L [place] % (Auto) 10.8 H Eos % (Auto) 1.0 Baso % (Auto) 0.7 Absolute Neuts (auto) 2.0 Absolute Lymphs (auto) 0.48 L Total Counted Not Reportable Differential Comment SCAN Polychromasia 1+ Hypochromasia 1+ Anisocytosis 1+ Microcytosis 1+ PT 27.1 H INR 2.5 Sodium 142 Potassium 3.5 Chloride 106 Carbon Dioxide 29.0 Anion Gap 7 BUN 25 H Creatinine 1.93 H Estim Creat Clear Calc 19.31 Est GFR (MDRD) Af Amer 32 L Est GFR (MDRD) Non-Af 27 L BUN/Creatinine Ratio 13.0 Glucose 85 Calcium 8.2 L Home Medications: Medications to take at Discharge rosuvastatin 10 mg tablet 10 mg PO QHS #90 tab 10/14/17 Potassium Chloride [K-Dur] 10 meq PO BID@0800,1700 06/05/18 Acetaminophen [Tylenol] 1,000 mg PO DAILY 07/19/18 Cholecalciferol (Vitamin D3) [Vitamin D3] 5,000 unit PO DAILY 07/19/18 Docusate Sodium [Colace] 100 mg PO DAILY 07/19/18 Omeprazole 20 mg PO DAILY 07/19/18 Apixaban [Eliquis] 2.5 mg PO BID #60 tablet 07/23/18 Ascorbic Acid [Vitamin C] 500 mg PO DAILY #30 tab.chew 07/23/18 Ferrous Gluconate 324 mg PO DAILY #30 tablet 07/23/18 Bumetanide [Bumex] 1 mg PO TID #90 tab 08/03/18 Methimazole [Tapazole] 5 mg PO Q8H #90 tab 08/03/18 Metolazone [Zaroxolyn] 5 mg PO DAILY #30 tab 08/03/18 Metoprolol Succinate 25 mg PO DAILY #30 tab.er.24h 08/03/18 Prednisone 40 mg PO DAILY #90 tab 08/03/18 Following Prescrptions Were Given to Patient: Methimazole [Tapazole] 5 mg PO Q8H #90 tab Metolazone [Zaroxolyn] 5 mg PO DAILY #30 tab Metoprolol Succinate 25 mg PO DAILY #30 tab.er.24h Prednisone 40 mg PO DAILY #90 tab Bumetanide [Bumex] 1 mg PO TID #90 tab Primary Care Physician: Hermann Nath DO [Primary Care Provider] - Please follow up with your Primary Care Physician in: 1 week. Please Follow Up With: [place] MD When: 2-3 weeks. Disposition: Snf facility Minutes spent on discharge:: 40 Patient Condition:: Stable Medical Necessity - Tobacco Use Smoking Status: Never smoker Meaningful Use Info Meaningful Use Diagnoses (Choose all that apply): None applicable Code Visit Inpatient E&M: 95200 Disch Hosp
== END 2018-08-03 12:42 | disposition skilled nursing facility (03) | DRG 813 ==
LOC: ED 01:53 → PCU 03:14
PROVIDERS: Family Medicine; Internal Medicine; Internal Medicine Nephrology; Admitting Provider Hospitalist; Emergency Provider Emergency Medicine; Family Provider Family Medicine; PCP Family Medicine; Visit Provider Hospitalist
DX: D68.9 Coagulation defect, unspecified (principal); D62 Acute posthemorrhagic anemia; N17.9 Acute kidney failure, unspecified; D61.818 Other pancytopenia; I13.0 Hypertensive heart and chronic kidney disease with heart failure and stage 1 through stage 4 chronic kidney disease, or unspecified chronic kidney disease; I50.32 Chronic diastolic (congestive) heart failure; K64.8 Other hemorrhoids; D50.9 Iron deficiency anemia, unspecified; E87.6 Hypokalemia; E78.5 Hyperlipidemia, unspecified; E05.80 Other thyrotoxicosis without thyrotoxic crisis or storm; T46.2X5A Adverse effect of other antidysrhythmic drugs, initial encounter; Z95.3 Presence of xenogenic heart valve; N18.3 Chronic kidney disease, stage 3 (moderate); I48.2 Chronic atrial fibrillation; Z79.02 Long term (current) use of antithrombotics/antiplatelets; Z79.899 Other long term (current) drug therapy; I27.20 Pulmonary hypertension, unspecified; I07.1 Rheumatic tricuspid insufficiency
CPT/HCPCS: 36415; 71046; 76536; 78012; 80048; 80053; 80069; 80076; 82274; 82607; 82728; 82747; 83540; 83550; 83735; 84100; 84439; 84443; 84481; 85014; 85018; 85025; 85027; 85045; 85610; 86022; 86376; 86644; 86800; 86850; 86900; 97110; 97162; 97166; 97530; 97535; 97802; 99285; A9516; J1756; J7040; J7050; P9017; A4216; J1940

== ENCOUNTER 2018-09-21 15:06 | Inpatient (IN) | payer MEDICARE, OTHER, SELFPAY ==
[2018-08-20 13:15] VITALS: BMI 29.9
[2018-09-21 15:06] VITALS: BP 127/82; PULSE 89; RESP 16; TEMP 36.5; O2SAT 98; BMI 28.3
--- NOTE | 2018-09-21 15:27 | EKG12_ITS ---
Test Reason : WEAKNESS Blood Pressure : / mmHG Vent. Rate : 081 BPM Atrial Rate : 081 BPM P-R Int : 176 ms QRS Dur : 094 ms QT Int : 392 ms P-R-T Axes : 047 -11 053 degrees QTc Int : 455 ms Normal sinus rhythm with sinus arrhythmia Nonspecific ST and T wave abnormality Abnormal ECG Confirmed by CARLOS PONCE, HIRAM ([id number]), non linear editor OSMAN MARY ([id number]) on 09/27/2018 4:18:57 PM Referred By: KRISS Confirmed By:HIRAM GONZALEZ MD
--- NOTE | 2018-09-21 15:29 | ED.VISSUMM ---
- ER Visit Summary Date of Service: 09/21/18 Chief Complaint: Generalized weakness History of Present Illness: The patient is a 78 F history of CHF, A. fib, hypertension and renal insufficiency. Patient had 2 cardiac valve replaced with porcine valves. Currently is anticoagulated on Eliquis due to her A. fib. States that she just feels generally weak. She is noticed swelling in her feet lower legs. Mild shortness of breath. No chest pain. Mild nonproductive cough. Today she had a low-grade fever of 100 - 101. No dysuria. No abdominal pain. She denies any vomiting. She has had some mild diarrhea. No melena. She has been admitted to the hospital the last several months. And needed blood transfusions at that time. Physical Examination: Older female no acute distress. Vital signs are stable afebrile. Initial blood pressure 127/82. HEENT exam unremarkable. Neck nontender. No lymphadenopathy. Lungs clear to auscultation bilaterally. Heart regular rhythm no murmur rate about 80 abdomen soft and nontender normal bowel sounds no peritoneal signs. Patient is moving all 4 extremities. 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 Dorsi plantar flexion intact. Trace edema in both lower extremities from the knees to the feet. Calves are nontender without cords. Back is nontender. Skin is unremarkable. Neurologically she is awake and alert with no focal motor deficits. She is answering questions and following commands. Test Results: Chest x-ray no acute abnormality. Status post sternotomy. Porcine valve. EKG sinus rhythm rate 81 no acute signs of ischemia. CBC White count of 7. Hemoglobin of 12. Chronic thrombocytopenia at 111,000. Chemistries sodium 123. Potassium of 5.6. Creatinine 2.14 typically 1.9 for this patient. Troponin normal. BNP 232. UA positive for nitrates and white cells and bacteria. Urine culture sent will be treated for UTI. Emergency Department Course and Treatment: Elderly female with generalized weakness and swelling in her lower extremities. Treatment Plan: I spoke to the hospitalist the patient will be admitted. She will be started on IV Rocephin for UTI. And IV fluids. Disposition: Admission Impression: Acute generalized weakness Electrolyte abnormalities including hyperkalemia and hyponatremia Acute UTI Acute on chronic renal insufficiency History of A. fib, hypertension, CHF, renal insufficiency and anticoagulated on Eliquis This note was generated with [employer] dictation software. It may contain incorrect words, spelling, and punctuation that were not noted in review of the chart prior to signing ED Disposition - Plan for ED Patient: Referrals: Hermann Nath DO [Primary Care Provider] -
--- NOTE | 2018-09-21 15:32 | ED.DCSUM_ITS ---
- ER Visit Summary Date of Service: 09/21/18 Chief Complaint: Generalized weakness History of Present Illness: The patient is a 78 F history of CHF, A. fib, hypertension and renal insufficiency. Patient had 2 cardiac valve replaced with porcine valves. Currently is anticoagulated on Eliquis due to her A. fib. States that she just feels generally weak. She is noticed swelling in her feet lower legs. Mild shortness of breath. No chest pain. Mild nonproductive cough. Today she had a low-grade fever of 100 - 101. No dysuria. No abdominal pain. She denies any vomiting. She has had some mild diarrhea. No melena. She has been admitted to the hospital the last several months. And needed blood transfusions at that time. Physical Examination: Older female no acute distress. Vital signs are stable afebrile. Initial blood pressure 127/82. HEENT exam unremarkable. Neck nontender. No lymphadenopathy. Lungs clear to auscultation bilaterally. Heart regular rhythm no murmur rate about 80 abdomen soft and nontender normal bowel sounds no peritoneal signs. Patient is moving all 4 extremities. 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 Dorsi plantar flexion intact. Trace edema in both lower extremities from the knees to the feet. Calves are nontender without cords. Back is nontender. Skin is unremarkable. Neurologically she is awake and alert with no focal motor deficits. She is answering questions and following commands. Test Results: Chest x-ray no acute abnormality. Status post sternotomy. Porcine valve. EKG sinus rhythm rate 81 no acute signs of ischemia. CBC White count of 7. Hemoglobin of 12. Chronic thrombocytopenia at 111,000. Chemistries sodium 123. Potassium of 5.6. Creatinine 2.14 typically 1.9 for this patient. Troponin normal. BNP 232. UA positive for nitrates and white cells and bacteria. Urine culture sent will be treated for UTI. Emergency Department Course and Treatment: Elderly female with generalized weakness and swelling in her lower extremities. Treatment Plan: I spoke to the hospitalist the patient will be admitted. She will be started on IV Rocephin for UTI. And IV fluids. Disposition: Admission Impression: Acute generalized weakness Electrolyte abnormalities including hyperkalemia and hyponatremia Acute UTI Acute on chronic renal insufficiency History of A. fib, hypertension, CHF, renal insufficiency and anticoagulated on Eliquis This note was generated with [employer] dictation software. It may contain incorrect words, spelling, and punctuation that were not noted in review of the chart prior to signing ED Disposition - Plan for ED Patient: Referrals: Hermann Nath DO [Primary Care Provider] -
--- NOTE | 2018-09-21 15:45 | RAD_ITS ---
STUDY: X-RAY CHEST REASON FOR EXAM: Female, 78 years old. DYSPNEA, WEAKNESS; CHF, 2 HEART VALVES REPLACED TECHNIQUE: PA and lateral views of the chest. COMPARISON: July 27, 2018 FINDINGS: Cardiac monitoring leads are present. Sternal wire sutures are present. There is a left atrial appendage clip present. The lungs are clear and expanded. There is no demonstrated pleural abnormality. Normal size heart. Valvular prosthesis present. Normal mediastinum and ren. Normal visualized pulmonary arteries. There is atherosclerotic tortuosity of the aortic arch and descending thoracic aorta. There are diffuse degenerative changes of the visualized thoracic spine. Normal visualized ribs, clavicles, and shoulders. There is no demonstrated abnormality of the visualized soft tissue structures of the upper abdomen. RAD/Chest PA and Lateral IMPRESSION: Postsurgical changes. No evidence of acute failure. There is improved lung excursion when compared to the prior exam. Electronically Signed: Rosemary Prince MD at 16:29 EDT , Service support ,
[2018-09-21 15:51] LABS: Absolute Lymphocyte Count 0.91 X10^3/ul (0.83-4.51); Absolute Neutrophil Count 5.9 X10^3/uL (2.0-7.7); Basophil# 0.02 X10^3/uL; Basophil% 0.3 % (0-1); Eosinophil# 0.02 X10^3/uL; Eosinophils% 0.3 % (0-5); Hematocrit 36.8 % (37-47); Hemoglobin 12.8 g/dl (12.0-15.0); Lymphocyte # 0.91 X10^3/ul (4.0); Lymphocyte % 11.9 % (19-41); Mean Corp Hgb Conc 34.8 g/gl (32-36); Mean Corpuscular Hgb 29.4 pg (27.0-32.0); Mean Corpuscular Volume 84.4 fL (81-99); Mean Platelet Vol. 9.4 fl (6.2-12.0); Monocyte# 0.77 X10^3/uL; Monocyte% 10.1 % (0-10); Neutrophil # 5.87 X10^3/uL (2.7-7.7); Neutrophil % 76.9 % (47-70); Platelet Count 111 K/mm3 (150-450); RBC Distribution Width CV 22.6 % (11.6-14.6); RBC Distribution Width SD 66.2 fl (35.1-43.9); Red Blood Count 4.36 M/mm3 (4.2-5.4); White Blood Count 7.6 K/mm3 (4.4-11.0)
[2018-09-21 15:53] LABS: Differential Indicated SCAN CRITERIA MET; POSITIVE COUNT NO; POSITIVE DIFFERENTIAL NO; POSITIVE MORPHOLOGY YES
[2018-09-21 16:00] LABS: Anion Gap 7 (5-15); BUN 36 mg/dL (7-18); BUN/Creat Ratio 16.8 RATIO (10-20); Calcium,Total 10.9 mg/dL (8.5-10.1); Chloride 94 mmol/L (98-107); Creatinine, Serum 2.14 mg/dL (0.55-1.02); EST Glomerular Filtration Rate 24 mL/min (>60); Est Glom Filt Rate - Afr Amer 29 mL/min (>60); Estimated Creatinine Clearance 17.41 ml/min; Glucose 76 mg/dL (74-106); Potassium 5.6 mmol/L (3.5-5.1); Sodium Level 123 mmol/L (136-145)
[2018-09-21 16:21] LABS: Anisocytosis 1+; Macrocytosis RARE; Platelet Estimate SLT DEC (ADEQ)
[2018-09-21 16:22] LABS: Mucous, Urine 0 SEEN /hpf (<or=2+); Red Blood Cells-Urine 0 SEEN /hpf (0-5); Squamous Epithelial Cells - UA 0 SEEN /hpf (5-10)
[2018-09-21 16:38] LABS: Color, Urine Yellow (Yellow); Glucose, Dipstick Normal (Normal); Ketone-Dipstick Negative (Negative); Leukocyte Esterase-Dipstick 500 /ul (Negative); Nitrite-Dipstick Positive (Negative); Occult Blood-Urine 10 /ul (Negative); Protein-Dipstick Negative (Negative); Urine Bilirubin Dipstick Negative (Negative); Urine Clarity Clear (Clear); Urine Urobilinogen Normal (Normal)
[2018-09-21 16:48] LABS: White Blood Cells 5-10 SEEN /hpf (0-5)
[2018-09-21 16:49] LABS: Bacteria 1+ /hpf (None Seen)
[2018-09-21 17:04] VITALS: BP 123/73; PULSE 79; RESP 31; O2SAT 96
[2018-09-21] MEDS: Ceftriaxone 1 GM/50 ML BAG IV (17:24)
[2018-09-21] MEDS: 0.9% Normal Saline 1,000 ML 150 ML IV (17:24)
[2018-09-21 17:41] VITALS: BP 117/58; PULSE 78; RESP 16; TEMP 36.4; O2SAT 98; BMI 28.2
--- NOTE | 2018-09-21 17:56 | HP.PCM_ITS ---
Problem List (1) Hyponatremia Status: Acute (2) Generalized weakness Status: Acute (3) Hyperkalemia Status: Acute (4) Hyperthyroidism Status: Chronic (5) Iron deficiency anemia Status: Chronic (6) Pancytopenia Status: Acute (7) GI bleed Status: Acute Qualifiers: GI bleed type/associated pathology: unspecified gastrointestinal hemorrhage type Qualified Code(s): K92.2 - Gastrointestinal hemorrhage, unspecified (8) Supratherapeutic INR Status: Acute (9) Acute blood loss anemia Status: Acute (10) On amiodarone therapy Status: Chronic (11) H/O mitral valve replacement Status: Chronic Comment: with 27 mm bioprost[facility] (12) H/O aortic valve replacement Status: Chronic Comment: with 21 mm bioprosthetic heart valve, ligation of Lt atrial appendage @ [facility] (13) Cardiomyopathy in disease classified elsewhere Status: Chronic (14) Nonrheumatic mitral (valve) insufficiency Status: Chronic (15) Nonrheumatic aortic (valve) insufficiency Status: Chronic (16) Persistent atrial fibrillation Status: Chronic (17) Chronic kidney disease, unspecified Status: Chronic Qualifiers: Chronic kidney disease stage: unspecified stage Qualified Code(s): N18.9 - Chronic kidney disease, unspecified (18) HTN (hypertension) Status: Chronic Qualifiers: Hypertension type: essential hypertension Qualified Code(s): I10 - Essential (primary) hypertension (19) HLD (hyperlipidemia) Status: Chronic Qualifiers: Hyperlipidemia type: unspecified Qualified Code(s): E78.5 - Hyperlipidemia, unspecified (20) Anticoagulant long-term use Status: Chronic (21) Diverticulitis Status: Chronic (22) Paroxysmal atrial fibrillation Status: Chronic (23) HTN (hypertension) Status: Chronic Qualifiers: Hypertension type: essential hypertension Qualified Code(s): I10 - Essential (primary) hypertension (24) Heart failure with reduced ejection fraction Status: Chronic Qualifiers: Heart failure chronicity: chronic Qualified Code(s): I50.22 - Chronic systolic (congestive) heart failure (25) Pulmonary hypertension Status: Chronic (26) Mitral stenosis Status: Chronic Qualifiers: Cardiac valve disease etiology: etiology unspecified Qualified Code(s): I05.0 - Rheumatic mitral stenosis (27) Aortic insufficiency Status: Chronic Qualifiers: Cardiac valve disease etiology: etiology unspecified Qualified Code(s): I35.1 - Nonrheumatic aortic (valve) insufficiency (28) KYLEIGH (acute kidney injury) Status: Chronic (29) CKD (chronic kidney disease) stage 3, GFR 30-59 ml/min Status: Chronic (30) CHF (congestive heart failure) Status: Chronic (31) Mitral regurgitation Status: Chronic History of Present Illness Date of Admission: 09/21/18 Chief Complaint: Generalized weakness The patient is a 78 year old F with multiple comorbidities including aortic valve replacement and mitral valve replacement, paroxysmal A. fib on Eliquis came to ED for generalized weakness for more than 3 days. Patient could not stand up on her legs today. Patient also has mild shortness of breath on exertion and increasing leg swelling for last 3 days. Patient is not good historian but her daughter said she had temperature 101 Fahrenheit today, on and off cough since May 2018 but got worse the last 1 or 2 weeks. She denies chest pain. It seems patient was on amiodarone before but was taken off and currently she is on Tapazole, most probably from hyperthyroidism and possible cough from amiodarone. In ED, basic lab work shows hyponatremia, hypochloremia, hyperkalemia, K5.6 and acute kidney injury on CKD stage III, current BUN/creatinine 36/2.14 with baseline around 25/1.9. Patient is on multiple diuretics Zaroxolyn, and spironolactone along with potassium. EKG shows normal sinus rhythm with sinus arrhythmia at [address]-T changes. Chest x-ray shows no evidence of acute heart failure and improved lung excursion. Previous chest x-ray showed basilar reticular markings on lung bases. Past Medical History Past Medical History (Chronic Problems): Chronic Problems (Last Reviewed 08/20/18 @ 13:15 by Eri Mccrary) Hyperthyroidism (Chronic) Iron deficiency anemia (Chronic) On amiodarone therapy (Chronic) H/O mitral valve replacement (Chronic 01/28/17) with 27 mm bioprosthetic heart valve @ [facility] H/O aortic valve replacement (Chronic 01/28/17) with 21 mm bioprosthetic heart valve, ligation of Lt atrial appendage @ [facility] Cardiomyopathy in disease classified elsewhere (Chronic) Nonrheumatic mitral (valve) insufficiency (Chronic) Nonrheumatic aortic (valve) insufficiency (Chronic) Persistent atrial fibrillation (Chronic) Chronic kidney disease, unspecified (Chronic) HTN (hypertension) (Chronic) HLD (hyperlipidemia) (Chronic) Anticoagulant long-term use (Chronic) Diverticulitis (Chronic) Paroxysmal atrial fibrillation (Chronic) HTN (hypertension) (Chronic) Heart failure with reduced ejection fraction (Chronic) Pulmonary hypertension (Chronic) Mitral stenosis (Chronic) Aortic insufficiency (Chronic) KYLEIGH (acute kidney injury) (Chronic) CKD (chronic kidney disease) stage 3, GFR 30-59 ml/min (Chronic) CHF (congestive heart failure) (Chronic) Mitral regurgitation (Chronic) Medical History: Medical History (Last Reviewed 08/20/18 @ 13:15 by Eri Mccrary) On amiodarone therapy (Chronic) Z79.899 Cardiomyopathy in disease classified elsewhere (Chronic) I43 Nonrheumatic mitral (valve) insufficiency (Chronic) I34.0 Nonrheumatic aortic (valve) insufficiency (Chronic) I35.1 Persistent atrial fibrillation (Chronic) I48.1 Chronic kidney disease, unspecified (Chronic) N18.9 HTN (hypertension) (Chronic) I10 HLD (hyperlipidemia) (Chronic) E78.5 Allergies aspartame [From NutrasSpazzleset Aspartame] Allergy (Verified 08/20/18 13:22) Hives Home Medications: Ambulatory Orders Medication Instructions Recorded Potassium Chloride [K-Dur] 10 meq PO DAILY 06/05/18 Acetaminophen [Tylenol] 1,000 mg PO DAILY 07/19/18 Cholecalciferol (Vitamin D3) 5,000 unit PO DAILY 07/19/18 [Vitamin D3] Docusate Sodium [Colace] 100 mg PO DAILY PRN 07/19/18 Omeprazole 20 mg PO DAILY 07/19/18 Apixaban [Eliquis] 2.5 mg PO BID #60 tab 07/23/18 Ascorbic Acid [Vitamin C] 500 mg PO DAILY #30 tab.chew 07/23/18 Ferrous Gluconate 324 mg PO DAILY #30 tab 07/23/18 Methimazole [Tapazole] 5 mg PO Q8H #90 tab 08/03/18 Metolazone [Zaroxolyn] 5 mg PO DAILY #30 tab 08/03/18 Metoprolol Succinate 25 mg PO DAILY #30 tab.er.24h 08/03/18 spironolactone 25 mg tablet 25 mg PO DAILY 08/20/18 Atorvastatin Calcium [Lipitor] 20 mg PO QHS 09/21/18 Surgical History: Surgical History (Last Reviewed 08/20/18 @ 13:15 by Eri Mccrary) H/O mitral valve replacement (Chronic) Onset Date: 01/28/17 Z98.890, Z95.2 with 27 mm bioprosthetic heart valve @ [facility] H/O aortic valve replacement (Chronic) Onset Date: 01/28/17 Z95.2 with 21 mm bioprosthetic heart valve, ligation of Lt atrial appendage @ [facility] History of right and left heart catheterization Z98.890 09/03/2016 Surgical History: cholecystectomy, - - Status post aortic and mitral valve replacement, open heart surgery Smoking Status: Never smoker - *Family History Maternal Family History: Family History (Last Reviewed 08/20/18 @ 13:15 by Eri Mccrary) Father No problems noted. History Items: Hypertension Offspring Family History: Family History (Last Reviewed 08/20/18 @ 13:15 by Eri Mccrary) Father No problems noted. History Items: Heart Disease, Stroke - Paternal grandmother Review of Systems Constitutional: Reports: Malaise, Weakness, Fatigue HEENT: Denies: Head Aches, Sinus Congestion, Sinus Drainage Cardiovascular: Reports: Edema. Denies: Chest Pain, Palpitations Respiratory: Reports: Cough, Shortness of breath upon exertion. Denies: Shortness of breath at rest, Sputum production Gastrointestinal: Denies: Abdominal Pain, Nausea, Vomiting Genitourinary: Denies: Dysuria Musculoskeletal: Denies: Joint Pain, Joint Tenderness Skin: Denies: Rash, Wounds Neurological: Reports: Balance problems, Incoordination. Denies: Focal weakness, Numbness, Tingling Psychiatric: Denies: Anxiety, Depression, Homicidal Ideations, Suicidal Ideations Hematologic/ Lymphatic: Denies: Easy Bruising, Easy Bleeding VTE Information - Inpt Only VTE Present on Admission: No VTE Mechan Device Prophylaxis: None VTE Pharm Prophylaxis ordered?: Yes Patient Problems: Active and Suspected Problems (Last Reviewed 08/20/18 @ 13:15 by Eri Mccrary) Hyponatremia (Acute) Generalized weakness (Acute) Hyperkalemia (Acute) - Physical Exam General: Alert, Oriented x3, Cooperative HEENT: Atraumatic, PERRLA, EOMI, Normocephalic Oral: Dry Mucosa Neck: Supple, No JVD, Negative Carotid Bruits Lungs: Diminished - Air entry is diminished bilaterally., Rales - Rales present, clears on coughing Cardiovascular: Regular rate, Normal S1, Normal S2, No murmurs Abdomen: Bowel Sounds Present, Soft, Non Tender Extremities: Capillary Refill Less than 3 Seconds, Edema Skin: No rashes, No breakdown Musculoskeletal: No Tenderness to Palpation of Joints or Extremities, Arthritic Changes Lymphatic: No Cervical, Supraclavicular, or Inguinal Adenopathy Neurological: Cranial nerves II-XII grossly intact, Deep Tendon Reflexes 2+/4 and Symmetrical, Neuro grossly intact Psych/Mental Status: Normal Affect, Appropriate Vital Signs Temp Pulse Resp BP Pulse Ox 97.7 F L 79 31 H 123/73 H 96 09/21/18 15:06 09/21/18 17:04 09/21/18 17:04 09/21/18 17:04 09/21/18 17:04 Oxygen Delivery Method Room Air Weight: 154 lb 5.177 oz Body Mass Index (BMI) 28.2 Finger Stick Blood Glucose 99 Laboratory Tests Past 24 Hrs 09/21/18 09/21/18 09/21/18 15:30 15:30 15:30 WBC 7.6 RBC 4.36 Hgb 12.8 Hct 36.8 L MCV 84.4 MCH 29.4 MCHC 34.8 RDW 22.6 H RDW Differential 66.2 H Plt Count 111 L MPV 9.4 Immature Gran % (Auto) 0.500 Neut % (Auto) 76.9 H Lymph % (Auto) 11.9 L [place] % (Auto) 10.1 H Eos % (Auto) 0.3 Baso % (Auto) 0.3 Absolute Neuts (auto) 5.9 Absolute Lymphs (auto) 0.91 Total Counted Not Reportable Platelet Estimate SLT DEC Anisocytosis 1+ Macrocytosis RARE Sodium 123 L Potassium 5.6 H Chloride 94 L Carbon Dioxide 22.0 Anion Gap 7 BUN 36 H Creatinine 2.14 H Estim Creat Clear Calc 17.41 Est GFR (MDRD) Af Amer 29 L Est GFR (MDRD) Non-Af 24 L BUN/Creatinine Ratio 16.8 Glucose 76 Calcium 10.9 H Troponin I 0.019 B-Natriuretic Peptide 232.0 H Urine Color Urine Clarity Urine pH Ur Specific [place] Urine Protein Urine Glucose (UA) Urine Ketones Urine Occult Blood Urine Nitrite Urine Bilirubin Urine Urobilinogen Ur Leukocyte Esterase Urine RBC Urine WBC Ur Squamous Epith Cells Urine Bacteria Urine Mucus 09/21/18 16:00 WBC RBC Hgb Hct MCV MCH MCHC RDW RDW Differential Plt Count MPV Immature Gran % (Auto) Neut % (Auto) Lymph % (Auto) [place] % (Auto) Eos % (Auto) Baso % (Auto) Absolute Neuts (auto) Absolute Lymphs (auto) Total Counted Platelet Estimate Anisocytosis Macrocytosis Sodium Potassium Chloride Carbon Dioxide Anion Gap BUN Creatinine Estim Creat Clear Calc Est GFR (MDRD) Af Amer Est GFR (MDRD) Non-Af BUN/Creatinine Ratio Glucose Calcium Troponin I B-Natriuretic Peptide Urine Color Yellow Urine Clarity Clear Urine pH 6.0 Ur Specific [place] 1.010 Urine Protein Negative Urine Glucose (UA) Normal Urine Ketones Negative Urine Occult Blood 10 H Urine Nitrite Positive H Urine Bilirubin Negative Urine Urobilinogen Normal Ur Leukocyte Esterase 500 H Urine RBC 0 SEEN Urine WBC 5-10 SEEN Ur Squamous Epith Cells 0 SEEN Urine Bacteria 1+ Urine Mucus 0 SEEN Assessment/Plan All Active Problems (Last Reviewed 08/20/18 @ 13:15 by Eri Mccrary) Hyponatremia (Acute) Generalized weakness (Acute) Hyperkalemia (Acute) Pancytopenia (Acute) GI bleed (Acute) Supratherapeutic INR (Acute) Acute blood loss anemia (Acute) The patient is a 78 year old F with multiple comorbidities including aortic valve replacement and mitral valve replacement, paroxysmal A. fib on Eliquis came to ED for generalized weakness for more than 3 days. Patient could not stand up on her legs today. Patient also has mild shortness of breath on exertion and increasing leg swelling for last 3 days. Patient is not good historian but her daughter said she had temperature 101 Fahrenheit today, on and off cough since May 2018 but got worse the last 1 or 2 weeks. She denies chest pain. It seems patient was on amiodarone before but was taken off and currently she is on Tapazole, most probably from hyperthyroidism and possible cough from amiodarone. In ED, basic lab work shows hyponatremia, hypochloremia, hyperkalemia, K5.6 and acute kidney injury on CKD stage III, current BUN/creatinine 36/2.14 with baseline around 25/1.9. Patient is on multiple diuretics Zaroxolyn, and spironolactone along with potassium. EKG shows normal sinus rhythm with sinus arrhythmia at [address]-T changes. Chest x-ray shows no evidence of acute heart failure and improved lung excursion. Previous chest x-ray on July 2018 showed basilar reticular markings on lung bases. 1. Generalized weakness, exact etiology unclear but possible secondary to i nclude electrolyte abnormality/possible UTI: [facility] We will try to correct underlying disorder. IV fluid normal saline cautiously. Watch for intake and output. Daily check weight. 2. UTI with nonspecific flulike symptoms: Patient has cough for more than 4 months probably from amiodarone or possible viral infection. Chest x-ray is negative of infiltrate/pneumonia. Ordered respiratory panel. Urine culture ordered. UA is positive for nitrite and mild pyuria. Patient denies burning micturition. Started on IV Rocephin. 3. KYLEIGH on CKD stage 3 with Electrolyte abnormality: Hyponatremia, hypochloremia and hyperkalemia possible related to diuretics: IV fluid normal saline replacement. Watch for fluid overload. Hold diuretics. Patient's current BU N/creatinine 36/2.14 with baseline around 25/1.9. Monitor kidney function and electrolytes daily Once euvolemic, resume diuretics gradually. 4. Cardiac conditions: Multiple valvular abnormality, mitral stenosis, MR, aortic regurgitation status post aortic valve replacement and mitral valve replacement, paroxysmal A. fib on Eliquis and chronic heart failure with preserved EF: Patient had echo in February 2018 reported as LV normal size and thickness, EF 65%. No regional wall motion abnormality. Moderately dilated RV with normal systolic function. LA mildly enlarged. Normal right atrium. Bioprosthetic mitral valve. Bioprosthetic aortic valve. Trivial TR, RVSP 30 mmHg 5. Hyperthyroidism: TSH and free T4 tomorrow a.m. Continue methimazole. 6. Multiple other comorbidities including hypertension, decreased functional capacity, diffuse degenerative joint disease: Multiple comorbidities complicates the present care and expect difficult and delay recovery End of life goals/advance directive: Patient has living will. Discussed with the patient and daughter herself. Patient does not want artificial life support including intubation, tube feed, ventilator and/chest compression. Patient is DNR CC Arrest. Total time spent in [id number] encounter in discussion of advanced directive 17 minutes. Clinical Impression(s) from Imaging Studies Chest X-Ray 09/21/18 15:45 IMPRESSION: Postsurgical changes. No evidence of acute failure. There is improved lung excursion when compared to the prior exam. Code Visit OBSV E&M: 15979 Initial observation care L3 Procedures: 29622 Advncd Care Plan 30 Min
[2018-09-21 20:05] VITALS: PULSE 78
[2018-09-21 20:50] VITALS: BP 119/62; PULSE 79; RESP 16; TEMP 36.6; O2SAT 95
[2018-09-21] MEDS: APIXABAN 2.5 MG TABLET PO (21:57)
[2018-09-21] MEDS: Atorvastatin Calcium 20 MG Tablet PO (21:57)
[2018-09-21] MEDS: Methimazole 5 MG Tablet PO (21:57)
[2018-09-21 23:59] VITALS: PULSE 71
[2018-09-22] VITALS (13 sets, daily range): BP systolic 91–108; BP diastolic 49–67; PULSE 67–98; RESP 18–26; TEMP 36.6–37; O2SAT 92–100
[2018-09-22] MEDS: 0.9% Normal Saline 1,000 ML 100 ML IV ×2 (03:26→13:15)
[2018-09-22] MEDS: Methimazole 5 MG Tablet PO ×3 (05:44→21:24)
[2018-09-22] MEDS: guaiFENesin 10 ML UDC (200MG/10ML) PO ×2 (05:44→21:24)
[2018-09-22 06:38] LABS: Absolute Lymphocyte Count 0.98 X10^3/ul (0.83-4.51); Absolute Neutrophil Count 4.2 X10^3/uL (2.0-7.7); Basophil# 0.02 X10^3/uL; Basophil% 0.4 % (0-1); Eosinophil# 0.02 X10^3/uL; Eosinophils% 0.4 % (0-5); Hematocrit 34.4 % (37-47); Hemoglobin 11.3 g/dl (12.0-15.0); Lymphocyte # 0.98 X10^3/ul (4.0); Lymphocyte % 17.4 % (19-41); Mean Corp Hgb Conc 32.8 g/gl (32-36); Mean Corpuscular Hgb 28.1 pg (27.0-32.0); Mean Corpuscular Volume 85.6 fL (81-99); Mean Platelet Vol. 8.3 fl (6.2-12.0); Monocyte# 0.41 X10^3/uL; Monocyte% 7.3 % (0-10); Neutrophil # 4.19 X10^3/uL (2.7-7.7); Neutrophil % 74.3 % (47-70); Platelet Count 77 K/mm3 (150-450); RBC Distribution Width CV 22.7 % (11.6-14.6); RBC Distribution Width SD 69.3 fl (35.1-43.9); Red Blood Count 4.02 M/mm3 (4.2-5.4); White Blood Count 5.6 K/mm3 (4.4-11.0)
[2018-09-22 06:41] LABS: Differential Indicated SCAN CRITERIA MET; POSITIVE COUNT NO; POSITIVE DIFFERENTIAL NO; POSITIVE MORPHOLOGY YES
[2018-09-22 06:59] LABS: ALB/GLOB Ratio 0.6 RATIO (0.9-2.4); AST(SGOT) 60 U/L (15-37); Alanine Aminotransfer ALT/SGPT 34 U/L (13-56); Albumin, Serum 2.1 g/dL (3.2-5.0); Alkaline Phosphatase 165 U/L (45-117); Anion Gap 8 (5-15); BUN 31 mg/dL (7-18); BUN/Creat Ratio 17.5 RATIO (10-20); Calcium,Total 9.9 mg/dL (8.5-10.1); Chloride 104 mmol/L (98-107); Creatinine, Serum 1.77 mg/dL (0.55-1.02); EST Glomerular Filtration Rate 30 mL/min (>60); Est Glom Filt Rate - Afr Amer 36 mL/min (>60); Estimated Creatinine Clearance 21.05 ml/min; Globulin 3.6 g/dL (2.2-4.2); Glucose 76 mg/dL (74-106); Potassium 4.9 mmol/L (3.5-5.1); Protein, Total 5.7 g/dL (6.4-8.2); Sodium Level 132 mmol/L (136-145); Thyroid Stim Hormone (TSH) 0.03 uIU/mL (0.358-3.74)
[2018-09-22 07:02] LABS: Anisocytosis 1+; Differential Comment SCAN; Polychromasia 1+
[2018-09-22 07:03] LABS: Hypochromasia 1+; Microcytosis 1+
[2018-09-22 07:04] LABS: Platelet Estimate MOD DEC (ADEQ)
[2018-09-22] MEDS: Metoprolol(XL)Succ 25 MG Tablet PO (09:13)
[2018-09-22] MEDS: Pantoprazole Sodium 20 MG Tablet PO (09:14)
[2018-09-22] MEDS: APIXABAN 2.5 MG TABLET PO ×2 (09:14→21:24)
[2018-09-22] MEDS: Ascorbic Acid 500 MG Tablet PO (09:14)
[2018-09-22] MEDS: Ferrous Gluconate 324 MG Tablet PO (09:14)
[2018-09-22] MEDS: Ceftriaxone 1 GM/50 ML BAG IV (09:19)
--- NOTE | 2018-09-22 12:38 | PN_ITS ---
Patient Problems: Active and Suspected Problems (Last Reviewed 08/20/18 @ 13:15 by Eri Mccrary) Hyponatremia (Acute) Generalized weakness (Acute) Hyperkalemia (Acute) Subjective: The patient is a 78-year-old female with a past medical history of hyperthyroidism, iron deficiency anemia, chronic anticoagulation with apixaban, paroxysmal atrial fibrillation, mitral valve replacement with a bioprosthetic valve, aortic valve replacement with a bioprosthetic valve, cardiomyopathy, chronic renal failure, hypertension, hyperlipidemia, pulmonary hypertension and diverticulosis who presented to the emergency department at [facility] on 09/21/2018 complaining of generalized weakness and shortness of breath. Stated her legs had been swelling for the preceding 3 days. Her daughter related that she had a temperature of 101 ?F on 09/21/2018. Vital signs at presentation to the emergency room were temp 97.7, pulse rate 89, blood pressure 127/82, respiratory rate 18 and she was 98% saturated on room air. White blood cell count was normal at 7.6 with 77% neutrophils. Hemoglobin was 12.8 and the platelet count was low at 111,000. It has been chronically low for the past 2 months. Sodium was low at 123 and the potassium was 5.6. The BUN is 36 and the creatinine is 2.14, up from 1.93 on 08/03/2018. GFR at admission was 24 which is consistent with stage V renal failure. BNP was 232 which in a patient with stage V renal failure is not remarkable. UA had 5-10 WBCs with 1+ bacteria and was nitrite positive. The urine was obtained by straight cath. Preliminary report is positive for presumptive E. coli. Respiratory panel was negative. Chest x-ray showed no infiltrates, pleural effusions or pulmonary vascular congestion. She was admitted to the hospital with a diagnosis of hyponatremia and urinary tract infection with generalized weakness. All events of the past 24 hours of been reviewed. Afebrile since admission. Heart rate and blood pressures are within normal limits. She is 96-98% saturated on room air. All lab was personally reviewed. The white blood cell count remains normal at 5.6 with 74% neutrophils. Hemoglobin is 11.3 with an MCV of 85.6 and an RDW of 22.7. Sodium is 132 today and the BUN is 31 with a creatinine of 1.77. Serum bicarb is mildly decreased at 20. Potassium is 4.9. TSH is 0.03. Echocardiogram in February 2018 showed an ejection fraction of 65%(previously 45%), a moderately dilated right ventricle, mild left atrial enlargement, trivial tricuspid valve insufficiency and a right ventricular systolic pressure of 30. Recent renal ultrasound shows atrophy of the kidneys. She is followed by Dr. Yin. Recent colonoscopy showed internal hemorrhoids. Recent EGD showed gastritis. Ferritin in July 2018 is low at 49 with a low serum iron at 35 and an iron saturation of 11.2%. - Physical Exam General: Alert, Oriented x3, Cooperative, No apparent distress, - - looks fatigued HEENT: Atraumatic, PERRLA, EOMI, Normocephalic Oral: Dry Mucosa Neck: Supple, No JVD Lungs: Clear to auscultation, Diminished Cardiovascular: Regular rate, Regular Rhythm, Normal S1, Normal S2, No rub noted, No Gallop Abdomen: Bowel Sounds Present, Soft, Non Tender, Non-Distended Extremities: Edema - ankles only Skin: No rashes Neurological: Cranial nerves II-XII grossly intact, Neuro grossly intact Psych/Mental Status: Normal Affect, Appropriate Vital Signs Temp Pulse Resp BP Pulse Ox 98.2 F 98 19 H 108/67 97 09/22/18 09:28 09/22/18 09:28 09/22/18 09:28 09/22/18 09:28 09/22/18 09:28 Oxygen Delivery Method Room Air Weight: 154 lb 15.759 oz Body Mass Index (BMI) 28.2 Finger Stick Blood Glucose 99 Intake and Output for Last 24 Hours 09/20/18 09/21/18 09/22/18 23:59 23:59 23:59 Intake Total 71 / 71 1709 / 1709 Balance 71 / 71 1709 / 1709 Microbiology Past 72 Hours 09/21/18 16:00 Urine Culture - Preliminary Urine Catheter - Catheter Presumptive E. coli 09/21/18 19:15 Respiratory Panel (PCR) - Final Mucosa - Nasopharyngeal Laboratory Tests Past 24 Hrs 09/21/18 09/21/18 09/21/18 15:30 15:30 15:30 WBC 7.6 RBC 4.36 Hgb 12.8 Hct 36.8 L MCV 84.4 MCH 29.4 MCHC 34.8 RDW 22.6 H RDW Differential 66.2 H Plt Count 111 L MPV 9.4 Immature Gran % (Auto) 0.500 Neut % (Auto) 76.9 H Lymph % (Auto) 11.9 L [place] % (Auto) 10.1 H Eos % (Auto) 0.3 Baso % (Auto) 0.3 Absolute Neuts (auto) 5.9 Absolute Lymphs (auto) 0.91 Total Counted Not Reportable Differential Comment Platelet Estimate SLT DEC Polychromasia Hypochromasia Anisocytosis 1+ Microcytosis Macrocytosis RARE Sodium 123 L Potassium 5.6 H Chloride 94 L Carbon Dioxide 22.0 Anion Gap 7 BUN 36 H Creatinine 2.14 H Estim Creat Clear Calc 17.41 Est GFR (MDRD) Af Amer 29 L Est GFR (MDRD) Non-Af 24 L BUN/Creatinine Ratio 16.8 Glucose 76 Calcium 10.9 H Magnesium Total Bilirubin AST ALT Alkaline Phosphatase Troponin I 0.019 B-Natriuretic Peptide 232.0 H Total Protein Albumin Globulin Albumin/Globulin Ratio TSH Urine Color Urine Clarity Urine pH Ur Specific [place] Urine Protein Urine Glucose (UA) Urine Ketones Urine Occult Blood Urine Nitrite Urine Bilirubin Urine Urobilinogen Ur Leukocyte Esterase Urine RBC Urine WBC Ur Squamous Epith Cells Urine Bacteria Urine Mucus 09/21/18 09/22/18 09/22/18 16:00 06:10 06:10 WBC 5.6 RBC 4.02 L Hgb 11.3 L Hct 34.4 L MCV 85.6 MCH 28.1 MCHC 32.8 RDW 22.7 H RDW Differential 69.3 H Plt Count 77 L MPV 8.3 Immature Gran % (Auto) 0.200 Neut % (Auto) 74.3 H Lymph % (Auto) 17.4 L [place] % (Auto) 7.3 Eos % (Auto) 0.4 Baso % (Auto) 0.4 Absolute Neuts (auto) 4.2 Absolute Lymphs (auto) 0.98 Total Counted Not Reportable Differential Comment SCAN Platelet Estimate MOD DEC Polychromasia 1+ Hypochromasia 1+ Anisocytosis 1+ Microcytosis 1+ Macrocytosis Sodium 132 L Potassium 4.9 Chloride 104 Carbon Dioxide 20.0 L Anion Gap 8 BUN 31 H Creatinine 1.77 H Estim Creat Clear Calc 21.05 Est GFR (MDRD) Af Amer 36 L Est GFR (MDRD) Non-Af 30 L BUN/Creatinine Ratio 17.5 Glucose 76 Calcium 9.9 Magnesium 2.0 Total Bilirubin 0.70 AST 60 H ALT 34 Alkaline Phosphatase 165 H Troponin I B-Natriuretic Peptide Total Protein 5.7 L Albumin 2.1 L Globulin 3.6 Albumin/Globulin Ratio 0.6 L TSH 0.03 L Urine Color Yellow Urine Clarity Clear Urine pH 6.0 Ur Specific [place] 1.010 Urine Protein Negative Urine Glucose (UA) Normal Urine Ketones Negative Urine Occult Blood 10 H Urine Nitrite Positive H Urine Bilirubin Negative Urine Urobilinogen Normal Ur Leukocyte Esterase 500 H Urine RBC 0 SEEN Urine WBC 5-10 SEEN Ur Squamous Epith Cells 0 SEEN Urine Bacteria 1+ Urine Mucus 0 SEEN Medical Necessity - Tobacco Use Smoking Status: Never smoker Assessment/Plan All Active Problems (Last Reviewed 08/20/18 @ 13:15 by Eri Mccrary) Hyponatremia (Acute) Generalized weakness (Acute) Hyperkalemia (Acute) Pancytopenia (Acute) GI bleed (Acute) Supratherapeutic INR (Acute) Acute blood loss anemia (Acute) Impressions 1. UTI 2. Hyponatremia 3. Hyperkalemia 4. Hyperthyroidism-not adequately suppressed with Tapazole 5. Chronic anticoagulation with apixaban 6. Paroxysmal atrial fibrillation 7. Status post mitral valve replacement with a bioprosthetic valve and aortic valve replacement with bioprosthetic valve 8. Chronic renal failure stage 4 9. Hypertension 10. Hyperlipidemia 11. Pulmonary hypertension 12. Diverticulosis Check T3 and T4 - suspect she needs increased dose of Methimazole recheck lab in the AM Continue Rocephin and await the results of the culture looking better today.....appetite is picking up Code Visit Inpatient E&M: 70480 Subs Hosp L2
[2018-09-22 13:23] LABS: T4 Free Direct 4.42 ng/dL (0.76-1.46)
--- NOTE | 2018-09-22 13:55 | CASEMGMT ---
JEAN MEDRANO Face to Face with patient for initial transition planning/care coordination assessment. JEAN MEDRANO introduced self and role at [facility]. Patient lying in bed, alert and oriented. Patient willing to participate in assessment and is able to answer all questions appropriately. Care providers, pharmacy, and demographics verified. Patient wishes to discharge home with resumption of HHC through [facility]. Patient states she has no further needs or concerns at this time. CM to follow for discharge planning needs that may arise. PCP: [facility] Specialists: [facility] Preferred Pharmacy: [facility] Insurance: Matias ARSHAD Prescription Benefit: yes Living Will/HPOA: yes daughterKat LNOK: Daughter Living Arrangements: Patient lives with daughter in 1 story home with ramp to enter the home. Patient states she is independent with self care. Transportation: Daughter DME/HHC: Patient has tub bench, BSC, hip kit, walker, rollator at home. Patient states she is current with [facility] for senior care, PT, OT. JEAN MEDRANO called Lemuel at [facility] to confirm service. Disposition Plan: Patient to discharge home with resumption of HHC, family support, and follow-up plans in place. Mecca GARCIAS, RN, CM
[2018-09-22] MEDS: Atorvastatin Calcium 20 MG Tablet PO (21:24)
[2018-09-23] VITALS (13 sets, daily range): BP systolic 98–138; BP diastolic 59–80; PULSE 77–99; RESP 16–18; TEMP 36.4–37.2; O2SAT 95–99
[2018-09-23] MEDS: Methimazole 5 MG Tablet PO (05:50)
--- NOTE | 2018-09-23 08:04 | PCM.PROGNOTE ---
Patient Problems: Active and Suspected Problems (Last Reviewed 08/20/18 @ 13:15 by Eri Mccrary) Hyponatremia (Acute) Generalized weakness (Acute) Hyperkalemia (Acute) Subjective: All events of the past 24 hours been reviewed. She is afebrile. Vital signs are stable. Pulse ox is 95-97% on room air. Adequate oral intake. All lab was personally reviewed. Free T4 and free T3 are both still elevated at 4.42 and 4.0 respectively. The upper limits of normal for T4 is 1.46. Objective: - Physical Exam General: Alert, Oriented x3, Cooperative, No apparent distress, back to her baseline today and wanting to go home. HEENT: Atraumatic, PERRLA, EOMI, Normocephalic Oral: Dry Mucosa Neck: Supple, No JVD Lungs: Clear to auscultation, Diminished Cardiovascular: Regular rate, Regular Rhythm, Normal S1, Normal S2, No rub noted, No Gallop Abdomen: Bowel Sounds Present, Soft, Non Tender, Non-Distended Extremities: Edema - ankles only Skin: No rashes Neurological: Cranial nerves II-XII grossly intact, Neuro grossly intact Psych/Mental Status: Normal Affect, Appropriate - Physical Exam Vital Signs Temp Pulse Resp BP Pulse Ox 98.9 F 81 16 103/60 95 09/23/18 03:00 09/23/18 07:35 09/23/18 03:00 09/23/18 03:00 09/23/18 07:21 Oxygen Delivery Method Room Air Weight: 156 lb 15.506 oz Body Mass Index (BMI) 28.2 Finger Stick Blood Glucose 99 Intake and Output for Last 24 Hours 09/21/18 09/22/18 09/23/18 23:59 23:59 23:59 Intake Total 3018 / 3018 350 / 350 Output Total 250 / 250 Balance 3018 / 3018 100 / 100 Microbiology Past 72 Hours 09/21/18 16:00 Urine Culture - Preliminary Urine Catheter - Catheter Presumptive E. coli 09/21/18 19:15 Respiratory Panel (PCR) - Final Mucosa - Nasopharyngeal Laboratory Tests Past 24 Hrs 09/22/18 06:10 Free T4 4.42 H Free T3 pg/dL 4.0 H Medical Necessity - Tobacco Use Smoking Status: Never smoker Assessment/Plan All Active Problems (Last Reviewed 08/20/18 @ 13:15 by Eri Mccrary) Hyponatremia (Acute) Generalized weakness (Acute) Hyperkalemia (Acute) Pancytopenia (Acute) GI bleed (Acute) Supratherapeutic INR (Acute) Acute blood loss anemia (Acute) Impressions 1. UTI 2. Hyponatremia 3. Hyperkalemia 4. Hyperthyroidism-not adequately suppressed with Tapazole 5. Chronic anticoagulation with apixaban 6. Paroxysmal atrial fibrillation 7. Status post mitral valve replacement with a bioprosthetic valve and aortic valve replacement with bioprosthetic valve 8. Chronic renal failure stage 4 9. Hypertension 10. Hyperlipidemia 11. Pulmonary hypertension 12. Diverticulosis Increase methimazole to 10 mg p.o. every 8 hours and recheck T4 and T3 in 1 week. Recheck lab in the a.m. Probable DC in the AM Encouraged her to get up and walk in the halls Code Visit Inpatient E&M: 16319 Subs Hosp L2
[2018-09-23] MEDS: Ferrous Gluconate 324 MG Tablet PO (09:04)
[2018-09-23] MEDS: APIXABAN 2.5 MG TABLET PO ×2 (09:04→21:14)
[2018-09-23] MEDS: Ascorbic Acid 500 MG Tablet PO (09:04)
[2018-09-23] MEDS: Pantoprazole Sodium 20 MG Tablet PO (09:09)
--- NOTE | 2018-09-23 09:12 | PCA ---
RN IN WITH PT
[2018-09-23] MEDS: Ceftriaxone 1 GM/50 ML BAG IV (10:18)
[2018-09-23] MEDS: Metoprolol(XL)Succ 25 MG Tablet PO (10:19)
[2018-09-23] MEDS: guaiFENesin 10 ML UDC (200MG/10ML) PO (11:55)
[2018-09-23] MEDS: Methimazole 5 MG Tablet 10 MG PO ×2 (14:19→21:14)
--- NOTE | 2018-09-23 14:32 | NURSING ---
agree with assessment and findings by kulwinder dong
[2018-09-23] MEDS: Atorvastatin Calcium 20 MG Tablet PO (21:14)
[2018-09-24 00:03] VITALS: PULSE 83
[2018-09-24 02:10] VITALS: BP 104/57; PULSE 90; RESP 18; TEMP 36.8; O2SAT 96
[2018-09-24 06:00] VITALS: PULSE 91
[2018-09-24] MEDS: Methimazole 5 MG Tablet 10 MG PO (06:07)
[2018-09-24 06:17] LABS: Hematocrit 31.5 % (37-47); Hemoglobin 10.4 g/dl (12.0-15.0); Mean Corpuscular Hgb 28.6 pg (27.0-32.0); Mean Corpuscular Volume 86.5 fL (81-99); Mean Platelet Vol. 8.8 fl (6.2-12.0); Platelet Count 77 K/mm3 (150-450); RBC Distribution Width CV 22.8 % (11.6-14.6); RBC Distribution Width SD 67.4 fl (35.1-43.9); Red Blood Count 3.64 M/mm3 (4.2-5.4); White Blood Count 4.5 K/mm3 (4.4-11.0)
[2018-09-24 06:19] LABS: Scan Indicated on CBC? Y/N YES- FLAGS NOTED
[2018-09-24 06:25] LABS: Anion Gap 7 (5-15); BUN 27 mg/dL (7-18); BUN/Creat Ratio 15.3 RATIO (10-20); Calcium,Total 9.9 mg/dL (8.5-10.1); Chloride 105 mmol/L (98-107); Creatinine, Serum 1.77 mg/dL (0.55-1.02); EST Glomerular Filtration Rate 30 mL/min (>60); Est Glom Filt Rate - Afr Amer 36 mL/min (>60); Estimated Creatinine Clearance 21.05 ml/min; Glucose 87 mg/dL (74-106); Magnesium 2.1 mg/dL (1.6-2.6); Phosphorus 2.9 mg/dL (2.5-4.9); Potassium 4.4 mmol/L (3.5-5.1); Sodium Level 133 mmol/L (136-145)
[2018-09-24 07:02] LABS: Differential Comment SCAN
--- NOTE | 2018-09-24 07:22 | DCINST_ITS ---
- Discharge Diagnoses Current Active Problems: Current Active and Chronic Problems (Last Reviewed 08/20/18 @ 13:15 by Eri Mccrary) Hyponatremia (Acute) Generalized weakness (Acute) Hyperkalemia (Acute) Hyperthyroidism (Chronic) You will use the following diet at home:: Other - Resume previous diet Your food should be the consistency of: Regular Your liquids should be the consistency of: Regular/Thin Discharge Activity: Return to Normal Activity Call your doctor if you observe: Fever of 101 or Higher, Inability to urinate, Shortness of breath, Dizziness, Fainting spells, Swelling in the ankles, Chest pain, Increased palpitations (irregular heartbeat), - - Call your PCP if severe diarrhea ( > 5 stools a day), painful sores in the mouth, painful swallowing, rash or itching. Taking a probiotic such as Lactobacillus or Kefir can help with loose stools while taking antibiotics. Additional Instructions: 1. The thyroid is still overactive. I have increased the Methimazole to 10 mg threee times a day. You should have your doctor recheck a thyroid profile in 6 weeks. 2. You had a urinary tract infection. I am sending you home on an antibitoic called [facility] and you will take it twice a day until gone. 3. I stopped the potassium supplement because your potassium was too high. When you see your doctor in 7-10 days you should have the kidney function and the potassium rechecked. 4. It is OK to drink 3 bottles of water a day so continue doing what you were doing. You had a fever at admission that causes you to lose water and you were sick so you were not drinking or eating much and this is why the sodium dropped. Pending Tests on Discharge: none Allergies/Adverse Reactions: Allergies aspartame [From Nutrasweet Aspartame] Allergy (Verified 08/20/18 13:22) Hives Medications to take at Discharge Acetaminophen [Tylenol] 1,000 mg PO DAILY 07/19/18 Cholecalciferol (Vitamin D3) [Vitamin D3] 5,000 unit PO DAILY 07/19/18 Docusate Sodium [Colace] 100 mg PO DAILY PRN 07/19/18 Omeprazole 20 mg PO DAILY 07/19/18 Apixaban [Eliquis] 2.5 mg PO BID #60 tab 07/23/18 Ascorbic Acid [Vitamin C] 500 mg PO DAILY #30 tab.chew 07/23/18 Ferrous Gluconate 324 mg PO DAILY #30 tab 07/23/18 Metolazone [Zaroxolyn] 5 mg PO DAILY #30 tab 08/03/18 Metoprolol Succinate 25 mg PO DAILY #30 tab.er.24h 08/03/18 spironolactone 25 mg tablet 25 mg PO DAILY 08/20/18 Atorvastatin Calcium [Lipitor] 20 mg PO QHS 09/21/18 Cefadroxil Hydrate [Duricef] 500 mg PO BID #14 capsule 09/24/18 Methimazole 10 mg PO TID #90 tablet 09/24/18 The following prescriptions were given: Cefadroxil Hydrate [Duricef] 500 mg PO BID #14 capsule Methimazole 10 mg PO TID #90 tablet Primary Care Physician: Hermann Nath DO [Primary Care Provider] - Test Results: Test results from this visit will be discussed in further detail at your follow- up appointment, if applicable. Please Follow Up With: Hermann Nath DO When: 2 WEEKS has appt for the Please Follow Up With: Stanley Yin MD When: as previously arranged Proposed Discharge Date: 09/24/18
--- NOTE | 2018-09-24 08:22 | DS.PCM_ITS ---
Discharge Date and Diagnosis - Problem List Patient Problems: Active and Suspected Problems (Last Updated 09/24/18 @ 07:18 by Diogo Zavala DO) UTI (urinary tract infection) (Acute) Hyponatremia (Acute) Generalized weakness (Acute) Hyperkalemia (Acute) Date of Admission: 09/21/18 Date of Discharge: 09/24/18 - Primary Discharge Diagnosis Active and Suspected Problems (Last Updated 09/24/18 @ 07:18 by Diogo Zavala DO) UTI (urinary tract infection) (Acute) due to E. 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) Hyperthyroidism (Chronic) Iron deficiency anemia (Chronic) On amiodarone therapy (Chronic) H/O mitral valve replacement (Chronic 01/28/17) with 27 mm bioprosthetic heart valve @ [facility] H/O aortic valve replacement (Chronic 01/28/17) with 21 mm bioprosthetic heart valve, ligation of Lt atrial appendage @ [facility] Cardiomyopathy in disease classified elsewhere (Chronic) Nonrheumatic mitral (valve) insufficiency (Chronic) Nonrheumatic aortic (valve) insufficiency (Chronic) HTN (hypertension) (Chronic) HLD (hyperlipidemia) (Chronic) Anticoagulant long-term use (Chronic)- Apixaban Paroxysmal atrial fibrillation (Chronic) Pulmonary hypertension (Chronic) Mitral stenosis (Chronic) Aortic insufficiency (Chronic) CHF (congestive heart failure) (Chronic)- diastolic, EF 65% in Feb Mitral regurgitation (Chronic) Hospital Course and Treatment Imaging Results: Clinical Impression(s) from Imaging Studies Chest X-Ray 09/21/18 15:45 IMPRESSION: Postsurgical changes. No evidence of acute failure. There is improved lung excursion when compared to the prior exam. Electronically Signed: Rosemary Prince MD at 16:29 EDT , Service support , Laboratory Results - last 24 hr 09/24/18 09/24/18 05:42 05:42 WBC 4.5 RBC 3.64 L Hgb 10.4 L Hct 31.5 L MCV 86.5 MCH 28.6 MCHC 33.0 RDW 22.8 H RDW Differential 67.4 H Plt Count 77 L MPV 8.8 Differential Comment SCAN Sodium 133 L Potassium 4.4 Chloride 105 Carbon Dioxide 21.0 Anion Gap 7 BUN 27 H Creatinine 1.77 H Estim Creat Clear Calc 21.05 Est GFR (MDRD) Af Amer 36 L Est GFR (MDRD) Non-Af 30 L BUN/Creatinine Ratio 15.3 Glucose 87 Calcium 9.9 Phosphorus 2.9 Magnesium 2.1 Microbiology 09/21/18 16:00 Urine Catheter - Catheter Urine Culture - Final Presumptive E. coli 09/21/18 19:15 Mucosa - Nasopharyngeal Respiratory Panel (PCR) - Final none Operations: None Procedures: None Summary of Care Provided: The patient is a 78-year-old female with a past medical history of hyperthyroidism, iron deficiency anemia, chronic anticoagulation with apixaban, paroxysmal atrial fibrillation, mitral valve replacement with a bioprosthetic valve, aortic valve replacement with a bioprosthetic valve, cardiomyopathy, chronic renal failure, hypertension, hyperlipidemia, pulmonary hypertension and diverticulosis who presented to the emergency department at [facility] on 09/21/2018 complaining of generalized weakness and shortness of breath. She stated her legs had been swelling for the preceding 3 days. Her daughter related that she had a temperature of 101 ?F on 09/21/2018. Vital signs at presentation to the emergency room were temp 97.7, pulse rate 89, blood pressure 127/82, respiratory rate 18 and she was 98% saturated on room air. White blood cell count was normal at 7.6 with 77% neutrophils. Hemoglobin was 12.8 and the platelet count was low at 111,000. It has been chronically low for the past 2 months and this may be due to Methimazole. Sodium was low at 123 and the potassium was 5.6. The BUN was 36 and the creatinine is 2.14, up from 1.93 on 08/03/2018. GFR at admission was 24 which is consistent with stage V renal failure. BNP was 232 which in a patient with stage V renal failure is not remarkable. UA had 5-10 WBCs with 1+ bacteria and was nitrite positive. The urine was obtained by straight cath. Culture was positive for E. coli. Respiratory panel was negative. Chest x-ray showed no infiltrates, pleural effusions or pulmonary vascular congestion. She was admitted to the hospital with a diagnosis of hyponatremia and urinary tract infection with generalized weakness. She was maintained on Rocephin. She was hydrated gently. Fevers resolved with Rocephin and the sodium came up to the low 130's. Her appetite improved and so did the creatine. At DC the creatinine is 1.77. TSH was checked and is still low at 0.03. T4 was increased at 4.42 and the T3 is also increased at 4.0. Highest normal for T4 is 1.46 and the highest no rmal value for T3 is 3.98. She was not tachycardic and the blood pressure is well controlled but the hyperthyroidism is not adequately controlled and this contributes to bone loss. With him as always increase to 10 mg p.o. 3 times daily. She should have a repeat TSH, T4 and T3 in 4-6 weeks. Would also consider referral to an chemical operator. On the date of discharge she was back to baseline and had a good appetite and intake. The sodium was 133 and potassium was 4.4. Potassium was discontinued at admission to the hospital due to hyperkalemia. BUN and creatinine at discharge were 27 and 1.77 respectively. Platelets are stable at 77,000 and the hemoglobin was 10.4 with a normal white blood cell count. She was discharged home on Duricef 500 mg twice daily for an additional 5 days. She was given a prescription for methimazole 10 mg tablets and instructed to take 1 p.o. 3 times daily. She has an appointment with Dr. Nath on October 12. She also has a follow-up appointment with Dr. Yin in November. - Physical Exam General: Alert, Oriented x3, Cooperative, No apparent distress, back to her baseline today and wanting to go home. Ate all of her breakfast today. HEENT: Atraumatic, PERRLA, EOMI, Normocephalic Oral: Dry Mucosa Neck: Supple, No JVD Lungs: Clear to auscultation, Diminished Cardiovascular: Regular rate, Regular Rhythm, Normal S1, Normal S2, No rub noted, No Gallop Abdomen: Bowel Sounds Present, Soft, Non Tender, Non-Distended Extremities: Edema - ankles only Skin: No rashes Neurological: Cranial nerves II-XII grossly intact, Neuro grossly intact Psych/Mental Status: Normal Affect, Appropriate This note was generated with [employer] dictation software. It may contain incorrect words, spelling, and punctuation that were not noted in checking the note before signing. Patient Problems: Active and Suspected Problems (Last Updated 09/24/18 @ 07:18 by Diogo Zavala DO) UTI (urinary tract infection) (Acute) Hyponatremia (Acute) Generalized weakness (Acute) Hyperkalemia (Acute) - Physical Exam Vital Signs Temp Pulse Resp BP Pulse Ox 98.2 F 91 18 104/57 L 96 09/24/18 02:10 09/24/18 06:00 09/24/18 02:10 09/24/18 02:10 09/24/18 02:10 Oxygen Delivery Method Room Air Weight: 158 lb 4.67 oz Body Mass Index (BMI) 28.2 Finger Stick Blood Glucose 99 Intake and Output for Last 24 Hours 09/22/18 09/23/18 09/24/18 23:59 23:59 23:59 Intake Total 3018 / 3018 653.1 / 653.1 300 / 300 Output Total 350 / 350 250 / 250 Balance 3018 / 3018 303.1 / 303.1 50 / 50 Microbiology Past 72 Hours 09/21/18 16:00 Urine Culture - Final Urine Catheter - Catheter Presumptive E. coli 09/21/18 19:15 Respiratory Panel (PCR) - Final Mucosa - Nasopharyngeal Laboratory Tests Past 24 Hrs 09/24/18 09/24/18 05:42 05:42 WBC 4.5 RBC 3.64 L Hgb 10.4 L Hct 31.5 L MCV 86.5 MCH 28.6 MCHC 33.0 RDW 22.8 H RDW Differential 67.4 H Plt Count 77 L MPV 8.8 Differential Comment SCAN Sodium 133 L Potassium 4.4 Chloride 105 Carbon Dioxide 21.0 Anion Gap 7 BUN 27 H Creatinine 1.77 H Estim Creat Clear Calc 21.05 Est GFR (MDRD) Af Amer 36 L Est GFR (MDRD) Non-Af 30 L BUN/Creatinine Ratio 15.3 Glucose 87 Calcium 9.9 Phosphorus 2.9 Magnesium 2.1 Discharge Activity: Return to Normal Activity Call your doctor if you observe: Fever of 101 or Higher, Inability to urinate, Shortness of breath, Dizziness, Fainting spells, Swelling in the ankles, Chest pain, Increased palpitations (irregular heartbeat), - - Call your PCP if severe diarrhea ( > 5 stools a day), painful sores in the mouth, painful swallowing, rash or itching. Taking a probiotic such as Lactobacillus or Kefir can help with loose stools while taking antibiotics. Home Medications: Medications to take at Discharge Acetaminophen [Tylenol] 1,000 mg PO DAILY 07/19/18 Cholecalciferol (Vitamin D3) [Vitamin D3] 5,000 unit PO DAILY 07/19/18 Docusate Sodium [Colace] 100 mg PO DAILY PRN 07/19/18 Omeprazole 20 mg PO DAILY 07/19/18 Apixaban [Eliquis] 2.5 mg PO BID #60 tab 07/23/18 Ascorbic Acid [Vitamin C] 500 mg PO DAILY #30 tab.chew 07/23/18 Ferrous Gluconate 324 mg PO DAILY #30 tab 07/23/18 Metolazone [Zaroxolyn] 5 mg PO DAILY #30 tab 08/03/18 Metoprolol Succinate 25 mg PO DAILY #30 tab.er.24h 08/03/18 spironolactone 25 mg tablet 25 mg PO DAILY 08/20/18 Atorvastatin Calcium [Lipitor] 20 mg PO QHS 09/21/18 Cefadroxil Hydrate [Duricef] 500 mg PO BID #14 capsule 09/24/18 Methimazole 10 mg PO TID #90 tablet 09/24/18 Following Prescrptions Were Given to Patient: Cefadroxil Hydrate [Duricef] 500 mg PO BID #14 capsule Methimazole 10 mg PO TID #90 tablet Primary Care Physician: Hermann Nath DO [Primary Care Provider] - Please follow up with your Primary Care Physician in: 7-10 days Please Follow Up With: Hermann Nath DO When: 2 WEEKS has appt for the Please Follow Up With: Stanley Yin MD When: as previously arranged Minutes spent on discharge:: 35 Patient Condition:: Good Medical Necessity - Tobacco Use Smoking Status: Never smoker Tobacco Use: Non-smoker Meaningful Use Info Meaningful Use Diagnoses (Choose all that apply): None applicable Code Visit Inpatient E&M: 57921 Disch Hosp
[2018-09-24 09:00] VITALS: BP 104/60; PULSE 81; RESP 16; TEMP 36.4; O2SAT 100
[2018-09-24] MEDS: Ferrous Gluconate 324 MG Tablet PO (09:02)
[2018-09-24 09:04] VITALS: PULSE 81
[2018-09-24] MEDS: Pantoprazole Sodium 20 MG Tablet PO (09:04)
[2018-09-24] MEDS: Metoprolol(XL)Succ 25 MG Tablet PO (09:04)
[2018-09-24] MEDS: APIXABAN 2.5 MG TABLET PO (09:04)
[2018-09-24] MEDS: 0.9% NaCl Peripheral Flush Adult/Peds IV (09:11)
[2018-09-24] MEDS: Ceftriaxone 1 GM/50 ML BAG IV (09:11)
[2018-09-24] MEDS: Ascorbic Acid 500 MG Tablet PO (09:11)
[2018-09-24 09:47] VITALS: PULSE 86
--- NOTE | 2018-09-24 10:47 | NURSING ---
SKIN W&D, NO PEDAL EDEMA NOTED, LUNGS CLEAR BILATERALLY, SL DIM IN BASES, COLOR SL. PALE, PT A&O X3
--- NOTE | 2018-09-28 15:30 | CASEMGMT ---
JEAN MEDRANO Discharge Follow-Up Phone Call. Lace: 13 Strata: 4 Discharge Date: 09/24/18 Adm Dx: Generalized weakness, hyponatremia Attempted discharge follow-up phone call. No answer. Message left for pt to return call to MS3 RN MITCHELL, Mecca, if she has any questions/concerns about discharge instructions, medications, or appts. Phone number provided. Maria L GARCIAS RN, CM
== END 2018-09-24 10:05 | disposition home or self-care (01) | DRG 690 ==
LOC: ED 15:37 → MS3 17:27
PROVIDERS: Admitting Provider Internal Medicine; Emergency Provider Emergency Medicine; Family Provider Family Medicine; PCP Family Medicine; Visit Provider Internal Medicine
DX: N39.0 Urinary tract infection, site not specified (principal); E87.1 Hypo-osmolality and hyponatremia; I13.0 Hypertensive heart and chronic kidney disease with heart failure and stage 1 through stage 4 chronic kidney disease, or unspecified chronic kidney disease; I50.32 Chronic diastolic (congestive) heart failure; I42.9 Cardiomyopathy, unspecified; N18.4 Chronic kidney disease, stage 4 (severe); B96.20 Unspecified Escherichia coli [E. coli] as the cause of diseases classified elsewhere; E87.5 Hyperkalemia; E05.90 Thyrotoxicosis, unspecified without thyrotoxic crisis or storm; D69.6 Thrombocytopenia, unspecified; E78.5 Hyperlipidemia, unspecified; I27.20 Pulmonary hypertension, unspecified; I34.0 Nonrheumatic mitral (valve) insufficiency; I48.0 Paroxysmal atrial fibrillation; I35.1 Nonrheumatic aortic (valve) insufficiency; Z95.3 Presence of xenogenic heart valve; Z79.01 Long term (current) use of anticoagulants; K57.90 Diverticulosis of intestine, part unspecified, without perforation or abscess without bleeding; D50.9 Iron deficiency anemia, unspecified
CPT/HCPCS: 36415; 71046; 80048; 80053; 81001; 83735; 83880; 84100; 84439; 84443; 84481; 84484; 85025; 85027; 87086; 87088; 87186; 87633; 93005; 97116; 97161; 97166; 97530; 99285; J7030; P9612; A4216

== ENCOUNTER 2018-10-02 19:11 | Emergency (ER) | payer MEDICARE, OTHER, SELFPAY ==
[2018-09-21 17:41] VITALS: BMI 28.2
[2018-10-02 19:12] VITALS: BP 127/73; PULSE 88; RESP 18; TEMP 36.6; O2SAT 98; BMI 28.7
[2018-10-02 19:52] VITALS: BP 111/59; PULSE 84; RESP 22; O2SAT 100
--- NOTE | 2018-10-02 19:58 | EKG12_ITS ---
Test Reason : WEAKNESS Blood Pressure : / mmHG Vent. Rate : 080 BPM Atrial Rate : 080 BPM P-R Int : 200 ms QRS Dur : 102 ms QT Int : 408 ms P-R-T Axes : 047 -06 060 degrees QTc Int : 470 ms Normal sinus rhythm Poor R-Wave Progression Confirmed by KATIE PONCE, TREASURE ([id number]), editorial director ASHLEY GILBERT ([id number]) on 10/06/2018 1:18:27 PM Referred By: BRET Confirmed By:TREASURE WILSON MD
[2018-10-02 20:09] LABS: Absolute Lymphocyte Count 0.59 X10^3/ul (0.83-4.51); Absolute Neutrophil Count 1.7 X10^3/uL (2.0-7.7); Basophil# 0.02 X10^3/uL; Basophil% 0.6 % (0-1); Eosinophil# 0.02 X10^3/uL; Eosinophils% 0.6 % (0-5); Hematocrit 32.6 % (37-47); Hemoglobin 11.2 g/dl (12.0-15.0); Lymphocyte # 0.59 X10^3/ul (4.0); Mean Corp Hgb Conc 34.4 g/gl (32-36); Mean Corpuscular Hgb 28.9 pg (27.0-32.0); Mean Corpuscular Volume 84.2 fL (81-99); Mean Platelet Vol. 8.7 fl (6.2-12.0); Monocyte# 0.74 X10^3/uL; Monocyte% 23.9 % (0-10); Neutrophil # 1.73 X10^3/uL (2.7-7.7); Neutrophil % 55.9 % (47-70); Platelet Count 72 K/mm3 (150-450); RBC Distribution Width CV 20.6 % (11.6-14.6); RBC Distribution Width SD 63.1 fl (35.1-43.9); Red Blood Count 3.87 M/mm3 (4.2-5.4); White Blood Count 3.1 K/mm3 (4.4-11.0)
--- NOTE | 2018-10-02 20:10 | RAD_ITS ---
STUDY: X-RAY CHEST REASON FOR EXAM: Female, 78 years old. Weeks TECHNIQUE: Frontal view of the chest COMPARISON: 09/21/2018 FINDINGS: The lungs are clear. There are no pleural effusions. There is no pneumothorax. The heart is normal in size. There are stable postsurgical changes from a prior sternotomy. RAD/Chest PA and Lateral IMPRESSION: No acute thoracic pathology. Electronically Signed: Cheo Foote, at 20:45 EDT Tel , Service support ,
[2018-10-02 20:19] LABS: Differential Indicated SCAN CRITERIA MET; POSITIVE COUNT NO; POSITIVE DIFFERENTIAL YES; POSITIVE MORPHOLOGY YES
[2018-10-02 20:26] LABS: Anisocytosis 1+; BUN 19 mg/dL (7-18); Creatinine, Serum 1.48 mg/dL (0.55-1.02); Estimated Creatinine Clearance 25.18 ml/min; Glucose 100 mg/dL (74-106); Microcytosis RARE; Ovalocyte RARE; Platelet Estimate MOD DEC (ADEQ)
[2018-10-02 20:27] LABS: Anion Gap 8 (5-15); BUN/Creat Ratio 12.8 RATIO (10-20); Calcium,Total 8.9 mg/dL (8.5-10.1); Chloride 92 mmol/L (98-107); EST Glomerular Filtration Rate 36 mL/min (>60); Est Glom Filt Rate - Afr Amer 44 mL/min (>60); Potassium 4.4 mmol/L (3.5-5.1); Sodium Level 123 mmol/L (136-145); Thyroid Stim Hormone (TSH) < 0.01 uIU/mL (0.358-3.74)
[2018-10-02 20:32] LABS: Bacteria 0 SEEN /hpf (None Seen); Mucous, Urine 0 SEEN /hpf (<or=2+); Squamous Epithelial Cells - UA 0 SEEN /hpf (5-10)
[2018-10-02 20:34] LABS: Color, Urine Yellow (Yellow); Glucose, Dipstick Normal (Normal); Ketone-Dipstick Negative (Negative); Leukocyte Esterase-Dipstick Negative /ul (Negative); Nitrite-Dipstick Negative (Negative); Occult Blood-Urine Negative /ul (Negative); Protein-Dipstick Negative (Negative); Specific Gravity, Urine 1.015 (1.002-1.030); Urine Bilirubin Dipstick Negative (Negative); Urine Clarity Clear (Clear); Urine Urobilinogen Normal (Normal)
--- NOTE | 2018-10-02 20:42 | ED.DCSUM_ITS ---
- ER Visit Summary Date of Service: 10/02/18 Chief Complaint: Weakness History of Present Illness: The patient is a 78 F who presents with generalized weakness that has been getting worse over the past 3 days. Patient admits to decreased appetite. Patient admits to nausea but denies any vomiting. Patient admits to a cough but denies any sputum production. Patient denies any fevers or chills. Patient recently had her thyroid medication adjusted. Patient denies any chest pain. Physical Examination: Vital signs are stable. Patient is afebrile. Patient is in no acute distress. Oral mucosa is pink and moist. Neck is supple. Trachea is midline. There is no JVD noted. Heart was regular rate and rhythm. Lungs are clear and equal bilateral. Abdomen is soft. Bowel sounds are normal. There is no tenderness. There is no guarding noted. Skin is warm dry. Cranial nerves II through XII are intact. There are no focal motor or sensory deficits noted. The remaining physical exam is within normal limits. Test Results: EKG showed normal sinus rhythm with a rate of 80. There are no acute ST or T wave changes. This is unchanged compared to previous EKG dated 09/21/2018. PA and lateral chest x-ray was obtained and does not show any acute cardiopulmonary process. CBC showed a mild anemia with a hemoglobin 11.2 and hematocrit 32.6. Platelets were slightly low at 72. Basic metabolic profile showed a mild hyponatremia of 123 and a chloride of 92. Creatinine is 1.48. This was unchanged compared to previous results. Urinalysis was normal. Troponin was normal. TSH was less than 0.01. Emergency Department Course and Treatment: Patient and family were advised of her lab results. Patient was instructed to follow-up with her primary care physician in 3-5 days. Patient and family were instructed to return if worse in any way. Patient and family understood and were agreeable with the plan. All questions were answered. Disposition: Discharge home Impression: Weakness This note was generated with [employer] dictation software. It may contain incorrect words, spelling, and punctuation that were not noted in review of the chart prior to signing ED Disposition - Plan for ED Patient: Disposition: Home or Assisted Living Diagnosis: Weakness, Hyponatremia Instructions: ED Weakness [facility] Referrals: Hermann Nath DO [Primary Care Provider] - 3-5 Days Additional Instructions: Your sodium was slightly low. You may increase your salt intake to help with this. Your other electrolytes were all normal. You do not have a urinary tract infection.
[2018-10-02 20:50] LABS: Renal Epithelial Cells 0-5 SEEN /hpf (0-5)
[2018-10-02 20:56] LABS: Hyaline Cast 0-5 SEEN /lpf (0-5); Red Blood Cells-Urine 0-5 SEEN /hpf (0-5); White Blood Cells 0-5 SEEN /hpf (0-5)
[2018-10-02 21:49] VITALS: BP 119/73; PULSE 85; RESP 20; O2SAT 98
[2018-10-02 23:09] VITALS: BP 124/79; PULSE 91; RESP 22; O2SAT 97
--- NOTE | 2018-10-02 23:09 | ED.RN ---
THIS NURSE REVIEWED D/C INSTRUCTIONS WITH PT AND DAUGHTER. BOTH VERBALIZED UNDERSTANDING OF INSTRUCTIONS. IV D/C. IV CATHETER INTACT. PT ASSISTED IN GETTING DRESSED. PT ASSISTED TO VEHICLE VIA W/C. PT DENIES FURTHER NEEDS OR QUESTIONS AT THIS TIME
== END 2018-10-02 23:12 | disposition home or self-care (01) ==
PROVIDERS: Emergency Provider Emergency Medicine; Family Provider Family Medicine; PCP Family Medicine
DX: R53.1 Weakness (principal); R05 Cough; E87.1 Hypo-osmolality and hyponatremia; I10 Essential (primary) hypertension; Z95.2 Presence of prosthetic heart valve
CPT/HCPCS: 71046; 80048; 81001; 84443; 84484; 85025; 93005; 99285; P9612; A4216

== ENCOUNTER 2018-10-04 18:37 | Emergency (ER) | payer MEDICARE, OTHER, SELFPAY ==
[2018-10-04 18:41] VITALS: BP 124/71; PULSE 84; RESP 18; TEMP 36.5; O2SAT 98; BMI 28.0
[2018-10-04 19:33] LABS: Absolute Lymphocyte Count 0.65 X10^3/ul (0.83-4.51); Absolute Neutrophil Count 0.9 X10^3/uL (2.0-7.7); Basophil# 0.02 X10^3/uL; Basophil% 0.9 % (0-1); Differential Indicated SCAN CRITERIA MET; Hematocrit 31.6 % (37-47); Hemoglobin 10.9 g/dl (12.0-15.0); Lymphocyte # 0.65 X10^3/ul (4.0); Lymphocyte % 30.1 % (19-41); Mean Corp Hgb Conc 34.5 g/gl (32-36); Mean Corpuscular Hgb 29.2 pg (27.0-32.0); Mean Corpuscular Volume 84.7 fL (81-99); Mean Platelet Vol. 8.1 fl (6.2-12.0); Monocyte# 0.55 X10^3/uL; Monocyte% 25.5 % (0-10); Neutrophil # 0.94 X10^3/uL (2.7-7.7); Neutrophil % 43.5 % (47-70); POSITIVE COUNT NO; POSITIVE DIFFERENTIAL YES; POSITIVE MORPHOLOGY NO; Platelet Count 73 K/mm3 (150-450); Red Blood Count 3.73 M/mm3 (4.2-5.4); White Blood Count 2.2 K/mm3 (4.4-11.0)
[2018-10-04 19:36] LABS: Red Blood Cells-Urine 0 SEEN /hpf (0-5)
[2018-10-04 19:37] LABS: Color, Urine Yellow (Yellow); Glucose, Dipstick Normal (Normal); Ketone-Dipstick Negative (Negative); Leukocyte Esterase-Dipstick Negative /ul (Negative); Nitrite-Dipstick Negative (Negative); Occult Blood-Urine Negative /ul (Negative); Protein-Dipstick Negative (Negative); Specific Gravity, Urine 1.015 (1.002-1.030); Urine Bilirubin Dipstick Negative (Negative); Urine Clarity Clear (Clear); Urine Urobilinogen Normal (Normal)
[2018-10-04 19:46] LABS: Differential Comment SCANNED
--- NOTE | 2018-10-04 19:51 | ED.DCSUM_ITS ---
History of Present Illness Chief Complaint: Weakness Informant: Patient, Family Onset: Days Context: Gradual Onset Timing: Continuous Quality: Not doing well with decreased intake Location: Home Current Severity: Moderate Maximum Severity: Moderate Worsened by: Nothing per patient and daughter Relieved by: Nothing per patient and daughter Associated Symptoms: Not doing well and poor p.o. intake Narrative: Patient is an elderly woman who lives with her daughter. She was admitted on September 22 for a couple of days. She was admitted for failure to thrive based on description per patient and daughter. She has not done well since discharge. Visiting nurse has evaluated. They present because she is not able to care for herself at home. Daughter is having trouble caring for her. They do not wish even temporary assignment to nursing facility. She denies constitutional symptoms, HEENT symptoms, cardiac symptoms, respiratory symptoms, GI symptoms and urologic symptoms. She reports she does not feel well and has no appetite. - Past Medical History (1) Generalized weakness Status: Acute (2) Hyperkalemia Status: Acute (3) Hyponatremia Status: Acute (4) UTI (urinary tract infection) Status: Acute (5) Anticoagulant long-term use Status: Chronic (6) CHF (congestive heart failure) Status: Chronic (7) Cardiomyopathy in disease classified elsewhere Status: Chronic (8) Chronic renal failure, stage 4 (severe) Status: Chronic (9) H/O aortic valve replacement Status: Chronic Comment: with 21 mm bioprosthetic heart valve, ligation of Lt atrial appendage @ [facility] (10) H/O mitral valve replacement Status: Chronic Comment: with 27 mm bioprosthetic heart valve @ [facility] (11) HLD (hyperlipidemia) Status: Chronic (12) HTN (hypertension) Status: Chronic (13) Iron deficiency anemia Status: Chronic (14) Paroxysmal atrial fibrillation Status: Chronic (15) Pulmonary hypertension Status: Chronic (16) Thrombocytopenia Status: Chronic Past Medical History - Allergies and Home Meds Allergies/Adverse Reactions: Allergies aspartame [From Nutrasweet Aspartame] Allergy (Verified 10/02/18 19:14) Hives Primary Care Physician: Hermann Nath DO [Primary Care Provider] - Prior records reviewed: Yes Surgical History: cholecystectomy, - - Status post aortic and mitral valve replacement, open heart surgery Lives: With Family Smoking Status: Never smoker Alcohol: None Drugs: None - Family History Maternal Family History: Family History (Last Reviewed 08/20/18 @ 13:15 by Eri Mccrary) Father No problems noted. Family History: Reports: Hypertension Offspring Family History: Family History (Last Reviewed 08/20/18 @ 13:15 by Eri Mccrary) Father No problems noted. Family History: Reports: Heart Disease, Stroke - Paternal grandmother Review of Systems General: Denies: Chills, Fever, Sweats Eyes: Denies: Visual changes - bilaterally, Blurred Vision - bilaterally, Diplopia ENT: Denies: Rhinorrhea, Sore throat Cardiovascular: Denies: Chest pain, Palpitations Respiratory: Denies: Dyspnea, Cough, Dyspnea on exertion Gastrointestinal: Reports: Nausea. Denies: Abdominal pain, Vomiting, Diarrhea, Melena, Hematochezia Genitourinary: Denies: Dysuria, Hematuria, Frequency Musculoskeletal: Denies: Back pain, Extremity Pain Skin: Denies: Rash, Wounds Neurological: Reports: Weakness. Denies: Headache, Parasthesia, Numbness Hematologic: Reports: Easy bruising Allergy: Denies: Uticaria, Swelling of the mouth Physical Exam Vital Signs/Narrative: Vital Signs Temp Pulse Resp BP Pulse Ox 10/04/18 18:41 97.7 F L 84 18 124/71 H 98 Inital Vital Signs reviewed: Yes General: Well nourished, Well developed, Obese, No Acute Distress Head: Normocephalic, Atraumatic Eyes: Perrl, EOMI. Negative for: Pale conjunctiva, Scleral icterus, - ENT: Moist mucous membranes, No rhinorrhea Neck: Supple, Nontender, No lymphadenopathy, No JVD Cardiovascular: Regular rate, Regular rhythm, No murmurs, Normal S1, Normal S2 Respiratory: No distress, CTA bilaterally, Chest nontender Abdomen: Soft, Nontender, Nondistended, Normal bowel sounds, No masses. Negative for: Hepatomegaly, Splenomegaly Back: Nontender, Normal Inspection. Negative for: CVA tenderness Extremities: Nontender, No edema Skin: Normal color, No rash Neurological: Alert, Oriented x3, Cranial nerves II-XII grossly intact, Normal Strength, Normal Sensation, Normal DTR Psychological: Normal affect, Normal Mood Diagnostic/Tx/Re-eval Laboratory Results 10/04/18 10/04/18 10/04/18 19:20 19:20 19:30 WBC 2.2 L RBC 3.73 L Hgb 10.9 L Hct 31.6 L MCV 84.7 MCH 29.2 MCHC 34.5 RDW 20.0 H RDW Differential 62.0 H Plt Count 73 L MPV 8.1 Immature Gran % (Auto) 0.000 Neut % (Auto) 43.5 L Lymph % (Auto) 30.1 [place] % (Auto) 25.5 H Eos % (Auto) 0.0 Baso % (Auto) 0.9 Absolute Neuts (auto) 0.9 L Absolute Lymphs (auto) 0.65 L Total Counted Not Reportable Differential Comment SCANNED Sodium Cancelled Potassium Cancelled Chloride Cancelled Carbon Dioxide Cancelled Anion Gap Cancelled BUN Cancelled Creatinine Cancelled Estim Creat Clear Calc Cancelled Est GFR (MDRD) Af Amer Cancelled Est GFR (MDRD) Non-Af Cancelled BUN/Creatinine Ratio Cancelled Glucose Cancelled Calcium Cancelled Urine Color Yellow Urine Clarity Clear Urine pH 5.0 Ur Specific [place] 1.015 Urine Protein Negative Urine Glucose (UA) Normal Urine Ketones Negative Urine Occult Blood Negative Urine Nitrite Negative Urine Bilirubin Negative Urine Urobilinogen Normal Ur Leukocyte Esterase Negative Urine RBC 0 SEEN Urine WBC 0-5 SEEN Ur Squamous Epith Cells 0-5 SEEN Urine Bacteria RARE Urine Mucus RARE 10/04/18 20:45 WBC RBC Hgb Hct MCV MCH MCHC RDW RDW Differential Plt Count MPV Immature Gran % (Auto) Neut % (Auto) Lymph % (Auto) [place] % (Auto) Eos % (Auto) Baso % (Auto) Absolute Neuts (auto) Absolute Lymphs (auto) Total Counted Differential Comment Sodium 124 L Potassium 4.4 Chloride 95 L Carbon Dioxide 21.0 Anion Gap 8 BUN 20 H Creatinine 1.38 H Estim Creat Clear Calc 27.00 Est GFR (MDRD) Af Amer 48 L Est GFR (MDRD) Non-Af 39 L BUN/Creatinine Ratio 14.5 Glucose 87 Calcium 8.5 Urine Color Urine Clarity Urine pH Ur Specific [place] Urine Protein Urine Glucose (UA) Urine Ketones Urine Occult Blood Urine Nitrite Urine Bilirubin Urine Urobilinogen Ur Leukocyte Esterase Urine RBC Urine WBC Ur Squamous Epith Cells Urine Bacteria Urine Mucus Patient's blood work is unchanged from prior blood work. She was hyponatremic at that time. She was neutropenic at that time. She has mild renal insufficiency which is unchanged as well. Urine specific gravity is 1.015, which would indicate she is not dehydrated. - Medical Decision Making Spoke with Vy from case management for assistance regarding disposition. Will assess electrolyte panel, white count and UA. There is a history of electrode abnormality. This may be the cause of her not doing well. We will also obtain urine to assess occult urinary tract infection. CBC was obtained because daughter believe she appears pale to assess H&H and white count. Evaluation Patient and daughter were informed that her blood tests are unchanged from prior. Patient requested to go home. She was informed the exact cause of her weakness is unknown. ED Disposition - Plan for ED Patient: Disposition: Home or Assisted Living Diagnosis: Hyponatremia, Neutropenia, Generalized weakness Instructions: ED Weakness [facility] Referrals: Hermann Nath DO [Primary Care Provider] - 3-5 Days if not improving
--- NOTE | 2018-10-04 20:15 | CM.ED ---
Social Work Assessment Referral Date: 10/04/18 Date of Assessment: 10/04/18 Informant: DR. MCGHEE Reason for Consult: D/C PLANNING Information obtained from: CHART, DR. MCGHEE, PATIENT AND PATIENT'S DAUGHTEREMANI Living Arrangements: PATIENT LIVES HOME WITH DAUGHTER IN A 1 STORY HOME WITH RAMP TO ENTER. DME: TUB BENCH, BSC, HIP KIT, WALKER, AND ROLLATOR. Employment/Financial: RETIRED, PATIENT AND DAUGHTER DENY ANY FINANCIAL CONCERNS. Supports: PATENT HAS HOME HEALTH CARE SERVICES THROUGH [facility]. Social/Family Stressors: DAUGHTER REPORTS PATIENT HAS BEEN DECLINING OVER THE LAST WEEK. DAUGHTER REPORTS PATIENT IS NOT EATING OR DRINKING MUCH. DAUGHTER AND PATIENT REFUSING PENITENTIARY PLACEMENT. Mental Health History: DAUGHTER DENIES ANY MENTAL HEALTH HX FOR PATIENT. Substance Abuse History: PATIENT AND DAUGHTER DENY ANY SUBSTANCE ABUSE HX. Interventions: SOCIAL SERVICE ASSESSMENT REFERRAL TO PALLIATIVE SERVICES Assessment: PATIENT IS A 78 Y/O FEMALE WHO LIVES HOME WITH DAUGHTER IN A 1 STORY HOME WITH RAMP TO ENTER. DAUGHTER REPORTS PATIENT HAS BEEN DECLINING OVER THE LAST WEEK. PATIENT CURRENTLY HAS HOME HEALTH SERVICES IN THE HOME THROUGH [facility]. DISCUSSED D/C OPTIONS. DAUGHTER STATES WILL NOT PUT PATIENT IN A PENITENTIARY. EDUCATED PATIENT AND DAUGHTER ON PALLIATIVE SERVICES. DAUGHTER OPEN TO REFERRAL. DISCUSSED WITH DR. MCGHEE. ORDER PLACED FOR PALLIATIVE SERVICES. DR. MCGHEE COMPLETING WORK UP OF PATIENT. THIS WORKER TO REMAIN AVAILABLE. REFERRAL FAXED AND CALLED TO [facility]. VOICEMAIL LEFT. PLAN: TBD
[2018-10-04 20:44] VITALS: BP 118/64; PULSE 86; RESP 24; O2SAT 98
[2018-10-04 20:59] LABS: Bacteria RARE /hpf (None Seen); Mucous, Urine RARE /hpf (<or=2+); Squamous Epithelial Cells - UA 0-5 SEEN /hpf (5-10); White Blood Cells 0-5 SEEN /hpf (0-5)
[2018-10-04 21:14] VITALS: BP 122/68; PULSE 86; RESP 23; O2SAT 98
[2018-10-04 21:18] LABS: Anion Gap 8 (5-15); BUN 20 mg/dL (7-18); BUN/Creat Ratio 14.5 RATIO (10-20); Calcium,Total 8.5 mg/dL (8.5-10.1); Chloride 95 mmol/L (98-107); Creatinine, Serum 1.38 mg/dL (0.55-1.02); EST Glomerular Filtration Rate 39 mL/min (>60); Est Glom Filt Rate - Afr Amer 48 mL/min (>60); Glucose 87 mg/dL (74-106); Potassium 4.4 mmol/L (3.5-5.1); Sodium Level 124 mmol/L (136-145)
[2018-10-04 21:39] VITALS: BP 121/71; PULSE 86; RESP 27; O2SAT 96
== END 2018-10-04 21:51 | disposition home or self-care (01) ==
PROVIDERS: Emergency Provider Emergency Medicine; Family Provider Family Medicine; PCP Family Medicine
DX: E87.1 Hypo-osmolality and hyponatremia (principal); D70.9 Neutropenia, unspecified; R53.1 Weakness; N28.9 Disorder of kidney and ureter, unspecified; E66.9 Obesity, unspecified; I27.20 Pulmonary hypertension, unspecified; I48.0 Paroxysmal atrial fibrillation; D50.9 Iron deficiency anemia, unspecified; E78.5 Hyperlipidemia, unspecified; I50.9 Heart failure, unspecified; N18.4 Chronic kidney disease, stage 4 (severe); I12.9 Hypertensive chronic kidney disease with stage 1 through stage 4 chronic kidney disease, or unspecified chronic kidney disease; Z90.49 Acquired absence of other specified parts of digestive tract; Z95.2 Presence of prosthetic heart valve
CPT/HCPCS: 80048; 81001; 85025; 99285; P9612; A4216

== ENCOUNTER 2018-10-28 18:10 | Inpatient (IN) | payer MEDICARE, OTHER, SELFPAY ==
[2018-10-28 18:11] VITALS: BP 116/62; PULSE 75; RESP 20; TEMP 37; O2SAT 96; BMI 29.0
--- NOTE | 2018-10-28 19:11 | RAD_ITS ---
STUDY: X-RAY CHEST REASON FOR EXAM: Female, 78 years old. Cough and nausea TECHNIQUE: Single frontal view of the chest. COMPARISON: 10/02/2018 FINDINGS: Median sternotomy wires and atrial clip. The lungs are clear and expanded. There is no demonstrated pleural abnormality. Normal size heart. Normal mediastinum and ren. Normal visualized pulmonary arteries. Normal visualized aortic arch and descending thoracic aorta. Normal visualized thoracic spine. Normal visualized ribs, clavicles, and shoulders. There is no demonstrated abnormality of the visualized soft tissue structures of the upper abdomen. RAD/Chest 1 View (Portable) IMPRESSION: No acute pulmonary findings. Electronically Signed: Naren Forte MD at 19:35 EDT Tel , Service support ,
--- NOTE | 2018-10-28 19:11 | EKG12_ITS ---
Test Reason : WEAKNESS Blood Pressure : / mmHG Vent. Rate : 072 BPM Atrial Rate : 072 BPM P-R Int : 198 ms QRS Dur : 110 ms QT Int : 490 ms P-R-T Axes : 061 -14 171 degrees QTc Int : 536 ms Sinus rhythm with Premature atrial complexes T wave abnormality, consider inferior ischemia T wave abnormality, consider anterolateral ischemia Prolonged QT Abnormal ECG Confirmed by KATIE PONCE, TREASURE ([id number]), editor & co founder OSMAN MARY ([id number] on 11/01/2018 4:20:50 PM Referred By: ENZO Confirmed By:TREASURE WILSON MD
--- NOTE | 2018-10-28 19:11 | CT_ITS ---
STUDY: CT BRAIN WITHOUT CONTRAST REASON FOR EXAM: Female, 78 years old. Fall, weakness, vomiting RADIATION DOSAGE (If Supplied By Facility): CTDIvol = ( 44.99 ) mGy, DLP = ( 745.49 ) mGycm TECHNIQUE: Transaxial CT imaging of the brain was performed without administration of intravenous contrast material. Individualized dose optimization techniques were used for this CT. COMPARISON: No relevant priors. FINDINGS: Normal soft tissue structures. Normal calvarium. Bilateral lens replacements. Normal size ventricles and extra-axial spaces for the patient's age. There are areas of decreased attenuation within the white matter tracts of the supratentorial brain, consistent with microvascular disease changes. Age-related changes of the basal ganglia. Normal brainstem. Normal cerebellum. There is no intracranial hemorrhage. There are no findings of an acute ischemic infarction. Normal visualized paranasal sinuses. CT/Brain/Head without Contrast IMPRESSION: No fracture or intracranial hemorrhage. Electronically Signed: Naren Forte MD at 20:02 EDT Tel , Service support ,
[2018-10-28] MEDS: Ondansetron 4 MG/2 ML Vial IV (19:16)
[2018-10-28] MEDS: 0.9% Normal Saline 1,000 ML 1000 ML IV (19:16)
[2018-10-28 19:49] LABS: Bacteria 0 SEEN /hpf (None Seen); Mucous, Urine 0 SEEN /hpf (<or=2+)
[2018-10-28 19:54] LABS: Absolute Lymphocyte Count 0.61 X10^3/ul (0.83-4.51); Absolute Neutrophil Count 1.8 X10^3/uL (2.0-7.7); Basophil# 0.01 X10^3/uL; Basophil% 0.3 % (0-1); Eosinophil# 0.02 X10^3/uL; Eosinophils% 0.7 % (0-5); Hematocrit 32.6 % (37-47); Hemoglobin 10.9 g/dl (12.0-15.0); Lymphocyte # 0.61 X10^3/ul (4.0); Lymphocyte % 21.2 % (19-41); Mean Corp Hgb Conc 33.4 g/gl (32-36); Mean Corpuscular Hgb 28.7 pg (27.0-32.0); Mean Corpuscular Volume 85.8 fL (81-99); Monocyte# 0.43 X10^3/uL; Monocyte% 14.9 % (0-10); Neutrophil # 1.81 X10^3/uL (2.7-7.7); Neutrophil % 62.9 % (47-70); POSITIVE COUNT NO; POSITIVE DIFFERENTIAL NO; POSITIVE MORPHOLOGY NO; Platelet Count 72 K/mm3 (150-450); RBC Distribution Width SD 51.8 fl (35.1-43.9); White Blood Count 2.9 K/mm3 (4.4-11.0)
[2018-10-28 19:59] LABS: Color, Urine Yellow (Yellow); Glucose, Dipstick Normal (Normal); Ketone-Dipstick Negative (Negative); Leukocyte Esterase-Dipstick 25 /ul (Negative); Nitrite-Dipstick Negative (Negative); Occult Blood-Urine 10 /ul (Negative); Protein-Dipstick Negative (Negative); Specific Gravity, Urine 1.015 (1.002-1.030); Urine Bilirubin Dipstick Negative (Negative); Urine Clarity Sl. Cloudy (Clear); Urine Urobilinogen 1 mg/dl (Normal)
[2018-10-28 20:03] LABS: Amorphous Sediment 1+ URATE; Red Blood Cells-Urine 0-5 SEEN /hpf (0-5); Squamous Epithelial Cells - UA 0-5 SEEN /hpf (5-10); White Blood Cells 0-5 SEEN /hpf (0-5)
[2018-10-28 20:04] LABS: ALB/GLOB Ratio 0.8 RATIO (0.9-2.4); AST(SGOT) 67 U/L (15-37); Alanine Aminotransfer ALT/SGPT 33 U/L (13-56); Albumin, Serum 2.5 g/dL (3.2-5.0); Alkaline Phosphatase 167 U/L (45-117); BUN 40 mg/dL (7-18); BUN/Creat Ratio 18.2 RATIO (10-20); Calcium,Total 9.5 mg/dL (8.5-10.1); Chloride 93 mmol/L (98-107); EST Glomerular Filtration Rate 23 mL/min (>60); Est Glom Filt Rate - Afr Amer 28 mL/min (>60); Estimated Creatinine Clearance 16.94 ml/min; Globulin 3.1 g/dL (2.2-4.2); Glucose 98 mg/dL (74-106); Lipase 254 U/L (73-393); Potassium 4.7 mmol/L (3.5-5.1); Protein, Total 5.6 g/dL (6.4-8.2); Sodium Level 123 mmol/L (136-145)
[2018-10-28 20:05] LABS: Anion Gap 11 (5-15)
[2018-10-28 20:10] VITALS: BP 104/54; PULSE 68; RESP 20; O2SAT 100
[2018-10-28 22:00] VITALS: BP 109/57; PULSE 72; RESP 21; O2SAT 98
--- NOTE | 2018-10-28 22:30 | PCM.HP.STD ---
Problem List (1) Hyponatremia Status: Acute (2) Nausea & vomiting Status: Acute (3) Generalized weakness Status: Acute (4) Abnormal EKG Status: Acute (5) Fall Status: Acute History of Present Illness Date of Admission: 10/28/18 Chief Complaint: nausea and vomiting The patient is a 78 year old F with a significant history of hypertension; hyperlipidemia; congestive heart failure; bioprosthetic mitral valve and aortic valve replacement; who presented to the emergency department with progressively worsening nausea and vomiting that started about 2 weeks ago. Because patient had about 5 episodes of vomiting on the day of presentation patient came to the ED. Of note patient denies any diarrhea. She reports poor appetite. Five days ago patient fell. She attributes her fall to weakness. At the emergency department patient was found to have low sodium of 123. Her BUN was severely elevated at 40. Her creatinine was also severely elevated. Further at emergency department patient was found to have diffuse T wave inversion. However her troponin was negative. Patient was given normal saline bolus at the ED. Past Medical History Past Medical History (Chronic Problems): Chronic Problems (Last Reviewed 10/29/18 @ 03:51 by Wyatt Henry MD) Thrombocytopenia (Chronic) Diverticulosis (Chronic) Chronic renal failure, stage 4 (severe) (Chronic) Hyperthyroidism (Chronic) Iron deficiency anemia (Chronic) On amiodarone therapy (Chronic) H/O mitral valve replacement (Chronic 01/28/17) with 27 mm bioprosthetic heart valve @ [facility] H/O aortic valve replacement (Chronic 01/28/17) with 21 mm bioprosthetic heart valve, ligation of Lt atrial appendage @ [facility] Cardiomyopathy in disease classified elsewhere (Chronic) Nonrheumatic mitral (valve) insufficiency (Chronic) Nonrheumatic aortic (valve) insufficiency (Chronic) Persistent atrial fibrillation (Chronic) HTN (hypertension) (Chronic) HLD (hyperlipidemia) (Chronic) Anticoagulant long-term use (Chronic) Paroxysmal atrial fibrillation (Chronic) Pulmonary hypertension (Chronic) Mitral stenosis (Chronic) Aortic insufficiency (Chronic) CHF (congestive heart failure) (Chronic) Mitral regurgitation (Chronic) Medical History: Medical History (Last Reviewed 10/29/18 @ 05:58 by Wyatt Henry MD) On amiodarone therapy (Chronic) Z79.899 Cardiomyopathy in disease classified elsewhere (Chronic) I43 Nonrheumatic mitral (valve) insufficiency (Chronic) I34.0 Nonrheumatic aortic (valve) insufficiency (Chronic) I35.1 Persistent atrial fibrillation (Chronic) I48.1 HTN (hypertension) (Chronic) I10 HLD (hyperlipidemia) (Chronic) E78.5 Allergies aspartame [From Nutrasweet Aspartame] Allergy (Verified 10/28/18 18:14) Hives Home Medications: Ambulatory Orders Medication Instructions Recorded Cholecalciferol (Vitamin D3) 2,000 unit PO DAILY 07/19/18 [Vitamin D3] Docusate Sodium [Colace] 50 mg PO DAILY PRN 07/19/18 Omeprazole 20 mg PO DAILY 07/19/18 Apixaban [Eliquis] 2.5 mg PO BID #60 tab 07/23/18 Ferrous Gluconate 324 mg PO DAILY #30 tab 07/23/18 Metolazone [Zaroxolyn] 5 mg PO DAILY #30 tab 08/03/18 Metoprolol Succinate 25 mg PO DAILY #30 tab.er.24h 08/03/18 spironolactone 25 mg tablet 25 mg PO DAILY 08/20/18 Methimazole 10 mg PO TID #90 tablet 09/24/18 Mirtazapine 15 mg PO QHS 10/28/18 Atorvastatin Calcium 20 mg PO DAILY 10/29/18 Surgical History: Surgical History (Last Reviewed 10/29/18 @ 05:58 by Wyatt Henry MD) H/O mitral valve replacement (Chronic) Onset Date: 01/28/17 Z98.890, Z95.2 with 27 mm bioprosthetic heart valve @ [facility] H/O aortic valve replacement (Chronic) Onset Date: 01/28/17 Z95.2 with 21 mm bioprosthetic heart valve, ligation of Lt atrial appendage @ [facility] History of right and left heart catheterization Z98.890 09/03/2016 Surgical History: cholecystectomy, - - Status post aortic and mitral valve replacement, open heart surgery Lives: With Family Smoking Status: Never smoker - *Family History Maternal Family History: Family History (Last Reviewed 08/20/18 @ 13:15 by Eri Mccrary) Father No problems noted. History Items: Hypertension Offspring Family History: Family History (Last Reviewed 08/20/18 @ 13:15 by Eri Mccrary) Father No problems noted. History Items: Heart Disease, Stroke - Paternal grandmother Review of Systems Constitutional: Reports: Anorexia, Weakness. Denies: Chills, Fever, Weight Change HEENT: Denies: Head Aches, Sinus Congestion, Sinus Drainage Cardiovascular: Denies: Chest Pain, Palpitations Respiratory: Denies: Cough, Shortness of breath at rest, Sputum production Gastrointestinal: Reports: Nausea, Vomiting. Denies: Abdominal Pain Genitourinary: Denies: Dysuria Musculoskeletal: Denies: Joint Pain, Joint Tenderness Skin: Denies: Rash, Wounds Neurological: Denies: Numbness, Tingling, Focal weakness Psychiatric: Denies: Anxiety, Depression, Homicidal Ideations, Suicidal Ideations Hematologic/ Lymphatic: Denies: Easy Bruising, Easy Bleeding VTE Information - Inpt Only VTE Present on Admission: No VTE Mechan Device Prophylaxis: None VTE Pharm Prophylaxis ordered?: No Reason prophylaxis not ordered:: Treatment Not Indicated - Her home apixaban was continued. Patient Problems: Active and Suspected Problems (Last Reviewed 10/29/18 @ 03:51 by Wyatt Henry MD) Hyponatremia (Acute) Nausea & vomiting (Acute) Abnormal EKG (Acute) Fall (Acute) - Physical Exam General: Alert, Oriented x3, Cooperative HEENT: Atraumatic, PERRLA, EOMI, Normocephalic Neck: Supple, No JVD, Negative Carotid Bruits Lungs: Clear to auscultation, Normal air movement Cardiovascular: Regular rate, No murmurs Abdomen: Bowel Sounds Present, Soft, Non Tender Extremities: No edema, Capillary Refill Less than 3 Seconds Skin: No rashes, No breakdown Musculoskeletal: No Tenderness to Palpation of Joints or Extremities Neurological: Neuro grossly intact Psych/Mental Status: Depressed Vital Signs Temp Pulse Resp BP Pulse Ox 98.6 F 72 21 H 109/57 L 98 10/28/18 18:11 10/28/18 22:00 10/28/18 22:00 10/28/18 22:00 10/28/18 22:00 Oxygen Flow Rate (L/min) 2 Oxygen Delivery Method Nasal Cannula Weight: 72 kg Body Mass Index (BMI) 29.0 Finger Stick Blood Glucose 99 Laboratory Tests Past 24 Hrs 10/28/18 10/28/18 10/28/18 18:10 18:10 19:30 WBC 2.9 L RBC 3.80 L Hgb 10.9 L Hct 32.6 L MCV 85.8 MCH 28.7 MCHC 33.4 RDW 17.0 H RDW Differential 51.8 H Plt Count 72 L MPV 9.0 Immature Gran % (Auto) 0.000 Neut % (Auto) 62.9 Lymph % (Auto) 21.2 [place] % (Auto) 14.9 H Eos % (Auto) 0.7 Baso % (Auto) 0.3 Absolute Neuts (auto) 1.8 L Absolute Lymphs (auto) 0.61 L Total Counted Not Reportable Sodium 123 L Potassium 4.7 Chloride 93 L Carbon Dioxide 19.0 L Anion Gap 11 BUN 40 H Creatinine 2.20 H Estim Creat Clear Calc 16.94 Est GFR (MDRD) Af Amer 28 L Est GFR (MDRD) Non-Af 23 L BUN/Creatinine Ratio 18.2 Glucose 98 Calcium 9.5 Total Bilirubin 2.00 H AST 67 H ALT 33 Alkaline Phosphatase 167 H Troponin I 0.042 Total Protein 5.6 L Albumin 2.5 L Globulin 3.1 Albumin/Globulin Ratio 0.8 L Lipase 254 Urine Color Yellow Urine Clarity Sl. Cloudy Urine pH 5.0 Ur Specific [place] 1.015 Urine Protein Negative Urine Glucose (UA) Normal Urine Ketones Negative Urine Occult Blood 10 H Urine Nitrite Negative Urine Bilirubin Negative Urine Urobilinogen 1 H Ur Leukocyte Esterase 25 H Urine RBC 0-5 SEEN Urine WBC 0-5 SEEN Ur Squamous Epith Cells 0-5 SEEN Amorphous Sediment 1+ URATE Urine Bacteria 0 SEEN Urine Mucus 0 SEEN Assessment/Plan All Active Problems (Last Reviewed 10/29/18 @ 03:51 by Wyatt Henry MD) Hyponatremia (Acute) Nausea & vomiting (Acute) Abnormal EKG (Acute) Fall (Acute) UTI (urinary tract infection) (Acute) Hyponatremia (Acute) Generalized weakness (Acute) Hyperkalemia (Acute) Acute blood loss anemia (Resolved) Diverticulitis (Resolved) GI bleed (Resolved) Heart failure with reduced ejection fraction (Resolved) Pancytopenia (Resolved) Supratherapeutic INR (Resolved) The patient is a 78 year old F with a significant history of hypertension; hyperlipidemia; congestive heart failure; who presented to the emergency department with progressively worsening nausea and vomiting that started about 2 weeks ago; fall; severe elevated BUN and creatinine; weakness; and hyponatremia in the setting of diuretic use. Hyponatremia On presentation her sodium was 123 Etiology likely is from nausea and vomiting as well as diuretic use. Of note patient is on Aldactone and Zaroxolyn. Would hold diuretics at this time and give patient normal saline. Will check BMP every 4 hours. Generalized weakness and fall. Likely secondary to dehydration from nausea and vomiting; as well as hyponatremia. Electrolyte replacement as above PT and OT to work patient for balance training and strengthening. Acute gastroenteritis Patient with nausea and vomiting. Likely viral Supportive treatment with IV hydration and IV antiemetics. Check magnesium level. Abnormal EKG Patient with no chest pain First troponin was negative. Trend troponin. KYLEIGH on CKD stage IV On presentation her creatinine was 2.20 Review of old records shows that her creatinine on 10/04/2018 was 1.38; and on 10/02/2018 was 1.48. Of note in the past patient has had some severely elevated creatinine compared to now. Trend BMP IV hydration as above Avoid nephrotoxic's. Hyperthyroidism Methimazole continued History of A. fib: Apixaban continued DVT prophylaxis Home apixaban continued. Code Visit Inpatient E&M: 88456 Init Hosp L3
--- NOTE | 2018-10-28 22:53 | ED.DCSUM_ITS ---
- ER Visit Summary Date of Service: 10/28/18 Chief Complaint: [Nausea vomiting] History of Present Illness: The patient is a 78 F [presents the emergency department with nausea and vomiting for last for 5 days. Patient denies any abdominal pain. She denies any diarrhea. She denies any fever. Patient states that she generally feels weak. Patient also had a fall 5 days ago was mechanical where she fell and hit her left arm and her right back. Patient does not think she struck her head. She denies any headache. Patient is currently on Eliquis for history of A. fib. Patient has history of CHF, hypertension, high cholesterol, and trauma cytopenia. Patient has had prior aortic valve and mitral valve replacement.] Physical Examination: [HEENT-PERRLA, EOMI. Cranial nerves II through XII grossly intact. TMs clear. Mucous membranes dry. No adenopathy. Cardiovascular-regular rate and rhythm without murmur or ectopy Lungs-clear to auscultation, chest wall stable without crepitus or subcu emphysema Abdomen-normoactive bowel sounds, soft, nontender, no rebound or rigidity, no peritoneal signs. Back exam-patient has no tenderness over the thoracic or lumbar spine. Over the area of the right posterior ribs she is got some faint ecchymosis and bruising noted. Extremities-intact ?4, normal range of motion, normal pulses. Left arm-patient has ecchymosis and bruising to the posterior aspect of the upper arm however she has no bony tenderness on exam. Patient has normal range of motion at the shoulder and elbow. Patient is neurovascular intact distally.] Test Results: [EKG obtained arrival shows sinus rhythm with a ventricular rate of [address] changes noted in that she had diffuse lethal flipped T waves which are new when compared with EKG from October 02, 2018. CBC with differential showed a white count 2.9, hemoglobin 10.9, hematocrit 33, platelet 72. Chemistries showed a depressed sodium of 123, potassium 4.7, chloride 93, CO2 19.. BUN was 40 and creatinine 2.20.] LFTs were normal. Lipase was 254. Urine was normal. Troponin was 0.042. CT scan of the brain without contrast showed nothing acute. Chest x-ray showed nothing acute. Emergency Department Course and Treatment: [She received normal saline and Zofran and she had no further vomiting.] Treatment Plan: [Admit for hydration. Etiology of EKG changes unclear.] Disposition: [Admit] Impression: [Hyponatremia Vomiting Dehydration Abnormal EKG] This note was generated with [employer] dictation software. It may contain incorrect words, spelling, and punctuation that were not noted in review of the chart prior to signing ED Disposition - Plan for ED Patient: Referrals: Hermann Nath DO [Primary Care Provider] -
[2018-10-28 23:21] VITALS: BP 122/68; PULSE 70; RESP 20; O2SAT 98
[2018-10-29] VITALS (14 sets, daily range): BP systolic 99–124; BP diastolic 47–54; PULSE 70–82; RESP 16–18; TEMP 36.2–36.5; O2SAT 94–98; BMI 27.5
[2018-10-29 00:39] LABS: International Normalized Ratio 3.2; Prothrombin Time (Protime)PT. 32.6 SECONDS (11.7-14.9)
[2018-10-29 01:33] LABS: BUN 39 mg/dL (7-18); Calcium,Total 9.5 mg/dL (8.5-10.1); Creatinine, Serum 2.05 mg/dL (0.55-1.02); EST Glomerular Filtration Rate 25 mL/min (>60); Est Glom Filt Rate - Afr Amer 30 mL/min (>60); Estimated Creatinine Clearance 18.18 ml/min; Glucose 83 mg/dL (74-106)
[2018-10-29 01:34] LABS: Anion Gap 9 (5-15); Chloride 96 mmol/L (98-107); Magnesium 1.7 mg/dL (1.6-2.6); Potassium 4.7 mmol/L (3.5-5.1); Sodium Level 127 mmol/L (136-145)
[2018-10-29] MEDS: 0.9% Normal Saline 1,000 ML 50 ML IV (03:32)
[2018-10-29] MEDS: 0.9% NaCl Peripheral Flush Adult/Peds IV (03:32)
[2018-10-29 04:48] LABS: Hematocrit 32.7 % (37-47); Hemoglobin 11.3 g/dl (12.0-15.0); Mean Corp Hgb Conc 34.6 g/gl (32-36); Mean Corpuscular Hgb 29.2 pg (27.0-32.0); Mean Corpuscular Volume 84.5 fL (81-99); Mean Platelet Vol. 8.3 fl (6.2-12.0); Platelet Count 68 K/mm3 (150-450); RBC Distribution Width CV 16.5 % (11.6-14.6); RBC Distribution Width SD 49.3 fl (35.1-43.9); Red Blood Count 3.87 M/mm3 (4.2-5.4); White Blood Count 2.7 K/mm3 (4.4-11.0)
[2018-10-29 05:04] LABS: Anion Gap 12 (5-15); BUN 38 mg/dL (7-18); Calcium,Total 9.5 mg/dL (8.5-10.1); Chloride 98 mmol/L (98-107); EST Glomerular Filtration Rate 26 mL/min (>60); Est Glom Filt Rate - Afr Amer 31 mL/min (>60); Estimated Creatinine Clearance 18.63 ml/min; Glucose 79 mg/dL (74-106); Potassium 4.6 mmol/L (3.5-5.1); Sodium Level 128 mmol/L (136-145)
[2018-10-29 05:08] LABS: Scan Indicated on CBC? Y/N NO
[2018-10-29] MEDS: METHIMAZOLE 5 MG TABLET 10 MG PO ×3 (06:45→21:05)
[2018-10-29 08:05] LABS: Anion Gap 8 (5-15); BUN 38 mg/dL (7-18); BUN/Creat Ratio 18.8 RATIO (10-20); Calcium,Total 9.5 mg/dL (8.5-10.1); Chloride 97 mmol/L (98-107); Creatinine, Serum 2.02 mg/dL (0.55-1.02); EST Glomerular Filtration Rate 25 mL/min (>60); Est Glom Filt Rate - Afr Amer 31 mL/min (>60); Estimated Creatinine Clearance 18.45 ml/min; Glucose 77 mg/dL (74-106); Potassium 4.7 mmol/L (3.5-5.1); Sodium Level 127 mmol/L (136-145)
--- NOTE | 2018-10-29 08:24 | PCM.PN.HOSP ---
Patient Problems: Active and Suspected Problems (Last Reviewed 10/29/18 @ 05:58 by Wyatt Henry MD) Hyponatremia (Acute) Nausea & vomiting (Acute) Abnormal EKG (Acute) Fall (Acute) Subjective: Feels better than when she came in. She denies any abdominal pain and does not have any nausea or vomiting Vitals/I&O's: Vital Signs Temp Pulse Resp BP Pulse Ox 97.5 F L 77 18 99/51 L 97 10/29/18 08:16 10/29/18 08:16 10/29/18 08:16 10/29/18 08:16 10/29/18 08:16 Oxygen Flow Rate (L/min) 2 Oxygen Delivery Method Room Air Weight: 150 lb 8 oz Body Mass Index (BMI) 27.5 Finger Stick Blood Glucose 99 Intake and Output for Last 24 Hours 10/27/18 10/28/18 10/29/18 23:59 23:59 23:59 Intake Total 185 / 185 Balance 185 / 185 General: Alert, Oriented x3, Cooperative, No apparent distress HEENT: Atraumatic, PERRLA, EOMI, Normocephalic Oral: Dry Mucosa Neck: Supple, No JVD Lungs: Clear to auscultation, Normal air movement, No rhonchi, No wheeze, No rales Cardiovascular: Regular rate, Regular Rhythm, Normal S1, Normal S2, No murmurs Abdomen: Soft, Non Tender, Non-Distended, No Hepato-splenomegaly Extremities: No edema, Capillary Refill Less than 3 Seconds Skin: No rashes, No breakdown Neurological: Neuro grossly intact, Sensory exam intact to light touch and pain Psych/Mental Status: Normal Affect, Appropriate Laboratory Results 10/28/18 18:10: WBC 2.9 L, RBC 3.80 L, Hgb 10.9 L, Hct 32.6 L, MCV 85.8, MCH 28.7, MCHC 33.4, RDW 17.0 H, RDW Differential 51.8 H, Plt Count 72 L, MPV 9.0, Immature Gran % (Auto) 0.000, Neut % (Auto) 62.9, Lymph % (Auto) 21.2, [place] % (Auto) 14.9 H, Eos % (Auto) 0.7, Baso % (Auto) 0.3, Absolute Neuts (auto) 1.8 L, Absolute Lymphs (auto) 0.61 L, Total Counted Not Reportable 10/28/18 18:10: Sodium 123 L, Potassium 4.7, Chloride 93 L, Carbon Dioxide 19.0 L, Anion Gap 11, BUN 40 H, Creatinine 2.20 H, Estim Creat Clear Calc 16.94, Est GFR (MDRD) Af Amer 28 L, Est GFR (MDRD) Non-Af 23 L, BUN/Creatinine Ratio 18.2, Glucose 98, Calcium 9.5, Total Bilirubin 2.00 H, AST 67 H, ALT 33, Alkaline Phosphatase 167 H, Troponin I 0.042, Total Protein 5.6 L, Albumin 2.5 L, Globulin 3.1, Albumin/Globulin Ratio 0.8 L, Lipase 254 10/28/18 18:10: PT 32.6 H, INR 3.2 10/28/18 19:30: Urine Color Yellow, Urine Clarity Sl. Cloudy, Urine pH 5.0, Ur Specific [place] 1.015, Urine Protein Negative, Urine Glucose (UA) Normal, Urine Ketones Negative, Urine Occult Blood 10 H, Urine Nitrite Negative, Urine Bilirubin Negative, Urine Urobilinogen 1 H, Ur Leukocyte Esterase 25 H, Urine RBC 0-5 SEEN, Urine WBC 0-5 SEEN, Ur Squamous Epith Cells 0-5 SEEN, Amorphous Sediment 1+ URATE, Urine Bacteria 0 SEEN, Urine Mucus 0 SEEN 10/29/18 01:10: Sodium 127 L, Potassium 4.7, Chloride 96 L, Carbon Dioxide 22.0, Anion Gap 9, BUN 39 H, Creatinine 2.05 H, Estim Creat Clear Calc 18.18, Est GFR (MDRD) Af Amer 30 L, Est GFR (MDRD) Non-Af 25 L, BUN/Creatinine Ratio 19.0, Glucose 83, Calcium 9.5, Magnesium 1.7 10/29/18 01:10: Troponin I 0.049 H 10/29/18 04:15: Sodium Cancelled, Potassium Cancelled, Chloride Cancelled, Carbon Dioxide Cancelled, Anion Gap Cancelled, BUN Cancelled, Creatinine Cancelled, Estim Creat Clear Calc Cancelled, Est GFR (MDRD) Af Amer Cancelled, Est GFR (MDRD) Non-Af Cancelled, BUN/Creatinine Ratio Cancelled, Glucose Cancelled, Calcium Cancelled 10/29/18 04:15: WBC 2.7 L, RBC 3.87 L, Hgb 11.3 L, Hct 32.7 L, MCV 84.5, MCH 29.2, MCHC 34.6, RDW 16.5 H, RDW Differential 49.3 H, Plt Count 68 L, MPV 8.3 10/29/18 04:15: Sodium 128 L, Potassium 4.6, Chloride 98, Carbon Dioxide 18.0 L, Anion Gap 12, BUN 38 H, Creatinine 2.00 H, Estim Creat Clear Calc 18.63, Est GFR (MDRD) Af Amer 31 L, Est GFR (MDRD) Non-Af 26 L, BUN/Creatinine Ratio 19.0, Glucose 79, Calcium 9.5, Troponin I 0.044 10/29/18 07:18: Sodium 127 L, Potassium 4.7, Chloride 97 L, Carbon Dioxide 22.0, Anion Gap 8, BUN 38 H, Creatinine 2.02 H, Estim Creat Clear Calc 18.45, Est GFR (MDRD) Af Amer 31 L, Est GFR (MDRD) Non-Af 25 L, BUN/Creatinine Ratio 18.8, Glucose 77, Calcium 9.5 10/29/18 07:18: Troponin I 0.046 H Current Medications Acetaminophen (Tylenol) 650 mg PO Q6H PRN PRN PRN Reason: Mild pain 1-3/Temp > 100.7 F Apixaban (Eliquis) 2.5 mg PO BID [facility] Atorvastatin Calcium (Lipitor) 20 mg PO DAILY@0800 [facility] Cholecalciferol (Vitamin D) 5,000 unit PO DAILY [facility] Dextrose (D50w Syringe) 0 gm IV X1 PRN; Protocol PRN Reason: Hypoglycemia Docusate Sodium (Colace) 100 mg PO DAILY PRN PRN Reason: Constipation Ferrous Gluconate (Ferrous Gluconate) 324 mg PO DAILY [facility] Glucagon () 1 mg IM .X1 PRN PRN Reason: Hypoglycemia Sodium Chloride () 1,000 mls @ 50 mls/hr IV .Q20H [facility] Stop: 10/29/18 22:19 Last Admin: 10/29/18 03:32 Dose: 50 mls/hr Methimazole (Tapazole) 10 mg PO TID [facility] Last Admin: 10/29/18 06:45 Dose: 10 mg Metoprolol Succinate (Toprol Xl (Beta Charbel)) 25 mg PO DAILY [facility] Mirtazapine (Remeron) 15 mg PO QHS [facility] Ondansetron HCl (Zofran) 4 mg IV Q8H PRN PRN PRN Reason: NAUSEA/VOMITING Pantoprazole Sodium (Protonix) 20 mg PO DAILY [facility] Sodium Chloride () 5 - 15 ml IV UD PRN PRN Reason: SALINE FLUSH Last Admin: 10/29/18 03:32 Dose: 10 ml Medical Necessity - Tobacco Use Smoking Status: Never smoker Assessment/Plan All Active Problems (Last Reviewed 10/29/18 @ 05:58 by Wyatt Henry MD) Hyponatremia (Acute) Nausea & vomiting (Acute) Abnormal EKG (Acute) Fall (Acute) UTI (urinary tract infection) (Acute) Hyponatremia (Acute) Generalized weakness (Acute) Hyperkalemia (Acute) Acute blood loss anemia (Resolved) Diverticulitis (Resolved) GI bleed (Resolved) Heart failure with reduced ejection fraction (Resolved) Pancytopenia (Resolved) Supratherapeutic INR (Resolved) 1. Hyponatremia secondary to dehydration from nausea and vomiting and her Aldactone and Zaroxolyn/generalized weakness -Continue with normal saline at 50 cc/h -Sodium has increased from 123-128 -If she continues to improve tomorrow we will plan for discharge in the morning -Continue with Zofran as needed for nausea -PT/OT 2. Abnormal EKG -She has no chest pain continues to have no chest pain however second troponin was slightly positive at 0.049 -We will await third troponin but this will likely not need any intervention 3. KYLEIGH on CKD 4 -Her baseline creatinine is around 1.8, and in July of this year she had acute kidney injury with creatinine up into the fours -We will trend and continue with her IV fluids 4. Hyperthyroidism -Continue with methimazole -Stable 5. CAD status post aortic valve replacement mitral valve replacement/A. fib/HTN/HLD -Currently stable, will continue with Eliquis and Lipitor -Continue with metoprolol but will hold her Zaroxolyn as we are giving her fluid replacement and she was hyponatremic, continue to hold her Aldactone -We will educate her that if she begins having nausea and vomiting to try not to take her Zaroxolyn or Aldactone DVT: Eliquis Code Visit Inpatient E&M: 14082 Subs Hosp L2
[2018-10-29] MEDS: Pantoprazole Sodium 20 MG Tablet PO (08:26)
[2018-10-29] MEDS: Atorvastatin Calcium 20 MG Tablet PO (08:26)
[2018-10-29] MEDS: Ferrous Gluconate 324 MG Tablet PO (08:26)
[2018-10-29] MEDS: APIXABAN 2.5 MG TABLET PO ×2 (08:26→21:06)
--- NOTE | 2018-10-29 08:30 | PN_ITS ---
Patient Problems: Active and Suspected Problems (Last Reviewed 10/29/18 @ 05:58 by Wyatt Henry MD) Hyponatremia (Acute) Nausea & vomiting (Acute) Abnormal EKG (Acute) Fall (Acute) Subjective: Feels better than when she came in. She denies any abdominal pain and does not have any nausea or vomiting Vitals/I&O's: Vital Signs Temp Pulse Resp BP Pulse Ox 97.5 F L 77 18 99/51 L 97 10/29/18 08:16 10/29/18 08:16 10/29/18 08:16 10/29/18 08:16 10/29/18 08:16 Oxygen Flow Rate (L/min) 2 Oxygen Delivery Method Room Air Weight: 150 lb 8 oz Body Mass Index (BMI) 27.5 Finger Stick Blood Glucose 99 Intake and Output for Last 24 Hours 10/27/18 10/28/18 10/29/18 23:59 23:59 23:59 Intake Total 185 / 185 Balance 185 / 185 General: Alert, Oriented x3, Cooperative, No apparent distress HEENT: Atraumatic, PERRLA, EOMI, Normocephalic Oral: Dry Mucosa Neck: Supple, No JVD Lungs: Clear to auscultation, Normal air movement, No rhonchi, No wheeze, No rales Cardiovascular: Regular rate, Regular Rhythm, Normal S1, Normal S2, No murmurs Abdomen: Soft, Non Tender, Non-Distended, No Hepato-splenomegaly Extremities: No edema, Capillary Refill Less than 3 Seconds Skin: No rashes, No breakdown Neurological: Neuro grossly intact, Sensory exam intact to light touch and pain Psych/Mental Status: Normal Affect, Appropriate Laboratory Results 10/28/18 18:10: WBC 2.9 L, RBC 3.80 L, Hgb 10.9 L, Hct 32.6 L, MCV 85.8, MCH 28.7, MCHC 33.4, RDW 17.0 H, RDW Differential 51.8 H, Plt Count 72 L, MPV 9.0, Immature Gran % (Auto) 0.000, Neut % (Auto) 62.9, Lymph % (Auto) 21.2, [place] % (Auto) 14.9 H, Eos % (Auto) 0.7, Baso % (Auto) 0.3, Absolute Neuts (auto) 1.8 L, Absolute Lymphs (auto) 0.61 L, Total Counted Not Reportable 10/28/18 18:10: Sodium 123 L, Potassium 4.7, Chloride 93 L, Carbon Dioxide 19.0 L, Anion Gap 11, BUN 40 H, Creatinine 2.20 H, Estim Creat Clear Calc 16.94, Est GFR (MDRD) Af Amer 28 L, Est GFR (MDRD) Non-Af 23 L, BUN/Creatinine Ratio 18.2, Glucose 98, Calcium 9.5, Total Bilirubin 2.00 H, AST 67 H, ALT 33, Alkaline Phosphatase 167 H, Troponin I 0.042, Total Protein 5.6 L, Albumin 2.5 L, Globulin 3.1, Albumin/Globulin Ratio 0.8 L, Lipase 254 10/28/18 18:10: PT 32.6 H, INR 3.2 10/28/18 19:30: Urine Color Yellow, Urine Clarity Sl. Cloudy, Urine pH 5.0, Ur Specific [place] 1.015, Urine Protein Negative, Urine Glucose (UA) Normal, Urine Ketones Negative, Urine Occult Blood 10 H, Urine Nitrite Negative, Urine Bilirubin Negative, Urine Urobilinogen 1 H, Ur Leukocyte Esterase 25 H, Urine RBC 0-5 SEEN, Urine WBC 0-5 SEEN, Ur Squamous Epith Cells 0-5 SEEN, Amorphous Sediment 1+ URATE, Urine Bacteria 0 SEEN, Urine Mucus 0 SEEN 10/29/18 01:10: Sodium 127 L, Potassium 4.7, Chloride 96 L, Carbon Dioxide 22.0, Anion Gap 9, BUN 39 H, Creatinine 2.05 H, Estim Creat Clear Calc 18.18, Est GFR (MDRD) Af Amer 30 L, Est GFR (MDRD) Non-Af 25 L, BUN/Creatinine Ratio 19.0, Glucose 83, Calcium 9.5, Magnesium 1.7 10/29/18 01:10: Troponin I 0.049 H 10/29/18 04:15: Sodium Cancelled, Potassium Cancelled, Chloride Cancelled, Carbon Dioxide Cancelled, Anion Gap Cancelled, BUN Cancelled, Creatinine Cancelled, Estim Creat Clear Calc Cancelled, Est GFR (MDRD) Af Amer Cancelled, Est GFR (MDRD) Non-Af Cancelled, BUN/Creatinine Ratio Cancelled, Glucose Cancelled, Calcium Cancelled 10/29/18 04:15: WBC 2.7 L, RBC 3.87 L, Hgb 11.3 L, Hct 32.7 L, MCV 84.5, MCH 29.2, MCHC 34.6, RDW 16.5 H, RDW Differential 49.3 H, Plt Count 68 L, MPV 8.3 10/29/18 04:15: Sodium 128 L, Potassium 4.6, Chloride 98, Carbon Dioxide 18.0 L, Anion Gap 12, BUN 38 H, Creatinine 2.00 H, Estim Creat Clear Calc 18.63, Est GFR (MDRD) Af Amer 31 L, Est GFR (MDRD) Non-Af 26 L, BUN/Creatinine Ratio 19.0, Glucose 79, Calcium 9.5, Troponin I 0.044 10/29/18 07:18: Sodium 127 L, Potassium 4.7, Chloride 97 L, Carbon Dioxide 22.0, Anion Gap 8, BUN 38 H, Creatinine 2.02 H, Estim Creat Clear Calc 18.45, Est GFR (MDRD) Af Amer 31 L, Est GFR (MDRD) Non-Af 25 L, BUN/Creatinine Ratio 18.8, Glucose 77, Calcium 9.5 10/29/18 07:18: Troponin I 0.046 H Current Medications Acetaminophen (Tylenol) 650 mg PO Q6H PRN PRN PRN Reason: Mild pain 1-3/Temp > 100.7 F Apixaban (Eliquis) 2.5 mg PO BID [facility] Atorvastatin Calcium (Lipitor) 20 mg PO DAILY@0800 [facility] Cholecalciferol (Vitamin D) 5,000 unit PO DAILY [facility] Dextrose (D50w Syringe) 0 gm IV X1 PRN; Protocol PRN Reason: Hypoglycemia Docusate Sodium (Colace) 100 mg PO DAILY PRN PRN Reason: Constipation Ferrous Gluconate (Ferrous Gluconate) 324 mg PO DAILY [facility] Glucagon () 1 mg IM .X1 PRN PRN Reason: Hypoglycemia Sodium Chloride () 1,000 mls @ 50 mls/hr IV .Q20H [facility] Stop: 10/29/18 22:19 Last Admin: 10/29/18 03:32 Dose: 50 mls/hr Methimazole (Tapazole) 10 mg PO TID [facility] Last Admin: 10/29/18 06:45 Dose: 10 mg Metoprolol Succinate (Toprol Xl (Beta Charbel)) 25 mg PO DAILY [facility] Mirtazapine (Remeron) 15 mg PO QHS [facility] Ondansetron HCl (Zofran) 4 mg IV Q8H PRN PRN PRN Reason: NAUSEA/VOMITING Pantoprazole Sodium (Protonix) 20 mg PO DAILY [facility] Sodium Chloride () 5 - 15 ml IV UD PRN PRN Reason: SALINE FLUSH Last Admin: 10/29/18 03:32 Dose: 10 ml Medical Necessity - Tobacco Use Smoking Status: Never smoker Assessment/Plan All Active Problems (Last Reviewed 10/29/18 @ 05:58 by Wyatt Henry MD) Hyponatremia (Acute) Nausea & vomiting (Acute) Abnormal EKG (Acute) Fall (Acute) UTI (urinary tract infection) (Acute) Hyponatremia (Acute) Generalized weakness (Acute) Hyperkalemia (Acute) Acute blood loss anemia (Resolved) Diverticulitis (Resolved) GI bleed (Resolved) Heart failure with reduced ejection fraction (Resolved) Pancytopenia (Resolved) Supratherapeutic INR (Resolved) 1. Hyponatremia secondary to dehydration from nausea and vomiting and her Aldactone and Zaroxolyn/generalized weakness -Continue with normal saline at 50 cc/h -Sodium has increased from 123-128 -If she continues to improve tomorrow we will plan for discharge in the morning -Continue with Zofran as needed for nausea -PT/OT 2. Abnormal EKG -She has no chest pain continues to have no chest pain however second troponin was slightly positive at 0.049 -We will await third troponin but this will likely not need any intervention 3. KYLEIGH on CKD 4 -Her baseline creatinine is around 1.8, and in July of this year she had acute kidney injury with creatinine up into the fours -We will trend and continue with her IV fluids 4. Hyperthyroidism -Continue with methimazole -Stable 5. CAD status post aortic valve replacement mitral valve replacement/A. fib/HTN/HLD -Currently stable, will continue with Eliquis and Lipitor -Continue with metoprolol but will hold her Zaroxolyn as we are giving her fluid replacement and she was hyponatremic, continue to hold her Aldactone -We will educate her that if she begins having nausea and vomiting to try not to take her Zaroxolyn or Aldactone DVT: Eliquis Code Visit Inpatient E&M: 38996 Subs Hosp L2
--- NOTE | 2018-10-29 09:22 | CASEMGMT ---
RN CM NANOTECHNOLOGY ENGINEERING TECHNOLOGIST CM to room to meet with patient for initial transition planning/care coordination assessment. RN MITCHELL introduced self and role at [facility]. Pt voices understanding and consents to assessment at this time. Pt resting in bed in no distress at this time. Pt is A/O at this time and answers all questions appropriately. Care providers, pharmacy, and demographics verified/updated at this time. PCP: [facility] Specialists: Dr Luz: [facility] Preferred Pharmacy: [facility] Insurance: [facility], Matias, Physician Ethel Prescription Benefit: Yes Living Will/HPOA: Has both LW and HCPOA, who is her daughter, Kat Cesar LNOK: DaughterKat Living Arrangements: Lives with daughter, Kat, in 1-story home w/ramp. is independent with personal ADL's. Daughter does cooking, grocery shopping, cleaning, laundry, and assists w/bills. Transportation: Kat Payne DME: has the following DME: tub bench, BSC, raised toilet seat, hospital bed, hand held shower, hip kit, walker, rollator. Pt states no need for further DME at this time. HHC: Pt is current with [facility]. Pt states she has RN, PT/OT. Call placed to [facility] and spoke to Evette. Evette confirms pt is current with them, but is only receiving PT at this time. She states she had RN and OT but those services were just d/c'd 10/19 and 10/20. Resumption order placed for [facility]: PT. If pt needs OT or shelter on d/c, will need order placed and [facility] will need notified. Pt wishes to return home and states has no concerns with going home at time of discharge. She wishes to resume HHC services with [facility]. CM to follow for any further discharge planning/needs. Pt voices no further concerns/needs at this time. Advised pt to ask for CM if any further questions/concerns/needs arise. Voices understanding. PLAN: Home w/resumption of [facility]: PT, support of daughter, and discharge plans in place. Green sheet placed on chart. Maria L BRIGGSN RN MITCHELL
--- NOTE | 2018-10-29 09:25 | CASEMGMT ---
Patient has a Healthcare POA and Healthcare LW on file. Ginny DILL CONSTRUCTION SALES MANAGER
[2018-10-29 12:25] LABS: Anion Gap 9 (5-15); BUN 37 mg/dL (7-18); BUN/Creat Ratio 18.1 RATIO (10-20); Calcium,Total 9.4 mg/dL (8.5-10.1); Chloride 99 mmol/L (98-107); Creatinine, Serum 2.04 mg/dL (0.55-1.02); EST Glomerular Filtration Rate 25 mL/min (>60); Est Glom Filt Rate - Afr Amer 30 mL/min (>60); Estimated Creatinine Clearance 18.27 ml/min; Glucose 93 mg/dL (74-106); Potassium 4.6 mmol/L (3.5-5.1); Sodium Level 128 mmol/L (136-145)
--- NOTE | 2018-10-29 12:29 | CHAPLAIN ---
Type of Pastoral Visit _x__ Initial Visit ___ Follow-up Visit ___ On-call Visit ___ General Patient Visit ___ Spiritual Assessment ___ Family Conference ___ Bereavement ___ Rapid Response ___ Code Blue ___ Other (describe below) Pastoral Care Referral From _x__ Patient ___ Family ___ Nurse ___ Physician ___ Sales Operations ___ Radial Arm Saw Operator ___ Other (describe below) Sacrament/Intervention _x__ Active listening ___ Anointing ___ Holiness ___ Bereavement ___ Communion ___ Selena exploration ___ _x__ Life review _x__ Prayer ___ Reconciliation ___ Sacrament of Sick ___ Supportive presence ___ Wedding ___ Other (describe below) Pastoral Comments
[2018-10-29] MEDS: Metoprolol(XL)Succ 25 MG Tablet PO (14:39)
[2018-10-29] MEDS: Mirtazapine 15 MG Tablet PO (21:07)
[2018-10-29] MEDS: Acetaminophen 325 MG Tablet 650 MG PO (21:10)
[2018-10-30] VITALS (13 sets, daily range): BP systolic 92–136; BP diastolic 32–57; PULSE 73–81; RESP 16–18; TEMP 36.3–36.9; O2SAT 93–97
[2018-10-30] MEDS: METHIMAZOLE 5 MG TABLET 10 MG PO ×3 (06:47→21:19)
[2018-10-30 07:01] LABS: Anion Gap 6 (5-15); BUN 39 mg/dL (7-18); BUN/Creat Ratio 17.5 RATIO (10-20); Calcium,Total 9.6 mg/dL (8.5-10.1); Chloride 100 mmol/L (98-107); Creatinine, Serum 2.23 mg/dL (0.55-1.02); EST Glomerular Filtration Rate 23 mL/min (>60); Est Glom Filt Rate - Afr Amer 27 mL/min (>60); Estimated Creatinine Clearance 16.71 ml/min; Glucose 88 mg/dL (74-106); Potassium 4.6 mmol/L (3.5-5.1); Sodium Level 127 mmol/L (136-145)
[2018-10-30 07:08] LABS: Absolute Lymphocyte Count 0.59 X10^3/ul (0.83-4.51); Absolute Neutrophil Count 1.4 X10^3/uL (2.0-7.7); Basophil# 0.01 X10^3/uL; Basophil% 0.4 % (0-1); Differential Indicated SCAN CRITERIA MET; Hematocrit 30.7 % (37-47); Hemoglobin 10.5 g/dl (12.0-15.0); Lymphocyte # 0.59 X10^3/ul (4.0); Lymphocyte % 23.6 % (19-41); Mean Corp Hgb Conc 34.2 g/gl (32-36); Mean Corpuscular Hgb 29.5 pg (27.0-32.0); Mean Corpuscular Volume 86.2 fL (81-99); Mean Platelet Vol. 8.9 fl (6.2-12.0); Monocyte# 0.48 X10^3/uL; Monocyte% 19.2 % (0-10); Neutrophil # 1.42 X10^3/uL (2.7-7.7); Neutrophil % 56.8 % (47-70); POSITIVE COUNT NO; POSITIVE DIFFERENTIAL YES; POSITIVE MORPHOLOGY NO; Platelet Count 54 K/mm3 (150-450); RBC Distribution Width SD 53.2 fl (35.1-43.9); Red Blood Count 3.56 M/mm3 (4.2-5.4); White Blood Count 2.5 K/mm3 (4.4-11.0)
[2018-10-30] MEDS: 0.9% Normal Saline 1,000 ML 75 ML IV ×2 (09:16→22:35)
[2018-10-30] MEDS: Atorvastatin Calcium 20 MG Tablet PO (09:34)
[2018-10-30] MEDS: Ferrous Gluconate 324 MG Tablet PO (09:35)
[2018-10-30] MEDS: Pantoprazole Sodium 20 MG Tablet PO (09:35)
[2018-10-30] MEDS: Metoprolol(XL)Succ 25 MG Tablet PO (09:35)
[2018-10-30] MEDS: APIXABAN 2.5 MG TABLET PO ×2 (09:35→21:20)
--- NOTE | 2018-10-30 09:49 | PCM.PN.HOSP ---
Patient Problems: Active and Suspected Problems (Last Reviewed 10/29/18 @ 05:58 by Wyatt Henry MD) Hyponatremia (Acute) Nausea & vomiting (Acute) Abnormal EKG (Acute) Fall (Acute) Subjective: She states that she feels fine and would like to go home, she has not had any nausea or vomiting in the last 24 to 48 hours. Vitals/I&O's: Vital Signs Temp Pulse Resp BP Pulse Ox 97.4 F L 74 18 136/34 H 97 10/30/18 09:30 10/30/18 09:35 10/30/18 09:30 10/30/18 09:35 10/30/18 09:30 Oxygen Flow Rate (L/min) 2 Oxygen Delivery Method Room Air Weight: 150 lb 9.211 oz Body Mass Index (BMI) 27.5 Finger Stick Blood Glucose 99 Intake and Output for Last 24 Hours 10/28/18 10/29/18 10/30/18 23:59 23:59 23:59 Intake Total 527 / 527 836 / 836 Balance 527 / 527 836 / 836 General: Alert, Oriented x3, Cooperative, No apparent distress HEENT: Atraumatic, PERRLA, EOMI, Normocephalic Oral: Dry Mucosa Neck: Supple, No JVD Lungs: Clear to auscultation, Normal air movement, No rhonchi, No wheeze, No rales Cardiovascular: Regular rate, Regular Rhythm, Normal S1, Normal S2, No murmurs Abdomen: Soft, Non Tender, Non-Distended, No Hepato-splenomegaly Extremities: No edema, Capillary Refill Less than 3 Seconds Skin: No rashes, No breakdown Neurological: Neuro grossly intact, Sensory exam intact to light touch and pain Psych/Mental Status: Normal Affect, Appropriate Laboratory Results 10/29/18 11:45: Sodium 128 L, Potassium 4.6, Chloride 99, Carbon Dioxide 20.0 L, Anion Gap 9, BUN 37 H, Creatinine 2.04 H, Estim Creat Clear Calc 18.27, Est GFR (MDRD) Af Amer 30 L, Est GFR (MDRD) Non-Af 25 L, BUN/Creatinine Ratio 18.1, Glucose 93, Calcium 9.4 10/30/18 06:13: WBC 2.5 L, RBC 3.56 L, Hgb 10.5 L, Hct 30.7 L, MCV 86.2, MCH 29.5, MCHC 34.2, RDW 17.0 H, RDW Differential 53.2 H, Plt Count 54 L, MPV 8.9, Immature Gran % (Auto) 0.000, Neut % (Auto) 56.8, Lymph % (Auto) 23.6, [place] % (Auto) 19.2 H, Eos % (Auto) 0.0, Baso % (Auto) 0.4, Absolute Neuts (auto) 1.4 L, Absolute Lymphs (auto) 0.59 L, Total Counted Not Reportable, Diff Path Review October10/30/18 06:13: Sodium 127 L, Potassium 4.6, Chloride 100, Carbon Dioxide 21.0, Anion Gap 6, BUN 39 H, Creatinine 2.23 H, Estim Creat Clear Calc 16.71, Est GFR (MDRD) Af Amer 27 L, Est GFR (MDRD) Non-Af 23 L, BUN/Creatinine Ratio 17.5, Glucose 88, Calcium 9.6 Current Medications Acetaminophen (Tylenol) 650 mg PO Q6H PRN PRN PRN Reason: Mild pain 1-3/Temp > 100.7 F Last Admin: 10/29/18 21:10 Dose: 650 mg Apixaban (Eliquis) 2.5 mg PO BID [facility] Last Admin: 10/30/18 09:35 Dose: 2.5 mg Atorvastatin Calcium (Lipitor) 20 mg PO DAILY@0800 [facility] Last Admin: 10/30/18 09:34 Dose: 20 mg Cholecalciferol (Vitamin D) 5,000 unit PO DAILY [facility] Last Admin: 10/30/18 09:36 Dose: 5,000 unit Dextrose (D50w Syringe) 0 gm IV X1 PRN; Protocol PRN Reason: Hypoglycemia Docusate Sodium (Colace) 100 mg PO DAILY PRN PRN Reason: Constipation Ferrous Gluconate (Ferrous Gluconate) 324 mg PO DAILY [facility] Last Admin: 10/30/18 09:35 Dose: 324 mg Glucagon () 1 mg IM .X1 PRN PRN Reason: Hypoglycemia Sodium Chloride () 1,000 mls @ 75 mls/hr IV .[id number] [facility] Last Admin: 10/30/18 09:16 Dose: 75 mls/hr Methimazole (Tapazole) 10 mg PO TID [facility] Last Admin: 10/30/18 06:47 Dose: 10 mg Metoprolol Succinate (Toprol Xl (Beta Charbel)) 25 mg PO DAILY [facility] Last Admin: 10/30/18 09:35 Dose: 25 mg Mirtazapine (Remeron) 15 mg PO QHS [facility] Last Admin: 10/29/18 21:07 Dose: 15 mg Nutritional Formula (Lactose Free) (Ensure Enlive) 120 ml PO 4X/DAY [facility] Last Admin: 10/30/18 09:37 Dose: 120 ml Ondansetron HCl (Zofran) 4 mg IV Q8H PRN PRN PRN Reason: NAUSEA/VOMITING Pantoprazole Sodium (Protonix) 20 mg PO DAILY [facility] Last Admin: 10/30/18 09:35 Dose: 20 mg Sodium Chloride () 5 - 15 ml IV UD PRN PRN Reason: SALINE FLUSH Last Admin: 10/29/18 03:32 Dose: 10 ml Medical Necessity - Tobacco Use Smoking Status: Never smoker Assessment/Plan All Active Problems (Last Reviewed 10/29/18 @ 05:58 by Wyatt Henry MD) Hyponatremia (Acute) Nausea & vomiting (Acute) Abnormal EKG (Acute) Fall (Acute) UTI (urinary tract infection) (Acute) Hyponatremia (Acute) Generalized weakness (Acute) Hyperkalemia (Acute) Acute blood loss anemia (Resolved) Diverticulitis (Resolved) GI bleed (Resolved) Heart failure with reduced ejection fraction (Resolved) Pancytopenia (Resolved) Supratherapeutic INR (Resolved) 1. Hyponatremia secondary to dehydration from nausea and vomiting and her Aldactone and Zaroxolyn/generalized weakness -Continue with normal saline at 75 cc/h -Sodium has increased from 123-128 but then decreased to 127 today and had an increase in her creatinine. Her normal saline was stopped yesterday because he was only ordered as with a liter therefore will resume IV fluids and recheck sodium in the morning I will discuss with her the option of hospice if I can get her sodium to improve or we have difficulty with fluid status. -If she continues to improve tomorrow we will plan for discharge in the morning -Continue with Zofran as needed for nausea -PT/OT 2. Abnormal EKG -She has no chest pain continues to have no chest pain however second troponin was slightly positive at 0.049 -Third troponin decreased therefore this is likely not an acute ischemic issue 3. KYLEIGH on CKD 4 -Her baseline creatinine is around 1.8, and in July of this year she had acute kidney injury with creatinine up into the fours -We will trend and continue with her IV fluids 4. Hyperthyroidism -Continue with methimazole -Stable 5. CAD status post aortic valve replacement mitral valve replacement/A. fib/HTN/HLD -Currently stable, will continue with Eliquis and Lipitor -Continue with metoprolol but will hold her Zaroxolyn as we are giving her fluid replacement and she was hyponatremic, continue to hold her Aldactone -We will educate her that if she begins having nausea and vomiting to try not to take her Zaroxolyn or Aldactone DVT: Lucien Code Visit Inpatient E&M: 20680 Subs Hosp L2
--- NOTE | 2018-10-30 09:52 | PN_ITS ---
Patient Problems: Active and Suspected Problems (Last Reviewed 10/29/18 @ 05:58 by Wyatt Henry MD) Hyponatremia (Acute) Nausea & vomiting (Acute) Abnormal EKG (Acute) Fall (Acute) Subjective: She states that she feels fine and would like to go home, she has not had any nausea or vomiting in the last 24 to 48 hours. Vitals/I&O's: Vital Signs Temp Pulse Resp BP Pulse Ox 97.4 F L 74 18 136/34 H 97 10/30/18 09:30 10/30/18 09:35 10/30/18 09:30 10/30/18 09:35 10/30/18 09:30 Oxygen Flow Rate (L/min) 2 Oxygen Delivery Method Room Air Weight: 150 lb 9.211 oz Body Mass Index (BMI) 27.5 Finger Stick Blood Glucose 99 Intake and Output for Last 24 Hours 10/28/18 10/29/18 10/30/18 23:59 23:59 23:59 Intake Total 527 / 527 836 / 836 Balance 527 / 527 836 / 836 General: Alert, Oriented x3, Cooperative, No apparent distress HEENT: Atraumatic, PERRLA, EOMI, Normocephalic Oral: Dry Mucosa Neck: Supple, No JVD Lungs: Clear to auscultation, Normal air movement, No rhonchi, No wheeze, No rales Cardiovascular: Regular rate, Regular Rhythm, Normal S1, Normal S2, No murmurs Abdomen: Soft, Non Tender, Non-Distended, No Hepato-splenomegaly Extremities: No edema, Capillary Refill Less than 3 Seconds Skin: No rashes, No breakdown Neurological: Neuro grossly intact, Sensory exam intact to light touch and pain Psych/Mental Status: Normal Affect, Appropriate Laboratory Results 10/29/18 11:45: Sodium 128 L, Potassium 4.6, Chloride 99, Carbon Dioxide 20.0 L, Anion Gap 9, BUN 37 H, Creatinine 2.04 H, Estim Creat Clear Calc 18.27, Est GFR (MDRD) Af Amer 30 L, Est GFR (MDRD) Non-Af 25 L, BUN/Creatinine Ratio 18.1, Glucose 93, Calcium 9.4 10/30/18 06:13: WBC 2.5 L, RBC 3.56 L, Hgb 10.5 L, Hct 30.7 L, MCV 86.2, MCH 29.5, MCHC 34.2, RDW 17.0 H, RDW Differential 53.2 H, Plt Count 54 L, MPV 8.9, Immature Gran % (Auto) 0.000, Neut % (Auto) 56.8, Lymph % (Auto) 23.6, [place] % (Auto) 19.2 H, Eos % (Auto) 0.0, Baso % (Auto) 0.4, Absolute Neuts (auto) 1.4 L, Absolute Lymphs (auto) 0.59 L, Total Counted Not Reportable, Diff Path Review October10/30/18 06:13: Sodium 127 L, Potassium 4.6, Chloride 100, Carbon Dioxide 21.0, Anion Gap 6, BUN 39 H, Creatinine 2.23 H, Estim Creat Clear Calc 16.71, Est GFR (MDRD) Af Amer 27 L, Est GFR (MDRD) Non-Af 23 L, BUN/Creatinine Ratio 17.5, Glucose 88, Calcium 9.6 Current Medications Acetaminophen (Tylenol) 650 mg PO Q6H PRN PRN PRN Reason: Mild pain 1-3/Temp > 100.7 F Last Admin: 10/29/18 21:10 Dose: 650 mg Apixaban (Eliquis) 2.5 mg PO BID [facility] Last Admin: 10/30/18 09:35 Dose: 2.5 mg Atorvastatin Calcium (Lipitor) 20 mg PO DAILY@0800 [facility] Last Admin: 10/30/18 09:34 Dose: 20 mg Cholecalciferol (Vitamin D) 5,000 unit PO DAILY [facility] Last Admin: 10/30/18 09:36 Dose: 5,000 unit Dextrose (D50w Syringe) 0 gm IV X1 PRN; Protocol PRN Reason: Hypoglycemia Docusate Sodium (Colace) 100 mg PO DAILY PRN PRN Reason: Constipation Ferrous Gluconate (Ferrous Gluconate) 324 mg PO DAILY [facility] Last Admin: 10/30/18 09:35 Dose: 324 mg Glucagon () 1 mg IM .X1 PRN PRN Reason: Hypoglycemia Sodium Chloride () 1,000 mls @ 75 mls/hr IV .[id number] [facility] Last Admin: 10/30/18 09:16 Dose: 75 mls/hr Methimazole (Tapazole) 10 mg PO TID [facility] Last Admin: 10/30/18 06:47 Dose: 10 mg Metoprolol Succinate (Toprol Xl (Beta Charbel)) 25 mg PO DAILY [facility] Last Admin: 10/30/18 09:35 Dose: 25 mg Mirtazapine (Remeron) 15 mg PO QHS [facility] Last Admin: 10/29/18 21:07 Dose: 15 mg Nutritional Formula (Lactose Free) (Ensure Enlive) 120 ml PO 4X/DAY [facility] Last Admin: 10/30/18 09:37 Dose: 120 ml Ondansetron HCl (Zofran) 4 mg IV Q8H PRN PRN PRN Reason: NAUSEA/VOMITING Pantoprazole Sodium (Protonix) 20 mg PO DAILY [facility] Last Admin: 10/30/18 09:35 Dose: 20 mg Sodium Chloride () 5 - 15 ml IV UD PRN PRN Reason: SALINE FLUSH Last Admin: 10/29/18 03:32 Dose: 10 ml Medical Necessity - Tobacco Use Smoking Status: Never smoker Assessment/Plan All Active Problems (Last Reviewed 10/29/18 @ 05:58 by Wyatt Henry MD) Hyponatremia (Acute) Nausea & vomiting (Acute) Abnormal EKG (Acute) Fall (Acute) UTI (urinary tract infection) (Acute) Hyponatremia (Acute) Generalized weakness (Acute) Hyperkalemia (Acute) Acute blood loss anemia (Resolved) Diverticulitis (Resolved) GI bleed (Resolved) Heart failure with reduced ejection fraction (Resolved) Pancytopenia (Resolved) Supratherapeutic INR (Resolved) 1. Hyponatremia secondary to dehydration from nausea and vomiting and her Aldactone and Zaroxolyn/generalized weakness -Continue with normal saline at 75 cc/h -Sodium has increased from 123-128 but then decreased to 127 today and had an increase in her creatinine. Her normal saline was stopped yesterday because he was only ordered as with a liter therefore will resume IV fluids and recheck sodium in the morning I will discuss with her the option of hospice if I can get her sodium to improve or we have difficulty with fluid status. -If she continues to improve tomorrow we will plan for discharge in the morning -Continue with Zofran as needed for nausea -PT/OT 2. Abnormal EKG -She has no chest pain continues to have no chest pain however second troponin was slightly positive at 0.049 -Third troponin decreased therefore this is likely not an acute ischemic issue 3. KYLEIGH on CKD 4 -Her baseline creatinine is around 1.8, and in July of this year she had acute kidney injury with creatinine up into the fours -We will trend and continue with her IV fluids 4. Hyperthyroidism -Continue with methimazole -Stable 5. CAD status post aortic valve replacement mitral valve replacement/A. fib/HTN/HLD -Currently stable, will continue with Eliquis and Lipitor -Continue with metoprolol but will hold her Zaroxolyn as we are giving her fluid replacement and she was hyponatremic, continue to hold her Aldactone -We will educate her that if she begins having nausea and vomiting to try not to take her Zaroxolyn or Aldactone DVT: Lucien Code Visit Inpatient E&M: 31508 Subs Hosp L2
[2018-10-30] MEDS: Mirtazapine 15 MG Tablet PO (21:20)
[2018-10-31] VITALS (13 sets, daily range): BP systolic 110–122; BP diastolic 47–67; PULSE 78–89; RESP 16–20; TEMP 36.3–36.7; O2SAT 95–99
[2018-10-31] MEDS: METHIMAZOLE 5 MG TABLET 10 MG PO ×3 (05:14→21:59)
[2018-10-31 07:39] LABS: Anion Gap 8 (5-15); BUN 36 mg/dL (7-18); Chloride 103 mmol/L (98-107); Creatinine, Serum 2.25 mg/dL (0.55-1.02); EST Glomerular Filtration Rate 22 mL/min (>60); Est Glom Filt Rate - Afr Amer 27 mL/min (>60); Estimated Creatinine Clearance 16.56 ml/min; Glucose 107 mg/dL (74-106); Potassium 4.7 mmol/L (3.5-5.1); Sodium Level 132 mmol/L (136-145)
--- NOTE | 2018-10-31 08:01 | PCM.PN.HOSP ---
Patient Problems: Active and Suspected Problems (Last Reviewed 10/29/18 @ 05:58 by Wyatt Henry MD) Hyponatremia (Acute) Nausea & vomiting (Acute) Abnormal EKG (Acute) Fall (Acute) Subjective: Feeling okay today. She is still very tired. She denies any nausea or vomiting. Vitals/I&O's: Vital Signs Temp Pulse Resp BP Pulse Ox 97.5 F L 85 16 120/67 95 10/31/18 03:40 10/31/18 03:42 10/31/18 03:40 10/31/18 03:40 10/31/18 03:40 Oxygen Flow Rate (L/min) 2 Oxygen Delivery Method Room Air Weight: 150 lb 9.211 oz Body Mass Index (BMI) 27.5 Finger Stick Blood Glucose 99 Intake and Output for Last 24 Hours 10/29/18 10/30/18 10/31/18 23:59 23:59 23:59 Intake Total 527 / 527 1538 / 1538 1248 / 1248 Balance 527 / 527 1538 / 1538 1248 / 1248 General: Alert, Oriented x3, Cooperative, No apparent distress HEENT: Atraumatic, PERRLA, EOMI, Normocephalic Oral: Dry Mucosa Neck: Supple, No JVD Lungs: Clear to auscultation, Normal air movement, No rhonchi, No wheeze, No rales Cardiovascular: Regular rate, Regular Rhythm, Normal S1, Normal S2, No murmurs Abdomen: Soft, Non Tender, Non-Distended, No Hepato-splenomegaly Extremities: No edema, Capillary Refill Less than 3 Seconds Skin: No rashes, No breakdown Neurological: Neuro grossly intact, Sensory exam intact to light touch and pain Psych/Mental Status: Normal Affect, Appropriate Laboratory Results 10/31/18 05:25: Sodium 132 L, Potassium 4.7, Chloride 103, Carbon Dioxide 21.0, Anion Gap 8, BUN 36 H, Creatinine 2.25 H, Estim Creat Clear Calc 16.56, Est GFR (MDRD) Af Amer 27 L, Est GFR (MDRD) Non-Af 22 L, BUN/Creatinine Ratio 16.0, Glucose 107 H, Calcium 10.0 Current Medications Acetaminophen (Tylenol) 650 mg PO Q6H PRN PRN PRN Reason: Mild pain 1-3/Temp > 100.7 F Last Admin: 10/29/18 21:10 Dose: 650 mg Apixaban (Eliquis) 2.5 mg PO BID [facility] Last Admin: 10/30/18 21:20 Dose: 2.5 mg Atorvastatin Calcium (Lipitor) 20 mg PO DAILY@0800 [facility] Last Admin: 10/30/18 09:34 Dose: 20 mg Cholecalciferol (Vitamin D) 5,000 unit PO DAILY [facility] Last Admin: 10/30/18 09:36 Dose: 5,000 unit Dextrose (D50w Syringe) 0 gm IV X1 PRN; Protocol PRN Reason: Hypoglycemia Docusate Sodium (Colace) 100 mg PO DAILY PRN PRN Reason: Constipation Ferrous Gluconate (Ferrous Gluconate) 324 mg PO DAILY [facility] Last Admin: 10/30/18 09:35 Dose: 324 mg Glucagon () 1 mg IM .X1 PRN PRN Reason: Hypoglycemia Sodium Chloride () 1,000 mls @ 75 mls/hr IV .[id number] [facility] Last Admin: 10/30/18 22:35 Dose: 75 mls/hr Methimazole (Tapazole) 10 mg PO TID [facility] Last Admin: 10/31/18 05:14 Dose: 10 mg Metoprolol Succinate (Toprol Xl (Beta Charbel)) 25 mg PO DAILY [facility] Last Admin: 10/30/18 09:35 Dose: 25 mg Mirtazapine (Remeron) 15 mg PO QHS [facility] Last Admin: 10/30/18 21:20 Dose: 15 mg Nutritional Formula (Lactose Free) (Ensure Enlive) 120 ml PO 4X/DAY [facility] Last Admin: 10/30/18 21:24 Dose: 120 ml Ondansetron HCl (Zofran) 4 mg IV Q8H PRN PRN PRN Reason: NAUSEA/VOMITING Pantoprazole Sodium (Protonix) 20 mg PO DAILY [facility] Last Admin: 10/30/18 09:35 Dose: 20 mg Sodium Chloride () 5 - 15 ml IV UD PRN PRN Reason: SALINE FLUSH Last Admin: 10/29/18 03:32 Dose: 10 ml Medical Necessity - Tobacco Use Smoking Status: Never smoker Assessment/Plan All Active Problems (Last Reviewed 10/29/18 @ 05:58 by Wyatt Henry MD) Hyponatremia (Acute) Nausea & vomiting (Acute) Abnormal EKG (Acute) Fall (Acute) UTI (urinary tract infection) (Acute) Hyponatremia (Acute) Generalized weakness (Acute) Hyperkalemia (Acute) Acute blood loss anemia (Resolved) Diverticulitis (Resolved) GI bleed (Resolved) Heart failure with reduced ejection fraction (Resolved) Pancytopenia (Resolved) Supratherapeutic INR (Resolved) 1. Hyponatremia secondary to dehydration from nausea and vomiting and her Aldactone and Zaroxolyn/generalized weakness -Continue with normal saline at 75 cc/h, will be cautious given that she may have some component of diastolic heart failure. Diastolic dysfunction could not be seen on her previous echo because of her A. fib. And her EF was 65% -Sodium on admission was 123, today is 132 however her creatinine did increase to 2.25. -If she continues to improve tomorrow we will plan for discharge in the morning -Continue with Zofran as needed for nausea -PT/OT, recommendations have been 1 to 2 hours of therapy 5 days a week, she is ambulated 30 feet, therefore I did discuss with her the potential of going to a alf facility which she is open to. Had frequent readmissions so she may need to find a permanent placement or consider palliative care/hospice 2. Abnormal EKG -She has no chest pain continues to have no chest pain however second troponin was slightly positive at 0.049 -Third troponin decreased therefore this is likely not an acute ischemic issue 3. KYLEIGH on CKD 4 -Her baseline creatinine is around 1.8, and in July of this year she had acute kidney injury with creatinine up into the fours -We will trend and continue with her IV fluids 4. Hyperthyroidism -Continue with methimazole -Stable 5. CAD status post aortic valve replacement mitral valve replacement/A. fib/HTN/HLD -Currently stable, will continue with Eliquis and Lipitor -Continue with metoprolol but will hold her Zaroxolyn as we are giving her fluid replacement and she was hyponatremic, continue to hold her Aldactone -We will educate her that if she begins having nausea and vomiting to try not to take her Zaroxolyn or Aldactone DVT: Eliquis Code Visit Inpatient E&M: 32347 Subs Hosp L2
--- NOTE | 2018-10-31 08:04 | PN_ITS ---
Patient Problems: Active and Suspected Problems (Last Reviewed 10/29/18 @ 05:58 by Wyatt Henry MD) Hyponatremia (Acute) Nausea & vomiting (Acute) Abnormal EKG (Acute) Fall (Acute) Subjective: Feeling okay today. She is still very tired. She denies any nausea or vomiting. Vitals/I&O's: Vital Signs Temp Pulse Resp BP Pulse Ox 97.5 F L 85 16 120/67 95 10/31/18 03:40 10/31/18 03:42 10/31/18 03:40 10/31/18 03:40 10/31/18 03:40 Oxygen Flow Rate (L/min) 2 Oxygen Delivery Method Room Air Weight: 150 lb 9.211 oz Body Mass Index (BMI) 27.5 Finger Stick Blood Glucose 99 Intake and Output for Last 24 Hours 10/29/18 10/30/18 10/31/18 23:59 23:59 23:59 Intake Total 527 / 527 1538 / 1538 1248 / 1248 Balance 527 / 527 1538 / 1538 1248 / 1248 General: Alert, Oriented x3, Cooperative, No apparent distress HEENT: Atraumatic, PERRLA, EOMI, Normocephalic Oral: Dry Mucosa Neck: Supple, No JVD Lungs: Clear to auscultation, Normal air movement, No rhonchi, No wheeze, No rales Cardiovascular: Regular rate, Regular Rhythm, Normal S1, Normal S2, No murmurs Abdomen: Soft, Non Tender, Non-Distended, No Hepato-splenomegaly Extremities: No edema, Capillary Refill Less than 3 Seconds Skin: No rashes, No breakdown Neurological: Neuro grossly intact, Sensory exam intact to light touch and pain Psych/Mental Status: Normal Affect, Appropriate Laboratory Results 10/31/18 05:25: Sodium 132 L, Potassium 4.7, Chloride 103, Carbon Dioxide 21.0, Anion Gap 8, BUN 36 H, Creatinine 2.25 H, Estim Creat Clear Calc 16.56, Est GFR (MDRD) Af Amer 27 L, Est GFR (MDRD) Non-Af 22 L, BUN/Creatinine Ratio 16.0, Glucose 107 H, Calcium 10.0 Current Medications Acetaminophen (Tylenol) 650 mg PO Q6H PRN PRN PRN Reason: Mild pain 1-3/Temp > 100.7 F Last Admin: 10/29/18 21:10 Dose: 650 mg Apixaban (Eliquis) 2.5 mg PO BID [facility] Last Admin: 10/30/18 21:20 Dose: 2.5 mg Atorvastatin Calcium (Lipitor) 20 mg PO DAILY@0800 [facility] Last Admin: 10/30/18 09:34 Dose: 20 mg Cholecalciferol (Vitamin D) 5,000 unit PO DAILY [facility] Last Admin: 10/30/18 09:36 Dose: 5,000 unit Dextrose (D50w Syringe) 0 gm IV X1 PRN; Protocol PRN Reason: Hypoglycemia Docusate Sodium (Colace) 100 mg PO DAILY PRN PRN Reason: Constipation Ferrous Gluconate (Ferrous Gluconate) 324 mg PO DAILY [facility] Last Admin: 10/30/18 09:35 Dose: 324 mg Glucagon () 1 mg IM .X1 PRN PRN Reason: Hypoglycemia Sodium Chloride () 1,000 mls @ 75 mls/hr IV .[id number] [facility] Last Admin: 10/30/18 22:35 Dose: 75 mls/hr Methimazole (Tapazole) 10 mg PO TID [facility] Last Admin: 10/31/18 05:14 Dose: 10 mg Metoprolol Succinate (Toprol Xl (Beta Charbel)) 25 mg PO DAILY [facility] Last Admin: 10/30/18 09:35 Dose: 25 mg Mirtazapine (Remeron) 15 mg PO QHS [facility] Last Admin: 10/30/18 21:20 Dose: 15 mg Nutritional Formula (Lactose Free) (Ensure Enlive) 120 ml PO 4X/DAY [facility] Last Admin: 10/30/18 21:24 Dose: 120 ml Ondansetron HCl (Zofran) 4 mg IV Q8H PRN PRN PRN Reason: NAUSEA/VOMITING Pantoprazole Sodium (Protonix) 20 mg PO DAILY [facility] Last Admin: 10/30/18 09:35 Dose: 20 mg Sodium Chloride () 5 - 15 ml IV UD PRN PRN Reason: SALINE FLUSH Last Admin: 10/29/18 03:32 Dose: 10 ml Medical Necessity - Tobacco Use Smoking Status: Never smoker Assessment/Plan All Active Problems (Last Reviewed 10/29/18 @ 05:58 by Wyatt Henry MD) Hyponatremia (Acute) Nausea & vomiting (Acute) Abnormal EKG (Acute) Fall (Acute) UTI (urinary tract infection) (Acute) Hyponatremia (Acute) Generalized weakness (Acute) Hyperkalemia (Acute) Acute blood loss anemia (Resolved) Diverticulitis (Resolved) GI bleed (Resolved) Heart failure with reduced ejection fraction (Resolved) Pancytopenia (Resolved) Supratherapeutic INR (Resolved) 1. Hyponatremia secondary to dehydration from nausea and vomiting and her Aldactone and Zaroxolyn/generalized weakness -Continue with normal saline at 75 cc/h, will be cautious given that she may have some component of diastolic heart failure. Diastolic dysfunction could not be seen on her previous echo because of her A. fib. And her EF was 65% -Sodium on admission was 123, today is 132 however her creatinine did increase to 2.25. -If she continues to improve tomorrow we will plan for discharge in the morning -Continue with Zofran as needed for nausea -PT/OT, recommendations have been 1 to 2 hours of therapy 5 days a week, she is ambulated 30 feet, therefore I did discuss with her the potential of going to a fdc facility which she is open to. Had frequent readmissions so she may need to find a permanent placement or consider palliative care/hospice 2. Abnormal EKG -She has no chest pain continues to have no chest pain however second troponin was slightly positive at 0.049 -Third troponin decreased therefore this is likely not an acute ischemic issue 3. KYLEIGH on CKD 4 -Her baseline creatinine is around 1.8, and in July of this year she had acute kidney injury with creatinine up into the fours -We will trend and continue with her IV fluids 4. Hyperthyroidism -Continue with methimazole -Stable 5. CAD status post aortic valve replacement mitral valve replacement/A. fib/HTN/HLD -Currently stable, will continue with Eliquis and Lipitor -Continue with metoprolol but will hold her Zaroxolyn as we are giving her fluid replacement and she was hyponatremic, continue to hold her Aldactone -We will educate her that if she begins having nausea and vomiting to try not to take her Zaroxolyn or Aldactone DVT: Eliquis Code Visit Inpatient E&M: [id number] Subs Hosp L2
[2018-10-31] MEDS: APIXABAN 2.5 MG TABLET PO ×2 (08:16→22:00)
[2018-10-31] MEDS: Atorvastatin Calcium 20 MG Tablet PO (08:16)
[2018-10-31] MEDS: Metoprolol(XL)Succ 25 MG Tablet PO (08:17)
[2018-10-31] MEDS: Pantoprazole Sodium 20 MG Tablet PO (08:17)
[2018-10-31] MEDS: Ferrous Gluconate 324 MG Tablet PO (08:17)
[2018-10-31] MEDS: 0.9% Normal Saline 1,000 ML 75 ML IV ×2 (08:18→12:16)
[2018-10-31] MEDS: Menthol/Lanolin/Calamine/Znox 113 GM Tube 1 APPLIC TOPICAL ×2 (14:18→22:04)
--- NOTE | 2018-10-31 15:39 | NURSING ---
This RN taking over care for pt. Report received from JEAN Cary
[2018-10-31] MEDS: Docusate Sodium 100 MG Capsule PO (17:33)
[2018-10-31] MEDS: Mirtazapine 15 MG Tablet PO (21:59)
[2018-11-01] VITALS (8 sets, daily range): BP systolic 96–105; BP diastolic 51–63; PULSE 85–94; RESP 16–18; TEMP 36.4–36.7; O2SAT 93–99
[2018-11-01] MEDS: 0.9% Normal Saline 1,000 ML 75 ML IV (00:06)
[2018-11-01 06:27] LABS: Anion Gap 6 (5-15); BUN 36 mg/dL (7-18); BUN/Creat Ratio 17.7 RATIO (10-20); Calcium,Total 10.2 mg/dL (8.5-10.1); Chloride 108 mmol/L (98-107); Creatinine, Serum 2.03 mg/dL (0.55-1.02); EST Glomerular Filtration Rate 25 mL/min (>60); Est Glom Filt Rate - Afr Amer 31 mL/min (>60); Estimated Creatinine Clearance 18.36 ml/min; Glucose 86 mg/dL (74-106); Potassium 4.7 mmol/L (3.5-5.1); Sodium Level 136 mmol/L (136-145)
[2018-11-01] MEDS: Menthol/Lanolin/Calamine/Znox 113 GM Tube 1 APPLIC TOPICAL ×2 (06:29→14:25)
[2018-11-01] MEDS: METHIMAZOLE 5 MG TABLET 10 MG PO ×2 (06:30→14:24)
[2018-11-01] MEDS: Atorvastatin Calcium 20 MG Tablet PO (08:05)
[2018-11-01] MEDS: Ferrous Gluconate 324 MG Tablet PO (09:27)
[2018-11-01] MEDS: APIXABAN 2.5 MG TABLET PO (09:27)
[2018-11-01] MEDS: Metoprolol(XL)Succ 25 MG Tablet PO (09:28)
[2018-11-01] MEDS: Pantoprazole Sodium 20 MG Tablet PO (09:28)
--- NOTE | 2018-11-01 09:30 | CASEMGMT ---
DAMARI spoke with patient and her daughter. Patient would like to go to [facility]. DAMARI asked Kaci in Case Management office to send a referral to [facility]. Ginny DILL MSW
--- NOTE | 2018-11-01 09:42 | CASEMGMT ---
Per DAMARI Gross, referral needs sent to [facility]. Call placed to Lynn, linda at [facility], informing her that referral would be faxed. Faxed referral documents to [phone], fax confirmation received. Kaci Cortez LPN Clinical Support
--- NOTE | 2018-11-01 09:45 | PCM.PN.HOSP ---
Patient Problems: Active and Suspected Problems (Last Reviewed 10/29/18 @ 05:58 by Wyatt Henry MD) Hyponatremia (Acute) Nausea & vomiting (Acute) Abnormal EKG (Acute) Fall (Acute) Subjective: Patient seen and examined. Daughter was by her bedside. Patient looks very frail and weak. She complained of constipation, and denied any fever or chills, nausea vomiting, chest pain, abdominal pain. Daughter complained that mother had very poor appetite which started while she was at home. Review of systems otherwise negative. Vitals/I&O's: Vital Signs Temp Pulse Resp BP Pulse Ox 97.7 F L 94 18 97/63 97 11/01/18 09:14 11/01/18 09:28 11/01/18 09:14 11/01/18 09:28 11/01/18 09:14 Oxygen Flow Rate (L/min) 2 Oxygen Delivery Method Room Air Weight: 150 lb 9.211 oz Body Mass Index (BMI) 27.5 Finger Stick Blood Glucose 99 Intake and Output for Last 24 Hours 10/30/18 10/31/18 11/01/18 23:59 23:59 23:59 Intake Total 1538 / 1538 3051 / 3051 934 / 934 Balance 1538 / 1538 3051 / 3051 934 / 934 General: Alert, Oriented x3, Cooperative, Lethargic HEENT: Atraumatic, PERRLA, EOMI, Normocephalic Oral: Dry Mucosa Neck: Supple, No JVD, No Nodes Lungs: Clear to auscultation, Normal air movement, No rhonchi, No wheeze, No rales Cardiovascular: Regular rate, Regular Rhythm, Normal S1, Normal S2, No murmurs Abdomen: Bowel Sounds Present, Soft, Non Tender, Non-Distended, No Hepato-splenomegaly Extremities: No clubbing, No cyanosis, No edema, Capillary Refill Less than 3 Seconds Skin: No rashes, No breakdown Musculoskeletal: No Tenderness to Palpation of Joints or Extremities Lymphatic: No Cervical, Supraclavicular, or Inguinal Adenopathy Neurological: Cranial nerves II-XII grossly intact, Neuro grossly intact, Motor Exam 5/5 strength throughout Psych/Mental Status: Normal Affect, Appropriate, Alert and oriented to time, place, person, mood and affect Laboratory Results 11/01/18 05:45: Sodium 136, Potassium 4.7, Chloride 108 H, Carbon Dioxide 22.0, Anion Gap 6, BUN 36 H, Creatinine 2.03 H, Estim Creat Clear Calc 18.36, Est GFR (MDRD) Af Amer 31 L, Est GFR (MDRD) Non-Af 25 L, BUN/Creatinine Ratio 17.7, Glucose 86, Calcium 10.[address] Data [address] CT 10/28/18 19:11 IMPRESSION: No fracture or intracranial hemorrhage. Electronically Signed: Naren Forte MD at 20:02 EDT Tel , Service support , Chest X-Ray 10/28/18 19:11 IMPRESSION: No acute pulmonary findings. Electronically Signed: Naren Forte MD at 19:35 EDT Tel , Service support , Current Medications Acetaminophen (Tylenol) 650 mg PO Q6H PRN PRN PRN Reason: Mild pain 1-3/Temp > 100.7 F Last Admin: 10/29/18 21:10 Dose: 650 mg Apixaban (Eliquis) 2.5 mg PO BID [facility] Last Admin: 11/01/18 09:27 Dose: 2.5 mg Atorvastatin Calcium (Lipitor) 20 mg PO DAILY@0800 [facility] Last Admin: 11/01/18 08:05 Dose: 20 mg Calamine/Phenol (Calmoseptine Ointment) 1 applic TOPICAL TID [facility]; Protocol Last Admin: 11/01/18 06:29 Dose: 1 applicatio Cholecalciferol (Vitamin D) 5,000 unit PO DAILY [facility] Last Admin: 11/01/18 09:27 Dose: 5,000 unit Dextrose (D50w Syringe) 0 gm IV X1 PRN; Protocol PRN Reason: Hypoglycemia Docusate Sodium (Colace) 100 mg PO DAILY PRN PRN Reason: Constipation Last Admin: 10/31/18 17:33 Dose: 100 mg Ferrous Gluconate (Ferrous Gluconate) 324 mg PO DAILY [facility] Last Admin: 11/01/18 09:27 Dose: 324 mg Glucagon () 1 mg IM .X1 PRN PRN Reason: Hypoglycemia Sodium Chloride () 1,000 mls @ 75 mls/hr IV .[id number] [facility] Last Admin: 11/01/18 00:06 Dose: 75 mls/hr Methimazole (Tapazole) 10 mg PO TID [facility] Last Admin: 11/01/18 06:30 Dose: 10 mg Metoprolol Succinate (Toprol Xl (Beta Charbel)) 25 mg PO DAILY [facility] Last Admin: 11/01/18 09:28 Dose: 25 mg Mirtazapine (Remeron) 15 mg PO QHS [facility] Last Admin: 10/31/18 21:59 Dose: 15 mg Nutritional Formula (Lactose Free) (Ensure Enlive) 120 ml PO 4X/DAY [facility] Last Admin: 11/01/18 09:27 Dose: 120 ml Ondansetron HCl (Zofran) 4 mg IV Q8H PRN PRN PRN Reason: NAUSEA/VOMITING Pantoprazole Sodium (Protonix) 20 mg PO DAILY [facility] Last Admin: 11/01/18 09:28 Dose: 20 mg Sodium Chloride () 5 - 15 ml IV UD PRN PRN Reason: SALINE FLUSH Last Admin: 10/29/18 03:32 Dose: 10 ml Medical Necessity - Tobacco Use Smoking Status: Never smoker Assessment/Plan All Active Problems (Last Reviewed 10/29/18 @ 05:58 by Wyatt Henry MD) Hyponatremia (Acute) Nausea & vomiting (Acute) Abnormal EKG (Acute) Fall (Acute) UTI (urinary tract infection) (Acute) Hyponatremia (Acute) Generalized weakness (Acute) Hyperkalemia (Acute) Acute blood loss anemia (Resolved) Diverticulitis (Resolved) GI bleed (Resolved) Heart failure with reduced ejection fraction (Resolved) Pancytopenia (Resolved) Supratherapeutic INR (Resolved) 1. Acute on chronic Hyponatremia due to dehydration and also medication induced sodium was 127 upon admission, is now 136 aldactone and zaroxylyn on hold on IVf NS ~ 75cc/hr; will dc IVF since hyponatremia has corrected encourage liberal oral hydration 2. Debility due to hyponatremia and deconditioning PT/OT on board; patient wants to go to SNF case management on board also has decreased appetite; on remeron and ensure supplements. 3. Constipation: says laxatives not working. Will give enema. 4. KYLEIGH on CKD IV: Cr is 2.03 today, with baseline being ~ 1.8-2. Will monitor. Being hydrated with IVF, which I will dc today 5. Abnormal EKG: troponins were slightly elevated, and peaked at 0.049. this could be due to decreased troponin clearance due to KYLEIGH on CKD. had no chest pain on admisison. 6. Pancytopenia wbc is 2.5, Hb is 10.5 add platelets are 54 this is chronic. will monitor. currently on eliquis; will dc if there is any bleeding diasthesis 7. Hyperparathyroidism: On methimazole. 8. CAD: on lipitor and metoprolol. 9. Valvular abnormalities s/p aortic and mitral valve replacements stable. on eliquis 10. Afib: rate and rhythm controlled. On metoprolol and eliquis DVT prophylaxis: eliquis. Disposition: for placement Code Visit Inpatient E&M: 37504 Subs Hosp L2
--- NOTE | 2018-11-01 09:55 | PN_ITS ---
Patient Problems: Active and Suspected Problems (Last Reviewed 10/29/18 @ 05:58 by Wyatt Henry MD) Hyponatremia (Acute) Nausea & vomiting (Acute) Abnormal EKG (Acute) Fall (Acute) Subjective: Patient seen and examined. Daughter was by her bedside. Patient looks very frail and weak. She complained of constipation, and denied any fever or chills, nausea vomiting, chest pain, abdominal pain. Daughter complained that mother had very poor appetite which started while she was at home. Review of systems otherwise negative. Vitals/I&O's: Vital Signs Temp Pulse Resp BP Pulse Ox 97.7 F L 94 18 97/63 97 11/01/18 09:14 11/01/18 09:28 11/01/18 09:14 11/01/18 09:28 11/01/18 09:14 Oxygen Flow Rate (L/min) 2 Oxygen Delivery Method Room Air Weight: 150 lb 9.211 oz Body Mass Index (BMI) 27.5 Finger Stick Blood Glucose 99 Intake and Output for Last 24 Hours 10/30/18 10/31/18 11/01/18 23:59 23:59 23:59 Intake Total 1538 / 1538 3051 / 3051 934 / 934 Balance 1538 / 1538 3051 / 3051 934 / 934 General: Alert, Oriented x3, Cooperative, Lethargic HEENT: Atraumatic, PERRLA, EOMI, Normocephalic Oral: Dry Mucosa Neck: Supple, No JVD, No Nodes Lungs: Clear to auscultation, Normal air movement, No rhonchi, No wheeze, No rales Cardiovascular: Regular rate, Regular Rhythm, Normal S1, Normal S2, No murmurs Abdomen: Bowel Sounds Present, Soft, Non Tender, Non-Distended, No Hepato- splenomegaly Extremities: No clubbing, No cyanosis, No edema, Capillary Refill Less than 3 Seconds Skin: No rashes, No breakdown Musculoskeletal: No Tenderness to Palpation of Joints or Extremities Lymphatic: No Cervical, Supraclavicular, or Inguinal Adenopathy Neurological: Cranial nerves II-XII grossly intact, Neuro grossly intact, Motor Exam 5/5 strength throughout Psych/Mental Status: Normal Affect, Appropriate, Alert and oriented to time, place, person, mood and affect Laboratory Results 11/01/18 05:45: Sodium 136, Potassium 4.7, Chloride 108 H, Carbon Dioxide 22.0, Anion Gap 6, BUN 36 H, Creatinine 2.03 H, Estim Creat Clear Calc 18.36, Est GFR (MDRD) Af Amer 31 L, Est GFR (MDRD) Non-Af 25 L, BUN/Creatinine Ratio 17.7, Glucose 86, Calcium 10.[address] 10/28/18 19:11 IMPRESSION: No fracture or intracranial hemorrhage. Electronically Signed: Nraen Forte MD at 20:02 EDT Tel , Service support , Chest X-Ray 10/28/18 19:11 IMPRESSION: No acute pulmonary findings. Electronically Signed: Naren Forte MD at 19:35 EDT Tel , Service support , Current Medications Acetaminophen (Tylenol) 650 mg PO Q6H PRN PRN PRN Reason: Mild pain 1-3/Temp > 100.7 F Last Admin: 10/29/18 21:10 Dose: 650 mg Apixaban (Eliquis) 2.5 mg PO BID [facility] Last Admin: 11/01/18 09:27 Dose: 2.5 mg Atorvastatin Calcium (Lipitor) 20 mg PO DAILY@0800 [facility] Last Admin: 11/01/18 08:05 Dose: 20 mg Calamine/Phenol (Calmoseptine Ointment) 1 applic TOPICAL TID [facility]; Protocol Last Admin: 11/01/18 06:29 Dose: 1 applicatio Cholecalciferol (Vitamin D) 5,000 unit PO DAILY [facility] Last Admin: 11/01/18 09:27 Dose: 5,000 unit Dextrose (D50w Syringe) 0 gm IV X1 PRN; Protocol PRN Reason: Hypoglycemia Docusate Sodium (Colace) 100 mg PO DAILY PRN PRN Reason: Constipation Last Admin: 10/31/18 17:33 Dose: 100 mg Ferrous Gluconate (Ferrous Gluconate) 324 mg PO DAILY [facility] Last Admin: 11/01/18 09:27 Dose: 324 mg Glucagon () 1 mg IM .X1 PRN PRN Reason: Hypoglycemia Sodium Chloride () 1,000 mls @ 75 mls/hr IV .[id number] [facility] Last Admin: 11/01/18 00:06 Dose: 75 mls/hr Methimazole (Tapazole) 10 mg PO TID [facility] Last Admin: 11/01/18 06:30 Dose: 10 mg Metoprolol Succinate (Toprol Xl (Beta Charbel)) 25 mg PO DAILY [facility] Last Admin: 11/01/18 09:28 Dose: 25 mg Mirtazapine (Remeron) 15 mg PO QHS [facility] Last Admin: 10/31/18 21:59 Dose: 15 mg Nutritional Formula (Lactose Free) (Ensure Enlive) 120 ml PO 4X/DAY [facility] Last Admin: 11/01/18 09:27 Dose: 120 ml Ondansetron HCl (Zofran) 4 mg IV Q8H PRN PRN PRN Reason: NAUSEA/VOMITING Pantoprazole Sodium (Protonix) 20 mg PO DAILY [facility] Last Admin: 11/01/18 09:28 Dose: 20 mg Sodium Chloride () 5 - 15 ml IV UD PRN PRN Reason: SALINE FLUSH Last Admin: 10/29/18 03:32 Dose: 10 ml Medical Necessity - Tobacco Use Smoking Status: Never smoker Assessment/Plan All Active Problems (Last Reviewed 10/29/18 @ 05:58 by Wyatt Henry MD) Hyponatremia (Acute) Nausea & vomiting (Acute) Abnormal EKG (Acute) Fall (Acute) UTI (urinary tract infection) (Acute) Hyponatremia (Acute) Generalized weakness (Acute) Hyperkalemia (Acute) Acute blood loss anemia (Resolved) Diverticulitis (Resolved) GI bleed (Resolved) Heart failure with reduced ejection fraction (Resolved) Pancytopenia (Resolved) Supratherapeutic INR (Resolved) 1. Acute on chronic Hyponatremia due to dehydration and also medication induced * sodium was 127 upon admission, is now 136 * aldactone and zaroxylyn on hold * on IVf NS ~ 75cc/hr; will dc IVF since hyponatremia has corrected * encourage liberal oral hydration * 2. Debility due to hyponatremia and deconditioning * PT/OT on board; patient wants to go to SNF * case management on board * also has decreased appetite; on remeron and ensure supplements. 3. Constipation: says laxatives not working. Will give enema. 4. KYLEIGH on CKD IV: Cr is 2.03 today, with baseline being ~ 1.8-2. Will monitor. Being hydrated with IVF, which I will dc today 5. Abnormal EKG: * troponins were slightly elevated, and peaked at 0.049. * this could be due to decreased troponin clearance due to KYLEIGH on CKD. had no chest pain on admisison. 6. Pancytopenia * wbc is 2.5, Hb is 10.5 add platelets are 54 * this is chronic. * will monitor. currently on eliquis; will dc if there is any bleeding diasthesis 7. Hyperparathyroidism: On methimazole. 8. CAD: on lipitor and metoprolol. 9. Valvular abnormalities s/p aortic and mitral valve replacements * stable. on eliquis * 10. Afib: rate and rhythm controlled. On metoprolol and eliquis DVT prophylaxis: eliquis. Disposition: for placement Code Visit Inpatient E&M: 33396 Subs Hosp L2
--- NOTE | 2018-11-01 10:15 | CASEMGMT ---
Received call from Lynn at [facility], they are able to accept patient. Notified DAMARI Gross via phone of same. Kaci Cortez LPN Clinical Support
--- NOTE | 2018-11-01 10:16 | CASEMGMT ---
DAMARI received call from Kaci in [facility] office. They can take patient. SW will notify patient and physician. Plan: [facility] under skilled level of care. Ginny VALERO
--- NOTE | 2018-11-01 14:56 | PCM.TXEXTCAR ---
- Diet 10/29/18 00:13 Diet: Regular Diet Food consistency:: Regular Liquid Consistency:: Regular/Thin - Routine Orders/Code Status Enema Type: Fleetz Enema Frequency: Daily PRN Suppository Type: Dulcolax 10mg Suppository Frequency: Daily PRN O2 Liters per Minute: 90 O2 Frequency: PRN Routine Lab Work: BMP - in 3 days to assess sodium leve Code Status: DNRCC - Wound(s) coccyx Wound Type: Pressure Injury Right Forearm Wound Type: Skin Tear - Therapies Weight Bearing: Weight bearing as tolerated Physical Therapy: Eval and Treat Occupational Therapy: Eval and Treat - Allergies/Procedures Done in Hospital Allergies/Adverse Reactions: Allergies aspartame [From Nutrasweet Aspartame] Allergy (Verified 10/28/18 18:14) Hives Procedures: None - Type of Care/Length of Stay Estimated LOS: Convalescent Care Less Than 30 days Type of Care Needed: Skilled Rehab Potential: Fair Prognosis: Fair - Additional Orders/Day of Discharge Day of Discharge: 11/01/18 - Dietary and Speech Recommendations Dietitian Recommendations/Changes: Continue regular diet due to poor PO at meals. Continue ensure enlive on medpass for now. Please reweigh. Pt requesting smaller portions--will relay to diet office in an effort to increase intake of ONS and improve PO by decreasing overwhelmed feeling at meal time. - Follow Up Care Primary Care Physician: Hermann Nath DO [Primary Care Provider] - Please follow up with your Primary Care Physician in: one week Please Follow Up With: Ra Velasquez MD - ] When: one week
--- NOTE | 2018-11-01 14:59 | PCM.DC.SUM ---
Discharge Date and Diagnosis Date of Admission: 10/28/18 Date of Discharge: 11/01/18 - Primary Discharge Diagnosis Active and Suspected Problems (Last Reviewed 10/29/18 @ 05:58 by Wyatt Henry MD) Hyponatremia (Acute) Nausea & vomiting (Acute) Abnormal EKG (Acute) Fall (Acute) - Secondary Discharge Diagnosis Chronic Problems (Last Reviewed 10/29/18 @ 05:58 by Wyatt Henry MD) Thrombocytopenia (Chronic) Diverticulosis (Chronic) Chronic renal failure, stage 4 (severe) (Chronic) Hyperthyroidism (Chronic) Iron deficiency anemia (Chronic) On amiodarone therapy (Chronic) H/O mitral valve replacement (Chronic 01/28/17) with 27 mm bioprosthetic heart valve @ [facility] H/O aortic valve replacement (Chronic 01/28/17) with 21 mm bioprosthetic heart valve, ligation of Lt atrial appendage @ [facility] Cardiomyopathy in disease classified elsewhere (Chronic) Nonrheumatic mitral (valve) insufficiency (Chronic) Nonrheumatic aortic (valve) insufficiency (Chronic) Persistent atrial fibrillation (Chronic) HTN (hypertension) (Chronic) HLD (hyperlipidemia) (Chronic) Anticoagulant long-term use (Chronic) Paroxysmal atrial fibrillation (Chronic) Pulmonary hypertension (Chronic) Mitral stenosis (Chronic) Aortic insufficiency (Chronic) CHF (congestive heart failure) (Chronic) Mitral regurgitation (Chronic) Hospital Course and Treatment Imaging Results: Diagnostic Data Brain CT 10/28/18 19:11 IMPRESSION: No fracture or intracranial hemorrhage. Electronically Signed: Naren Forte MD at 20:02 EDT Tel , Service support , Chest X-Ray 10/28/18 19:11 IMPRESSION: No acute pulmonary findings. Electronically Signed: Naren Forte MD at 19:35 EDT Tel , Service support , none Operations: None Procedures: None Summary of Care Provided: The patient is a 78 year old F with a past medical history as listed. He was admitted through the ED on 10/28/2018 with a complaint of progressively worsening nausea and vomiting which started about 2 weeks prior to admission with poor appetite and mechanical fall. She was found to have sodium of 123 on admission with BUN severely elevated at 40. Creatinine was also elevated. EKG done showed diffuse T wave inversions but troponins were negative. She was admitted and managed for acute on chronic hyponatremia likely due to dehydration from vomiting and diuretic use. Her diuretics were held and she was started on IV normal saline. Hyponatremia corrected and sodium came up to 136 on day of discharge. Patient also had mild KYLEIGH on CKD which also improved with IV fluid administration. Creatinine came down from 2.2 on admission to 2.03 with a baseline being around 1.82. Patient was seen by physical therapy and skilled for shelter. She remained stable and was discharged to a alf facility on 11/01/2018. She is follow-up with her primary care doctor in 1 week. Of note, patient's blood pressure has been running in the 90s and low 100s. Her Zaroxolyn was therefore reduced from 5 mg daily to 2.5 mg daily in light of the low blood pressure and severe hyponatremia. She is continue her spironolactone 25 mg daily and follow-up with her can intake worker in 1 week. Patient seen and examined prior to discharge. Daughter was by her bedside. She did complain of feeling tired and loss of appetite which is chronic. Review of systems otherwise negative. Labs and vitals reviewed. Home medication reviewed and reconciled. o/e: Vital Signs Height 5 ft 2 in Weight: 150 lb 9.211 oz Weight in Pounds 150.6 lbs Pulse Ox 99 Temperature 98.1 F Pulse Rate 90 Respiratory Rate 16 Blood Pressure 96/57 Blood Pressure Position Semi-Fowlers [] General: Alert, Oriented x3, Cooperative, Lethargic HEENT: Atraumatic, PERRLA, EOMI, Normocephalic Oral: Dry Mucosa Neck: Supple, No JVD, No Nodes Lungs: Clear to auscultation, Normal air movement, No rhonchi, No wheeze, No rales Cardiovascular: Regular rate, Regular Rhythm, Normal S1, Normal S2, No murmurs Abdomen: Bowel Sounds Present, Soft, Non Tender, Non-Distended, No Hepato-splenomegaly Extremities: No clubbing, No cyanosis, No edema, Capillary Refill Less than 3 Seconds Skin: No rashes, No breakdown Musculoskeletal: No Tenderness to Palpation of Joints or Extremities Lymphatic: No Cervical, Supraclavicular, or Inguinal Adenopathy Neurological: Cranial nerves II-XII grossly intact, Neuro grossly intact, Motor Exam 5/5 strength throughout Psych/Mental Status: Normal Affect, Appropriate, Alert and oriented to time, place, person, mood and affect Plan is to discharge patient to [facility] today. - Physical Exam Vital Signs Temp Pulse Resp BP Pulse Ox 97.7 F L 94 18 97/63 97 11/01/18 09:14 11/01/18 09:28 11/01/18 09:14 11/01/18 09:28 11/01/18 09:14 Oxygen Flow Rate (L/min) 2 Oxygen Delivery Method Room Air Weight: 150 lb 9.211 oz Body Mass Index (BMI) 27.5 Finger Stick Blood Glucose 99 Intake and Output for Last 24 Hours 10/30/18 10/31/18 11/01/18 23:59 23:59 23:59 Intake Total 1538 / 1538 3051 / 3051 1507 / 1507 Balance 1538 / 1538 3051 / 3051 1507 / 1507 Laboratory Tests Past 24 Hrs 11/01/18 05:45 Sodium 136 Potassium 4.7 Chloride 108 H Carbon Dioxide 22.0 Anion Gap 6 BUN 36 H Creatinine 2.03 H Estim Creat Clear Calc 18.36 Est GFR (MDRD) Af Amer 31 L Est GFR (MDRD) Non-Af 25 L BUN/Creatinine Ratio 17.7 Glucose 86 Calcium 10.2 H Discharge Diet: Low fat/ Low Cholesterol Weight Bearing Status: Weight bearing as tolerated Call your doctor if you observe: Fever of 101 or Higher, Numbness or Tingling, Shortness of breath, Dizziness, Fainting spells Home Medications: Medications to take at Discharge Cholecalciferol (Vitamin D3) [Vitamin D3] 2,000 unit PO DAILY 07/19/18 Docusate Sodium [Colace] 50 mg PO DAILY PRN 07/19/18 Omeprazole 20 mg PO DAILY 07/19/18 Apixaban [Eliquis] 2.5 mg PO BID #60 tab 07/23/18 Ferrous Gluconate 324 mg PO DAILY #30 tab 07/23/18 Metoprolol Succinate 25 mg PO DAILY #30 tab.er.24h 08/03/18 spironolactone 25 mg tablet 25 mg PO DAILY 08/20/18 Methimazole 10 mg PO TID #90 tablet 09/24/18 Mirtazapine 15 mg PO QHS 10/28/18 Atorvastatin Calcium 20 mg PO DAILY 10/29/18 Metolazone [Zaroxolyn] 2.5 mg PO DAILY #30 tab 11/01/18 Following Prescrptions Were Given to Patient: Metolazone [Zaroxolyn] 2.5 mg PO DAILY #30 tab Primary Care Physician: Hermann Nath DO [Primary Care Provider] - Please follow up with your Primary Care Physician in: one week Please Follow Up With: Ra Velasquez MD - ] When: one week Disposition: Assisted facility Minutes spent on discharge:: 45 Patient Condition:: Stable Medical Necessity - Tobacco Use Smoking Status: Never smoker Meaningful Use Info Meaningful Use Diagnoses (Choose all that apply): None applicable Code Visit Inpatient E&M: 04996 Disch Hosp
--- NOTE | 2018-11-01 15:04 | DS.PCM_ITS ---
Discharge Date and Diagnosis Date of Admission: 10/28/18 Date of Discharge: 11/01/18 - Primary Discharge Diagnosis Active and Suspected Problems (Last Reviewed 10/29/18 @ 05:58 by Wyatt Henry MD) Hyponatremia (Acute) Nausea & vomiting (Acute) Abnormal EKG (Acute) Fall (Acute) - Secondary Discharge Diagnosis Chronic Problems (Last Reviewed 10/29/18 @ 05:58 by Waytt Henry MD) Thrombocytopenia (Chronic) Diverticulosis (Chronic) Chronic renal failure, stage 4 (severe) (Chronic) Hyperthyroidism (Chronic) Iron deficiency anemia (Chronic) On amiodarone therapy (Chronic) H/O mitral valve replacement (Chronic 01/28/17) with 27 mm bioprosthetic heart valve @ [facility] H/O aortic valve replacement (Chronic 01/28/17) with 21 mm bioprosthetic heart valve, ligation of Lt atrial appendage @ [facility] Cardiomyopathy in disease classified elsewhere (Chronic) Nonrheumatic mitral (valve) insufficiency (Chronic) Nonrheumatic aortic (valve) insufficiency (Chronic) Persistent atrial fibrillation (Chronic) HTN (hypertension) (Chronic) HLD (hyperlipidemia) (Chronic) Anticoagulant long-term use (Chronic) Paroxysmal atrial fibrillation (Chronic) Pulmonary hypertension (Chronic) Mitral stenosis (Chronic) Aortic insufficiency (Chronic) CHF (congestive heart failure) (Chronic) Mitral regurgitation (Chronic) Hospital Course and Treatment Imaging Results: Diagnostic Data Brain CT 10/28/18 19:11 IMPRESSION: No fracture or intracranial hemorrhage. Electronically Signed: Naren Forte MD at 20:02 EDT Tel , Service support , Chest X-Ray 10/28/18 19:11 IMPRESSION: No acute pulmonary findings. Electronically Signed: Naren Forte MD at 19:35 EDT Tel , Service support , none Operations: None Procedures: None Summary of Care Provided: The patient is a 78 year old F with a past medical history as listed. He was admitted through the ED on 10/28/2018 with a complaint of progressively worsening nausea and vomiting which started about 2 weeks prior to admission with poor appetite and mechanical fall. She was found to have sodium of 123 on admission with BUN severely elevated at 40. Creatinine was also elevated. EKG done showed diffuse T wave inversions but troponins were negative. She was admitted and managed for acute on chronic hyponatremia likely due to dehydration from vomiting and diuretic use. Her diuretics were held and she was started on IV normal saline. Hyponatremia corrected and sodium came up to 136 on day of discharge. Patient also had mild KYLEIGH on CKD which also improved with IV fluid administration. Creatinine came down from 2.2 on admission to 2.03 with a baseline being around 1.82. Patient was seen by physical therapy and skilled for fci. She remained stable and [facility]. She is follow-up with her primary care doctor in 1 week. Of note, patient's blood pressure has been running in the 90s and low 100s. Her Zaroxolyn was therefore reduced from 5 mg daily to 2.5 mg daily in light of the low blood pressure and severe hyponatremia. She is continue her spironolactone 25 mg daily and follow-up with her clinical programmer in 1 week. Patient seen and examined prior to discharge. Daughter was by her bedside. She did complain of feeling tired and loss of appetite which is chronic. Review of systems otherwise negative. Labs and vitals reviewed. Home medication reviewed and reconciled. o/e: Vital Signs Height 5 ft 2 in Weight: 150 lb 9.211 oz Weight in Pounds 150.6 lbs Pulse Ox 99 Temperature 98.1 F Pulse Rate 90 Respiratory Rate 16 Blood Pressure 96/57 Blood Pressure Position Semi-Fowlers [] General: Alert, Oriented x3, Cooperative, Lethargic HEENT: Atraumatic, PERRLA, EOMI, Normocephalic Oral: Dry Mucosa Neck: Supple, No JVD, No Nodes Lungs: Clear to auscultation, Normal air movement, No rhonchi, No wheeze, No rales Cardiovascular: Regular rate, Regular Rhythm, Normal S1, Normal S2, No murmurs Abdomen: Bowel Sounds Present, Soft, Non Tender, Non-Distended, No Hepato- splenomegaly Extremities: No clubbing, No cyanosis, No edema, Capillary Refill Less than 3 Seconds Skin: No rashes, No breakdown Musculoskeletal: No Tenderness to Palpation of Joints or Extremities Lymphatic: No Cervical, Supraclavicular, or Inguinal Adenopathy Neurological: Cranial nerves II-XII grossly intact, Neuro grossly intact, Motor Exam 5/5 strength throughout Psych/Mental Status: Normal Affect, Appropriate, Alert and oriented to time, place, person, mood and affect Plan is to discharge patient to [facility] today. - Physical Exam Vital Signs Temp Pulse Resp BP Pulse Ox 97.7 F L 94 18 97/63 97 11/01/18 09:14 11/01/18 09:28 11/01/18 09:14 11/01/18 09:28 11/01/18 09:14 Oxygen Flow Rate (L/min) 2 Oxygen Delivery Method Room Air Weight: 150 lb 9.211 oz Body Mass Index (BMI) 27.5 Finger Stick Blood Glucose 99 Intake and Output for Last 24 Hours 10/30/18 10/31/18 11/01/18 23:59 23:59 23:59 Intake Total 1538 / 1538 3051 / 3051 1507 / 1507 Balance 1538 / 1538 3051 / 3051 1507 / 1507 Laboratory Tests Past 24 Hrs 11/01/18 05:45 Sodium 136 Potassium 4.7 Chloride 108 H Carbon Dioxide 22.0 Anion Gap 6 BUN 36 H Creatinine 2.03 H Estim Creat Clear Calc 18.36 Est GFR (MDRD) Af Amer 31 L Est GFR (MDRD) Non-Af 25 L BUN/Creatinine Ratio 17.7 Glucose 86 Calcium 10.2 H Discharge Diet: Low fat/ Low Cholesterol Weight Bearing Status: Weight bearing as tolerated Call your doctor if you observe: Fever of 101 or Higher, Numbness or Tingling, Shortness of breath, Dizziness, Fainting spells Home Medications: Medications to take at Discharge Cholecalciferol (Vitamin D3) [Vitamin D3] 2,000 unit PO DAILY 07/19/18 Docusate Sodium [Colace] 50 mg PO DAILY PRN 07/19/18 Omeprazole 20 mg PO DAILY 07/19/18 Apixaban [Eliquis] 2.5 mg PO BID #60 tab 07/23/18 Ferrous Gluconate 324 mg PO DAILY #30 tab 07/23/18 Metoprolol Succinate 25 mg PO DAILY #30 tab.er.24h 08/03/18 spironolactone 25 mg tablet 25 mg PO DAILY 08/20/18 Methimazole 10 mg PO TID #90 tablet 09/24/18 Mirtazapine 15 mg PO QHS 10/28/18 Atorvastatin Calcium 20 mg PO DAILY 10/29/18 Metolazone [Zaroxolyn] 2.5 mg PO DAILY #30 tab 11/01/18 Following Prescrptions Were Given to Patient: Metolazone [Zaroxolyn] 2.5 mg PO DAILY #30 tab Primary Care Physician: Hermann Nath DO [Primary Care Provider] - Please follow up with your Primary Care Physician in: one week Please Follow Up With: Ra Velasquez MD - ] When: one week Disposition: Long-Term facility Minutes spent on discharge:: 45 Patient Condition:: Stable Medical Necessity - Tobacco Use Smoking Status: Never smoker Meaningful Use Info Meaningful Use Diagnoses (Choose all that apply): None applicable Code Visit Inpatient E&M: 67670 Disch Hosp
--- NOTE | 2018-11-01 15:23 | CASEMGMT ---
Patient is ready for discharge to [facility]. DAMARI notified CC. Completed convalescent on [facility]. DAMARI faxed orders to [facility]. Called [facility] and arranged for patient to get picked up at 430p via cot. DAMARI notified RN, litigation legal secretary, Jessica at [facility], and patient's daughter. Plan: d/c to [facility] under skilled level of care on a convalescent stay. [facility] transported via cot. Ginny DILL PREFLIGHT INSPECTOR
--- NOTE | 2018-11-01 15:45 | NURSING ---
called report to Diana at [facility]. Transport to p/ at 1630.
--- NOTE | 2018-11-01 15:52 | CASEMGMT ---
[facility] to [facility] to [facility] and Evette voices understanding at this time. Evette voices no further questions/concerns/needs at this time. Елена PENA CM
[2018-11-02 10:30] LABS: Pathologist Review Reviewed
== END 2018-11-01 16:47 | disposition skilled nursing facility (03) | DRG 641 ==
LOC: ED 19:32 → PCU 23:12
PROVIDERS: Family Medicine; Admitting Provider Hospitalist; Emergency Provider Emergency Medicine; Family Provider Family Medicine; PCP Family Medicine; Visit Provider Student in an Organized Health Care Education/Training Program
DX: E87.1 Hypo-osmolality and hyponatremia (principal); N17.9 Acute kidney failure, unspecified; N18.4 Chronic kidney disease, stage 4 (severe); I13.0 Hypertensive heart and chronic kidney disease with heart failure and stage 1 through stage 4 chronic kidney disease, or unspecified chronic kidney disease; I48.1 Persistent atrial fibrillation; E05.90 Thyrotoxicosis, unspecified without thyrotoxic crisis or storm; E86.0 Dehydration; I25.10 Atherosclerotic heart disease of native coronary artery without angina pectoris; Z91.81 History of falling; Z95.3 Presence of xenogenic heart valve; Z79.01 Long term (current) use of anticoagulants; D50.9 Iron deficiency anemia, unspecified; E78.5 Hyperlipidemia, unspecified; I27.20 Pulmonary hypertension, unspecified
CPT/HCPCS: 36415; 70450; 71045; 80048; 80053; 81001; 83690; 83735; 84484; 85025; 85027; 85610; 93005; 97110; 97162; 97166; 97530; 97802; 97803; 99285; J7030; A4216; J2405

== ENCOUNTER 2018-11-02 15:43 | Emergency (ER) | payer MEDICARE, OTHER, SELFPAY ==
[2018-10-29 00:14] VITALS: BMI 27.5
[2018-11-02 15:44] VITALS: BP 107/94; PULSE 94; RESP 20; TEMP 36.6; O2SAT 99; BMI 28.1
[2018-11-02 15:47] VITALS: BP 107/94; PULSE 94; RESP 24; TEMP 36.6; O2SAT 100
--- NOTE | 2018-11-02 16:08 | ED.DCSUM_ITS ---
- ER Visit Summary Date of Service: 11/02/18 Chief Complaint: Nausea, vomiting and diarrhea History of Present Illness: The patient is a 78 F history of hypertension, A. fib on Eliquis, renal insufficiency and anemia. Patient was just hospitalized recently for dehydration and hyponatremia. She was discharged yesterday to the assisted and comes back today with nausea vomiting and diarrhea. No abdominal pain. No fever. Physical Examination: Vital signs are stable afebrile. Pulse ox 9% on room air no signs of hypoxia. HEENT exam mildly dry mixed memories. Neck nontender. Lungs clear to auscultation bilaterally. Heart regular rhythm rate about 90 with 3 of 6 stock ejection murmur. Abdomen is soft and nontender normal bowel sounds no peritoneal signs. Patient moving all 4 extremities. Calves are nontender. No cords. Neurologically she is awake and alert. Follows commands. No focal motor deficits. Test Results: CBC shows a white count of 6. Hemoglobin of 12 which is actually better than her baseline of 10. Platelets are consistently low at 46,000 previously 54,000. Electrolytes showed BUN 34 creatinine 1.9 which is her baseline renal insufficiency. UA negative. Emergency Department Course and Treatment: Elderly female appears mildly dehydrated started on IV fluids and IV Zofran. Repeat exam patient is doing well at 1814 p.m. Her blood pressure currently is 104/52. She had diarrhea it was dark in color however she is on iron and her blood counts are better than they normally run. Treatment Plan: Patient is doing well on repeat exam. She will be discharged back to the extended care facility. Disposition: Discharge Impression: Acute nausea, vomiting and diarrhea Acute dehydration Chronic anemia, chronic renal insufficiency and chronic thrombocytopenia This note was generated with [employer] dictation software. It may contain incorrect words, spelling, and punctuation that were not noted in review of the chart prior to signing ED Disposition - Plan for ED Patient: Referrals: Hermann Nath DO [Primary Care Provider] -
[2018-11-02] MEDS: Ondansetron 4 MG/2 ML Vial IV (16:22)
[2018-11-02] MEDS: 0.9% Normal Saline 1,000 ML 1000 ML IV (16:22)
[2018-11-02 16:27] LABS: Absolute Lymphocyte Count 0.68 X10^3/ul (0.83-4.51); Basophil# 0.01 X10^3/uL; Basophil% 0.2 % (0-1); Eosinophil# 0.01 X10^3/uL; Eosinophils% 0.2 % (0-5); Hemoglobin 12.7 g/dl (12.0-15.0); Lymphocyte # 0.68 X10^3/ul (4.0); Mean Corp Hgb Conc 33.4 g/gl (32-36); Mean Corpuscular Hgb 29.4 pg (27.0-32.0); Monocyte# 0.54 X10^3/uL; Monocyte% 8.7 % (0-10); Neutrophil # 4.95 X10^3/uL (2.7-7.7); Neutrophil % 79.9 % (47-70); RBC Distribution Width CV 17.1 % (11.6-14.6); RBC Distribution Width SD 54.1 fl (35.1-43.9); Red Blood Count 4.32 M/mm3 (4.2-5.4); White Blood Count 6.2 K/mm3 (4.4-11.0)
[2018-11-02 16:34] LABS: Anion Gap 7 (5-15); BUN 34 mg/dL (7-18); BUN/Creat Ratio 17.1 RATIO (10-20); Calcium,Total 10.7 mg/dL (8.5-10.1); Chloride 107 mmol/L (98-107); Creatinine, Serum 1.99 mg/dL (0.55-1.02); EST Glomerular Filtration Rate 26 mL/min (>60); Est Glom Filt Rate - Afr Amer 31 mL/min (>60); Estimated Creatinine Clearance 18.72 ml/min; Glucose 101 mg/dL (74-106); Potassium 4.9 mmol/L (3.5-5.1); Sodium Level 135 mmol/L (136-145)
[2018-11-02 16:45] LABS: Differential Indicated SCAN CRITERIA MET; POSITIVE COUNT YES; POSITIVE DIFFERENTIAL NO; POSITIVE MORPHOLOGY NO; Platelet Count 46 K/mm3 (150-450)
--- NOTE | 2018-11-02 16:45 | ED.RN ---
LAB CALL WITH CRITICAL PLATELET COUNT RESULT OF 46. RESULT VERBALLY REPORTED TO DR. MONTERROSO.
[2018-11-02 16:55] LABS: Anisocytosis RARE; Ovalocyte RARE; Platelet Estimate MKD DEC (ADEQ)
[2018-11-02 17:17] LABS: Bacteria 0 SEEN /hpf (None Seen); Mucous, Urine 0 SEEN /hpf (<or=2+); Red Blood Cells-Urine 0 SEEN /hpf (0-5); Squamous Epithelial Cells - UA 0 SEEN /hpf (5-10); White Blood Cells 0 SEEN /hpf (0-5)
[2018-11-02 17:43] LABS: Color, Urine Amber (Yellow); Glucose, Dipstick Normal (Normal); Ketone-Dipstick 5 mg/dl (Negative); Leukocyte Esterase-Dipstick 25 /ul (Negative); Nitrite-Dipstick Negative (Negative); Occult Blood-Urine Negative /ul (Negative); Protein-Dipstick 15 mg/dl (Negative); Specific Gravity, Urine 1.015 (1.002-1.030); Urine Bilirubin Dipstick Negative (Negative); Urine Clarity Clear (Clear); Urine Urobilinogen 1 mg/dl (Normal)
[2018-11-02 17:49] VITALS: BP 107/54; PULSE 94; RESP 18; TEMP 36.6; O2SAT 97; O2SAT 98
[2018-11-02 17:51] LABS: Calcium Oxalate Crystals Ur 2+ /hpf (<or=2+)
[2018-11-02 17:52] LABS: Hyaline Cast 25-50 SEEN /lpf (0-5)
[2018-11-02 18:11] VITALS: BP 105/57; PULSE 92; RESP 18; TEMP 36.6; O2SAT 98
--- NOTE | 2018-11-02 18:19 | DCINST.ED_ITS ---
ED Disposition - Plan for ED Patient: Disposition: Home or Assisted Living Instructions: ED Vomiting Diarrhea Nonspecific Ad Referrals: Hermann Nath DO [Primary Care Provider] - 3-5 Days if not improving Additional Instructions: Plenty of fluids and rest. Zofran as needed for nausea. Imodium as needed for diarrhea if not improving in the next 48 hours. Follow-up with the medical record librarians teacher of [place] if not improving in th e next 24 hours.
[2018-11-02 18:24] VITALS: BP 106/72; PULSE 93; RESP 20; O2SAT 97
[2018-11-04 09:12] LABS: Pathologist Review Reviewed
== END 2018-11-02 18:56 | disposition home or self-care (01) ==
PROVIDERS: Emergency Provider Emergency Medicine; Family Provider Family Medicine; PCP Family Medicine
DX: E86.0 Dehydration (principal); R11.2 Nausea with vomiting, unspecified; R19.7 Diarrhea, unspecified; D64.9 Anemia, unspecified; D69.6 Thrombocytopenia, unspecified; I12.9 Hypertensive chronic kidney disease with stage 1 through stage 4 chronic kidney disease, or unspecified chronic kidney disease; N18.9 Chronic kidney disease, unspecified; I48.91 Unspecified atrial fibrillation; Z79.01 Long term (current) use of anticoagulants
CPT/HCPCS: 80048; 81001; 85025; 96361; 96374; 99285; J7030; P9612; J2405

== ENCOUNTER 2018-11-08 07:47 | Inpatient (IN) | payer MEDICARE, OTHER, SELFPAY ==
[2018-11-08 07:49] VITALS: BP 148/135; PULSE 97; RESP 17; TEMP 36.2; O2SAT 99; BMI 30.8
--- NOTE | 2018-11-08 08:11 | EKG12_ITS ---
Test Reason : VOMITING Blood Pressure : / mmHG Vent. Rate : 092 BPM Atrial Rate : 092 BPM P-R Int : 186 ms QRS Dur : 090 ms QT Int : 388 ms P-R-T Axes : 040 025 192 degrees QTc Int : 479 ms Normal sinus rhythm ST & T wave abnormality, consider anterolateral ischemia Prolonged QT Abnormal ECG Confirmed by KATIE PONCE, TREASURE ([id number]), design editor ASHLEY GILBERT ([id number]) on 11/10/2018 9:18:40 AM Referred By: FATIMAH Confirmed By:TREASURE WILSON MD
--- NOTE | 2018-11-08 08:12 | RAD_ITS ---
STUDY: X-RAY CHEST REASON FOR EXAM: Female, 78 years old. Nausea, vomiting, diarrhea and weakness. TECHNIQUE: Single AP portable view of the chest. COMPARISON: October 28, 2018. FINDINGS: Median sternotomy. Atrial clip. Valve repair. Cardiac silhouette unremarkable. Pulmonary vascularity unremarkable. Aorta calcified and slightly ectatic. No focal patchy airspace opacities. No pleural effusions. Upper abdomen unremarkable. Osseous structures are demineralized. No pneumothorax. Degenerative changes at the shoulders and spine. RAD/Chest 1 View (Portable) IMPRESSION: No acute cardiopulmonary findings Electronically Signed: Vipin Dinh DO at 8:26 EDT Tel , Service support ,
--- NOTE | 2018-11-08 08:18 | ED.VISSUMM ---
- ER Visit Summary Date of Service: 11/08/18 Chief Complaint: Weakness History of Present Illness: The patient is a 78 F who presents with weakness, possible blood in the stool, this is been since yesterday brought in by ambulance from the group home. Apparently she is more confused she is saying things that do not make sense, she was on an antidepressant and was taken off yesterday. She has a complicated history and is chronically ill per her daughter this is somewhat worse today. It is difficult for me to get a history from the patient, she has brief responses yes or no and I am not sure if she truly understands me. There is no reported fever chills she has not complained of of chest pain there has not been recent diarrhea or constipation. Physical Examination: She is sleeping comfortable, she is arousable but then she goes back to sleep Quite dry mucous membranes, no obvious facial deformity No C-spine tenderness supple neck. Regular rate and rhythm without any obvious murmurs Course lungs bilaterally Abdomen soft and nontender Bilateral symmetric edema Skin does not show any obvious rashes or lesions, no trauma. Somnolent, knows her name, no focal deficit Emergency Department Course and Treatment: Patient is found to be dehydrated, give her IV fluids, she has a slightly elevated troponin and multiple metabolic disturbances. I will admit her for IV hydration I did approach the subject with the daughter she does seem to be towards the end of her life. She understands this. At this point she is DNR [facility]. Disposition: Admit in stable condition Impression: Dehydration End-of-life care This note was generated with [employer] dictation software. It may contain incorrect words, spelling, and punctuation that were not noted in review of the chart prior to signing ED Disposition - Plan for ED Patient: Referrals: Hermann Nath DO [Primary Care Provider] -
--- NOTE | 2018-11-08 08:21 | ED.DCSUM_ITS ---
- ER Visit Summary Date of Service: 11/08/18 Chief Complaint: Weakness History of Present Illness: The patient is a 78 F who presents with weakness, possible blood in the stool, this is been since yesterday brought in by ambulance from the retirement. Apparently she is more confused she is saying things that do not make sense, she was on an antidepressant and was taken off yesterday. She has a complicated history and is chronically ill per her daughter this is somewhat worse today. It is difficult for me to get a history from the patient, she has brief responses yes or no and I am not sure if she truly understands me. There is no reported fever chills she has not complained of of chest pain there has not been recent diarrhea or constipation. Physical Examination: She is sleeping comfortable, she is arousable but then she goes back to sleep Quite dry mucous membranes, no obvious facial deformity No C-spine tenderness supple neck. Regular rate and rhythm without any obvious murmurs Course lungs bilaterally Abdomen soft and nontender Bilateral symmetric edema Skin does not show any obvious rashes or lesions, no trauma. Somnolent, knows her name, no focal deficit Emergency Department Course and Treatment: Patient is found to be dehydrated, give her IV fluids, she has a slightly elevated troponin and multiple metabolic disturbances. I will admit her for IV hydration I did approach the subject with the daughter she does seem to be towards the end of her life. She understands this. At this point she is DNR [facility]. Disposition: Admit in stable condition Impression: Dehydration End-of-life care This note was generated with [employer] dictation software. It may contain incorrect words, spelling, and punctuation that were not noted in review of the chart prior to signing ED Disposition - Plan for ED Patient: Referrals: Hermann Nath DO [Primary Care Provider] -
[2018-11-08] MEDS: 0.9% Normal Saline 1,000 ML 1000 ML IV (08:43)
[2018-11-08 08:59] LABS: Absolute Neutrophil Count 3.9 X10^3/uL (2.0-7.7); Basophil# 0.01 X10^3/uL; Basophil% 0.2 % (0-1); Eosinophil# 0.02 X10^3/uL; Eosinophils% 0.4 % (0-5); Hematocrit 34.2 % (37-47); Hemoglobin 11.2 g/dl (12.0-15.0); Mean Corp Hgb Conc 32.7 g/gl (32-36); Mean Corpuscular Volume 88.6 fL (81-99); Mean Platelet Vol. 9.7 fl (6.2-12.0); Monocyte# 0.55 X10^3/uL; Neutrophil # 3.93 X10^3/uL (2.7-7.7); Neutrophil % 78.2 % (47-70); Platelet Count 51 K/mm3 (150-450); RBC Distribution Width CV 17.4 % (11.6-14.6); Red Blood Count 3.86 M/mm3 (4.2-5.4)
[2018-11-08 09:00] LABS: POSITIVE COUNT NO; POSITIVE DIFFERENTIAL YES; POSITIVE MORPHOLOGY NO
[2018-11-08 09:01] LABS: Differential Indicated SCAN CRITERIA MET
[2018-11-08 09:08] LABS: ALB/GLOB Ratio 0.8 RATIO (0.9-2.4); AST(SGOT) 51 U/L (15-37); Alanine Aminotransfer ALT/SGPT 22 U/L (13-56); Albumin, Serum 2.3 g/dL (3.2-5.0); Alkaline Phosphatase 160 U/L (45-117); Anion Gap 9 (5-15); BUN 77 mg/dL (7-18); BUN/Creat Ratio 29.4 RATIO (10-20); Calcium,Total 10.9 mg/dL (8.5-10.1); Chloride 106 mmol/L (98-107); Creatinine, Serum 2.62 mg/dL (0.55-1.02); EST Glomerular Filtration Rate 19 mL/min (>60); Est Glom Filt Rate - Afr Amer 23 mL/min (>60); Estimated Creatinine Clearance 14.22 ml/min; Globulin 2.9 g/dL (2.2-4.2); Glucose 81 mg/dL (74-106); Potassium 4.5 mmol/L (3.5-5.1); Protein, Total 5.2 g/dL (6.4-8.2); Sodium Level 137 mmol/L (136-145)
[2018-11-08 09:48] VITALS: RESP 18
--- NOTE | 2018-11-08 10:01 | PCM.HP.STD ---
History of Present Illness Date of Admission: 11/08/18 Chief Complaint: altered mental status, blood in stool The patient is a 78 year old F with an extensive past medical history. She was pretty silly admitted and just discharged about 7 days ago for dehydration which was thought to be due to polypharmacy. Her blood pressure medications were adjusted and she was discharged back to a retirement. She was brought back today with a complaint of blood in the stool per her retirement staff. She was also noted to be very confused and lethargic and could not communicate very well with her daughter. Patient was unable to give any history and daughter says she was only told that she had blood in his stool so she was brought to the ED. On further inquiry, daughter is not able to give any further information but does state that her mother has not been eating well and drinking well. Unable to do complaints of review of systems as patient is confused. [] Past Medical History Past Medical History (Chronic Problems): Chronic Problems (Last Reviewed 10/29/18 @ 05:58 by Wyatt Henry MD) Thrombocytopenia (Chronic) Diverticulosis (Chronic) Chronic renal failure, stage 4 (severe) (Chronic) Hyperthyroidism (Chronic) Iron deficiency anemia (Chronic) On amiodarone therapy (Chronic) H/O mitral valve replacement (Chronic 01/28/17) with 27 mm bioprosthetic heart valve @ [facility] H/O aortic valve replacement (Chronic 01/28/17) with 21 mm bioprosthetic heart valve, ligation of Lt atrial appendage @ [facility] Cardiomyopathy in disease classified elsewhere (Chronic) Nonrheumatic mitral (valve) insufficiency (Chronic) Nonrheumatic aortic (valve) insufficiency (Chronic) Persistent atrial fibrillation (Chronic) HTN (hypertension) (Chronic) HLD (hyperlipidemia) (Chronic) Anticoagulant long-term use (Chronic) Paroxysmal atrial fibrillation (Chronic) Pulmonary hypertension (Chronic) Mitral stenosis (Chronic) Aortic insufficiency (Chronic) CHF (congestive heart failure) (Chronic) Mitral regurgitation (Chronic) Medical History: Medical History (Last Reviewed 10/29/18 @ 05:58 by Wyatt Henry MD) On amiodarone therapy (Chronic) Z79.899 Cardiomyopathy in disease classified elsewhere (Chronic) I43 Nonrheumatic mitral (valve) insufficiency (Chronic) I34.0 Nonrheumatic aortic (valve) insufficiency (Chronic) I35.1 Persistent atrial fibrillation (Chronic) I48.1 HTN (hypertension) (Chronic) I10 HLD (hyperlipidemia) (Chronic) E78.5 Allergies aspartame [From Nutrasweet Aspartame] Allergy (Verified 11/02/18 15:50) Hives Home Medications: Ambulatory Orders Medication Instructions Recorded Cholecalciferol (Vitamin D3) 2,000 unit PO DAILY 07/19/18 [Vitamin D3] Docusate Sodium [Colace] 50 mg PO DAILY PRN 07/19/18 Omeprazole 20 mg PO DAILY 07/19/18 Apixaban [Eliquis] 2.5 mg PO BID #60 tab 07/23/18 Ferrous Gluconate 324 mg PO DAILY #30 tab 07/23/18 Metoprolol Succinate 25 mg PO DAILY #30 tab.er.24h 08/03/18 spironolactone 25 mg tablet 25 mg PO DAILY 08/20/18 Methimazole 10 mg PO TID #90 tablet 09/24/18 Mirtazapine 15 mg PO QHS 10/28/18 Atorvastatin Calcium 20 mg PO DAILY 10/29/18 Metolazone [Zaroxolyn] 2.5 mg PO DAILY #30 tab 11/01/18 Acetaminophen [Tylenol] 650 mg PO Q4H PRN PRN 11/08/18 Ascorbic Acid [Vitamin C] 500 mg PO DAILY@0800 11/08/18 Magnesium Hydroxide [Milk Of 30 ml PO DAILY PRN PRN 11/08/18 Magnesia] Multivit,Stress Formula/Zinc 1 each PO DAILY 11/08/18 [Stress Formula with Zinc Tab] Ondansetron HCl [Zofran] 4 mg PO Q8H PRN PRN 11/08/18 Surgical History: Surgical History (Last Reviewed 10/29/18 @ 05:58 by Wyatt Henry MD) H/O mitral valve replacement (Chronic) Onset Date: 01/28/17 Z98.890, Z95.2 with 27 mm bioprosthetic heart valve @ [facility] H/O aortic valve replacement (Chronic) Onset Date: 01/28/17 Z95.2 with 21 mm bioprosthetic heart valve, ligation of Lt atrial appendage @ [facility] History of right and left heart catheterization Z98.890 09/03/2016 Surgical History: cholecystectomy, - - Status post aortic and mitral valve replacement, open heart surgery Lives: Retirement Smoking Status: Never smoker Alcohol: None Drugs: None - *Family History Maternal Family History: Family History (Last Reviewed 08/20/18 @ 13:15 by Eri Mccrary) Father No problems noted. History Items: Hypertension Offspring Family History: Family History (Last Reviewed 08/20/18 @ 13:15 by Eri Mccrary) Father No problems noted. History Items: Heart Disease, Stroke - Paternal grandmother Review of Systems Unable to obtain accurate/complete ROS d/t: patient confused and lethargic and not answering questions VTE Information - Inpt Only VTE Present on Admission: No VTE Mechan Device Prophylaxis: SCD's VTE Pharm Prophylaxis ordered?: No - Physical Exam General: Confused, Disoriented, Lethargic HEENT: Atraumatic, PERRLA, EOMI Oral: Dry Mucosa - mucosa very dry Neck: Supple, No JVD, Negative Carotid Bruits Lungs: Clear to auscultation, Normal air movement, No rhonchi, No wheeze, No rales Cardiovascular: Regular rate, Regular Rhythm, Normal S1, Normal S2, No murmurs Abdomen: Bowel Sounds Present, Soft, Non Tender, Non-Distended, No Hepato-splenomegaly Extremities: No clubbing, No cyanosis, No edema, Capillary Refill Less than 3 Seconds Skin: No rashes, No breakdown, - - decreased skin turgor Musculoskeletal: No Tenderness to Palpation of Joints or Extremities Lymphatic: No Cervical, Supraclavicular, or Inguinal Adenopathy Neurological: Cranial nerves II-XII grossly intact, Motor Exam 5/5 strength throughout, - - patient obtunded, confused Psych/Mental Status: - - patient very lethargic, obtunded Vital Signs Temp Pulse Resp BP Pulse Ox 97.1 F L 97 18 148/135 H 99 11/08/18 07:49 11/08/18 07:49 11/08/18 09:48 11/08/18 07:49 11/08/18 07:49 Oxygen Delivery Method Room Air Weight: 168 lb 10.458 oz Body Mass Index (BMI) 30.8 Finger Stick Blood Glucose 99 Laboratory Tests Past 24 Hrs 11/08/18 11/08/18 08:40 08:40 WBC 5.0 RBC 3.86 L Hgb 11.2 L Hct 34.2 L MCV 88.6 MCH 29.0 MCHC 32.7 RDW 17.4 H RDW Differential 54.0 H Plt Count 51 L MPV 9.7 Immature Gran % (Auto) 0.200 Neut % (Auto) 78.2 H Lymph % (Auto) 10.0 L [place] % (Auto) 11.0 H Eos % (Auto) 0.4 Baso % (Auto) 0.2 Absolute Neuts (auto) 3.9 Absolute Lymphs (auto) 0.50 L Total Counted Not Reportable Sodium 137 Potassium 4.5 Chloride 106 Carbon Dioxide 22.0 Anion Gap 9 BUN 77 H Creatinine 2.62 H Estim Creat Clear Calc 14.22 Est GFR (MDRD) Af Amer 23 L Est GFR (MDRD) Non-Af 19 L BUN/Creatinine Ratio 29.4 H Glucose 81 Calcium 10.9 H Total Bilirubin 1.80 H AST 51 H ALT 22 Alkaline Phosphatase 160 H Troponin I 0.331 H Total Protein 5.2 L Albumin 2.3 L Globulin 2.9 Albumin/Globulin Ratio 0.8 L Assessment/Plan All Active Problems (Last Reviewed 10/29/18 @ 05:58 by Wyatt Henry MD) Hyponatremia (Acute) Nausea & vomiting (Acute) Abnormal EKG (Acute) Fall (Acute) UTI (urinary tract infection) (Acute) Hyponatremia (Acute) Generalized weakness (Acute) Hyperkalemia (Acute) Acute blood loss anemia (Resolved) Diverticulitis (Resolved) GI bleed (Resolved) Heart failure with reduced ejection fraction (Resolved) Pancytopenia (Resolved) Supratherapeutic INR (Resolved) 78-year-old female admitted with a complaint of possible blood in stool and altered mental status. 1. Acute metabolic encephalopathy due to severe dehydration patient very confused, obtunded patient is very very dry, with dry oral mucosa and decreased skin turgor admit to Med surg with telemetry hydrate with IVRF NS ~ 125cc/hr Cr is 2.62, baseline is ~ 2 swallow evaluation as she is at risk of aspiration PT/OT consult hold BP meds 2. Rectal bleeding likely due to Eliquis Was brought from retirement on account of blood in stool. Will DC Eliquis. General surgery consults not done as CODE STATUS was changed to DNR CC after admission. Daughter wants conservative management only. 2. Jd on CKD: likely due to dehydration Cr is up to 2.62, with baseline of 2 likely pre-renal, due to dehydration hydrate and monitor 3. NSTEMI: troponin is 0.331. no chest pain, and no acute EKG changes. Plan was to cycle troponin as it may also be due to demand ischemia. However daughter decided to change CODE STATUS to DNR CC after she was admitted to the floor so further cardiac work-up was not done. 4. Elevated liver enzymes. Total bilirubin is 1.8 AST mildly elevated at 51. Should resolve with hydration. 6. History of A. fib: On Eliquis. This is on hold due to history of blood in stool. 7. Chronic Heart failure with preserved EF.: On metolazone and spironolactone. This will be held due to severe dehydration. 8. Hypothyroidism: On methimazole. 9. History of mitral and aortic valve replacements: Stable. DVT prophylaxis: SCDs. Eliquis discontinued. Code Status: DNR CC Patient's daughter counseled extensively about different types of CODE STATUS including full code, DNR CCA and DNR CCA. Patient's CODE STATUS on admission was DNR CCA. Patient counseled that in light of mother's repeated admissions for the same problems and advanced age and numerous comorbidities and debility, patient will benefit from DNR CC status. Daughter initially refused and wanted to give mother DNR CCA. However after admission to the floor, daughter informed nurse and physician that she went to change mother's CODE STATUS to DNR CC. Hospitalist went up to discuss with patient's daughter if she was sure of the decision she had made and to explained to her that being DNR CCA until just comfort care. Daughter expressed understanding of this and requested that hospice be consulted. Hospice consult placed. Total upzl-kn-chto time 25 minutes. Code Visit OBSV E&M: 75746 Initial observation care L3 Procedures: 95010 Advncd Care Plan 30 Min
[2018-11-08 10:50] VITALS: BP 105/51
[2018-11-08 11:16] VITALS: BMI 29.0
[2018-11-08 11:17] LABS: Mucous, Urine 0 SEEN /hpf (<or=2+); Red Blood Cells-Urine 0 SEEN /hpf (0-5); Squamous Epithelial Cells - UA 0 SEEN /hpf (5-10)
[2018-11-08 11:20] LABS: Color, Urine Yellow (Yellow); Glucose, Dipstick Normal (Normal); Ketone-Dipstick 5 mg/dl (Negative); Leukocyte Esterase-Dipstick 500 /ul (Negative); Nitrite-Dipstick Positive (Negative); Occult Blood-Urine 25 /ul (Negative); Protein-Dipstick 15 mg/dl (Negative); Urine Bilirubin Dipstick Negative (Negative); Urine Clarity Cloudy (Clear); Urine Urobilinogen Normal (Normal)
[2018-11-08 11:25] VITALS: BP 122/62; PULSE 90; RESP 18; TEMP 36.6; O2SAT 99
[2018-11-08 11:26] LABS: Bacteria 2+ /hpf (None Seen); White Blood Cells 50-100 SEEN /hpf (0-5)
[2018-11-08] MEDS: 0.9% Normal Saline 1,000 ML 150 ML IV ×2 (11:33→18:14)
--- NOTE | 2018-11-08 12:36 | NURSING ---
hospice nurse notified of consult.
[2018-11-08] MEDS: METHIMAZOLE 5 MG TABLET 10 MG PO (14:17)
[2018-11-08] MEDS: Ceftriaxone 1 GM/50 ML BAG IV (17:11)
[2018-11-08] MEDS: 0.9% NaCl Peripheral Flush Adult/Peds IV (18:36)
[2018-11-08] MEDS: LORazepam 2 MG/ML Syringe 1 MG IV ×2 (18:36→22:43)
[2018-11-08 20:25] VITALS: BP 113/61; PULSE 102; RESP 20; TEMP 37.8; O2SAT 96
[2018-11-08 21:58] VITALS: TEMP 37.4
--- NOTE | 2018-11-08 22:55 | NURSING ---
THIS RN SPOKE WITH PATIENTS DAUGHTER EMANI AND GAVE UPDATE VIA PHONE ABOUT WHAT NEW MEDICATIONS WERE ORDERED THIS SHIFT.
[2018-11-09 01:24] VITALS: TEMP 36.9
[2018-11-09] MEDS: Morphine 2 MG/ML Syringe IV ×2 (02:45→06:36)
[2018-11-09 02:51] VITALS: BP 113/61; PULSE 98; RESP 20; TEMP 36.9; O2SAT 94
[2018-11-09 06:15] LABS: Absolute Lymphocyte Count 0.68 X10^3/ul (0.83-4.51); Absolute Neutrophil Count 2.7 X10^3/uL (2.0-7.7); Basophil# 0.02 X10^3/uL; Basophil% 0.5 % (0-1); Eosinophil# 0.02 X10^3/uL; Eosinophils% 0.5 % (0-5); Hematocrit 28.5 % (37-47); Hemoglobin 9.2 g/dl (12.0-15.0); Lymphocyte # 0.68 X10^3/ul (4.0); Lymphocyte % 17.3 % (19-41); Mean Corp Hgb Conc 32.3 g/gl (32-36); Mean Corpuscular Hgb 29.1 pg (27.0-32.0); Mean Corpuscular Volume 90.2 fL (81-99); Mean Platelet Vol. 9.4 fl (6.2-12.0); Monocyte# 0.52 X10^3/uL; Monocyte% 13.3 % (0-10); Neutrophil # 2.68 X10^3/uL (2.7-7.7); Neutrophil % 68.4 % (47-70); Platelet Count 47 K/mm3 (150-450); RBC Distribution Width CV 17.9 % (11.6-14.6); Red Blood Count 3.16 M/mm3 (4.2-5.4); White Blood Count 3.9 K/mm3 (4.4-11.0)
[2018-11-09 06:26] LABS: Differential Indicated SCAN CRITERIA MET; POSITIVE COUNT YES; POSITIVE DIFFERENTIAL NO; POSITIVE MORPHOLOGY NO
[2018-11-09] MEDS: 0.9% NaCl Peripheral Flush Adult/Peds IV (06:36)
[2018-11-09 06:37] LABS: Anion Gap 9 (5-15); BUN 71 mg/dL (7-18); BUN/Creat Ratio 28.7 RATIO (10-20); Calcium,Total 10.1 mg/dL (8.5-10.1); Chloride 115 mmol/L (98-107); Creatinine, Serum 2.47 mg/dL (0.55-1.02); EST Glomerular Filtration Rate 20 mL/min (>60); Est Glom Filt Rate - Afr Amer 24 mL/min (>60); Estimated Creatinine Clearance 15.09 ml/min; Glucose 65 mg/dL (74-106); Potassium 4.5 mmol/L (3.5-5.1); Sodium Level 143 mmol/L (136-145)
[2018-11-09 07:05] LABS: Differential Comment SCANNED; Hypochromasia 2+; Platelet Estimate MKD DEC (ADEQ); Target Cells 2+
[2018-11-09 08:00] VITALS: PULSE 90
--- NOTE | 2018-11-09 08:13 | NURSING ---
This nurse spoke with [facility] as dtr is requesting hospice. States they will send someone over to eval for possible IPU placement
[2018-11-09] MEDS: Morphine 4 MG/ML Syringe IV ×2 (08:30→11:43)
[2018-11-09] MEDS: Ceftriaxone 1 GM/50 ML BAG IV (08:55)
[2018-11-09] MEDS: LORazepam 2 MG/ML Syringe 1 MG IV (08:55)
[2018-11-09 09:00] VITALS: BP 97/53; PULSE 98; RESP 18; TEMP 36.6; O2SAT 96
--- NOTE | 2018-11-09 09:18 | NURSING ---
daughter here this am, tearful and expresses her desire to proceed w/ inpt hospice-charge nurse elysia contacted them and they will be here at 1000 -pt recently medicated for pain and restlessness
--- NOTE | 2018-11-09 11:57 | NURSING ---
report called to inpt unit unsuccessful-santiago rocha
--- NOTE | 2018-11-09 13:14 | PCM.DC.SUM ---
Discharge Date and Diagnosis Date of Admission: 11/08/18 Date of Discharge: 11/09/18 - Primary Discharge Diagnosis acute metabolic encephalopathy due to dehydration lower GI bleed KYLEIGH on CKD Nonstemi - Secondary Discharge Diagnosis Chronic Problems (Last Reviewed 10/29/18 @ 05:58 by Wyatt Henry MD) Thrombocytopenia (Chronic) Diverticulosis (Chronic) Chronic renal failure, stage 4 (severe) (Chronic) Hyperthyroidism (Chronic) Iron deficiency anemia (Chronic) On amiodarone therapy (Chronic) H/O mitral valve replacement (Chronic 01/28/17) with 27 mm bioprosthetic heart valve @ [facility] H/O aortic valve replacement (Chronic 01/28/17) with 21 mm bioprosthetic heart valve, ligation of Lt atrial appendage @ [facility] Cardiomyopathy in disease classified elsewhere (Chronic) Nonrheumatic mitral (valve) insufficiency (Chronic) Nonrheumatic aortic (valve) insufficiency (Chronic) Persistent atrial fibrillation (Chronic) HTN (hypertension) (Chronic) HLD (hyperlipidemia) (Chronic) Anticoagulant long-term use (Chronic) Paroxysmal atrial fibrillation (Chronic) Pulmonary hypertension (Chronic) Mitral stenosis (Chronic) Aortic insufficiency (Chronic) CHF (congestive heart failure) (Chronic) Mitral regurgitation (Chronic) Hospital Course and Treatment Imaging Results: Diagnostic Data Chest X-Ray 11/08/18 08:12 IMPRESSION: No acute cardiopulmonary findings Electronically Signed: Vipin Dinh DO at 8:26 EDT Tel , Service support , hospice- Dr Lee Operations: None Procedures: None Summary of Care Provided: The patient is a 78 year old F with an extensive past medical history. She was pretty silly admitted and just discharged about 7 days ago for dehydration which was thought to be due to polypharmacy. Her blood pressure medications were adjusted and she was discharged back to a custodial. She was brought back with a complaint of blood in the stool per her custodial staff. She was also noted to be very confused and lethargic and could not communicate very well with her daughter. Patient was unable to give any history and daughter says she was only told that she had blood in his stool so she was brought to the ED. On further inquiry, daughter is not able to give any further information but does state that her mother has not been eating well and drinking well. Unable to do complaints of review of systems as patient was confused. She was noted to have elevated Cr, elevated troponins and a positive UA indicating UTI. She was admitted to be managed for lower GI bleed, non-STEMI, AK on CKD and UTI. CODE STATUS was discussed with patient's daughter in the emergency room during review and patient daughter had wanted to maintain a DNR CCA. Shortly after admission to the floor, daughter decided to switch her mother to DNR CCA. Hospice was consulted. Hospice evaluated patient and deemed her fit for inpatient hospice. However daughter stated that mother would rather prefer to go home. Since daughter lived alone and had not set up care for her mother, decision was made by daughter to discharge patient to inpatient hospice on 11/09/2018. Patient was seen and examined prior to discharge. Patient was lethargic with occasionally screaming out change wanted to go home. Daughter was by her bedside. Patient was not able to answer any questions answered review of systems could not be done. Labs and vitals reviewed. Daughter was very tearful and emotional but had accepted that her mother was dying and understood that her mother was going to inpatient hospice. o/e: Vital Signs Height 5 ft 2 in Weight: 158 lb 15.253 oz Weight in Pounds 159.0 lbs Pulse Ox 96 Temperature 97.9 F Pulse Rate 98 Respiratory Rate 18 Blood Pressure 97/53 Blood Pressure Position Semi-Fowlers General: Confused, Disoriented, Lethargic HEENT: Atraumatic, PERRLA, EOMI Oral: Dry Mucosa - mucosa very dry Neck: Supple, No JVD, Negative Carotid Bruits Lungs: Clear to auscultation, Normal air movement, No rhonchi, No wheeze, No rales Cardiovascular: Regular rate, Regular Rhythm, Normal S1, Normal S2, No murmurs Abdomen: Bowel Sounds Present, Soft, Non Tender, Non-Distended, No Hepato-splenomegaly Extremities: No clubbing, No cyanosis, No edema, Capillary Refill Less than 3 Seconds Skin: No rashes, No breakdown, - - decreased skin turgor Musculoskeletal: No Tenderness to Palpation of Joints or Extremities Lymphatic: No Cervical, Supraclavicular, or Inguinal Adenopathy Neurological: Cranial nerves II-XII grossly intact, Motor Exam 5/5 strength throughout, - - patient obtunded, confused Psych/Mental Status: - - patient very lethargic, obtunded Plan as above. Patient discharged to inpatient hospice. Hospitalist discussed case with Dr Lewis at the inpatient hospice facility. - Physical Exam Vital Signs Temp Pulse Resp BP Pulse Ox 97.9 F 98 18 97/53 L 96 11/09/18 09:00 11/09/18 09:00 11/09/18 09:00 11/09/18 09:00 11/09/18 09:00 Oxygen Delivery Method Room Air Weight: 158 lb 15.253 oz Body Mass Index (BMI) 29.0 Finger Stick Blood Glucose 99 Intake and Output for Last 24 Hours 11/07/18 11/08/18 11/09/18 23:59 23:59 23:59 Intake Total 1670 / 1670 Output Total 70 / 70 Balance 1600 / 1600 Laboratory Tests Past 24 Hrs 11/09/18 11/09/18 05:26 05:26 WBC 3.9 L RBC 3.16 L Hgb 9.2 L Hct 28.5 L MCV 90.2 MCH 29.1 MCHC 32.3 RDW 17.9 H RDW Differential 56.0 H Plt Count 47 L* MPV 9.4 Immature Gran % (Auto) 0.000 Neut % (Auto) 68.4 Lymph % (Auto) 17.3 L [place] % (Auto) 13.3 H Eos % (Auto) 0.5 Baso % (Auto) 0.5 Absolute Neuts (auto) 2.7 Absolute Lymphs (auto) 0.68 L Total Counted Not Reportable Differential Comment SCANNED Diff Path Review May foll Platelet Estimate MKD DEC Hypochromasia 2+ Target Cells 2+ Sodium 143 Potassium 4.5 Chloride 115 H Carbon Dioxide 19.0 L Anion Gap 9 BUN 71 H Creatinine 2.47 H Estim Creat Clear Calc 15.09 Est GFR (MDRD) Af Amer 24 L Est GFR (MDRD) Non-Af 20 L BUN/Creatinine Ratio 28.7 H Glucose 65 L Calcium 10.1 Discharge Diet: Low fat/ Low Cholesterol Weight Bearing Status: Weight bearing as tolerated Home Medications: Medications to take at Discharge Cholecalciferol (Vitamin D3) [Vitamin D3] 2,000 unit PO DAILY 07/19/18 Docusate Sodium [Colace] 50 mg PO DAILY PRN 07/19/18 Omeprazole 20 mg PO DAILY 07/19/18 Apixaban [Eliquis] 2.5 mg PO BID #60 tab 07/23/18 Ferrous Gluconate 324 mg PO DAILY #30 tab 07/23/18 Metoprolol Succinate 25 mg PO DAILY #30 tab.er.24h 08/03/18 spironolactone 25 mg tablet 25 mg PO DAILY 08/20/18 Methimazole 10 mg PO TID #90 tablet 09/24/18 Mirtazapine 15 mg PO QHS 10/28/18 Atorvastatin Calcium 20 mg PO DAILY 10/29/18 Metolazone [Zaroxolyn] 2.5 mg PO DAILY #30 tab 11/01/18 Acetaminophen [Tylenol] 650 mg PO Q4H PRN PRN 11/08/18 Ascorbic Acid [Vitamin C] 500 mg PO DAILY@0800 11/08/18 Magnesium Hydroxide [Milk Of Magnesia] 30 ml PO DAILY PRN PRN 11/08/18 Multivit,Stress Formula/Zinc [Stress Formula with Zinc Tab] 1 each PO DAILY 11/08/18 Ondansetron HCl [Zofran] 4 mg PO Q8H PRN PRN 11/08/18 Primary Care Physician: Hermann Nath DO [Primary Care Provider] - Disposition: Hospice Medical Facility Minutes spent on discharge:: 45 Patient Condition:: Poor Medical Necessity - Tobacco Use Smoking Status: Never smoker Meaningful Use Info Meaningful Use Diagnoses (Choose all that apply): None applicable Code Visit Inpatient E&M: 24586 Disch Hosp
--- NOTE | 2018-11-09 13:54 | CASEMGMT ---
Social Work Note Pt is discharging to inpatient hospice today. SW updated Lynn at [facility] that pt is discharging to inpatient hospice today. Mecca Kaplan AQUATIC DIRECTOR, [employer] WORKER
[2018-11-10 12:02] LABS: Pathologist Review Reviewed
== END 2018-11-09 12:03 | disposition hospice, inpatient (51) | DRG 640 ==
LOC: ED 10:07 → MS3 10:45
PROVIDERS: Admitting Provider Student in an Organized Health Care Education/Training Program; Emergency Provider Emergency Medicine; Family Provider Family Medicine; PCP Family Medicine; Visit Provider Student in an Organized Health Care Education/Training Program
DX: E86.0 Dehydration (principal); G93.41 Metabolic encephalopathy; I21.4 Non-ST elevation (NSTEMI) myocardial infarction; I13.0 Hypertensive heart and chronic kidney disease with heart failure and stage 1 through stage 4 chronic kidney disease, or unspecified chronic kidney disease; N18.4 Chronic kidney disease, stage 4 (severe); N39.0 Urinary tract infection, site not specified; N17.9 Acute kidney failure, unspecified; K92.2 Gastrointestinal hemorrhage, unspecified; I42.9 Cardiomyopathy, unspecified; Z51.5 Encounter for palliative care; Z66 Do not resuscitate; D69.6 Thrombocytopenia, unspecified; D50.9 Iron deficiency anemia, unspecified; E78.5 Hyperlipidemia, unspecified; I48.0 Paroxysmal atrial fibrillation; I27.20 Pulmonary hypertension, unspecified; E05.90 Thyrotoxicosis, unspecified without thyrotoxic crisis or storm; I08.0 Rheumatic disorders of both mitral and aortic valves; E03.9 Hypothyroidism, unspecified; Z79.01 Long term (current) use of anticoagulants; Z95.3 Presence of xenogenic heart valve
CPT/HCPCS: 36415; 71045; 80048; 80053; 81001; 84484; 85025; 93005; 97802; 99285; J7030; A4216